=== PATIENT | female | born 1970 | race Caucasian/White ===

== ENCOUNTER 2022-04-10 14:06 | Outpatient (CLI) | payer OTHER, SELFPAY ==
--- OUTSIDE RECORDS SUMMARY | 2022-04-10 14:14 | XMS_ITS | Encounter Summary ---
:1970 Author Organization [facility] Address [address], [place] [address] Care Team Providers Name Role Phone Non Pn, Clinician MD Primary Care Provider Unavailable Reason for Referral Procedure/Equipment (Routine) - Incomplete Specialty Diagnoses / Procedures Referred By Contact Refer red To Contact Diagnoses Left foot pain Ney Hernandez DPM Procedures XR Foot Lt 3+ Views [id number] [place] [address] Referral ID Status Reason Start Date Expiration Date Visits V isits Requested Authorized [id number] Incomplete 01/24/2019 04/24/2020 1 1 Reason for Visit Reason Comments Toe Pain new problem, 2nd toe left fo ot pain at hammertoe site with intermittent edema and pain with nail steffanie ng thick Encounter Details Date Type Department Care Team Description 01/24/2019 Initial Consult [facility] Ney Hernandez Left foot pain (Primary Dx); MedSurg DPM Hammertoe of second toe of left foot; [address] [address] [facility] Onychomycosis; [place] [address] [place], [place] Bunion, left [phone] Social History Tobacco Use Types Packs/Day Years Used Date Smoking Tobacco: Never Smokeless Tobacco: Never Sex Assigned at Date Recorded Not on file documented as of this encounter Progress Notes Ney Hernandez, CHRISTINAM - 01/24/2019 10:45 AM CDT DATE OF VISIT: 01/24/2019 SUBJECTIVE: Polly Case is a pleasant 48 y.o. female who presents to clinic today for evaluation of a new problem. She is having some discomfort over the nail plate on the 2nd toe of her left foot. She also has some discomfort and pressure on the 2nd toe. This has been like this for approximately 1-2 months. She believes that the 2nd toe may have some swelling at times. Chart review indicates her last visit with me was in January 2015 this was for right heel pain. She was given a diagnosis of plantar fasciitis. This is no longer an issue.. Adverse Drug Reactions: Allergies Allergen Reactions ??? Iodides ??? Iodine PN: ANAPHYLAXIS ??? Other PN: - control pills-hives ??? Penicillins PN: HIVES Outpatient Medications Prior to Visit Medication Sig ??? ALBUTEROL IN Inhale 1-2 puffs every 4 hours as needed. LW Comment:WITH SPACER ??? LORazepam (ATIVAN) 0.5 MG tablet Take 0.5 mg by mouth every 6 hours as needed for Anxiety. ??? PAXIL 10MG ORAL TABS 1 po qd ??? Probiotic Product (PROBIOTIC OR) Take 1 capsule by mouth daily (every 24 hours). ??? ranitidine (ZANTAC) 150 MG tablet Take 150 mg by mouth nightly. No facility-administered medications prior to visit. Review of Systems: Negative for fever, rash or shortness of breath. Past Medical History: No past medical history on file. Patient Active Problem List Diagnosis Date Noted ??? Anxiety state (HRC) 07/26/2007 Overview Note: Anxiety NOS ??? Allergic rhinitis 07/26/2007 Overview Note: Rhinitis Allergic NOS ??? Anemia 07/26/2007 Overview Note: Anemia NOS ??? Amblyopia 08/05/2006 Overview Note: Amblyopia NOS No past surgical history on file. 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 year old female who appears their stated age. Alert and oriented and in no acute distress. Walks without a limp and appears to be in general good health. DP and PT pulses are palpable. Hair growth is present on the digits and capillary filling time is less than two seconds. Sensation is intact. There is no weakness with muscle testing of the foot, ankle or lower leg. No pain or restriction with subtalar joint or ankle joint range of motion. In stance loss of longitudinal arch is evident. There are no paresthesias over the tarsal tunnel or with compression of the dorsal nerves. She does have a lateral deviation of the left great toe with a firm subcutaneous mass adjacent the 1st MPJ consistent with the metatarsal head. She does not have any pain at the bunion deformity. When the patient stands, she does have a medial drift of the 2nd toe and it is slightly overlapping the great toe. There is no hyperkeratotic lesion dorsally at the PIPJ of the left 2nd toe. She does have slight pain at the 2nd MTP. The nail plate is thickened and dystrophic on the 2nd toe of her right foot. X-rays obtained today: 01/24/2019 12:08 PM - Leonard, Rad Results In Impression Performed by: [facility] COMPARISON: ??None. FINDINGS: ??There is a prominent bunion deformity with degenerative change of first MTP joint. Normal mineralization. Joint space is unremarkable. No acute ASSESSMENT: ICD-10-CM 1. Left foot pain M79.672 XR Foot Lt 3+ Views 2. Hammertoe of second toe of left foot M20.42 3. Onychomycosis B35.1 4. Bunion, left M21.612 PLAN: Treatment options were discussed with the patient. I discussed the condition in great detail. X-rays were obtained and reviewed with the patient. I discussed with the patient that she does have ahammertoe deformity and most likely this is causing pressure on the nail plate. I discussed the frustrating treatment options available and did discuss the use of Vicks Vaporub. She does understand that she will need to use this for at least 1 year. Regarding the 2nd toe, she may be getting some back pressure at the MPJ and I did recommend a temporary blue insert. I also gave her 2 options for the toe itself. She can use a hammertoe stabilizing pad or a silicone sleeve. The hammertoe stabilizing pad may hold the toe in position causing less back pressure on the MPJ. The silicone sleeve would be more for just pressure on the top of the toe. I discussed with the patient that if this is unsuccessful that the surgical option would be the next step. She does verbalize understanding. The patient was discharged ambulatory and in stable condition. Orders Placed This Encounter Procedures ??? XR Foot Lt 3+ Views No orders of the defined types were placed in this encounter. (This note was created using voice recognition software and may contain some relay operator errors) documented in this encounter Plan of Treatment Not on filedocumented as of this encounter Results XR Foot Lt 3+ Views (01/24/2019 11:16 AM CDT) Anatomical Region Laterality Modality Lower Extremity, Foot Digital Radiograph y Specimen (Source) Anatomical Collection Method Collection Time Re ceived Time Location / / Volume Laterality 01/24/2019 11:12 AM CDT Impressions 01/24/2019 12:06 PM CDT COMPARISON: ??None. FINDINGS: ??There is a prominent bunion deformity with degenerative change of first MTP joint. Normal mineralization. Joint space is unremarkable. No acute Procedure Note Serjio Aviles MD - 01/24/2019For matting of this note might be different from the original. IMPRESSION COMPARISON: None. FINDINGS: There is a prominent bunion de formity with degenerative change of first MTP joint. Normal mineralization. Joint space is unremarkable. No acute Ney Hernandez DPM RAD GD documented in this encounter Visit Diagnoses Diagnosis Left foot pain - Primary Pain in limb Hammertoe of second toe of left foot Onychomycosis Dermatophytosis of nail Bunion, left Left foot pain Pain in limb documented in this encounter Care Teams Lining Closer Relationship Specialty Start Date End Date Non Pn, Clinician, PCP - General 11/03/13 [place] [address] documented as of this encounter
--- OUTSIDE RECORDS SUMMARY | 2022-04-10 14:14 | XMS_ITS | Encounter Summary ---
:1970 Author Organization [employer] Address [address] [address] Care Team Providers Name Role Phone Non Pn, Clinician MD Primary Care Provider Unavailable Reason for Visit Reason Onset Date Comments BACK PAIN, LOW 10/13/2018 Encounter Details Date Type Department Care Team Description 10/13/2018 Office Visit [facility], Dami Agrawal MD [address] [place] [address] Mechanical low back pain; [facility] García Queen MD Muscular deconditioning [place] [address] [facility], [address] [place] [address] Social History Tobacco Use Types Packs/Day Years Used Date Smoking Tobacco: Never Sex Assigned at Date Recorded Not on file documented as of this encounter Progress Notes García Queen MD - 10/13/2018 1:30 PM CDT History 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 Her most recent episode of backpain began gradually in September 2017. She underwent physical therapy for about 2 months which was not much help. She does not have any radiation going down her legs. She states that she walks for exercise. Imaging She underwent an MRI of the lumbar spine on August 27, 2018.This showed L4-5 disc degeneration with type I endplate changes. There was no neural impingement. There was L5-S1 disc herniation with unilateral left chronic spondylosis and no neural compromise. There was mild to moderate disc degeneration at other levels without neural impingement. See the full report for additional details. Exam Blood pressure= 124/74. =Pulse 84 and regular. Respirations 12 and unlabored. Skin:Normal texture and turgor HEENT: Normocephalic and atraumatic.Pupils equal. round and reactive to light. Neck: No abnormal nodes. Abdomen soft, flat and nontender. Neurological: Cranial nerves II through XII intact. Deep tendon reflexes 2+ and symmetrical in the upper and lower extremities. Sensation normal in the upper and lower extremities. She is able walk on heels and toes. Straight leg raisin in the supine position. She can walk on heels and toes. Lumbar exam: Range of motion measured using a bubble inclinometer. No lumbar tenderness. True lumbar flexion equals 70. True lumbar extension 25. Right and left lateral lumbar flexion 25 each. Assessment Mechanical low back pain Muscular deconditioning Plan Stretch twice a day MedX twice a week Recheck in 6 weeks. García Queen MD 10/13/2018 2:03 PM Voice recognition software was used to create this note, please excuse any small errors that occur while using this. documented in this encounter Plan of Treatment Not on filedocumented as of this encounter Visit Diagnoses Diagnosis Mechanical low back pain Lumbago Muscular deconditioning Muscular wasting and disuse atrophy, not elsewhere classified documented in this encounter Care Teams Cyber Security Systems Engineer Relationship Specialty Start Date End Date Non Pn, Clinician, PCP - General 11/03/13 [place] [address] documented as of this encounter
--- OUTSIDE RECORDS SUMMARY | 2022-04-10 14:14 | XMS_ITS | Encounter Summary ---
:1970 Author Organization [facility] Address [address], [place] [address] Care Team Providers Name Role Phone Non Pn, Clinician MD Primary Care Provider Unavailable Reason for Visit Procedure/Equipment (Routine) - Incomplete Specialty Diagnoses / Procedures Referred By Contact Refer red To Contact Diagnoses Left foot pain Ney Hernandez, [facility] Procedures XR Foot Lt 3+ Views [address] [place] [address] Referral ID Status Reason Start Date Expiration Date Visits V isits Requested Authorized [id number] Incomplete 01/24/2019 04/24/2020 1 1 Encounter Details Date Type Department Care Team Description 01/24/2019 Ancillary Procedure [facility] Ney Hernandez, Left foot pain [address] [place] [address] [address] [phone] [place], [place] [id number] Social History Tobacco Use Types Packs/Day Years Used Date Smoking Tobacco: Never Smokeless Tobacco: Never Sex Assigned at Date Recorded Not on file documented as of this encounter Plan of Treatment Not on filedocumented as of this encounter Procedures Procedure Name Priority Date/Time Associated Diagnosis Comme nts XR FOOT LT 3+ VIEWS Routine 01/24/2019 11:16 AM Left foot pain Results for this CDT procedure are i n the results section. documented in this encounter Results XR Foot Lt 3+ [...] Joint space is unremarkable. No acute Ney VASQUEZM RAD GD documented in this encounter Visit Diagnoses Diagnosis Left foot pain Pain in limb documented in this encounter Care Teams Agent Spa Desk Relationship Specialty Start Date End Date Non Pn, Clinician, PCP - General 11/03/13 [place] [address] documented as of this encounter
--- OUTSIDE RECORDS SUMMARY | 2022-04-10 14:14 | XMS_ITS | Clinical Summary ---
:1970 Author Organization [facility] Address [address] [facility] [place] [address] Care Team Providers Name Role Phone Non Pn, Clinician MD Primary Care Provider Unavailable Source Comments You are receiving this document as you are listed as the primary care provider,follow-up provider, or the patient has been referred to you for consultation.This is in compliance with the Medicare and Medicaid EHR Incentive Program,which states Providers who transition their patient to another setting of careor provider of care or refers their patient to another provider of care shouldprovide summarycare record for each transition of care or referral. [employer] Allergies Active Allergy Reactions Severity Noted Date Comments Iodides 05/27/1999 Iodine 06/07/2003 PN: ANAPHYLAXIS Other 04/04/2005 PN: - cont rol pills-hives Penicillins 06/07/2003 PN: HIVES Medications Medication Sig Dispensed Refills Start Date End Date Status PAXIL 10MG ORAL TABS 1 po qd 30 1 12/23/2002 Active ALBUTEROL IN Inhale 1-2 puffs 3 08/24/2008 Active every 4 hours as needed. LW Comment:WITH SPACER LORazepam (ATIVAN) 0.5 Take 0.5 mg by 0 07/07/2013 Active MG tablet mouth every 6 hours as needed for Anxiety. Probiotic Product Take 1 capsule by 0 12/20/2015 Active (PROBIOTIC OR) mouth daily (every 24 hours). ranitidine (ZANTAC) Take 150 mg by 0 12/20/2015 Active 150 MG tablet mouth nightly. Active Problems Problem Noted Date Anxiety state 07/26/2007 Overview: Anxiety NOS Allergic rhinitis 07/26/2007 Overview: Rhinitis Allergic NOS Anemia 07/26/2007 Overview: Anemia NOS Amblyopia 08/05/2006 Overview: Amblyopia NOS Immunizations Name Administration Dates Next Due Flu Vac Preserv Free (3+yrs) 02/14/2008, 03/09/2007, 004, 05/09/2003 HepB Adult (Engerix-B, 20+ yrs, 3 08/24/2003, 03/24/2003, dose series) Rho(D) - IG, IM 03/01/2004, 08/07/1997, 05/08/1997 Td 05/10/2001, 10/31/1999 Varicella 12/25/1998 (Deferred: Immune by Disease) Social History Tobacco Use Types Packs/Day Years Used Date Smoking Tobacco: Never Smokeless Tobacco: Never Sex Assigned at Date Recorded Not on file Last Filed Vital Signs Vital Sign Reading Time Taken Comments Blood Pressure 141/71 07/07/2013 8:20 AM MODEL MAKER APPRENTICE Pulse 119 07/07/2013 8:20 AM MODEL MAKER APPRENTICE Temperature 37.4 ??C (99.3 ??F) 07/25/2008 8:04 AM C: 37.4 C CDT Respiratory Rate 14 07/07/2013 8:20 AM MODEL MAKER APPRENTICE Oxygen Saturation 100% 01/06/2008 6:26 PM CDT Inhaled Oxygen Concentration - - Weight 60.8 kg (133 lb 15.9 oz) 02/14/2008 4:09 PM C: 6 0.8kg CDT Height 170.2 cm (5' 7) 07/26/2007 3:40 PM C: 170.2cm CDT Body Mass Index 20.99 07/26/2007 3:40 PM CDT Plan of Treatment Health Maintenance Due Date Last Done Comments Colon Cancer Screening Plan 1970 Due Hep C Screening (Preventive 1970 Services) COVID-19 Vaccine (#1) 01[birth year]10/1971 HIV Screening (Preventive 1984 Services) Adult Preventive Visit 06/23/2002 06/23/2001 Cervical Cancer Screening 02/19/2011 02/18/2011, 09/06/2007 , Due 08/07/2006, Additional history exists Cholesterol 2013 07/26/2006, 08/30/2003, 11/17/2001 Mammogram 06/21/2014 06/21/2013, 02/11/2011, 06/28/2009, Additional history exists Influenza (#1) 2022 02/10/2020, 01/27/2019, 02/16/2018, Additional history exists DTaP/Tdap/Td (2 - Tdap) 02/08/2024 02/07/2014, 05/10/2001, 10/31/1999 HepB Completed 08/24/2003, 03/24/2003, 02/03/2003 Zoster/Shingles Completed 09/27/2019, 05/24/2019 HepA Aged Out No longer eligib le based on patient 's age to complete this topic Hib Aged Out No longer eligib le based on patient 's age to complete this topic IPV (Polio) Aged Out No longer eligib le based on patient 's age to complete this topic MCV4 Aged Out No longer eligib le based on patient 's age to complete this topic Pneumococcal Aged Out No longer eligib le based on patient 's age to complete this topic Insurance Payer Benefit Plan Subscriber ID Effective Phone Address Typ e / Group Dates [facility] SELF [id number] Effective for Commercial DENTAL PLAN INSURED all dates [employer] SELF [id number] 2012-Prese Commercial INSURED nt Polly Case Personal/Family Self 1970 [phone] [place] [place] (Work) [id number] Polly Case Personal/Family Self 1970 [id number]) [phone] [place] [place] (Work) [id number] Polly Case Personal/Family Self 1970 [id number] [address] Polly Case Personal/Family Self 1970 [id number] ([place] [address] Care Teams Production Sound Mixer Relationship Specialty Start Date End Date Non Pn, Clinician, PCP - General 11/03/13 [place] [address]
--- OUTSIDE RECORDS SUMMARY | 2022-04-10 14:14 | XMS_ITS | Encounter Summary ---
:1970 Author Organization [facility] Address [address] [place] [address] Care Team Providers Name Role Phone Non Pn, Clinician MD Primary Care Provider Unavailable Reason for Visit Reason Comments Dental Conversion [facility] to [place] convers ion Encounter Details Date Type Department Care Team Description 10/16/2016 Dental Conversion [facility] [address] [facility] [address] [place] [address] [address] [place], [place] [phone] [address] Social History Tobacco Use Types Packs/Day Years Used Date Smoking Tobacco: Never Sex Assigned at Date Recorded Not on file documented as of this encounter Discharge Summaries Interface, In Edr Dental Conversion - 01/31/2017 12:00 AM CDT EDR Pt Notes: 01/23/11 snc--pt is sick 04/23/2011 sn cx child is ill 02/12/2012 sn cx pt is ill Interface, In Edr Dental Conversion - 08/20/2009 12:00 AM CDT EDR dismissed Popup Note, entered 08/20/2009: consent form Interface, In Edr Dental Conversion - 06/18/2006 12:00 AM CST The following Past and Current Health Conditions, if any, were recorded in EDR as YES; notes included: Amount alcohol used per week2(Compare with Amount alcohol used per week1 amount, if presented; Use greater amount): 0. The following Dental Information, if any, was recorded in EDR: Previous dentist: Jeremy Wray. Last dental visit: 06-11-05. Brushes teeth daily. Uses Fluoridated toothpaste. Primary water source: [place], Fil[place]. The following Past Dental Treatment, if any, was recorded in EDR: Had >= 1 filling(s) in past three years. The following, if any, are the patient?s Allergy Information: Allergy Medication(s): Penicillin,Iodine. The patient current physician, medical clinic and medications, if any, are: The patient's physician: Any. The patient's medical clinic: [facility]. Current Medication 1: Nasocort. Current Medication 2: Chata. Health History Note EMS SUPPORT OFFICER documented in this encounter Miscellaneous Notes Miscellaneous - Interface, In Edr Dental Conversion - 01/23/2011 12:00 AM CDT 01/23/2011: SNC/NS Notification: pt has a cold --knows this is a short notice cancel Miscellaneous - Interface, In Edr Dental Conversion - 09/19/2008 12:00 AM CDT 09/19/2008: Incoming Phone Call: see emdv notes documented in this encounter Plan of Treatment Not on filedocumented as of this encounter Visit Diagnoses Not on filedocumented in this encounter Care Teams Boring Machine Operator Vertical Relationship Specialty Start Date End Date Non Pn, Clinician, PCP - General 11/03/13 [place] [address] documented as of this encounter
--- OUTSIDE RECORDS SUMMARY | 2022-04-10 14:15 | XMS_ITS | Encounter Summary ---
:1970 Author Organization [facility] Address [address] [place] [address] Care Team Providers Name Role Phone Non Pn, Clinician MD Primary Care Provider Unavailable Reason for Visit Reason Comments Other Encounter Details Date Type Department Care Team Description 04/10/2014 Telephone [facility] [address] Christiane Phelps MD Other [address] [place] [address] [place] [address] [phone] (Wo rk) Social History Tobacco Use Types Packs/Day Years Used Date Smoking Tobacco: Never Assessed Sex Assigned at Date Recorded Not on file documented as of this encounter Nursing Notes Gerber Cordova LPN - 04/11/2014 1:48 PM CST Pt informed. ROCK DRILL OPERATOR Nkikie Sawyer RN - 04/11/2014 9:02 AM CST Prescription sent to [facility] in [place]. Christiane Batres MD - 04/10/2014 8:17 PM CST See above. Cipro 500 mg BID for 7 days if she develops symptoms. Thanks Gerber Cordova LPN - 04/10/2014 3:09 PM CST Pt on low dose Nitrofurantoin 50 mg and has been doing well. Pt is leaving town for 2 weeks over theidays and asks to have something called in just in case she has an issue while away. Any rx canbe called to [facility] in [place]. Okay for cb @ [phone]. ROCK DRILL OPERATOR documented in this encounter Plan of Treatment Not on filedocumented as of this encounter Visit Diagnoses Not on filedocumented in this encounter Care Teams Director Targeted Marketing Relationship Specialty Start Date End Date Non Pn, Clinician, PCP - General 11/03/13 [place] [address] documented as of this encounter
--- OUTSIDE RECORDS SUMMARY | 2022-04-10 14:15 | XMS_ITS | Encounter Summary ---
:1970 Author [facility] Address [address] [place] [address] Care Team Providers Name Role Phone Carlos Lisa Andrade APRN, CNP Primary Care Provider [phone] Encounter Details Date Type Department Care Team Description 07/26/2008 [facility] Only CONVERSION CONVERSION Domenica Millan PA-C [address] [place], [place] [address] (Wo rk) Social History Tobacco Use Types Packs/Day Years Used Date Smoking Tobacco: Never Assessed Sex Assigned at Date Recorded Not on file documented as of this encounter Progress Notes Domenica Millan PA-C - 07/26/2008 12:01 AM CDT Progress Notes signed by Domenica Millan PA-C at 07/26/08 [id number] Author: Domenica Millan PA-C Service: (none) Author Type: Physician Payroll Clerk Filed: 08/31/10 [id number] Note Time: 07/26/08 0001 Status: Signed Farmworker Grain: Domenica Millan PA-C (Resource) Pt calling concerned about wheezing. Started Macrobid yesterday for UTI. No wheezing now. Wondering if related to macrobid vs asthma. Does not want to take albuterol due to how it makes her feel. See phone note from today. facial itchiness intermittently, no hives/ rash. given concern for possible reaction to med, would recommend evaluation tonight. Pt states she will take another dose and if she has further wheezing she will come in to be evaluated. All questions answered. documented in this encounter Plan of Treatment Not on filedocumented as of this encounter Visit Diagnoses Not on filedocumented in this encounter Care Teams Social Sciences Department Chair Relationship Specialty Start Date End Date Lisa Gonzalez APRN, FRONT OFFICE SECRETARY PCP - General 05/03/1998 11/02/13 [address] [place] [address] documented as of this encounter
--- OUTSIDE RECORDS SUMMARY | 2022-04-10 14:15 | XMS_ITS | Encounter Summary ---
:1970 Author Organization [facility] Address [address] [address] Care Team Providers Name Role Phone Lisa Gonzalez APRN, CNP Primary Care Provider [phone] Reason for Visit Reason Comments Other Encounter Details Date Type Department Care Team Description 07/26/2008 Telephone [facility], Message Other [address] [place] [address] Social History Tobacco Use Types Packs/Day Years Used Date Smoking Tobacco: Never Assessed Sex Assigned at Date Recorded Not on file documented as of this encounter Progress Notes Nicole Faith - 07/26/2008 1:52 PM CDT Phone Note filed by Nicole Faith RN at 08/29/102203 Author: Nicole Faith RN Service: (none) Author Type: (none) Filed: 08/29/102203 Note Time: 07/26/08 1352 Status: Signed Service Parts Driver: Nicole Faith RN (Registered Nurse) Pt calling because she was started on macrobid yesterday and today is having a slight bit of wheezing. She states that she has had issues with asthma and wheezing in the past but has not had any sx in a couple of months. She is wondering if this is a rxn to the med. I spoke with Mickie Millan and she suggested that she try her meds for asthma and that it is okay to stay on the macrobid for now as long as she has no further or worsening sx. It could be a coincidence which I told the pt and i also told her to watch for any rash, lip or throat swelling, sob or further wheezing and if any of these did occur, to call 911 and/or be reseen immediately. Pt agreed with the plan. Created on 26Jul2008 1:52pm by NICOLE FAITH On 26Jul2008 3:10pm SLIME ARAMBULA wrote: pt is calling to state she thinks she is having a reaction to meds started yesterday and would like to change meds, she states almost 4 yrs ago she had a bladder infection and took a med that worked for her. She is having slight wheezing and itchy around her face, she has more phlegm in her throat. [facility] pharm in [place] is her pharm, ph# [phone], ok a leave a mess., please call her today. On 26Jul2008 3:27pm KADI HOWARD wrote: Called pt. back. She is feeling the same, no better, slight wheeze still at times. No swelling. Face a little itchy. She had her 3rd dose of Macrobid this morning. She would prefer to change antibiotics. Has not tried the albuterol inhaler, she feels sick when she takes that. Has benadryl on hand, has not taken any. Advised to go to UC or ER if worsens. Pharmacy: [facility] in seq[phone]. PLATER documented in this encounter Plan of Treatment Not on filedocumented as of this encounter Visit Diagnoses Not on filedocumented in this encounter Care Teams Welder Boilermaker Relationship Specialty Start Date End Date Lisa Gonzalez, PHYSICAL CHEMISTRY PROFESSOR, FLIGHT CREW ORDNANCEMAN PCP - General 05/03/1998 11/02/13 [address] [place] [address] documented as of this encounter
--- OUTSIDE RECORDS SUMMARY | 2022-04-10 14:15 | XMS_ITS | Encounter Summary ---
:[address] [email or web address] Address [address] [place] [address] Care Team Providers Name Role Phone Gonzalez Lisa Raymond MARIN CNP Primary Care Provider [phone] Encounter Details Date Type Department Care Team Description 07/25/2008 Office Visit [facility] [place] [address] [place], [place] [address] [place] [phone] (Wo rk) Social History Tobacco Use Types Packs/Day Years Used Date Smoking Tobacco: Never Assessed Sex Assigned at Date Recorded Not on file documented as of this encounter Last Filed Vital Signs Vital Sign Reading Time Taken Comments Blood Pressure 103/65 07/25/2008 8:04 AM CDT Pulse 130 07/25/2008 8:04 AM CDT Temperature 37.4 ??C (99.3 ??F) 07/25/2008 8:04 AM CDT C: 37 .4 C Respiratory Rate 16 07/25/2008 8:04 AM CDT Oxygen Saturation - - Inhaled Oxygen Concentration - - Weight - - Height - - Body Mass Index - - documented in this encounter Progress Notes Emilia Fischer MD - 07/25/2008 12:01 AM CDT Progress Notes signed by Emilia Fischer MD at 07/26/08 1230 Author: Emilia Fischer MD Service: (none) Author Type: Physician Filed: 08/31/10 1331 Note Time: 07/25/08 0001 Status: Signed Health Promotion Coordinator: Emilia Fischer MD (Physician) NAME: POLLY CASE MR#: [id number] ACCT: [id number] VISIT: [id number] DICTATING CLINICIAN: Emilia Fischer MD CONFIRM #: [id number] LOC: 520 CLINIC PROGRESS NOTE DATE OF VISIT: 07/25/2008 SUBJECTIVE: DATE OF : 1970 A 38-year-old here with urinary frequency and urgency and very little dysuria that started last night. She has had maybe one or two infections in the past with . Symptoms came fairly quickly. No significant fever or chills. No back ache and no vaginal symptoms. OBJECTIVE: Temperature 99.4, pulse 130, respiratory rate 16, blood pressure 103/65. No CVA tenderness. Urinalysis was quite positive and we have a culture pending. ASSESSMENT: UTI. PLAN: MACROBID 100 mg twice a day for 7 days and PyRIDIUM 100 mg, fifteen for the discomfort. Push fluids. [id number] C: 07/26/08 10:27 CONFIRM #: [id number] documented in this encounter Plan of Treatment Not on filedocumented as of this encounter Visit Diagnoses Not on filedocumented in this encounter Care Teams Reducing Salon Attendant Relationship Specialty Start Date End Date Lisa Gonzalez APRN, AIR TRAFFIC SYSTEMS TECHNICIAN PCP - General 05/03/1998 11/02/13 [address] [place] [address] documented as of this encounter
--- OUTSIDE RECORDS SUMMARY | 2022-04-10 14:15 | XMS_ITS | Encounter Summary ---
:1970 [address] [facility] Address [address] [place] [address] Care Team Providers Name Role Phone Non Pn, Clinician Primary Care Provider Unavailable Encounter Details Date Type Department Care Team Description 02/18/2011 Orders Only HP Claims MD Doris Security Contact Bill [address] [place] [address] Mailstop [id number] [phone] (Wo rk) Social History Tobacco Use Types Packs/Day Years Used Date Smoking Tobacco: Never Assessed Sex Assigned at Date Recorded Not on file documented as of this encounter Plan of Treatment Not on filedocumented as of this encounter Visit Diagnoses Not on filedocumented in this encounter Care Teams Director Of Research And Development Relationship Specialty Start Date End Date Non Pn, ClinicianMD PCP - General 11/03/13 [place] [address] documented as of this encounter
--- OUTSIDE RECORDS SUMMARY | 2022-04-10 14:15 | XMS_ITS | Encounter Summary ---
:1970 Author Organization [facility] Address [address] [place] [address] Care Team Providers Name Role Phone Non Pn, Clinician Primary Care Provider Unavailable Encounter Details Date Type Department Care Team Description 06/21/2013 Orders Only HP Claims MD Doris Security Contact Bill [address] [place] [address] Mailstop [id number] [phone] (Wo rk) Social History Tobacco Use Types Packs/Day Years Used Date Smoking Tobacco: Never Assessed Sex Assigned at Date Recorded Not on file documented as of this encounter Plan of Treatment Not on filedocumented as of this encounter Visit Diagnoses Not on filedocumented in this encounter Care Teams Outside Operator Relationship Specialty Start Date End Date Non Pn, ClinicianMD PCP - General 11/03/13 [place] [address] documented as of this encounter
--- OUTSIDE RECORDS SUMMARY | 2022-04-10 14:15 | XMS_ITS | Encounter Summary ---
:1970 Author Organization [facility] Address [address], [place] [address] Care Team Providers Name Role Phone Non Pn, Clinician Primary Care Provider Unavailable Reason for Visit Reason Comments LAB RESULTS Encounter Details Date Type Department Care Team Description 12/11/2013 Telephone [facility] Non Pn, ClinicianMD LAB RESULTS [address] [place] [address] Social History Tobacco Use Types Packs/Day Years Used Date Smoking Tobacco: Never Assessed Sex Assigned at Date Recorded Not on file documented as of this encounter Nursing Notes Paula Delarosa - 12/11/2013 11:32 AM CDT Pt calling for results of urine tests done 12/08. Advised that the culture showed some growth of bacteria but the result has not yet been interpreted by her doctor. Since the lab was ordered byher urologist, the call is warm transferred to [facility] with patient permission. documented in this encounter Plan of Treatment Not on filedocumented as of this encounter Visit Diagnoses Not on filedocumented in this encounter Care Teams Remote Operations Producer Relationship Specialty Start Date End Date Non Pn, ClinicianMD PCP - General 11/03/13 [place] [address] documented as of this encounter
--- OUTSIDE RECORDS SUMMARY | 2022-04-10 14:15 | XMS_ITS | Encounter Summary ---
:1970 Author Organization [facility] Address [address], [place] [address] Care Team Providers Name Role Phone Non Pn, Clinician MD Primary Care Provider Unavailable Reason for Visit Reason Comments Questions Encounter Details Date Type Department Care Team Description 03/21/2015 Telephone [facility] [address] Christiane Phelps MD Questions [address] [place] [address] [place] [address] [phone] (Wo rk) Social History Tobacco Use Types Packs/Day Years Used Date Smoking Tobacco: Never Assessed Sex Assigned at Date Recorded Not on file documented as of this encounter Nursing Notes Ania Elaine LPN - 03/22/2015 10:05 AM CST I spoke with Polly and gave her Dr. Batres's suggestion. She is going to remain on the Cipro until she hears about her culture. Isa Ayala RN - 03/21/2015 10:02 AM CST Polly is calling, she thinks she might have a uti vs menstrual symptoms. She will go to the lab and give the cleanest sample possible. Then she will start cipro. please follow culture. I offered for her to come up to [place] for a cathed uc, she stated she was unable to do that and could not wait until tomorrow to do it in [place]. ER documented in this encounter Plan of Treatment Not on filedocumented as of this encounter Visit Diagnoses Diagnosis Recurrent UTI - Primary Urinary tract infection, site not specif ied documented in this encounter Care Teams Editor Publications Relationship Specialty Start Date End Date Non Pn, Clinician, PCP - General 11/03/13 [place] [address] documented as of this encounter
--- OUTSIDE RECORDS SUMMARY | 2022-04-10 14:15 | XMS_ITS | Encounter Summary ---
:1970 Author Organization [facility] Address [address] [place] [address] Care Team Providers Name Role Phone Lisa Gonzalez APRN, AMANDA Primary Care Provider [phone] Encounter Details Date Type Department Care Team Description 01/16/2011 Notes/Orders Jorge Schmitt Other scre ening Mammography MD [facility]ogram [address] [place] [address] [place], [place] [id number] Social History Tobacco Use Types Packs/Day Years Used Date Smoking Tobacco: Never Assessed Sex Assigned at Date Recorded Not on file documented as of this encounter Plan of Treatment Not on filedocumented as of this encounter Procedures Procedure Name Priority Date/Time Associated Diagnosis Comme nts MM MAMMOGRAM Routine 02/11/2011 10:22 AM Other screening Resul ts for this SCREENING BILAT W CDT mammogram procedure are in CAD the results section. documented in this encounter Results (ABNORMAL) MM Mammogram Screening Bilat W CAD (02/11/2011 10:22 AM CDT) Anatomical Region Laterality Modality Breast Bilateral Mammography Specimen (Source) Anatomical Location Collection Method / Collectio n Time Received Time / Laterality Volume Impressions 02/12/2011 1:41 PM CDT IMPRESSION: LEFT BREAST: Focal asymmetry at a middle depth. Spot compression and ultrasound are recommended at this time. RIGHT BREAST: Negative, no evidence of m alignancy. Normal interval follow-up is recommended in 12 months. SJW OVERALL ASSESSMENT - CATEGORY 0 - INCOMP LETE: NEED ADDITIONAL IMAGING EVALUATION END OF IMPRESSION Narrative 02/12/2011 1:41 PM CDT Comparison is made to films from 06/28/2009 (bilateral) and films from 12/01/2007 (bilateral). Left Breast Findings: The breast is heterogeneously dense (51% - 75% fibroglandular). This may lower the sensitivity of mammography . An area of focal asymmetry is present at a middle depth and is seen only in the Medial Lateral Oblique Left projection superiorly. Right Breast Findings: The breast is heterogeneously dense (51% - 75% fibroglandular). This may lower the sensitivity of mammography . No significant masses, calcifications or other abnormalities ar e seen. Procedure Note Jemal Chacon MD - 01/08/2016Formatti ng of this note might be different from the original. Comparison is made to films from 010 (bilateral) and films from 12/01/2007 (bilateral). Left Breast Findings: The breast is heterogeneously dense (51% - 75% fibroglandular). This may lower the sensitivity of mammography . An area of focal asymmetry is present at a middle depth and is seen only in the Medial Lateral Oblique Left projection superiorly. Right Breast Findings: The breast is heterogeneously dense (51% - 75% fibroglandular). This may lower the sensitivity of mammography . No significant masses, calcifications or other abnormalities ar e seen. IMPRESSION IMPRESSION: LEFT BREAST: Focal asymmetry at a middle depth. Spot compression and ultrasound are recommended at this time. RIGHT BREAST: Negative, no evidence of m alignancy. Normal interval follow-up is recommended in 12 months. SJW OVERALL ASSESSMENT - CATEGORY 0 - INCOMP LETE: NEED ADDITIONAL IMAGING EVALUATION END OF IMPRESSION Jorge Alvarado MD RAD MAY documented in this encounter Visit Diagnoses Diagnosis Other screening mammogram documented in this encounter Care Teams Home Stager Relationship Specialty Start Date End Date Lisa Gonzalez, ROOTER OPERATOR, VENEREAL DISEASE CONTROL HEAD PCP - General 05/03/1998 11/02/13 [address] [place] [address] documented as of this encounter
--- OUTSIDE RECORDS SUMMARY | 2022-04-10 14:15 | XMS_ITS | Encounter Summary ---
:1970 Author Organization [facility] Address [address] [place] [address] Care Team Providers Name Role Phone Lisa Gonzalez APRN, CNP Primary Care Provider [phone] Reason for Visit Reason Comments CONSULT Encounter Details Date Type Department Care Team Description 07/07/2013 Initial Consult [facility] Christiane [place]res, [place] [address] [facility] female (Primary Dx) [place] [address] [address] [facility] [phone] [place] [address] Social History Tobacco Use Types Packs/Day Years Used Date Smoking Tobacco: Never Assessed Sex Assigned at Date Recorded Not on file documented as of this encounter Last Filed Vital Signs Vital Sign Reading Time Taken Comments Blood Pressure 141/71 07/07/2013 8:20 AM PALEONTOLOGY TEACHER Pulse 119 07/07/2013 8:20 AM PALEONTOLOGY TEACHER Temperature - - Respiratory Rate 14 07/07/2013 8:20 AM PALEONTOLOGY TEACHER Oxygen Saturation - - Inhaled Oxygen Concentration - - Weight - - Height - - Body Mass Index - - documented in this encounter Progress Notes Christiane Batres MD - 07/07/2013 9:48 AM CST Urology Consult HPI: Polly Case is a 42 y.o. female with a history of pelvic pain, pressure. This is centeredin the vaginal and urethral area. This was moderate to severe. It started about one month ago and then for the last week it has dissipated. The patient feels normal now. The patient thinks that it may be related to her periods. She is starting has and for a number of months no period was coming thoroughly. Patient also is having some problems with the sensation of having to empty her bladder but not having anything there. She thought it was similar to a urinary tract infection. This was waking the patient up at night. The patient had some type of surgery when she was a child. From what the patient describes to me it sounds like her urethra was widen. However the patient's incision is in the suprapubic area. She had this performed when she was [age] years old. It was after she was getting a lot of febrile infections. She thinks that she wasn't emptying her bladder completely. Possible that she could have had a ureterocele as well. The patient does not get a lot of urinary tract infections. She does notice that ittakes her a little longer to empty her bladder then and takes other women. The patient had 4 vaginal births. The largest child was 10 lbs. 1 oz. She has minimal incontinence. Clinic UA: Completely negative Review of systems: No chest pain, no shortness of breath, the rest of the complete review of systemsis negative other than what is stated in the HPI. PMH: Patient Active Problem List Diagnosis ??? Amblyopia NOS ??? Anxiety NOS ??? Rhinitis Allergic NOS ??? Anemia NOS PSH: No past surgical history on file. 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 Current Outpatient Prescriptions Medication Sig Dispense Refill ??? albuterol (PROVENTIL, VENTOLIN) 90 mcg/Actuation inhaler Inhale 1-2 puffs every 4 hours as needed. LW Comment:WITH SPACER 3 ??? LORazepam (ATIVAN) 0.5 mg tablet Take 0.5 mg by mouth every 6 hours as needed for Anxiety. ??? multivitamin (THERAGRAN) tablet Take 1 tablet by mouth daily (every 24 hours). 100 13 ??? [DISCONTINUED] op medications reviewed No current facility-administered medications for this visit. Allergies Allergen Reactions ??? Iodine ANAPHYLAXIS ??? Other - control pills-hives ??? Penicillins HIVES VS: BP 141/71 Pulse 119 Resp 14 General: Comfortable, alert, awake, oriented Psych: Judgment and insight intact Oriented to time, place and person Resp: no wheezing, normal resp effort Abdomen: soft, nontender, nondistended, no masses No hepato/splenomegaly No obvious hernias Back: no CVA tenderness Skin: warm, dry and intact Gait: normal gait Extremities: no swelling External genitalia: Within normal limits Urethral meatus: normal Urethra: normal Vagina: no masses, non tender Assessment: Pelvic pressure and pain now subsided with a history of bladder surgery as a child Plan: I had a good discussion with Polly regarding her options. Given that she feels better for the last week and her urinalysis is completely negative, we decided to hold off on cystoscopy. I think if the symptoms come back or the urgency frequency becomes more pronounced, we should perform cystoscopy. Thepatient will call or e-mail me if her symptoms come back. Otherwise no treatment is necessary. Christiane Batres MD ONTOLOGY TEACHER documented in this encounter Plan of Treatment Not on filedocumented as of this encounter Procedures Procedure Name Priority Date/Time Associated Comments Diagnosis POCT URINALYSIS Routine 07/07/2013 8:26 AM Pelvic pressure in Results for this UROLOGY PALEONTOLOGY TEACHER female procedure are i n the results section. documented in this encounter Results POCT URINALYSIS UROLOGY (07/07/2013 8:26 AM PALEONTOLOGY TEACHER) P athologist Signature See SDOC scanned HP CONVERSION Specimen (Source) Anatomical Collection Method Collection Time Re ceived Time Location / / Volume Laterality 07/07/2013 8:26 AM PALEONTOLOGY TEACHER Christiane Batres MD PN POINT OF CARE TESTS Performing Organization Address City/State/ZIP Code Phon e Number HP CONVERSION documented in this encounter Visit Diagnoses Diagnosis Pelvic pressure in female - Primary Other specified symptom associated with female genital organs documented in this encounter Care Teams Network Programmer Relationship Specialty Start Date End Date Lisa Gonzalez, JOURNEYMAN ELECTRICIAN, ELECTRICAL SIGN SERVICER PCP - General 05/03/1998 11/02/13 [address] [place] [address] documented as of this encounter
--- OUTSIDE RECORDS SUMMARY | 2022-04-10 14:15 | XMS_ITS | Encounter Summary ---
:1970 [facility] Address [address] [place] [address] Care Team Providers Name Role Phone Lisa Gonzalez APRN, CNP Primary Care Provider [phone] Encounter Details Date Type Department Care Team Description 07/29/2010 Office Visit [facility] [place] [address] [place] [address] [facility] [phone] [place], [address] Social History Tobacco Use Types Packs/Day Years Used Date Smoking Tobacco: Never Assessed Sex Assigned at Date Recorded Not on file documented as of this encounter Plan of Treatment Not on filedocumented as of this encounter Visit Diagnoses Not on filedocumented in this encounter Care Teams Veterinary Anatomist Relationship Specialty Start Date End Date Lisa Gonzalez APRN, CNP PCP - General 05/03/1998 11/02/13 [address] [place] [address] documented as of this encounter
--- OUTSIDE RECORDS SUMMARY | 2022-04-10 14:15 | XMS_ITS | Encounter Summary ---
:1970 Author Organization [facility] Address [address] [place] [address] Care Team Providers Name Role Phone Carlos Lisa Andrade APRN, CNP Primary Care Provider [phone] Encounter Details Date Type Department Care Team Description 10/16/2009 PN Conversion Only [place] [address] [facility] [address] [place] [id number] [place] [address] (Wo rk) Social History Tobacco Use Types Packs/Day Years Used Date Smoking Tobacco: Never Assessed Sex Assigned at Date Recorded Not on file documented as of this encounter Plan of Treatment Not on filedocumented as of this encounter Procedures Procedure Name Priority Date/Time Associated Diagnosis Comme nts ECG 12 LEAD CL[facility] Routine 10/16/2009 7:51 PM Res ults for this CDT procedure are i n the results section. documented in this encounter Results ECG 12 lead clinic (10/16/2009 7:51 PM CDT) Specimen (Source) Anatomical Collection Method Collection Time Re ceived Time Location / / Volume Laterality 10/16/2009 7:51 PM CDT Narrative HP CONVERSION - 10/16/2009 7:51 PM CDT Normal sinus rhythm Normal ECG When compared with ECG of 06-JAN-2008 1 8:52, No significant change was found Imr Conversion PN ECG ORDERABLES Performing Organization Address City/State/ZIP Code Phon e Number HP CONVERSION documented in this encounter Visit Diagnoses Not on filedocumented in this encounter Care Teams Radio Repair Teacher Relationship Specialty Start Date End Date Lisa Gonzalez APRN, LABORER DRYING DEPARTMENT PCP - General 05/03/1998 11/02/13 [address] [place] [address] documented as of this encounter
--- OUTSIDE RECORDS SUMMARY | 2022-04-10 14:15 | XMS_ITS | Encounter Summary ---
:1970 Author Organization [facility] Address [address] [place] [address] Care Team Providers Name Role Phone Non Pn, Clinician MD Primary Care Provider Unavailable Encounter Details Date Type Department Care Team Description 03/21/2015 Lab Visit [facility] Recurrent UTI [address] [place] [address] Social History Tobacco Use Types Packs/Day Years Used Date Smoking Tobacco: Never Assessed Sex Assigned at Date Recorded Not on file documented as of this encounter Progress Notes Nikkie Sawyer RN - 03/23/2015 10:42 AM CERTIFIED CAREGIVER Quick Note: Pt aware. IFIED CAREGIVER Christiane Batres MD - 03/22/2015 4:02 PM CERTIFIED CAREGIVER Quick Note: Disregard last note. She should stop the cipro. No sign of true infection. Thanks Christiane Simons MD - 03/22/2015 4:01 PM CERTIFIED CAREGIVER Quick Note: Yes, cipro could effect the cathed specimen. If she had burning, should take the cipro for 3 days at least. Nikkie Ryder RN - 03/22/2015 10:08 AM CERTIFIED CAREGIVER Quick Note: Pt notified. Pt has taken 2 doses of the Cipro. She states that the burning is gone but still has some cramping but also has her menstrual cycle. She would like to hold off on her Cipro today to see how she is feeling and will continue Cipro if she feels she needs to. She will call us if she would like to have cath specimen. She is wondering if the Cipro that she took would effect the cath specimen if she decides to do that. IFIED CAREGIVER Christiane Batres MD - 03/21/2015 4:21 PM CERTIFIED CAREGIVER Quick Note: Should have cipro at home, but looks contaminated, if symptoms don't improve, needs cathed specimen. IFIED CAREGIVER documented in this encounter Miscellaneous Notes Miscellaneous - 08/28/2016 1:45 PM CDTNotes Recorded by Nikkie Sawyer RN on 03/23/2015 at 10:42 AMPt aware.------Notes Recorded by Christiane Batres MD on 03/22/2015 at 4:02 PMDisregard last note. She should stop the cipro. No sign of true infection. Thanks Miscellaneous - 06/19/2016 1:27 AM CSTNotes Recorded by Nikkie Sawyer RN on 03/23/2015 at 10:42 AMPt aware.------Notes Recorded by Christiane Batres MD on 03/22/2015 at 4:02 PMDisregard last note. She should stop the cipro. No sign of true infection. Thanks------Notes Recorded by Christiane Batres MD on 03/22/2015 at 4:01 PMYes, cipro could effect the cathed specimen. If she had burning, should take the cipro for 3 days atleast.------Notes Recorded by Nikkie Sawyer RN on 03/22/2015 at 10:08 AMPt notified. Pt has taken 2 doses of the Cipro. She states that the burning is gone but still has some cramping but also has her menstrual cycle. She would like to hold off on her Cipro today to see how she is feeling and will continue Cipro if she feels she needs to. She will call us if she would like to have cath specimen. She is wondering if the Cipro that she took would effect the cath specimen if she decides to do that. ------Notes Recorded by Christiane Batres MD on 03/21/2015 at 4:21 PMShould have cipro at home, but looks contaminated, if symptoms don't improve, needs cathed specimen. IFIED CAREGIVER Miscellaneous - 06/19/2016 1:27 AM CSTNotes Recorded by Nikkie Sawyer RN on 03/23/2015 at 10:42 AMPt aware.------Notes Recorded by Christiane Batres MD on 03/22/2015 at 4:02 PMDisregard last note. She should stop the cipro. No sign of true infection. Thanks------Notes Recorded by Christiane Batres MD on 03/22/2015 at 4:01 PMYes, cipro could effect the cathed specimen. If she had burning, should take the cipro for 3 days atleast.------Notes Recorded by Nikkie Sawyer RN on 03/22/2015 at 10:08 AMPt notified. Pt has taken 2 doses of the Cipro. She states that the burning is gone but still has some cramping but also has her menstrual cycle. She would like to hold off on her Cipro today to see how she is feeling and will continue Cipro if she feels she needs to. She will call us if she would like to have cath specimen. She is wondering if the Cipro that she took would effect the cath specimen if she decides to do that. ------Notes Recorded by Christiane Batres MD on 03/21/2015 at 4:21 PMShould have cipro at home, but looks contaminated, if symptoms don't improve, needs cathed specimen. IFIED CAREGIVER documented in this encounter Plan of Treatment Not on filedocumented as of this encounter Procedures Procedure Name Priority Date/Time Associated Comments Diagnosis URINE MICROSCOPIC Routine 03/21/2015 11:20 Result s for this AM CERTIFIED CAREGIVER procedure are i n the results section. URINALYSIS Routine 03/21/2015 11:20 Recurrent UTI Results fo r this ROUTINE(MICRO IF POS) AM CERTIFIED CAREGIVER proced ure are in the results section. URINE CULTURE Routine 03/21/2015 11:20 Recurrent UTI Results f or this AM CERTIFIED CAREGIVER procedure are i n the results section. documented in this encounter Results Urine Culture (03/21/2015 11:20 AM CERTIFIED CAREGIVER) Component Value Ref Test Analysis Performed At [facility] CAD Best Range Method Time Signature Source Urine HP CONVERSION Site clean catch HP CONVERSION Urine Culture Mixed gram HP CONVERSION positive organisms. 10-50,000 cfu/mL Urine Culture For symptomatic HP CONVERS ION patients, correlate culture results in Urine Culture context of HP CONVERSION clinical findings. Screening for and treatment Urine Culture of asymptomatic HP CONVERS ION bacteriuria in adults 18 years and older Urine Culture is not HP CONVERSION recommended for the following persons: premenopausal Urine Culture non HP CONVERSION women, diabetic women, elderly persons, persons Urine Culture with spinal cord HP CONVER DOT injury and catheterized patients. Urine Culture In general, HP CONVERSION asymptomatic bacteriuria does not need Urine Culture treatment, except HP CONVE RSION in or in patients anticipating Urine Culture urologic surgery. HP CONVE RSION Urine Culture (See Infectious HP CONVERS ION Disease Society of Nery Urine Culture guidelines for HP CONVERSI ON additional information) Urine Culture http://ike.oxford HP CONVE RSION journals.org/cont ent/40/5/643.full .pdf Specimen (Source) Anatomical Collection Method Collection Time Re ceived Time Location / / Volume Laterality Urine:clean catch 03/21/2015 11:20 AM CERTIFIED CAREGIVER Narrative HP CONVERSION - 03/22/2015 10:35 AM CERTIFIED CAREGIVER Performed at [address] [address], CLIA Number [id number] Transcriptions 08/28/2016 1:45 PM CDTNotes Recorded by Nikkie Sawyer RN on 03/23/2015 at 10:42 AMPt aware.------Notes Recorded by Christiane Batres MD on 03/22/2015 at 4:02 PMDisregard last note. She should stop the cipro. No sign of true infection. Thanks Christiane Batres MD LAB_1 Performing Organization Address City/State/ZIP Code Phon e Number HP CONVERSION (ABNORMAL) URINE MICROSCOPIC (03/21/2015 11:20 AM CERTIFIED CAREGIVER) [facility] Method Time Signature Urine WBC 25-49 (A) 0 - 4 HP CONVERSION /HPF Urine RBC 50-100 (A) 0 - 2 HP CONVERSION /HPF Bacteria Urine Moderate (A) /HPF HP CONVERSIO N Epithelial Moderate /HPF HP CONVERSION Cells Urine Mucus Moderate /LPF HP CONVERSION Specimen Anatomical Collection Method Collection Time Receive d Time (Source) Location / / Volume Laterality 03/21/2015 11:20 03/21/2015 AM CERTIFIED CAREGIVER 11:19 AM CERTIFIED CAREGIVER Narrative HP CONVERSION - 03/21/2015 11:28 AM CERTIFIED CAREGIVER Performed at [facility], [address] [place] [address] CLIA number [id number] Transcriptions 06/19/2016 1:27 AM CSTNotes Recorded by Nikkie Sawyer RN on 03/23/2015 at 10:42 AMPt aware.------Notes Recorded by Christiane Batres MD on 03/22/2015 at 4:02 PMDisregard last note. She should stop the cipro. No sign of true infection. Thanks ------Notes Recorded by Christiane smallwood MD on 03/22/2015 at 4:01 PMYes, cipro could effect the cathed specimen. If she had burning, should take the cipro for 3 days at least.------Notes Recorded by Nikkie Sawyer RN on 03/22/2015 at 10:08 AM Pt notified. Pt has taken 2 doses of the Cipro. She states that the burning is gone but still has some cramping but also has her menstrual cycle. She would like to hold off on her Cipro today to see how she is feeling and will continue Cipro if she feels she needs to. She will call us if she would like to have cath specimen. She is wondering if the Cipro that she took would effect the cath specimen if she decides to do that.------ Notes Recorded by Christiane Batres MD on 03/21/2015 at 4:21 PMShould have cipro at home, but looks contaminated, if symptoms don't improve, needs cathed specimen. Christiane Batres MD LAB_1 Performing Organization Address City/State/ZIP Code Phon e Number HP CONVERSION (ABNORMAL) URINALYSIS ROUTINE(MICRO IF POS) (03/21/2015 11:20 AM CERTIFIED CAREGIVER) [facility] Method Time Signature Urine Type Urine:clean HP CONVERSION cat Turbidity Hazy (A) Clear HP CONVERSION U BILI Negative Negative HP CONVERSION Blood Urine Moderate Negative HP CONVERSION (A) Glucose, Negative Neg-30 HP CONVERSION Qualitative U mg/dL Ketones Negative Negative HP CONVERSION Leukocyte Small (A) Negative HP CONVERSION Esterase Urine Nitrite Urine Negative Negative HP CONVERSION pH Urine 7.5 5.0 - 8.0 HP CONVERSION Protein Urine Trace Neg - Trace HP CONVERSION mg/dL U Specific 1.020 1.005 - HP CONVERSION [place] 1.030 Urobilinogen Negative Negative HP CONVERSION Urine Eu/dL Specimen Anatomical Collection Method Collection Time Receive d Time (Source) Location / / Volume Laterality Urine: 03/21/2015 11:20 03/21/2015 AM CERTIFIED CAREGIVER 11:19 AM CERTIFIED CAREGIVER Narrative HP CONVERSION - 03/21/2015 11:28 AM CERTIFIED CAREGIVER Performed at [facility], [address] [id number] Transcriptions 06/19/2016 1:27 AM CSTNotes Recorded by Nikkie Sawyer RN on 03/23/2015 at 10:42 AMPt aware.------Notes Recorded by Christiane Batres MD on 03/22/2015 at 4:02 PMDisregard last note. She should stop the cipro. No sign of true infection. Thanks ------Notes Recorded by Christiane smallwood MD on 03/22/2015 at 4:01 PMYes, cipro could effect the cathed specimen. If she had burning, should take the cipro for 3 days at least.------Notes Recorded by Nikkie Sawyer RN on 03/22/2015 at 10:08 AM Pt notified. Pt has taken 2 doses of the Cipro. She states that the burning is gone but still has some cramping but also has her menstrual cycle. She would like to hold off on her Cipro today to see how she is feeling and will continue Cipro if she feels she needs to. She will call us if she would like to have cath specimen. She is wondering if the Cipro that she took would effect the cath specimen if she decides to do that.------ Notes Recorded by Christiane Batres MD on 03/21/2015 at 4:21 PMShould have cipro at home, but looks contaminated, if symptoms don't improve, needs cathed specimen. Christiane Batres MD LAB_1 Performing Organization Address City/State/ZIP Code Phon e Number HP CONVERSION documented in this encounter Visit Diagnoses Diagnosis Recurrent UTI Urinary tract infection, site not specif ied documented in this encounter Care Teams Cement Railroad Car Loader Relationship Specialty Start Date End Date Non Pn, Clinician, PCP - General 11/03/13 [place] [address] documented as of this encounter
--- OUTSIDE RECORDS SUMMARY | 2022-04-10 14:15 | XMS_ITS | Encounter Summary ---
:1970 [address] [facility] Address [address] [place] [address] Care Team Providers Name Role Phone Non Pn, Clinician MD Primary Care Provider Unavailable Reason for Visit Reason Comments Follow-up Encounter Details Date Type Department Care Team Description 03/09/2014 Office Visit [facility] Christiane Batres, Urinary tract [address] [facility] infection, [place] [address] [address] [facility] specified (Primary [phone]x) [place] [address] (Wo rk) Social History Tobacco Use Types Packs/Day Years Used Date Smoking Tobacco: Never Assessed Sex Assigned at Date Recorded Not on file documented as of this encounter Patient Instructions Patient InstructionsChristiane Batres MD - 03/09/2014 10:43 AM CDT If you have symptoms when on the antibiotic, ask for a catheterized specimen. Follow up in 6 months. documented in this encounter Progress Notes Christiane Batres MD - 03/09/2014 10:13 PM CDT Progress Notes signed by Christiane Batres MD at 03/13/14 1220 Author: Christiane Batres MD Service: (none) Author Type: Physician Filed: 03/13/14 1220 Note Time: 03/10/14 1317 Status: Signed Wind Energy Project Manager: Christiane Batres MD (Physician) NAME: POLLY CASE MR#: [id number] CSN: [id number] AUTHENTICATING CLINICIAN: Christiane Batres MD CONFIRM #: [id number] LOC: 517 CLINIC PROGRESS NOTE DATE OF VISIT: 03/09/2014 : 1970 CLINICAL DATA: Polly is a very pleasant 43-year-old woman who initially presented with bladder and pelvic pressure,and in the end, most likely the patient is getting recurrent urinary tract infections, some of whichshe was able to clear by herself. Since seeing her in October, when the patient has had more episodes of pain and questionable infection she had one clearly positive enterococcus that was pansensitive andthen 2 cultures that were positive for group B strep. The patient had symptoms at those times. She was started on antibiotics, and her symptoms always improved on the antibiotics. I had a good discussion with the patient about the possibility that some of this might be contamination, but given the fact that she is symptomatic and improves after getting antibiotics, it does pointto the fact that this could very well likely be recurrent urinary tract infections. We discussed howto treat this and how to prevent these. In the end, we decided to go ahead with low-dose antibioticsfor 6 months and then after that most likely start D-mannose with cranberry tablets. ASSESSMENT: Recurrent urinary tract infections and bladder pain. PLAN: Low-dose antibiotics for 6 months. The patient will get cultures with her primary caregiver that is closer to her house. I did instruct the patient that if she does get these symptoms, that I would like her to try to get a catheterized specimen rather than a clean catch to ensure that the cultures are not being contaminated. Total visit time today was 15 minutes, 10 minutes counseling. JR:DOMI C: CONFIRM #: [id number] ESS PLANNER documented in this encounter Plan of Treatment Not on filedocumented as of this encounter Procedures Procedure Name Priority Date/Time Associated Comments Diagnosis AUTOMATED URINALYSIS Routine 03/09/2014 10:33 AM Results for this DIPSTICK POCT CDT procedure are in the results section. documented in this encounter Results POCT AUTOMATED URINALYSIS DIPSTICK (03/09/2014 10:33 AM CDT) [facility] Method Time Signature Urine Glucose Negative mg/dL HP CONVERSION (POC) Urine Bilirubin Negative HP CONVERSION (POC) Urine Ketone Negative mg/dL HP CONVERSION (POC) Urine Specific 1.020 HP CONVERSION [place] (POC) Urine Occult Negative HP CONVERSION Blood (POC) Urine PH (POC) 6.5 HP CONVERSION Urine Protein Negative HP CONVERSION (POC) Urine Negative mg/dL HP CONVERSION Urobilinogen (POC) Urine Nitrite Negative HP CONVERSION (POC) Urine Leukocytes Negative HP CONVERSION (POC) Urine Color Yellow HP CONVERSION (POC) Urine Appearance Clear HP CONVERSION (POC) Comment: Performed by: [place] [id number] Strip [address] Number (POC) [id number] mg/dL HP CONV ERSION Specimen Anatomical Collection Method Collection Time Receive d Time (Source) Location / / Volume Laterality 03/09/2014 10:33 03/09/2014 AM CDT 10:30 AM CDT Christiane Batres MD LAB_1 Performing Organization Address City/State/ZIP Code Phon e Number HP CONVERSION documented in this encounter Visit Diagnoses Diagnosis Urinary tract infection, site not specif ied - Primary documented in this encounter Care Teams Web Content & Social Media Manager Relationship Specialty Start Date End Date Non Pn, Clinician, PCP - General 11/03/13 [place] [address] documented as of this encounter
--- OUTSIDE RECORDS SUMMARY | 2022-04-10 14:15 | XMS_ITS | Encounter Summary ---
:1970 Author Organization [facility] Address [address], [place] [address] Care Team Providers Name Role Phone Non Pn, Clinician MD Primary Care Provider Unavailable Reason for Visit Reason Onset Date Comments LAB RESULTS 12/11/2013 Encounter Details Date Type Department Care Team Description 12/11/2013 Telephone Careline Unassigned, Provider LAB RESULTS [address] [place], [place] [address] [place] [address] Social History Tobacco Use Types Packs/Day Years Used Date Smoking Tobacco: Never Assessed Sex Assigned at Date Recorded Not on file documented as of this encounter Nursing Notes Domenica Madsen, RN - 12/11/2013 2:05 PM CDT Returned call to pt HX of UTIs and started with intermittent dysuria 12/07/13 Dropped off urine specimen 12/08/13 Wondering what results are showing Has RX for Cipro that she was given by Urology - wondering if she should take it States no worsening of dysuria since it started last week No hematuria, fever, n/v, back pain Has mild generalized lower abd cramping - but getting ready to start her period - and cramps feel like menstrual cramps - pain is not strong enough to take anything for the pain Sees Dr Batres in Urology Last visit was 11/03/13 - had normal cystoscopy (notes in CareEverywhere reviewed) TRIAGE 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 No Nausea and vomiting? No Fever greater than 101 degrees? No Rigors (shaking chills)? No PMH: Patient Active Problem List Diagnosis (none) - all problems resolved or deleted MEDS: Current Outpatient Prescriptions Medication Sig ??? PAXIL 10MG ORAL TABS 1 po qd ALLERGIES: Allergies Allergen Reactions ??? HOME TX: Push PO fluids w/out caffeine or alcohol Tylenol PRN for cramping PLAN: UC results in CareEverywhere show Group B strep in urine, 50-100K but no susceptibilities to abx listed. Consulted with [facility] and they state they don't do susceptibilities on Group B strep and they have no info re: abx. Consulted with on-call [facility]rologist (Abdullahi Benitez) who advised no abx tx is required for Group B strep and pt should just push PO fluids - and f/up with clinic tomorrow if no improvement. Pt advised of MD's recommendation. Reviewed home treatments described above as well as worsening/stat symptoms to watch for - and advised immediate eval if those symptoms occur. Encouraged to call back anytime with any questions, concerns, changes in symptoms. Pt verbalized understanding of recommendations, denies further questions and is agreeable to plan. Domenica Madsen, RN Erika Johnson - 12/11/2013 11:28 AM CDT Which care system or clinic is the patient normally seen at? [facility]INICS Do we have permission to access information needed from your [facility] medical records? Yes. [facility] would like me to ask all callers, If the CareLine was not available, what would you have done?Clinic Follow-Up (i.e. lab, medication question, med refill). Situation: had UA done last , requesting results and should she fill the rx Gave her? Plan:A nurse will return your call. If your symptoms change for the worse, please call us back [phone].. documented in this encounter Plan of Treatment Not on filedocumented as of this encounter Visit Diagnoses Not on filedocumented in this encounter Care Teams Radar Signal Processing Engineer Relationship Specialty Start Date End Date Non Pn, Clinician, PCP - General 11/03/13 [place] [address] documented as of this encounter
--- OUTSIDE RECORDS SUMMARY | 2022-04-10 14:15 | XMS_ITS | Encounter Summary ---
:1970 [facility] Address [address] [place] [address] Care Team Providers Name Role Phone Non Pn, Clinician MD Primary Care Provider Unavailable Reason for Visit Reason Comments Follow-up Encounter Details Date Type Department Care Team Description 09/14/2014 Office Visit [facility] Christiane Batres, Urinary tract [address] [facility] infection without [place], [place] [phone]603 [facility] hematuria, site [phone] unspecified [place], [place] [phone] (Wo rk) Social History Tobacco Use Types Packs/Day Years Used Date Smoking Tobacco: Never Assessed Sex Assigned at Date Recorded Not on file documented as of this encounter Patient Instructions Patient InstructionsChristiane Bartes MD - 09/14/2014 11:57 AM CDT Treat each infection as it comes. If you start having symptoms, collect a culture in the cups provided, and start antibiotics. Drop off culture at [facility] lab. We will call you back with the results. documented in this encounter Progress Notes Christiane Batres MD - 09/14/2014 12:12 PM CDT Progress Notes signed by Christiane Batres MD at 09/20/14 2319 Author: Christiane Batres MD Service: (none) Author Type: Physician Filed: 09/20/14 1009 Note Time: 09/14/14 1607 Status: Signed Research Associate Policy: Christiane Batres MD (Physician) NAME: POLLY CASE MR#: [id number] CSN: [id number] AUTHENTICATING CLINICIAN: Christiane Batres MD CONFIRM #: [id number] LOC: 517 CLINIC PROGRESS NOTE DATE OF VISIT: 09/14/2014 : 1970 CLINICAL DATA: Polly is a very pleasant 44-year-old woman who initially presented with bladder and pelvic pressure,and in the end was most likely getting recurrent urinary tract infections which some of the time sheis able to clear by herself. The patient has been on low-dose antibiotics with nitrofurantoin 50 mg daily for the last 6 months and her symptoms have almost completely gone away. A couple of times she had some inklings of symptoms, but they did not continue. ASSESSMENT: Recurrent urinary tract infections and bladder pain, improved after 6 months of low-dose nitrofurantoin. PLAN: At this point, I want to treat each infection as it comes. Previously, we had discussed having the patient get a catheterized specimen. Now, I think it would be easier to just get a clean catch so if she gets symptoms she will submit a clean-catch urine and start Cipro. If it looks like all of these are going to be contaminated then we will have to ask her to start getting the catheterized specimen so that we have a better chance of getting bacterial identification. If the patient continues to get recurrent infections after she is off the prophylactic antibiotics we may have to start these again. Will see the patient in 1 year. Total visit time today was 15 minutes, 10 minutes was counseling. JR:DOMI C: CONFIRM #: [id number] documented in this encounter Plan of Treatment Not on filedocumented as of this encounter Procedures Procedure Name Priority Date/Time Associated Comments Diagnosis AUTOMATED URINALYSIS Routine 09/14/2014 10:55 AM Results for this DIPSTICK POCT CDT procedure are in the results section. documented in this encounter Results POCT AUTOMATED URINALYSIS DIPSTICK (09/14/2014 10:55 AM CDT) [facility] gist Method Time Signature Urine Glucose Negative mg/dL HP CONVERSION (POC) Urine Bilirubin Negative HP CONVERSION (POC) Urine Ketone Negative mg/dL HP CONVERSION (POC) Urine Specific 1.010 HP CONVERSION Rupert (POC) Urine Occult Negative HP CONVERSION Blood (POC) Urine PH (POC) 6.5 HP CONVERSION Urine Protein Negative HP CONVERSION (POC) Urine Negative mg/dL HP CONVERSION Urobilinogen (POC) Urine Nitrite Negative HP CONVERSION (POC) Urine Leukocytes Negative HP CONVERSION (POC) Urine Color Light yellow HP CONVERSION (POC) Urine Appearance Clear HP CONVERSION (POC) Comment: Performed by: [id number] [place] [address] Strip Lot Number (POC) [id number] mg/dL HP CONV ERSION Specimen Anatomical Collection Method Collection Time Receive d Time (Source) Location / / Volume Laterality 09/14/2014 10:55 09/14/2014 AM CDT 11:45 AM CDT Christiane Batres MD LAB_1 Performing Organization Address City/State/ZIP Code Phon e Number HP CONVERSION documented in this encounter Visit Diagnoses Diagnosis Urinary tract infection without hematuri a, site unspecified documented in this encounter Care Teams Maid Cleaning Cooking Relationship Specialty Start Date End Date Non Pn, Clinician, PCP - General 11/03/13 [place] [address] documented as of this encounter
--- OUTSIDE RECORDS SUMMARY | 2022-04-10 14:15 | XMS_ITS | Encounter Summary ---
:1970 Author [facility] Address [address] [place] [address] Care Team Providers Name Role Phone Carlos Lisa Andrade APRN, CNP Primary Care Provider Encounter Details Date Type Department Care Team Description 07/25/2008 PN Conversion Only [place] [address] [address] [place] [address] (Wo rk) Social History Tobacco Use Types Packs/Day Years Used Date Smoking Tobacco: Never Assessed Sex Assigned at Date Recorded Not on file documented as of this encounter Plan of Treatment Not on filedocumented as of this encounter Procedures Procedure Name Priority Date/Time Associated Comments Diagnosis URINE CULTURE Routine 07/25/2008 10:06 Results fo r this AM CDT procedure are i n the results section. URINALYSIS Routine 07/25/2008 8:21 AM Results f or this ROUTINE(MICRO IF POS) CDT proced ure are in the results section. URINALYSIS Routine 07/25/2008 8:21 AM Results f or this MICROSCOPIC CDT procedure are i n the results section. documented in this encounter Results (ABNORMAL) Urine Culture (07/25/2008 10:06 AM CDT) [facility] Method Time Signature Urine Culture SEE TEXT HP CONVERSION (A) Comment: Patient: POLLY CASE Culture, Urine ?Collected: ??[id number] ??[id number] Source: Clean Ca ?Processed: ??[id number] ??[id number] ? SENS V Final Report ------ ?[id number] ??[id number] >100,000 CFU/mL Escherichia coli Susceptibility Testing E COL ??SRUTHI INTERP: ?S ??AMOX/CLAV ACID, CEFAZOLIN, LEVOFLOXACIN, CIPROFLOXACIN ?CEFT RIAXONE, CEFTAZIDIME, GENTAMICIN, CEFEPIME, ?NITR OFURANTOIN, TRIMETH-SULFA ? R ??ALFREDO DYER Specimen (Source) Anatomical Collection Method Collection Time Re ceived Time Location / / Volume Laterality 07/25/2008 10:06 AM CDT Emilia Fischer MD LAB_1 Performing Organization Address City/State/ZIP Code Phon e Number HP CONVERSION (ABNORMAL) Urinalysis Routine(Micro If Pos) (07/25/2008 8:21 AM CDT) [facility] Hydro-Run Method Time Signature Turbidity Cloudy (A) No normal HP CONVERSION range pH Urine 6.5 4.5 - 7.5 HP CONVERSION Protein Urine >300mg/d Neg-Trac HP CONVERSION (A) Glucose, Negative Neg-Trac HP CONVERSION Qualitative U Ketones Negative Negative HP CONVERSION U BILI Negative Negative HP CONVERSION Blood Urine Large (A) Negative HP CONVERSION Nitrite Urine Positive Negative HP CONVERSION (A) Leukocyte Moderate Negative HP CONVERSION Esterase Urine (A) Urobilinogen Negative 0.2 - 1.0 HP CONVERSION Urine U Specific 1.015 1.005 - 25 HP CONVERSION [place] Specimen (Source) Anatomical Collection Method Collection Time Re ceived Time Location / / Volume Laterality 07/25/2008 8:21 AM CDT Emilia Fischer MD LAB_1 Performing Organization Address City/[facility]/ZIP Code Phon e Number HP CONVERSION (ABNORMAL) Urinalysis Microscopic (07/25/2008 8:21 AM CDT) [facility] Hydro-Run Method Time Signature White Blood >100/HPF 0 - 3 HP CONVERSION Cells Urine (A) Red Blood Cells >100/HPF 0 - 2 HP CONVERSION Urine (A) Bacteria Urine Many (A) None HP CONVERSION Epithelial Few Few /HPF HP CONVERSION Cells Specimen (Source) Anatomical Collection Method Collection Time Re ceived Time Location / / Volume Laterality 07/25/2008 8:21 AM CDT Emilia Fischer MD LAB_1 Performing Organization Address City/State/ZIP Code Phon e Number HP CONVERSION documented in this encounter Visit Diagnoses Not on filedocumented in this encounter Care Teams Software Applications Architect Relationship Specialty Start Date End Date Lisa Gonzalez, LAP CHECKER, PARKING GARAGE MANAGER PCP - General 05/03/1998 11/02/13 [address] [place] [address] documented as of this encounter
--- OUTSIDE RECORDS SUMMARY | 2022-04-10 14:15 | XMS_ITS | Encounter Summary ---
:1970 Author Organization [facility] Address [address] [place] [address] Care Team Providers Name Role Phone Non Pn, Clinician MD Primary Care Provider Unavailable Reason for Visit Reason Comments Medication Questions Encounter Details Date Type Department Care Team Description 03/16/2014 Telephone [facility] [address] Christiane Batres, [facility] ication Questions Urology [address] [facility] [place] [address] [phone] (Wo rk) Social History Tobacco Use Types Packs/Day Years Used Date Smoking Tobacco: Never Assessed Sex Assigned at Date Recorded Not on file documented as of this encounter Nursing Notes Lisa Ball RN - 03/21/2014 9:05 AM CST I left a message on her phone and put her on the reminder llist PROPERTY APPRAISER Christiane Batres MD - 03/17/2014 3:26 PM CST I think that is fine. Sometimes 3 months is enough to break the cycle of infections. Lisa Ball RN - 03/16/2014 11:58 AM CST pt calling because Her copay for the current prescription of nitrofurantoin cost he about 20.00 but after the first of the year her deductible restarts and the next 3 month prescription would cost about 150.00. She wants to know if she can reevaluuate after this first prescriiption is done and maybe not have to refill it. Any thoughts? pt phone [phone] PROPERTY APPRAISER documented in this encounter Plan of Treatment Not on filedocumented as of this encounter Visit Diagnoses Not on filedocumented in this encounter Care Teams Supervisor Poultry Farm Relationship Specialty Start Date End Date Non Pn, Clinician, PCP - General 11/03/13 [place] [address] documented as of this encounter
--- OUTSIDE RECORDS SUMMARY | 2022-04-10 14:15 | XMS_ITS | Encounter Summary ---
:1970 Author Organization [facility] Address [address] [place] [address] Care Team Providers Name Role Phone Non Pn, Clinician Primary Care Provider Unavailable Encounter Details Date Type Department Care Team Description 04/11/2014 Notes/Orders [facility] [place] [address] [facility] [address] [place] [address] [place] [address] [phone] (Wo rk) Social History Tobacco Use Types Packs/Day Years Used Date Smoking Tobacco: Never Assessed Sex Assigned at Date Recorded Not on file documented as of this encounter Plan of Treatment Not on filedocumented as of this encounter Visit Diagnoses Not on filedocumented in this encounter Care Teams Housekeeping Attendant Relationship Specialty Start Date End Date Non Pn, Clinician, PCP - General 11/03/13 [place] [address] documented as of this encounter
--- OUTSIDE RECORDS SUMMARY | 2022-04-10 14:15 | XMS_ITS | Encounter Summary ---
:1970 Author Organization [facility] Address [address] [place] [address] Care Team Providers Name Role Phone Carlos Lisa Andrade APRN, AMANDA Primary Care Provider [phone] Encounter Details Date Type Department Care Team Description 08/24/2008 Office Visit [facility] Demarco Frazier PA-C [address] [place] [address] [place] [address] [phone] (Wo rk) Social History Tobacco Use Types Packs/Day Years Used Date Smoking Tobacco: Never Assessed Sex Assigned at Date Recorded Not on file documented as of this encounter Progress Notes Demarco Frazier PA-C - 08/24/2008 12:01 AM CDT Progress Notes signed by Demarco Narvaez PA-C at 09/29/08 0919 Author: Demarco Narvaez PA-C Service: (none) Author Type: Physician Electrical Power Engineer Filed: 08/31/10 1418 Note Time: 08/24/08 0001 Status: Signed Master Glazier: Demarco Narvaez PA-C (Resource) NAME: POLLY CASE MR#: [id number] ACCT: [id number] VISIT: [id number] DICTATING CLINICIAN: DEMARCO NARVAEZ PA-C CONFIRM #: [id number] LOC: 527 CLINIC PROGRESS NOTE DATE OF VISIT: 08/24/2008 SUBJECTIVE: CHIEF CONCERN: Itchy spot, right upper back. HPI: Has been there for several months. States she thought it was a mole that was itching at 1st, but now has localized it to an area just above. She denies any bleeding. There is some mild scaling and roughness to the area. She would like to have it checked, as she does have history of dysplastic nevi. CURRENT MEDICATIONS: Reviewed and updated in the patient health profile in LastWord today. ADR/ALLERGIES: REVIEWED AND UPDATED IN THE PATIENT HEALTH PROFILE IN LAST[employer] TODAY. FAMILY HISTORY: No first-degree relatives with skin cancer or melanoma. SOCIAL HISTORY: She has had extensive sun exposure in the past. OBJECTIVE: This is a 38-year-old female in [facility]. She is alert and oriented x3. SKIN: Warm and dry. On the posterior distal right shoulder, there is a patch of very mild erythema and fine scaling. Along the longest diameter, measures approximately 6 cm. No skin texture changes. ASSESSMENT: Dermatitis, possibly related to xerosis cutis. PLAN: Asked her to do cool soak to the area, followed by a thick emollient cream. She could use tofu-ava-[id number] hydrocortisone to the area as needed for itch. If area is persistent or continues to change, I would like her to return to clinic for reevaluation. She is agreeable with this plan. FINAL IMPRESSION: Dermatitis, possibly related to xerosis cutis. TLW:[id number] C: 08/25/08 08:56 CONFIRM #: [id number] documented in this encounter Plan of Treatment Not on filedocumented as of this encounter Visit Diagnoses Not on filedocumented in this encounter Care Teams Fish Tender Relationship Specialty Start Date End Date Lisa Gonzalez, DOOR TO DOOR SALES REPRESENTATIVE, END MATCHER PCP - General 05/03/1998 11/02/13 [address] [place] [address] documented as of this encounter
--- OUTSIDE RECORDS SUMMARY | 2022-04-10 14:15 | XMS_ITS | Encounter Summary ---
:1970 Author Organization [facility] Address [address] [place] [address] Care Team Providers Name Role Phone Non Pn, Clinician MD Primary Care Provider Unavailable Reason for Visit Reason Comments Questions Encounter Details Date Type Department Care Team Description 11/17/2013 Telephone [facility] [address] Christiane Phelps MD Questions [address] [place] [address] [place] [address] [phone] (Wo rk) Social History Tobacco Use Types Packs/Day Years Used Date Smoking Tobacco: Never Assessed Sex Assigned at Date Recorded Not on file documented as of this encounter Nursing Notes Christiane Batres MD - 11/28/2013 9:56 AM CDT See below Christiane Batres MD - 11/28/2013 9:56 AM CDT Spoke with pt. Recommend pt undergo 2nd opinion with Faiza Ding for a stable simple ovariancyst. Recommendation of physician given to the patient. Kianna Osman - 11/23/2013 9:43 AM CDT Pt notified. Christiane Batres MD - 11/22/2013 8:41 PM CDT I did review the records. I contacted on of the Ob/Gyns here at [facility] and I am waiting to hear back. Can you let the pt know this? I will get back to her as soon as I hear. Kianna Osman - 11/17/2013 3:55 PM CDT Polly is calling regarding her cyst on her ovary. When she came in to see you in October you stated that you would take a look and see what is going on with that before she has any surgery. She had sent over the records but has been waiting to hear back. Have you gotten them at all yet? documented in this encounter Plan of Treatment Not on filedocumented as of this encounter Visit Diagnoses Not on filedocumented in this encounter Care Teams Measurer Machine Relationship Specialty Start Date End Date Non Pn, Clinician, PCP - General 11/03/13 [place] [address] documented as of this encounter
--- OUTSIDE RECORDS SUMMARY | 2022-04-10 14:15 | XMS_ITS | Encounter Summary ---
:1970 Author Organization [facility] Address [address] [place] [address] Care Team Providers Name Role Phone Non Pn, Clinician MD Primary Care Provider Unavailable Reason for Visit Reason Comments ABDOMINAL CRAMPS URINATION, URINATE, BURNING Encounter Details Date Type Department Care Team Description 12/02/2015 Telephone [facility] Unknown, ABDOMINAL CRAMPS; [address] Physician URINATION, URINATE, [place], [place] [address] BURNING [phone] [place] [address] Social History Tobacco Use Types Packs/Day Years Used Date Smoking Tobacco: Never Assessed Sex Assigned at Date Recorded Not on file documented as of this encounter Nursing Notes Eva Prieto RN - 12/02/2015 11:42 AM CDT 11:43 AM Pt's son answered and states she is on her way to the Dr. Eva Prieto 12/02/2015, 11:43 AM Kinsey Angulo - 12/02/2015 10:22 AM CDT Which care system or clinic is the patient normally seen at? [facility] . Situation: Medical: PT believes she has UTI - has abdominal cramping and burning while urination. Plan:A nurse will return your call. If your symptoms change for the worse, please call us back [phone].. documented in this encounter Plan of Treatment Not on filedocumented as of this encounter Visit Diagnoses Not on filedocumented in this encounter Care Teams Material Yard Clerk Relationship Specialty Start Date End Date Non Pn, Clinician, PCP - General 11/03/13 [place] [address] documented as of this encounter
--- OUTSIDE RECORDS SUMMARY | 2022-04-10 14:15 | XMS_ITS | Encounter Summary ---
:1970 [facility] Address [address] [place] [address] Care Team Providers Name Role Phone Lisa Gonzalez APRN, CNP Primary Care Provider [phone] Encounter Details Date Type Department Care Team Description 12/20/2008 Office Visit [facility] [address] [place], [place] [phone] Social History Tobacco Use Types Packs/Day Years Used Date Smoking Tobacco: Never Assessed Sex Assigned at Date Recorded Not on file documented as of this encounter Plan of Treatment Not on filedocumented as of this encounter Visit Diagnoses Not on filedocumented in this encounter Care Teams Sanitarian Aide Relationship Specialty Start Date End Date Lisa Gonzalez APRN, CNP PCP - General 05/03/1998 11/02/13 [address] [place] [address] documented as of this encounter
--- OUTSIDE RECORDS SUMMARY | 2022-04-10 14:15 | XMS_ITS | Encounter Summary ---
:1970 Author Organization [employer] [facility] Address [address] [place] [address] Care Team Providers Name Role Phone Non Pn, Clinician MD Primary Care Provider Unavailable Reason for Visit Reason Comments Other Encounter Details Date Type Department Care Team Description 03/26/2015 Telephone [facility] [address] Christiane Phelps MD Other [address] [place] [address] [place] [address] [phone] (Wo rk) Social History Tobacco Use Types Packs/Day Years Used Date Smoking Tobacco: Never Assessed Sex Assigned at Date Recorded Not on file documented as of this encounter Nursing Notes Gerber Cordova LPN - 03/27/2015 11:51 AM CST Pt cancelled nurse visit apt. Pt okay today. Pt will call in future when issue arises. Christiane Simons MD - 03/27/2015 11:17 AM CST Agree. Gerber Manuel LPN - 03/26/2015 1:15 PM CST Pt has a very slight burning with urination and asks to have a straight cath specimen as recommendedby Dr. Batres. Nurse apt set for tomorrow. Pt prefers to wait until culture result comes back beforetx. N DISPATCHER documented in this encounter Plan of Treatment Not on filedocumented as of this encounter Visit Diagnoses Not on filedocumented in this encounter Care Teams Second Hand Paper Machine Relationship Specialty Start Date End Date Non Pn, Clinician, PCP - General 11/03/13 [place] [address] documented as of this encounter
--- OUTSIDE RECORDS SUMMARY | 2022-04-10 14:15 | XMS_ITS | Encounter Summary ---
:1970 Author Organization [facility] Address [address] [place] [address] Care Team Providers Name Role Phone Non Pn, Clinician MD Primary Care Provider Unavailable Reason for Visit Reason Comments Follow-up Encounter Details Date Type Department Care Team Description 11/03/2013 Procedure Visit [facility] Christiane Batres MD Follow-up [address] [facility] [address] [place] [address] [facility] [phone] [place] [address] (Wo rk) Social History Tobacco Use Types Packs/Day Years Used Date Smoking Tobacco: Never Assessed Sex Assigned at Date Recorded Not on file documented as of this encounter Patient Instructions Patient InstructionsChristiane Batres MD - 11/03/2013 11:53 AM CDT 1. Increase water intake 2. Lactobacillus acidophilus 1 tablet daily 3. Treat each infection as it comes. If you start having symptoms, collect a culture, and start antibiotics. Drop off culture at [facility] lab and call [phone] to let us know that you dropped it off. We will call you back with the results. 4. If you continue to get infections, call for a follow up appt documented in this encounter Progress Notes Christiane Batres MD - 11/03/2013 12:24 PM CDT Progress Notes signed by Christiane Batres MD at 11/10/132220 Author: Christiane Batres MD Service: (none) Author Type: Physician Filed: 11/10/132220 Note Time: 11/03/13 1442 Status: Signed Wad Impregnator: Christiane Batres MD (Physician) NAME: POLLY CASE MR#: [id number] CSN: [id number] AUTHENTICATING CLINICIAN: Christiane Batres MD CONFIRM #: [id number] LOC: 517 CLINIC PROGRESS NOTE DATE OF VISIT: 11/03/2013 : 1970 CLINICAL DATA: Polly is a very pleasant 43-year-old woman who I previously saw in the past for bladder and pelvic pressure. I saw her in June of this year. It had gone away by the time she saw me in clinic and her urine was normal therefore we did an exam, but no further investigations were performed. The patient comes back today because she developed burning, cramping, and thought she might have a urinary tract infection. She had to fly out to be with her brother who ended up having a perforated diverticulitis. The patient took some Cipro that she had on hand for 3 days and essentially felt better. The thing that bothers her the most right now is that she still has the sensation that she has to urinate a little more. It is not bothersome, but she does not feel like she is emptying her bladder completely and she is also worried that she had another urinary tract infection. The last thing the patient is worried about is the fact that she has a cyst on one of her ovaries and her [facility] is following it. Initially, she was told that it was benign, but that it has not gone away completely and they may want to have it removed, and the patient is concerned about this. UA todayis completely negative. PROCEDURE: We discussed cystoscopy at her last visit given the fact that she had some type of bladder surgery as a child and now she has had these 2 occurrences of this bladder pain and pressure, which possibly could be infection related, but we are not entirely sure. The patient was prepped in the standard fashion. The 18-Bolivian cystoscope was placed in the patient's urethra and then into the bladder. The entire bladder was surveyed. There was no evidence of any tumors, velvety areas. No diverticulum. Essentially, the bladder was normal. On turnback maneuver, the a nterior bladder was also normal. The cystoscope was pulled in the patient's urethra, and this was carefully examined. This was also normal. No diverticular or anything else abnormal. The cystoscope wasremoved. The patient tolerated the procedure well. ASSESSMENT and PLAN: 1. Most likely the patient is getting some recurrent urinary tract infections. I think some of the time she is able to clear them by herself. This last time she took antibiotics, which probably clearedit. My thought would be is I would like to document this and therefore the patient was given some culture cups and a standing order for urinalysis and culture if she develops symptoms. She will try to clear the infection herself by drinking water and taking probiotics if she does, and I did also give her a prescription that she could take after she collects a culture. 2. The patient will try to get me the records from her [facility] so I can have a better idea of what isgoing on with the cyst on her ovary. I discussed with her that this is not my area of expertise, butI would be happy to pass it by one of my colleagues to get their opinion regarding the cyst and whether or not she should have it removed or continue to watch it. 3. The patient will follow up with me if she continues to get recurrent infections. At that point, we may want to consider starting her on a low-dose antibiotic. Total visit time today was 25 minutes, 15 minutes was counseling. JR:DOMI C: CONFIRM #: [id number] documented in this encounter Plan of Treatment Not on filedocumented as of this encounter Procedures Procedure Name Priority Date/Time Associated Comments Diagnosis POCT URINALYSIS Routine 11/03/2013 11:19 AM History of UTI Res ults for this UROLOGY CDT procedure are i n the results section. documented in this encounter Results POCT URINALYSIS UROLOGY (11/03/2013 11:19 AM CDT) P athologist Signature See SDOC scanned HP CONVERSION Specimen (Source) Anatomical Collection Method Collection Time Re ceived Time Location / / Volume Laterality 11/03/2013 11:19 AM CDT Christiane Batres MD PN POINT OF CARE TESTS Performing Organization Address City/State/ZIP Code Phon e Number HP CONVERSION documented in this encounter Visit Diagnoses Diagnosis History of UTI - Primary Personal history of urinary (tract) infe ction Pelvic pressure in female Other specified symptom associated with female genital organs documented in this encounter Care Teams Associate Teacher Relationship Specialty Start Date End Date Non Pn, Clinician, PCP - General 11/03/13 [place] [address] documented as of this encounter
--- OUTSIDE RECORDS SUMMARY | 2022-04-10 14:15 | XMS_ITS | Encounter Summary ---
:1970 Author Organization Replaced by [facility] Address [address] [place] [address] Care Team Providers Name Role Phone Lisa Gonzalez Raymond MARIN CNP Primary Care Provider [phone] Encounter Details Date Type Department Care Team Description 10/16/2009 Office Visit [facility] [place] Crist[place] [id number] [place] [address] [phone] (Wo rk) Social History Tobacco Use Types Packs/Day Years Used Date Smoking Tobacco: Never Assessed Sex Assigned at Date Recorded Not on file documented as of this encounter Progress Notes Cristóbal Parsons MD - 10/16/2009 12:01 AM CDT Progress Notes signed by Cristóbal Parsons MD at 11/09/09 1014 Author: Cristóbal Parsons MD Service: (none) Author Type: Physician Filed: 09/01/10 0050 Note Time: 10/16/09 0001 Status: Signed Manager Social Services: Cristóbal Parsons MD (Physician) NAME: POLLY CASE MR#: [id number] ACCT: [id number] VISIT: [id number] DICTATING CLINICIAN: CRISTÓBAL PARSONS MD CONFIRM #: [id number] LOC: 520 CLINIC PROGRESS NOTE DATE OF VISIT: 10/16/2009 SUBJECTIVE: CHIEF COMPLAINT: Chest pain. HPI: This pleasant 39-year-old comes in today complaining of chest pain that is on the left side of her chest. It has been going on all day. She woke up, and she feels that there is this chest tightening. It will last for a couple seconds. Does not radiate. She does not have any shortness of breath, but she has some mild nauseousness. She does not have any sweating. She was hoping it would go away, but it has been going on all day, so she thought she should be evaluated. Denies any pleuritic-type chest pain. No recent cough or cold symptoms. Does not have a fever. Denies any calf tenderness. No long car rides or airplane rides. PAST MEDICAL HISTORY: Asthma and anxiety. PAST SURGICAL HISTORY: Reviewed in [employer]. MEDICATIONS: Reviewed in [employer]. ADR/ALLERGIES: IODINE, PENICILLIN, AND CONTROL PILLS. SOCIAL HISTORY: Nonsmoker. FAMILY HISTORY: Her father had an NH in his 70s, otherwise, negative for family history. OBJECTIVE: VS: BP: 145/95. T: 98.8. P: 109. R: 20. O2 sat: 99% on room air. GENERAL: Alert and oriented. No apparent distress. Tympanic membranes reveal no signs of infection. LUNGS: Clear. HEART: Regular. I cannot reciprocate the pain by palpitation. ABDOMEN: Soft, nontender. No hepatosplenomegaly. Positive bowel sounds. EXTREMITIES: No rash or cyanosis. EKG is within normal limits. ASSESSMENT: Chest pain. PLAN: Patient will be transferred over to [facility] for further evaluation and treatment. She denies ambulance transfer, but does agree with the treatment plan that she be further evaluated with a troponin level and have them reassess. She will head immediately over to [facility]. KMM:[id number] C: 10/17/09 08:51 CONFIRM #: [id number] documented in this encounter Plan of Treatment Not on filedocumented as of this encounter Visit Diagnoses Not on filedocumented in this encounter Care Teams Demand Equipment Repairer Relationship Specialty Start Date End Date Lisa Gonzalez APRN, EXERCISE PLANNER PCP - General 05/03/1998 11/02/13 [address] [facility] [place] [address] documented as of this encounter
--- OUTSIDE RECORDS SUMMARY | 2022-04-10 14:15 | XMS_ITS | Encounter Summary ---
:1970 Author Organization [facility] Address [address], [place] [address] Care Team Providers Name Role Phone Non Pn, Clinician MD Primary Care Provider Unavailable Reason for Visit Reason Comments Dysuria Encounter Details Date Type Department Care Team Description 02/26/2015 Telephone [facility] [address] Christiane Phelps MD Dysuria [address] [place] [address] [place] [address] [phone] (Wo rk) Social History Tobacco Use Types Packs/Day Years Used Date Smoking Tobacco: Never Assessed Sex Assigned at Date Recorded Not on file documented as of this encounter Nursing Notes Christiane Batres MD - 02/26/2015 11:18 AM CDT Noted. Thanks Khloe Carvlaho RN - 02/26/2015 9:19 AM CDT Pt called, and LM saying that she thinks she has a UTI. She started her self start Cipro Rx, has only had one dose of the abx. She is feeling significantly better after just one dose. She did not drop off a culture prior to starting the abx because it was Thursday evening and she was not sure there wereany labs open, and she was feeling so poorly that she felt she needed to get started on the abx. This morning she is wondering if she should still drop off a culture, we discussed that this cannot hurt. She will drop off a sample for culture prior to taking any more doses, and then will resume theCipro. She will wait to hear something about the culture results, but plans to keep taking the Ciprountil then since it seems to be helping with her UTI symptoms. documented in this encounter Plan of Treatment Not on filedocumented as of this encounter Visit Diagnoses Not on filedocumented in this encounter Care Teams Lay Midwife Relationship Specialty Start Date End Date Non Pn, Clinician, PCP - General 11/03/13 [place] [address] documented as of this encounter
--- OUTSIDE RECORDS SUMMARY | 2022-04-10 14:15 | XMS_ITS | Encounter Summary ---
:1970 Author Organization [email or web address] Address [address], [place] [address] Care Team Providers Name Role Phone Non Pn, Clinician MD Primary Care Provider Unavailable Encounter Details Date Type Department Care Team Description 12/08/2013 [facility] Visit [facility] History of UTI [address] [place] [address] Social History Tobacco Use Types Packs/Day Years Used Date Smoking Tobacco: Never Assessed Sex Assigned at Date Recorded Not on file documented as of this encounter Progress Notes Christiane Batres MD - 12/12/2013 8:57 PM CDT Quick Note: Noted. Thank you. Nikkie Sawyer RN - 12/12/2013 9:30 AM CDT Quick Note: Pt notified. She states she is still having some symptoms. She feels some burning in vaginal area, itching in and around the area and some vaginal pain. The burning does not happen necessarily with urination. I advised her to see a Family Medicine doctor, number provided to schedule this. She will collect another urine while at that appt. Christiane Batres MD - 12/11/2013 8:40 PM CDT Quick Note: Urine culture is contaminated. Most likely not a UTI. If she is still having symptoms, she can repeat the UA/UC. Can you call and let her know? Thanks documented in this encounter Miscellaneous Notes Miscellaneous - 08/28/2016 6:02 PM CDTNotes Recorded by Christiane Batres MD on 12/12/2013 at 8:57 PMNoted. Thank you.------Notes Recorded by Nikkie Sawyer RN on 12/12/2013 at 9:30 AMPt notified. She states she is still having some symptoms. She feels some burning in vaginal area, itching in and around the area and some vaginal pain. The burning does not happen necessarily with urin ation. I advised her to see a Family Medicine doctor, number provided to schedule this. She will collect another urine while at that appt.------Notes Recorded by Christiane Batres MD on 12/11/2013 at 8:40 PMUrine culture is contaminated. Most likely not a UTI. If she is still having symptoms, she can repeat the UA/UC. Can you call and let her know? Thanks Miscellaneous - 06/19/2016 5:21 PM CSTNotes Recorded by Christiane Batres MD on 12/12/2013 at 8:57 PMNoted. Thank you.------Notes Recorded by Nikkie Sawyer RN on 12/12/2013 at 9:30 AMPt notified. She states she is still having some symptoms. She feels some burning in vaginal area, itching in and around the area and some vaginal pain. The burning does not happen necessarily with urin ation. I advised her to see a Family Medicine doctor, number provided to schedule this. She will collect another urine while at that appt.------Notes Recorded by Christiane Batres MD on 12/11/2013 at 8:40 PMUrine culture is contaminated. Most likely not a UTI. If she is still having symptoms, she can repeat the UA/UC. Can you call and let her know? Thanks [facility] Miscellaneous - 06/19/2016 5:21 PM CSTNotes Recorded by Christiane Batres MD on 12/12/2013 at 8:57 PMNoted. Thank you.------Notes Recorded by Nikkie Sawyer RN on 12/12/2013 at 9:30 AMPt notified. She states she is still having some symptoms. She feels some burning in vaginal area, itching in and around the area and some vaginal pain. The burning does not happen necessarily with urin ation. I advised her to see a Family Medicine doctor, number provided to schedule this. She will collect another urine while at that appt.------Notes Recorded by Christiane Batres MD on 12/11/2013 at 8:40 PMUrine culture is contaminated. Most likely not a UTI. If she is still having symptoms, she can repeat the UA/UC. Can you call and let her know? Thanks [facility] documented in this encounter Plan of Treatment Not on filedocumented as of this encounter Procedures Procedure Name Priority Date/Time Associated Comments Diagnosis URINE MICROSCOPIC Routine 12/08/2013 12:24 Result s for this PM CDT procedure are i n the results section. URINALYSIS ROUTINE, Routine 12/08/2013 12:24 History of UTI Re sults for this MICRO/CULTURE IF POS PM CDT procedu re are in the results section. URINE CULTURE Routine 12/08/2013 12:24 Results fo r this PM CDT procedure are i n the results section. documented in this encounter Results (ABNORMAL) Urine Culture (12/08/2013 12:24 PM CDT) Component Value Ref Test Analysis Performed At [facility] Range Method Time Signature Source Urine HP CONVERSION Site HP CONVERSION Urine Culture (A) HP CONVERSION Urine Culture Streptococcus agalactiae (Group B) HP CONVERSION 50-100,000 cfu/ml (A) Specimen (Source) Anatomical Collection Method Collection Time Re ceived Time Location / / Volume Laterality Urine: 12/08/2013 12:24 PM CDT Transcriptions 08/28/2016 6:02 PM CDTNotes Recorded by Christiane Batres MD on 12/12/2013 at 8:57 PMNoted. Thank you.------Notes Recorded by Nikkie Sawyer RN on 12/12/2013 at 9:30 AM Pt notified. She states she is still hav ing some symptoms. She feels some burning in vaginal area, itching in and around the area and some vaginal pain. The burning does not happen necessarily with urin ation. I advised her to see a Family [facility] icine doctor, number provided to schedule this. She will collect another urine while at that appt.------Notes Recorded by Christiane Batres MD on 12/11/2013 at 8:40 PM Urine culture is contaminated. Most like ly not a UTI. If she is still having symptoms, she can repeat the UA/UC. Can you call and let her know? Thanks Christiane Batres MD LAB_1 Performing Organization Address City/State/ZIP Code Phon e Number HP CONVERSION (ABNORMAL) URINE MICROSCOPIC (12/08/2013 12:24 PM CDT) [facility] gist Method Time Signature Urine WBC 5-9 (A) 0 - 4 HP CONVERSION Urine RBC 0-2 0 - 2 HP CONVERSION Bacteria Urine Occasional (A) HP CONVERS ION Epithelial Few HP CONVERSION Cells Specimen (Source) Anatomical Collection Method Collection Time Re ceived Time Location / / Volume Laterality Urine: 12/08/2013 12:24 PM CDT Narrative HP CONVERSION - 12/08/2013 12:29 PM CDT Performed at [facility], [address] [place] [address] Transcriptions 06/19/2016 5:21 PM CSTNotes Recorded by Christiane Batres MD on 12/12/2013 at 8:57 PMNoted. Thank you.------Notes Recorded by Nikkie Sawyer RN on 12/12/2013 at 9:30 AM Pt notified. She states she is still hav ing some symptoms. She feels some burning in vaginal area, itching in and around the area and some vaginal pain. The burning does not happen necessarily with urin ation. [facility] provided to schedule this. She will collect another urine while at that appt.------Notes Recorded by Christiane Batres MD on 12/11/2013 at 8:40 PM Urine culture is contaminated. Most like ly not a UTI. If she is still having symptoms, she can repeat the UA/UC. Can you call and let her know? Thanks Christiane Batres MD LAB_1 Performing Organization Address City/State/ZIP Code Phon e Number HP CONVERSION (ABNORMAL) URINALYSIS ROUTINE, MICRO/CULTURE IF POS (12/08/2013 12:24 PM CDT) [facility] Method Time Signature Urine Type Urine:clean HP CONVERSION cat Turbidity Clear Clear HP CONVERSION U BILI Negative Negative HP CONVERSION Blood Urine Negative Negative HP CONVERSION Glucose, Negative Neg-30 HP CONVERSION Qualitative U mg/dL Ketones Negative Negative HP CONVERSION Leukocyte Small (A) Negative HP CONVERSION Esterase Urine Nitrite Urine Negative Negative HP CONVERSION pH Urine 6.5 5.0 - 8.0 HP CONVERSION Protein Urine Negative Neg - Trace HP CONVERSION mg/dL U Specific 1.010 1.005 - HP CONVERSION [place] 1.030 Urobilinogen Negative Negative HP CONVERSION Urine Specimen (Source) Anatomical Collection Method Collection Time Re ceived Time Location / / Volume Laterality Urine: 12/08/2013 12:24 PM CDT Narrative HP CONVERSION - 12/08/2013 12:22 PM CDT Performed at [facility], [address] [place] [address] Transcriptions 06/19/2016 5:21 PM CSTNotes Recorded by Christiane Batres MD on 12/12/2013 at 8:57 PMNoted. Thank you.------Notes Recorded by Nikkie Sawyer RN on 12/12/2013 at 9:30 AM Pt notified. She states she is still hav ing some symptoms. She feels some burning in vaginal area, itching in and around the area and some vaginal pain. The burning does not happen necessarily with urin ation. I advised her to see a Family Med icine doctor, number provided to schedule this. She will collect another urine while at that appt.------Notes Recorded by Christiane Batres MD on 12/11/2013 at 8:40 PM Urine culture is contaminated. Most like ly not a UTI. If she is still having symptoms, she can repeat the UA/UC. Can you call and let her know? Thanks Christiane Batres MD LAB_1 Performing Organization Address City/State/ZIP Code Phon e Number HP CONVERSION documented in this encounter Visit Diagnoses Diagnosis History of UTI Personal history of urinary (tract) infe ction documented in this encounter Care Teams Enterprise Architect Manager Relationship Specialty Start Date End Date Non Pn, Clinician, PCP - General 11/03/13 [place] [address] documented as of this encounter
--- OUTSIDE RECORDS SUMMARY | 2022-04-10 14:15 | XMS_ITS | Encounter Summary ---
:1970 Author Organization [facility] Address [address] [place] [address] Care Team Providers Name Role Phone Non Pn, Clinician MD Primary Care Provider Unavailable Reason for Visit Reason Comments Follow-up Encounter Details Date Type Department Care Team Description 12/20/2015 Office Visit [facility] Christiane Batres MD Recurrent UTI [address] [address] [facility] [phone] [place], [place] [address] (Wo rk) Social History Tobacco Use Types Packs/Day Years Used Date Smoking Tobacco: Never Assessed Sex Assigned at Date Recorded Not on file documented as of this encounter Patient Instructions Patient InstructionsChristiane Batres MD - 12/20/2015 2:58 PM CDT If you feel like you are starting to get an infection, collect a urine culture and drop it off a oneof the [facility], we will then call you if you need a prescription for antibiotics. While waiting for results of the urine culture, okay to take Azo over the counter and drink lots of fluids. documented in this encounter Progress Notes Christiane Batres MD - 12/20/2015 3:05 PM CDT Progress Notes signed by Christiane Batres MD at 12/25/152103 Author: Christiane Batres MD Service: (none) Author Type: Physician Filed: 12/25/152103 Note Time: 12/21/151123 Status: Signed Color Consultant: Christiane Batres MD (Physician) NAME: POLLY CASE MR#: [id number] CSN: [id number] AUTHENTICATING CLINICIAN: Christiane Batres MD CONFIRM #: [id number] LOC: 517 CLINIC PROGRESS NOTE DATE OF VISIT: 12/20/2015 : 1970 CLINICAL DATA: Patient is a very pleasant, 45-year-old woman with a history of recurrent urinary tract infections, so of which she is able to clear herself. She initially presented with bladder pain and pelvic pressure. The patient had been on low-dose antibiotics and her symptoms completely went away. When I saw her last year we decided to treat each infection as it comes. She submitted a urine in March, but just showed contamination, but she did have symptoms. She was treated with a short course of antibiotics and felt better. About 2 weeks ago the patient had a recurrence of her symptoms. She was seen in [place] and underwent a UA and was treated with Cipro. She took it for 3 days and felt better. She brought a lot of records with her, but no actual culture, so it is hard to know whether or not that was a culture that had actually shown a clear bacteria. Overall, the patient is happy with where she is. She has only had 2 infections in the last year, or 2 episodes of UTI symptoms in the last year. ASSESSMENT: Recurrent urinary tract infections causing bladder pain. Doing relatively well after a 6-month course of nitrofurantoin last year. PLAN: 1. Continue to treat each infection as it comes. The patient has a standing order for UA UC. 2. Continue to increase her water intake. 3. If the patient starts getting a lot of infections again and her urines are not convincing, will have to start doing catheterized specimens. It is difficult for her given where she lives and just thelogistics of it, therefore at this point if she gets symptoms will start with a clean-catch specimenand then we will call her if she needs antibiotics. 4. I will have the patient followup in 1 year with Aline Acharya PA-C. JR:MEDNam C: CONFIRM #: [id number] documented in this encounter Plan of Treatment Not on filedocumented as of this encounter Procedures Procedure Name Priority Date/Time Associated Comments Diagnosis AUTOMATED URINALYSIS Routine 12/20/2015 2:50 PM R esults for this DIPSTICK POCT CDT procedure are in the results section. documented in this encounter Results Urinalysis Dipstick (12/20/2015 2:50 PM CDT) [facility] Method Time Signature Urine Glucose Negative mg/dL HP CONVERSION (POC) Urine Bilirubin Negative HP CONVERSION (POC) Urine Ketone Negative mg/dL HP CONVERSION (POC) Urine Specific 1.010 HP CONVERSION Arrey (POC) Urine Occult Negative HP CONVERSION Blood (POC) Urine PH (POC) 7.0 HP CONVERSION Urine Protein Negative HP CONVERSION (POC) Urine Negative mg/dL HP CONVERSION Urobilinogen (POC) Urine Nitrite Negative HP CONVERSION (POC) Urine Leukocytes Negative HP CONVERSION (POC) Urine Color Yellow HP CONVERSION (POC) Urine Appearance Clear HP CONVERSION (POC) Comment: Performed by: [id number] [place] [address] Strip Lot Number (POC) [id number] mg/dL HP CONV ERSION Specimen Anatomical Collection Method Collection Time Receive d Time (Source) Location / / Volume Laterality 12/20/2015 2:50 PM 6 2:50 CDT PM CDT Christiane Batres MD LAB_1 Performing Organization Address City/State/ZIP Code Phon e Number HP CONVERSION documented in this encounter Visit Diagnoses Diagnosis Recurrent UTI Urinary tract infection, site not specif ied documented in this encounter Care Teams Toll Line Mechanic Relationship Specialty Start Date End Date Non Pn, Clinician, PCP - General 11/03/13 [place] [address] documented as of this encounter
--- OUTSIDE RECORDS SUMMARY | 2022-04-10 14:15 | XMS_ITS | Encounter Summary ---
:1970 Author Organization [employer] [employer] Address [address] [place] [address] Care Team Providers Name Role Phone Lisa Gonzalez APRN, CNP Primary Care Provider [phone] Encounter Details Date Type Department Care Team Description 06/28/2009 PN Conversion Only [facility] [address] [place] [address] Social History Tobacco Use Types Packs/Day Years Used Date Smoking Tobacco: Never Assessed Sex Assigned at Date Recorded Not on file documented as of this encounter Plan of Treatment Not on filedocumented as of this encounter Procedures Procedure Name Priority Date/Time Associated Diagnosis Comme nts MM MAMMOGRAM Routine 06/28/2009 5:03 PM Results f or this SCREENING BILAT W MRI TECHNICIAN procedure are in CAD the results section. documented in this encounter Results MM Mammogram Screening Bilat W CAD (06/28/2009 5:03 PM MRI TECHNICIAN) Anatomical Region Laterality Modality Breast Bilateral Mammography Specimen (Source) Anatomical Location Collection Method / Collectio n Time Received Time / Laterality Volume Narrative 07/02/2009 2:30 PM MRI TECHNICIAN Comparison is made to films from 12/01/2007 (bilateral) and films from 08/12/2006 (bilateral). Bilateral Breast Findings: The breasts are heterogeneously dense (5 1% - 75% fibroglandular). This may lower the sensitivity of mammog chance. No significant masses, calcifications or other abnormalities ar e seen. IMPRESSION: BILATERAL BREASTS Negative, no evidence of malignancy. Nor mal interval follow-up is recommended in 12 months. OVERALL ASSESSMENT - CATEGORY 1 - NEGATI VE END OF IMPRESSION BJ Dictating GABE VALDEZ MD Procedure Note Gabe Hernández MD - 01/01/2016Format ting of this note might be different from the original. Comparison is made to films from 008 (bilateral) and films from 08/12/2006 (bilateral). Bilateral Breast Findings: The breasts are heterogeneously dense (5 1% - 75% fibroglandular). This may lower the sensitivity of mammog chance. No significant masses, calcifications or other abnormalities ar e seen. IMPRESSION: BILATERAL BREASTS Negative, no evidence of malignancy. Nor mal interval follow-up is recommended in 12 months. OVERALL ASSESSMENT - CATEGORY 1 - NEGATI VE END OF IMPRESSION BJ Dictating GABE VALDEZ MD Jorge Alvarado MD RAD MAY documented in this encounter Visit Diagnoses Not on filedocumented in this encounter Care Teams Equal Opportunity Representative Relationship Specialty Start Date End Date Lisa Gonzalez APRN, BILLER PCP - General 05/03/1998 11/02/13 [address] [place] [address] documented as of this encounter
--- OUTSIDE RECORDS SUMMARY | 2022-04-10 14:15 | XMS_ITS | Encounter Summary ---
:1970 Author Organization [facility] Address [address] [place] [address] Care Team Providers Name Role Phone Lisa Gonzalez APRN, CNP Primary Care Provider Encounter Details Date Type Department Care Team Description 09/07/2010 PN Conversion Only CONVERSION CONVERSION Social History Tobacco Use Types Packs/Day Years Used Date Smoking Tobacco: Never Assessed Sex Assigned at Date Recorded Not on file documented as of this encounter Plan of Treatment Not on filedocumented as of this encounter Visit Diagnoses Not on filedocumented in this encounter Care Teams Auger Supervisor Relationship Specialty Start Date End Date Lisa Gonzalez APRN, CNP PCP - General 05/03/1998 11/02/13 [address] [place] [address] documented as of this encounter
--- OUTSIDE RECORDS SUMMARY | 2022-04-10 14:15 | XMS_ITS | Encounter Summary ---
:1970 Author Organization [employer] Address [address] [address] Care Team Providers Name Role Phone Non Pn, Clinician MD Primary Care Provider Unavailable Encounter Details Date Type Department Care Team Description 02/26/2015 Lab Visit [facility] Urinary tract infection [address] without hematuria, [place] [address] unspecified [phone] Social History Tobacco Use Types Packs/Day Years Used Date Smoking Tobacco: Never Assessed Sex Assigned at Date Recorded Not on file documented as of this encounter Progress Notes Olive Flores RN - 02/27/2015 9:13 AM CDT Quick Note: Pt was called. She will stop the antibiotics. She ate some strawberries over the weekend and thinksthis might of aggravated her bladder. Next time she gets symptoms, she will call and schedule an aptto get a cathed u/a u/c. Christiane Batres MD - 02/26/2015 8:07 PM CDT Quick Note: Urine looks contaminated. If still having symptoms should have a cathed specimen. Please see recentphone notes. documented in this encounter Miscellaneous Notes Miscellaneous - 06/19/2016 2:24 AM CSTNotes Recorded by Olive Flores RN on 02/27/2015 at 9:13 AMPt was called. She will stop the antibiotics. She ate some strawberries over the weekend and thinks this might of aggravated her bladder. Next time she gets symptoms, she will call and schedule an apt to get a cathed u/a u/c.------Notes Recorded by Christiane Batres MD on 02/26/2015 at 8:07 PM Urine looks contaminated. If still having symptoms should have a cathed specimen. Please see recent phone notes. STORAGE DRIER Miscellaneous - 06/19/2016 2:24 AM CSTNotes Recorded by Olive Flores RN on 02/27/2015 at 9:13 AMPt was called. She will stop the antibiotics. She ate some strawberries over the weekend and thinks this might of aggravated her bladder. Next time she gets symptoms, she will call and schedule an apt to get a cathed u/a u/c.------Notes Recorded by Christiane Batres MD on 02/26/2015 at 8:07 PM Urine looks contaminated. If still having symptoms should have a cathed specimen. Please see recent phone notes. STORAGE DRIER documented in this encounter Plan of Treatment Not on filedocumented as of this encounter Procedures Procedure Name Priority Date/Time Associated Diagnosis Comme nts URINE MICROSCOPIC Routine 02/26/2015 10:05 Result s for this AM CDT procedure are i n the results section. URINALYSIS Routine 02/26/2015 10:05 Urinary tract Results fo r this ROUTINE(MICRO IF AM CDT infection without proced ure are in POS) hematuria, site the results unspecified section. documented in this encounter Results (ABNORMAL) URINE MICROSCOPIC (02/26/2015 10:05 AM CDT) Patholo gist Method Time Signature Urine WBC 5-9 (A) 0 - 4 /HPF HP CONVERSION Urine RBC 0-2 0 - 2 /HPF HP CONVERSION Bacteria Urine Few (A) /HPF HP CONVERSION Epithelial Moderate /HPF HP CONVERSION Cells Specimen Anatomical Collection Method Collection Time Receive d Time (Source) Location / / Volume Laterality 02/26/2015 10:05 02/26/2015 AM CDT 10:05 AM CDT Narrative HP CONVERSION - 02/26/2015 10:16 AM CDT Performed at [facility], [address] [place] [address] CLIA number [id number] Transcriptions 06/19/2016 2:24 AM CSTNotes Recorded by Olive Flores RN on 02/27/2015 at 9:13 AMPt was called. She will stop the antibiotics. She ate some strawberries over the weekend and thinks t his might of aggravated her bladder. Nex t time she gets symptoms, she will call and schedule an apt to get a cathed u/a u/c.------Notes Recorded by Christiane Batres MD on 02/26/2015 at 8:07 PM Urine looks contaminated. If still havin g symptoms should have a cathed specimen. Please see recent phone notes. Christiane Batres MD LAB_1 Performing Organization Address City/State/ZIP Code Phon e Number HP CONVERSION (ABNORMAL) URINALYSIS ROUTINE(MICRO IF POS) (02/26/2015 10:05 AM CDT) [facility] Method Time Signature Urine Type Urine:clean HP CONVERSION cat Turbidity Clear Clear HP CONVERSION U BILI Negative Negative HP CONVERSION Blood Urine Negative Negative HP CONVERSION Glucose, Negative Neg-30 HP CONVERSION Qualitative U mg/dL Ketones Negative Negative HP CONVERSION Leukocyte Small (A) Negative HP CONVERSION Esterase Urine Nitrite Urine Negative Negative HP CONVERSION pH Urine 6.0 5.0 - 8.0 HP CONVERSION Protein Urine Negative Neg - Trace HP CONVERSION mg/dL U Specific <=1.005 1.005 - HP CONVERSION [place] 1.030 Urobilinogen Negative Negative HP CONVERSION Urine Eu/dL Specimen Anatomical Collection Method Collection Time Receive d Time (Source) Location / / Volume Laterality Urine: 02/26/2015 10:05 02/26/2015 AM CDT 10:05 AM CDT Narrative HP CONVERSION - 02/26/2015 10:16 AM CDT Performed at [facility], [address] [place] [address] CLIA number [id number] Transcriptions 06/19/2016 2:24 AM CSTNotes Recorded by Olive Flores RN on 02/27/2015 at 9:13 AMPt was called. She will stop the antibiotics. She ate some strawberries over the weekend and thinks t his might of aggravated her bladder. Nex t time she gets symptoms, she will call and schedule an apt to get a cathed u/a u/c.------Notes Recorded by Christiane Batres MD on 02/26/2015 at 8:07 PM Urine looks contaminated. If still havin g symptoms should have a cathed specimen. Please see recent phone notes. Christiane Batres MD LAB_1 Performing Organization Address City/State/ZIP Code Phon e Number HP CONVERSION documented in this encounter Visit Diagnoses Diagnosis Urinary tract infection without hematuri a, site unspecified documented in this encounter Care Teams Business Office Director Relationship Specialty Start Date End Date Non Pn, Clinician, PCP - General 11/03/13 [place] [address] documented as of this encounter
--- OUTSIDE RECORDS SUMMARY | 2022-04-10 14:15 | XMS_ITS | Encounter Summary ---
:1970 Author Organization [facility] Address [address] [place] [address] Care Team Providers Name Role Phone Lisa Gonzalez Raymond MARIN CNP Primary Care Provider [phone] Encounter Details Date Type Department Care Team Description 11/29/2008 Office Visit [facility] Lux Hernandez DPM [facility] [address] [facility] [address] [place], [place] [address] [place] [address] [phone] Social History Tobacco Use Types Packs/Day Years Used Date Smoking Tobacco: Never Assessed Sex Assigned at Date Recorded Not on file documented as of this encounter Progress Notes Ney Hernandez DPM - 11/29/2008 12:01 AM CDT Progress Notes signed by Ney Hernandez DPM at 11/30/08 1112 Author: Ney Hernandez DPM Service: (none) Author Type: Physician Filed: 08/31/10 1649 Note Time: 11/29/08 0001 Status: Signed Antichecking Iron Worker: Ney Hernandez DPM (Resource) NAME: POLLY CASE MR#: [id number] ACCT: [id number] VISIT: [id number] DICTATING CLINICIAN: Ney Hernandez DPM CONFIRM #: [id number] LOC: 539 CLINIC PROGRESS NOTE DATE OF VISIT: 11/29/2008 SUBJECTIVE: Patient presents for followup. She is no longer having any problems with her right heel. I saw her last time and I discovered an old fracture at the fifth metatarsal base. She has been comfortable just padding this. Her main complaint today is her left heel. This is painful after she jogs on a treadmill. She does not have any pain in the morning. It has been going on for about two months. She has been using a heel cushion but just in her workout shoes. ADR/ALLERGIES: REVIEWED AND UPDATED IN LASTWORD. MEDICATIONS: Reviewed and updated in LastWord. PAST MEDICAL HISTORY: Reviewed in LastWord. REVIEW OF SYSTEMS: Negative for fever, rash, burning or tingling in the lower extremities. OBJECTIVE: Patient is neurovascularly intact. DP and PT pulses are palpable. Hair growth is present on the digits. Capillary filling time is less than two seconds. Sensation is intact. There is no weakness with muscle testing of the foot, ankle or lower leg. No pain with subtalar joint or ankle joint range of motion. There is no pain at the medial process. Her pain is with direct plantar compression. I am able to palpate an enlarged bursa. There is no pain with [id number] compression of the heel. No other abnormalities noted. ASSESSMENT: Plantar bursitis, left heel. PLAN: Treatment options were discussed with the patient. I discussed the condition in great detail. I did recommend either a soft heel cushion or a rigid heel cup. I also discussed an injection. She would like to wait with this and if there is no improvement at one month she will return here for an injection. All questions were answered. ALP:[id number] C: 11/29/08 16:56 CONFIRM #: [id number] documented in this encounter Plan of Treatment Not on filedocumented as of this encounter Visit Diagnoses Not on filedocumented in this encounter Care Teams Factory Hand Relationship Specialty Start Date End Date Lisa Gonzalez, TANIA, SUPERVISOR BEATER ROOM PCP - General 05/03/1998 11/02/13 [address] [place] [address] documented as of this encounter
--- OUTSIDE RECORDS SUMMARY | 2022-04-10 14:15 | XMS_ITS | Encounter Summary ---
:1970 Author Organization [facility] Address [address], [place] [address] Care Team Providers Name Role Phone Lisa Gonzalez APRN, CNP Primary Care Provider [phone] Encounter Details Date Type Department Care Team Description 02/11/2011 Imaging [facility] [address] [place] [address] Social History Tobacco Use Types Packs/Day Years Used Date Smoking Tobacco: Never Assessed Sex Assigned at Date Recorded Not on file documented as of this encounter Plan of Treatment Not on filedocumented as of this encounter Visit Diagnoses Not on filedocumented in this encounter Care Teams Ladle Mechanic Relationship Specialty Start Date End Date Lisa Gonzalez APRN, CNP PCP - General 05/03/1998 11/02/13 [address] [place] [address] documented as of this encounter
--- OUTSIDE RECORDS SUMMARY | 2022-04-10 14:16 | XMS_ITS | Encounter Summary ---
:1970 Author Organization [facility] Address [address] [place] [address] Care Team Providers Name Role Phone Lisa Gonzalez APRN, CNP Primary Care Provider Encounter Details Date Type Department Care Team Description 12/01/2007 PN Conversion Only [facility] [address] [place] [address] Social History Tobacco Use Types Packs/Day Years Used Date Smoking Tobacco: Never Assessed Sex Assigned at Date Recorded Not on file documented as of this encounter Plan of Treatment Not on filedocumented as of this encounter Procedures Procedure Name Priority Date/Time Associated Diagnosis Comme nts MM MAMMOGRAM Routine 12/01/2007 5:48 PM Results f or this SCREENING BILAT W CDT procedure are in CAD the results section. documented in this encounter Results MM Mammogram Screening Bilat W CAD (12/01/2007 5:48 PM CDT) Anatomical Region Laterality Modality Breast Bilateral Mammography Specimen (Source) Anatomical Location Collection Method / Collectio n Time Received Time / Laterality Volume Impressions 12/09/2007 9:00 AM CDT : LEFT BREAST - CATEGORY 0 Focal asymmetric density posteriorly. Sp ot compression is recommended at this time. Focal asymmetric density posteriorly. Sp ot compression is recommended at this time. BILATERAL BREASTS - CATEGORY 2 Benign, no evidence of malignancy. Sfoia l interval follow-up is recommended in 12 months. OVERALL ASSESSMENT - INCOMPLETE: ??NEED ADDITIONAL IMAGING EVALUATION END OF IMPRESSION Dictating CHERY DOUGLAS RADIOLOGIST Narrative 12/09/2007 9:00 AM CDT Comparison is made to films from 08/12/2006 (bilateral). Left Breast Findings: A focal asymmetric density is present po steriorly and is seen only in the Medial Lateral Oblique Left projecti on superiorly. A focal asymmetric density is present po steriorly and is seen only in the Left craniocaudal projection, retroa reolar plane. Bilateral Breast Findings: The breasts are heterogeneously dense. T his may lower the sensitivity of mammography. Right breast, is again noted, that it is smaller then the left. Procedure Note Chery Espinosa - 07/11/2016 Comparison is made to films from 007 (bilateral). Left Breast Findings: A focal asymmetric density is present po steriorly and is seen only in the Medial Lateral Oblique Left projecti on superiorly. A focal asymmetric density is present po steriorly and is seen only in the Left craniocaudal projection, retroa reolar plane. Bilateral Breast Findings: The breasts are heterogeneously dense. T his may lower the sensitivity of mammography. Right breast, is again noted, that it is smaller then the left. IMPRESSION : LEFT BREAST - CATEGORY 0 Focal asymmetric density posteriorly. Sp ot compression is recommended at this time. Focal asymmetric density posteriorly. Sp ot compression is recommended at this time. BILATERAL BREASTS - CATEGORY 2 Benign, no evidence of malignancy. Sofia l interval follow-up is recommended in 12 months. OVERALL ASSESSMENT - INCOMPLETE: NEED AD DITIONAL IMAGING EVALUATION END OF IMPRESSION Dictating CHERY DOUGLAS A RADIOLOGIST Alida Hare MD RAD MAY documented in this encounter Visit Diagnoses Not on filedocumented in this encounter Care Teams Verification Engineer Relationship Specialty Start Date End Date Lisa Gonzalez, COURT RECORDER, CLINIC MD ASSOCIATE PCP - General 05/03/1998 11/02/13 [address] [place] [address] documented as of this encounter
--- OUTSIDE RECORDS SUMMARY | 2022-04-10 14:16 | XMS_ITS | Encounter Summary ---
:1970 Author Organization [facility] Address [address] [place] [address] Care Team Providers Name Role Phone Lisa Gonzalez APRN, CNP Primary Care Provider [phone] Encounter Details Date Type Department Care Team Description 12/13/2007 PN Conversion Only [facility] [address] [place] [address] Social History Tobacco Use Types Packs/Day Years Used Date Smoking Tobacco: Never Assessed Sex Assigned at Date Recorded Not on file documented as of this encounter Plan of Treatment Not on filedocumented as of this encounter Procedures Procedure Name Priority Date/Time Associated Diagnosis Comme nts MM US BREAST UNILAT Routine 12/13/2007 2:09 PM Re sults for this ([facility]BC) CDT procedure are i n the results section. MM MAMMOGRAM DIAG Routine 12/13/2007 1:51 PM Resu lts for this DIGITAL UNILAT W CDT procedure a re in CAD the results section. documented in this encounter Results MM US Breast Unilat (JBBC) (12/13/2007 2:09 PM CDT) Anatomical Region Laterality Modality Breast Ultrasound Specimen (Source) Anatomical Location Collection Method / Collectio n Time Received Time / Laterality Volume Narrative 12/14/2007 10:24 AM CDT Patient returns because of possible developing density in the 2-3 o'clock region of the left breast screen printing supervisor iorly. ??On today's spot views there is noted asymmetric tissue with no central mass effect. ??This may be slightly more radiopaque compared to 08/12/2006. Scanning is done in the left breast with concentration on the area of the upper outer quadrant. ??There is con siderable very hyperechoic heterogeneous tissue posteriorly in the left breast at 1-3 o'clock position; this appears to correspond to the asymmetric tissue on the mammogram. ??No hypoechoic or anechoic m asses seen. Brief scanning through the rest of the b reast and left axilla is unremarkable. INTERPRETATION: ??Asymmetric tissue late ral posterior aspect of the left breast, ACR-BIRADS CATEGORY 3: Prob ably benign finding - short-interval followup. ??(Six-month le ft MLO and XCCL views.) [id number]/rr Dictating MARCELINO JACOME RADIOLOGIST Procedure Note Marcelino Call - 07/11/2016Formattin g of this note might be different from the original. 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 On today's spot views there is noted asymmetric tissue with no central mass effect. This may be slightly more radiopaque compared to 08/12/2006. Scanning is done in the left breast with concentration on the area of the upper outer quadrant. There is consi derable very hyperechoic heterogeneous tissue posteriorly in the left breast at 1-3 o'clock position; this appears to correspond to the asymmetric tissue on the mammogram. No hypoechoic or anechoic mas ses seen. Brief scanning through the rest of the b reast and left axilla is unremarkable. INTERPRETATION: Asymmetric tissue latera l posterior aspect of the left breast, ACR-BIRADS CATEGORY 3: Prob ably benign finding - short-interval followup. 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 ??On today's spot views there is noted asymmetric tissue with no central mass effect. ??This may be slightly more radiopaque compared to 08/12/2006. Scanning is done in the left breast with concentration on the area of the upper outer quadrant. ??There is con siderable very hyperechoic heterogeneous tissue posteriorly in the left breast at 1-3 o'clock position; this appears to correspond to the asymmetric tissue on the mammogram. ??No hypoechoic or anechoic m asses seen. Brief scanning through the rest of the b reast and left axilla is unremarkable. INTERPRETATION: ??Asymmetric tissue late ral posterior aspect of the left breast, ACR-BIRADS CATEGORY 3: Prob ably benign finding - short-interval followup. ??(Six-month le ft MLO and XCCL views.) [id number]/rr Dictating MARCELINO JACOME RADIOLOGIST Procedure Note Marcelino Call - 07/11/2016Formattin g of this note might be different from the original. 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 On today's spot views there is noted asymmetric tissue with no central mass effect. This may be slightly more radiopaque compared to 08/12/2006. Scanning is done in the left breast with concentration on the area of the upper outer quadrant. There is consi derable very hyperechoic heterogeneous tissue posteriorly in the left breast at 1-3 o'clock position; this appears to correspond to the asymmetric tissue on the mammogram. No hypoechoic or anechoic mas ses seen. Brief scanning through the rest of the b reast and left axilla is unremarkable. INTERPRETATION: Asymmetric tissue latera l posterior aspect of the left breast, ACR-BIRADS CATEGORY 3: Prob ably benign finding - short-interval followup. (Six-month left MLO and XCCL views.) [id number]/rr Dictating MARCELINO JACOME RADIOLOGIST Alida Hare MD RAD MAY documented in this encounter Visit Diagnoses Not on filedocumented in this encounter Care Teams Meat Team Lead Relationship Specialty Start Date End Date Lisa Gonzalez, DRUG ABUSE RESISTANCE EDUCATION OFFICER, SENIOR CLINICAL STUDY MANAGER PCP - General 05/03/1998 11/02/13 [address] [place] [address] documented as of this encounter
--- OUTSIDE RECORDS SUMMARY | 2022-04-10 14:16 | XMS_ITS | Encounter Summary ---
:1970 [facility] Address [address], [place] [address] Care Team Providers Name Role Phone Lisa Gonzalez APRN, CNP Primary Care Provider [phone] Encounter Details Date Type Department Care Team Description 05/18/2008 Nursing Visit [facility] Sanjuana Finnegan PA-C [address] [place] [address] [place] [address] [phone] (Wo rk) Social History Tobacco Use Types Packs/Day Years Used Date Smoking Tobacco: Never Assessed Sex Assigned at Date Recorded Not on file documented as of this encounter Plan of Treatment Not on filedocumented as of this encounter Visit Diagnoses Not on filedocumented in this encounter Care Teams Train Engineer Relationship Specialty Start Date End Date Lisa Gonzalez APRN, CNP PCP - General 05/03/1998 11/02/13 [address] [place] [address] documented as of this encounter
--- OUTSIDE RECORDS SUMMARY | 2022-04-10 14:16 | XMS_ITS | Encounter Summary ---
:1970 Author Organization [facility] Address [address] [place] [address] Care Team Providers Name Role Phone Carlos Lisa Raymond MARIN, AMANDA Primary Care Provider [phone] Encounter Details Date Type Department Care Team Description 01/06/2008 PN Conversion Only [facility] [id number] [place] [address] (Wo rk) Social History Tobacco Use Types Packs/Day Years Used Date Smoking Tobacco: Never Assessed Sex Assigned at Date Recorded Not on file documented as of this encounter Plan of Treatment Not on filedocumented as of this encounter Procedures Procedure Name Priority Date/Time Associated Comments Diagnosis COMPLETE BLOOD Routine 01/06/2008 6:47 PM Results for this COUNT-W/DIFF CDT procedure are i n the results section. D DIMER, QUANTITATIVE Routine 01/06/2008 6:47 PM Results for this CDT procedure are i n the results section. documented in this encounter Results Complete Blood Count-W/Diff (01/06/2008 6:47 PM CDT) [facility] Method Time Signature White Blood Cell 8.6 3.8 - 11.0 HP CONVERSIO N Count K/cmm Red Blood Cell 4.10 3.70 - HP CONVERSION Count 5.20 m/cmm Hemoglobin 12.6 11.8 - HP CONVERSION 15.5 gm/dL Hematocrit 36.8 35.0 - HP CONVERSION 46.0 % Mean Corpuscular 89.7 80.0 - HP CONVERSION Volume 100.0 fl Mean Corpuscular 30.6 27.0 - HP CONVERSION Hemoglobin 34.0 pg Mean Corpuscular 34.1 32.0 - HP CONVERSION Hemoglobin Conc 36.5 gm/dL [place] RDW 12.1 11.0 - HP CONVERSION 15.0 % Platelet Count 251 140 - 450 HP CONVERSION k/cmm Differential Auto-Dif No normal HP CONVERSION Verify range Neutrophils 6.0 2.0 - 7.5 HP CONVERSION Absolute Count K/cmm Neutrophil 69.0 50.0 - HP CONVERSION 75.0 % Lymphocyte % 24.5 20.0 - HP CONVERSION 40.0 % Monocyte 6.1 5.0 - 14.0 HP CONVERSION % Eosinophil 0.1 0.0 - 6.0 HP CONVERSION % Basophil % 0.3 0.0 - 2.0 HP CONVERSION % Specimen (Source) Anatomical Collection Method Collection Time Re ceived Time Location / / Volume Laterality 01/06/2008 6:47 PM CDT Carmelita Fine MD LAB_1 Performing Organization Address City/[facility] Phon e Number HP CONVERSION (ABNORMAL) D Dimer, Quantitative (01/06/2008 6:47 PM CDT) P athologist Signature D Dimer 0.78 (H) 0.00 - 0.49 HP CONVERSION ug/mL Comment: A D-dimer level < 0.50 ug/ml in a patien t with a low clinical pretest probability for a 1st episode of DVT (se e venous duplex ultrasound order sheet) can rule out lower extremity DVT (rate of DVT in next 3 months < 2%). Increased D-dimer is seen in thromboembo lism, DIC, liver disease, renal disease, cardiac infarct and failure, ca ncer, , stroke, infection, recent surgery, hemorrhage and age > 70 years. D-dimer levels decrease with anticoagula tion therapy and increasing clot age. Specimen (Source) Anatomical Collection Method Collection Time Re ceived Time Location / / Volume Laterality 01/06/2008 6:47 PM CDT Carmelita Fine MD LAB_1 Performing Organization Address City/[facility]/ZIP Code Phon e Number HP CONVERSION documented in this encounter Visit Diagnoses Not on filedocumented in this encounter Care Teams Video Journalist Relationship Specialty Start Date End Date Lisa Gonzalez, TANIA, PRINTER'S DEVIL PCP - General 05/03/1998 11/02/13 [address] [place] [address] documented as of this encounter
--- OUTSIDE RECORDS SUMMARY | 2022-04-10 14:16 | XMS_ITS | Encounter Summary ---
:1970 [facility] Address [address], [place] [address] Care Team Providers Name Role Phone Lisa Gonzalez APRN, CNP Primary Care Provider [phone] Encounter Details Date Type Department Care Team Description 11/17/2007 PN Conversion Only [facility] [address] [place] [address] Social History Tobacco Use Types Packs/Day Years Used Date Smoking Tobacco: Never Assessed Sex Assigned at Date Recorded Not on file documented as of this encounter Plan of Treatment Not on filedocumented as of this encounter Visit Diagnoses Not on filedocumented in this encounter Care Teams Land Classifier Relationship Specialty Start Date End Date Lisa Gonzalez APRN, CNP PCP - General 05/03/1998 11/02/13 [address] [place] [address] documented as of this encounter
--- OUTSIDE RECORDS SUMMARY | 2022-04-10 14:16 | XMS_ITS | Encounter Summary ---
:1970 Author Organization [facility] Address [address] [place] [address] Care Team Providers Name Role Phone Lisa Gonzalez Raymond MARIN, AMANDA Primary Care Provider [phone] Encounter Details Date Type Department Care Team Description 05/02/2008 PN Conversion Only [facility] CON[facility] Christine Nguyen MD, PhD [address] [place] [address] (Wo rk) Social History Tobacco Use Types Packs/Day Years Used Date Smoking Tobacco: Never Assessed Sex Assigned at Date Recorded Not on file documented as of this encounter Plan of Treatment Not on filedocumented as of this encounter Procedures Procedure Name Priority Date/Time Associated Diagnosis Comme nts DERM PATH-DPF Routine 05/02/2008 2:14 PM Results for this FOOD ORDER EXPEDITER procedure are i n the results section. DERM PATH CONSULT 1 Routine 05/02/2008 2:14 PM Re sults for this FOOD ORDER EXPEDITER procedure are i n the results section. documented in this encounter Results Derm Path-Dpf (05/02/2008 2:14 PM FOOD ORDER EXPEDITER) [facility] Method Time Signature Dermatopathology SEE TEXT No normal HP CONVERSION Final Report range Comment: Patient: POLLY CASE ?D ERMATOPATHOLOGY Pathology # [id number] ?Date Obtained: [id number] ? Date Received: [id number] DIAGNOSIS: ?Left posterior ankle: Specimen for warded to [facility] ?for microscopic examination and di agnosis. ??See senior science consultant's report. ?Amalia Stafford MD ?(electronic signature) RWW/DSE/national recruiter Date of Report: 05/16/08 CLINICAL DIAGNOSIS: ?Dysplastic vs irritated CN ORGAN/TISSUE SITE: ?Left posterior ankle GROSS DESCRIPTION: ?Received is a 0.3 x 0.3 x 0.2 cm s kin specimen. Bisected and submitted. ?[facility] [place], [place] RWW/national recruiter MICROSCOPIC DESCRIPTION: ?Specimen forwarded to [facility] for microscopic ?examination and diagnosis. ??See c renata's report. Specimen (Source) Anatomical Collection Method Collection Time Re ceived Time Location / / Volume Laterality 05/02/2008 2:14 PM FOOD ORDER EXPEDITER Fiona Nguyen MD, PhD LAB_1 Performing Organization Address City/State/ZIP Code Phon e Number HP CONVERSION Derm Path Consult 1 (05/02/2008 2:14 PM FOOD ORDER EXPEDITER) [facility] Method Time Signature Derm Path SEE TEXT No normal HP CONVERSION Consult 1 range Comment: Patient: POLLY CASE ? SURGICAL PATHOLOGY SUPPLEMENTAL REPORT Pathology # [id number] ?Date Obtained: ? Date Received: CONSULTATION: DOCTOR: ?Doris Gandhi MD INSTITUTION: [facility] ; ??[facility] THEIR #: ? [id number] DIAGNOSIS: ?Skin, left posterior ankle: Dyspla stic junctional nevus, mild dysplasia; ?see comment. COMMENT: ?The margins are free of melanocyti c proliferation in the sections ?examined. cs ?This report is not the original or complete report and it has not been ?reviewed by [facility]. Specimen (Source) Anatomical Collection Method Collection Time Re ceived Time Location / / Volume Laterality 05/02/2008 2:14 PM FOOD ORDER EXPEDITER Fiona Nguyen MD, PhD LAB_1 Performing Organization Address City/State/ZIP Code Phon e Number HP CONVERSION documented in this encounter Visit Diagnoses Not on filedocumented in this encounter Care Teams Top Inventory Control Executive Relationship Specialty Start Date End Date Lisa oGnzalez, BISQUE FINISHER, MANUFACTURING SYSTEMS ENGINEER PCP - General 05/03/1998 11/02/13 [address] [place] [address] documented as of this encounter
--- OUTSIDE RECORDS SUMMARY | 2022-04-10 14:16 | XMS_ITS | Encounter Summary ---
:1970 Author Organization [facility] Address [address] [place] [address] Care Team Providers Name Role Phone Lisa Gonzalez APRN, CNP Primary Care Provider [phone] Reason for Visit Reason Comments Other Encounter Details Date Type Department Care Team Description 11/25/2007 Telephone [facility] Bárbara Hanks [place] Other [address] [id number] Social History Tobacco Use Types Packs/Day Years Used Date Smoking Tobacco: Never Assessed Sex Assigned at Date Recorded Not on file documented as of this encounter [facility], Message - 11/25/2007 11:45 AM CDT Phone Note filed by [employer] at 08/29/103 Author: [employer] Service: (none) Author Type: (none) Filed: 08/29/10122 Note Time: 11/25/07 1145 Status: Signed Automation And Controls Instructor: [employer] Medication Issue/Refill Caller Name/Relationship:Polly Primary Tumbler Plater:Ananya Comment/Symptom:Patient wants a 3 month supply of singular. Pharmacy Name & Phone #:[email or web address] or City:[place] Drug Name:Singular Strength:10mg Dose/Route/Freq:once a night Venetian Blind Cleaner:Polly Best call back number:[phone] Is it OK to leave a confidential message on this voicemail? yes Created on 25Nov2007 11:45am by MAHAD CASILLAS On 25Nov2007 12:19pm DEDE WADE wrote: sent in refill as requested. please let her know. Acknowledged by DEDE WADE on 12:19pm On 25Nov2007 1:17pm BÁRBARA DEAL wrote: Pt. contacted and given above message. Acknowledged by BÁRBARA DEAL on 1:17pm RENTAL CLERK documented in this encounter Plan of Treatment Not on filedocumented as of this encounter Visit Diagnoses Not on filedocumented in this encounter Care Teams Purchaser Relationship Specialty Start Date End Date Lisa Gonzalez APRN, SHANKER OUT PCP - General 05/03/1998 11/02/13 [address] [place] [address] documented as of this encounter
--- OUTSIDE RECORDS SUMMARY | 2022-04-10 14:16 | XMS_ITS | Encounter Summary ---
:1970 Author Organization [facility] Address [address] [place] [address] Care Team Providers Name Role Phone Lisa Gonzalez Raymond MARIN CNP Primary Care Provider [phone] Encounter Details Date Type Department Care Team Description 05/02/2008 Office Visit [facility] 38[address] Fiona Nguyen MD, PhD Dermatology [address] [facility] [address] [place] [address] [place], [place] [id number] [phone] Social History Tobacco Use Types Packs/Day Years Used Date Smoking Tobacco: Never Assessed Sex Assigned at Date Recorded Not on file documented as of this encounter Progress Notes Fiona Nguyen MD, PhD - 05/02/2008 12:01 AM CST Progress Notes signed by Fiona Nguyen MD at 05/23/08 8698 Author: Fiona Nguyen MD Service: (none) Author Type: Physician Filed: 08/31/10 1125 Note Time: 05/02/08 0001 Status: Signed [facility] Director: Fiona Nguyen MD (Physician) NAME: POLLY CASE MR#: [id number] ACCT: [id number] VISIT: [id number] DICTATING CLINICIAN: Fiona Nguyen MD CONFIRM #: [id number] LOC: 427 CLINIC PROGRESS NOTE DATE OF VISIT: 05/02/2008 SUBJECTIVE: Very pleasant, 37-year-old female with a history of a severely dysplastic nevus excised in the posterior aspect of the right buttock, presents to clinic today for followup skin exam. Patient is not aware of any moles that are specifically changing in size, shape or color. She has noticed a linear area over a mole on her right buttock. She is wondering if perhaps it is an old bruise. It does not hurt, itch or bleed. She has also noticed that she has some itching kind of around a mole on her right scapula. It is very hard for her to localize it, notes that she does itch on her back a great deal during the winter anyway, but would just like us to make sure that we evaluate that area closely. She has been following a dark nevus on her left thigh and is not aware of that changing in size, shape or color. PAST MEDICAL HISTORY: Dysplastic nevus. FAMILY HISTORY: Her great aunt has had skin cancer but not sure of what type. MEDICATIONS: Reviewed in LastWord and up to date. ADR/ALLERGIES: REVIEWED IN LAST[employer] AND UP TO DATE. OBJECTIVE: On exam, well-appearing female, no acute distress. Alert and oriented. Mood and affect appropriate. Full body skin check was performed today including inspection and palpation of the scalp, inspection of the face, neck, chest, abdomen, back, buttocks, bilateral upper and lower extremities including palms, soles, and nail beds. No lesions concerning for melanoma or nonmelanoma skin cancer observed. Patient has a well-healed scar on the posterior aspect of her left buttock without evidence of pigment recurrence at that site. Patient has a few scattered darker nevi, but all have a benign appearance on dermoscopy with a regular cobblestone pattern, and the pattern is discernible. These include a 2 mm well-demarcated area on the superior aspect of her left thigh as well as a 1 mm area on the superior aspect of her right thigh. Patient has a benign-appearing compound slightly ward, well-demarcated 4 mm nevus on her right scapula without surrounding atypia. She also has a benign-appearing nevus on her right buttock. There is some postinflammatory hyperpigmentation adjacent to it as if it had been scratched recently in the past, but no evidence of an underlying hematoma noted. Patient has a wide variety of small junctional and compound nevi. The only one that looks atypical today is actually a 1 mm black macule that on dermoscopy has irregular borders and is more globular than reticular in its pattern. It is atypical and certainly different than any of her other nevi. With her history of a dysplastic nevus, I did recommend that we biopsy this area today. ASSESSMENT: 1. A 37-year-old female; history of dysplastic nevus. No evidence of recurrence on the posterior aspect of the buttock, doing well. 2. Atypical nevus, left posterior ankle, recommended full excision today. After discussion of risks and benefits, patient consented. The area was sterilely prepped, anesthetized with 1% lidocaine with epinephrine, 4 mm punch biopsy was used to completely excise the nevus with wide clinical margins to the level of the subcutis. Hemostasis with 2 interrupted 4-0 Prolene sutures. She will return to clinic in 2 weeks for suture removal. 3. Multiple benign-appearing junctional and compound nevi. She will continue to keep an eye on these to be sure that they are not changing. PLAN: See Assessment. If her biopsy is within normal limits, we will see her back in 6 months to a year, certainly sooner at any time with new concerns. Results: Skin, left posterior ankle: Dysplastic junctional nevus, mild dysplasia; The margins are free of melanocytic proliferation in the sections examined. CGD:[id number] C: 05/03/08 12:57 CONFIRM #: [id number] CONDITIONER documented in this encounter Plan of Treatment Not on filedocumented as of this encounter Visit Diagnoses Not on filedocumented in this encounter Care Teams Fairing Worker Relationship Specialty Start Date End Date Lisa Gonzalez, TANIA, ACID TENDER PCP - General 05/03/1998 11/02/13 [address] [place] [address] documented as of this encounter
--- OUTSIDE RECORDS SUMMARY | 2022-04-10 14:16 | XMS_ITS | Encounter Summary ---
:1970 Author Organization [facility] Address [address] [place] [address] Care Team Providers Name Role Phone Carlos Lisa Andrade APRN, CNP Primary Care Provider [phone] Encounter Details Date Type Department Care Team Description 06/27/2008 PN Conversion Only [facility] [address] [place] [address] Social History Tobacco Use Types Packs/Day Years Used Date Smoking Tobacco: Never Assessed Sex Assigned at Date Recorded Not on file documented as of this encounter Plan of Treatment Not on filedocumented as of this encounter Procedures Procedure Name Priority Date/Time Associated Diagnosis Comme nts MM MAMMOGRAM DIAG Routine 06/27/2008 10:15 AM Res ults for this DIGITAL UNILAT W HOGSHEAD FILLER procedure a re in CAD the results section. documented in this encounter Results MM Mammogram Diag Digital Unilat W CAD (06/27/2008 10:15 AM HOGSHEAD FILLER) Anatomical Region Laterality Modality Breast Mammography Specimen (Source) Anatomical Location Collection Method / Collectio n Time Received Time / Laterality Volume Impressions 06/27/2008 4:32 PM HOGSHEAD FILLER : ??ACR-BIRADS CATEGORY 2: Benign finding. When compared to 12/01/2007, there has b een no significant change in asymmetric breast tissue in the upper ou ter quadrant of the left breast. ??Routine followup is recommende d with the patient's annual mammogram due in six months. 985/ss Dictating JEMAL HARTMANN MD Narrative 06/27/2008 4:32 PM HOGSHEAD FILLER COMPARISON: ??12/01/2007. HISTORY: ??The patient returns for 6-mon th followup of asymmetric breast tissue in the lateral posterior l eft breast on prior mammogram. FINDINGS: ??MLO and exaggerated cranioca udal views of the left breast were obtained. Again demonstrated is a r egion of asymmetric breast tissue in the upper outer left breast wi th stable appearance since 12/01/2007. ??There has been no signific ant change in density. ??There are no suspicious calcifications or othe r significant abnormality. Procedure Note Jemal Chacon - 07/11/2016Formatting o f this note might be different from the original. COMPARISON: 12/01/2007. HISTORY: The patient returns for 6-month followup of asymmetric breast tissue in the lateral posterior l eft breast on prior mammogram. FINDINGS: MLO and exaggerated craniocaud al views of the left breast were obtained. Again demonstrated is a r egion of asymmetric breast tissue in the upper outer left breast wi th stable appearance since 12/01/2007. There has been no significan t change in density. There are no suspicious calcifications or othe r significant abnormality. IMPRESSION : ACR-BIRADS CATEGORY 2: Benign finding. When compared to 12/01/2007, there has b een no significant change in asymmetric breast tissue in the upper ou ter quadrant of the left breast. Routine followup is recommended with the patient's annual mammogram due in six months. 985/ss Dictating JEMAL HARTMANN MD Alida Hare MD RAD MAY documented in this encounter Visit Diagnoses Not on filedocumented in this encounter Care Teams Human Resources Professional Relationship Specialty Start Date End Date Lisa Gonzaelz, FRANCHISE DEVELOPMENT MANAGER, WHEEL ALIGNMENT MECHANIC PCP - General 05/03/1998 11/02/13 [address] [place] [address] documented as of this encounter
--- OUTSIDE RECORDS SUMMARY | 2022-04-10 14:16 | XMS_ITS | Encounter Summary ---
:1970 [facility] Address [address] [place] [address] Care Team Providers Name Role Phone Carlos Lisa Raymond MARIN CNP Primary Care Provider [phone] Encounter Details Date Type Department Care Team Description 02/14/2008 Office Visit [facility] Alida Crawley, [address] [place] [address] [place] [phone] [place], [place] [address] (Wo rk) Social History Tobacco Use Types Packs/Day Years Used Date Smoking Tobacco: Never Assessed Sex Assigned at Date Recorded Not on file documented as of this encounter Last Filed Vital Signs Vital Sign Reading Time Taken Comments Blood Pressure 122/74 02/14/2008 4:09 PM CDT Pulse 84 02/14/2008 4:09 PM CDT Temperature - - Respiratory Rate - - Oxygen Saturation - - Inhaled Oxygen Concentration - - Weight 60.8 kg (133 lb 15.9 oz) 02/14/2008 4:09 PM CDT C: 60.8kg Height - - Body Mass Index 20.99 07/26/2007 3:40 PM CDT documented in this encounter Progress Notes Alida Hare MD - 02/14/2008 12:01 AM CDT Progress Notes signed by Alida Hare MD at 02/15/08 0366 Author: Alida Hare MD Service: (none) Author Type: Physician Filed: 08/31/10 0921 Note Time: 02/14/08 0001 Status: Signed Special Population Paraprofessional: Alida Hare MD (Physician) NAME: POLLY CASE MR#: [id number] ACCT: [id number] VISIT: [id number] DICTATING CLINICIAN: Alida Hare MD CONFIRM #: [id number] LOC: 502 CLINIC PROGRESS NOTE DATE OF VISIT: 02/14/2008 SUBJECTIVE: Patient is a 37-year-old female who presents with several issues. First, she has always had asymmetrical breasts, left being greater than the right. Her mammogram on 12/13/07 showed asymmetric tissue in the lateral posterior aspect of the left breast. Ultrasound was performed and a 6-month followup was recommended, although appeared benign, no skin change, nipple discharge, etc. Patient has asthma and would like a refill on Singulair. However, I did send in a year's refill in November. She would like a flu shot. Finally, she and her are trying to sell their house and buy a new house. She is wondering if she could have a prescription for lorazepam to be used on a very as needed basis in case she gets very stressed. Had been on Lexapro in the past and did not like the way it made her felt. She doubt she will use the lorazepam, but feels better if she would have it available. PAST MEDICAL HISTORY: Reviewed and updated in LastWord. MEDICATIONS: Reviewed and updated in LastWord. ADR/ALLERGIES: REVIEWED AND UPDATED IN LASTWORD. OBJECTIVE: VS: BP: 122/74. P: 84. Wt: 134 lb. GENERAL: Well-nourished, well-developed female in no acute distress. BREASTS: Left breast is larger than the right in size. Areola is also larger. No masses, skin change, or nipple discharge noted. No axillary lymphadenopathy. ASSESSMENT: 1. Ibgmyw-cucd-rret-old female with baseline asymmetrical breast. Recommend followup as scheduled. No abnormalities found on exam today. Reassurance given. 2. Adjustment disorder. Did give a prescription for lorazepam 0.5 mg #20 to be used on an as needed basis. Discussed habit-forming potential and that this should not be a long-term solution. Patient is very understanding and has good insight into this. 3. Flu shot given. PLAN: See assessment. [id number] C: 02/15/08 10:17 CONFIRM #: [id number] documented in this encounter Plan of Treatment Not on filedocumented as of this encounter Visit Diagnoses Not on filedocumented in this encounter Care Teams Purchasing Coordinator Relationship Specialty Start Date End Date Lisa Gonzalez, PLASTIC MIXER, DERMATOLOGY PHYSICIAN ASSISTANT PCP - General 05/03/1998 11/02/13 [address] [place] [address] documented as of this encounter
--- OUTSIDE RECORDS SUMMARY | 2022-04-10 14:16 | XMS_ITS | Encounter Summary ---
:1970 [facility] Address [address], [place] [address] Care Team Providers Name Role Phone Lisa Gonzalez APRN, CNP Primary Care Provider [phone] Encounter Details Date Type Department Care Team Description 09/22/2007 PN Conversion Only [facility] [address] [place] [address] Social History Tobacco Use Types Packs/Day Years Used Date Smoking Tobacco: Never Assessed Sex Assigned at Date Recorded Not on file documented as of this encounter Plan of Treatment Not on filedocumented as of this encounter Visit Diagnoses Not on filedocumented in this encounter Care Teams Merchandise Director Relationship Specialty Start Date End Date Lisa Gonzalez APRN, CNP PCP - General 05/03/1998 11/02/13 [address] [place] [address] documented as of this encounter
--- OUTSIDE RECORDS SUMMARY | 2022-04-10 14:16 | XMS_ITS | Encounter Summary ---
:1970 Author Organization [facility] Address [address] [place] [address] Care Team Providers Name Role Phone Lisa Gonzalez Raymond MARIN CNP Primary Care Provider [phone] Encounter Details Date Type Department Care Team Description 01/06/2008 Office Visit [facility] [place] Crist[place] [address] [address] [id number] [place] [address] [phone] (Wo rk) Social History Tobacco Use Types Packs/Day Years Used Date Smoking Tobacco: Never Assessed Sex Assigned at Date Recorded Not on file documented as of this encounter Progress Notes Cristóbal Parsons MD - 01/06/2008 12:01 AM CDT Progress Notes signed by Cristóbal Parsons MD at 02/07/08 1713 Author: Cristóbal Parsons MD Service: (none) Author Type: Physician Filed: 08/31/10 0823 Note Time: 01/06/08 0001 Status: Signed Spreader Operator: Cristóbal Parsons MD (Physician) NAME: POLLY CASE MR#: [id number] ACCT: [id number] VISIT: [id number] DICTATING CLINICIAN: CRISTÓBAL PARSONS MD CONFIRM #: [id number] LOC: 520 CLINIC PROGRESS NOTE DATE OF VISIT: 01/06/2008 SUBJECTIVE: CHIEF COMPLAINT: Breast pain. HISTORY OF PRESENT ILLNESS: This pleasant 37-year-old comes in today complaining of left sided breast pain. The patient says that since about 10 o'clock morning, it has hurt around the lateral and inferior portion of her breast. She has sharp pain and then sometimes a dull pain. If she takes a deep breath, then she can feel it much more. If she bends over, she also is going to feel it more. No nausea. She is not short of breath. No diaphoresis. She had a history of palpitations in the past, approximately a year ago and she was worked up through the emergency room with a stress test and everything was within normal limits. She says that she does, certainly, get anxious about things and she has worked herself up quite a bit regarding this and is very concerned. No fever or chills nor recent cough that she has experienced. She does not have any calf tenderness. The patient says she has had this chest pain before, but it only lasted for about 1/2 hour and then gone away and this time it seems to be there much more prevalent and longer. [place] and they will do that without any difficulty. PAST MEDICAL HISTORY: Chest pain, palpitations, anxiety, asthma, anemia. PAST SURGICAL HISTORY: Reviewed in LastWord. MEDICATIONS: Reviewed in LastWord, includes Zyrtec and Singulair. ADR/ALLERGIES: IODINE, PENICILLIN, CONTROL PILLS. FAMILY HISTORY: Negative for PEs or DVTs. SOCIAL HISTORY: She is a nonsmoker. OBJECTIVE: VS: BP: 115/72. T: 98.4. P: 89. R: 16. O2 Sats: 100% on room air. GENERAL: Alert and oriented, no apparent distress. Tympanic membranes, no signs of infection. Sinuses are nontender. Oropharynx is pink and moist. No pharyngitis. LUNGS: Clear to auscultation bilaterally. HEART: Regular without murmurs, rubs or gallops. I cannot reciprocate the pain that the patient is feeling. BREASTS: Negative for any masses or tenderness. ABDOMEN: Soft and nontender. SKIN: No rashes, cyanosis. No calf tenderness. An outside EKG is within normal limits. Chest x-ray is negative. White blood cell count: 8.6. Hemoglobin 12.6, hematocrit 38.6, platelets 251, d. dimer is currently pending. ASSESSMENT: Left sided chest pain, suspect musculoskeletal versus hormonal. She thinks that this has always come right before she gets her menstrual cycle. PLAN: Ibuprofen, alternating ice and heat. If the d. dimer comes back positive tonight, then she will be sent immediately to the emergency room for further evaluation. Otherwise, she needs to follow up with her doctor for detention care. KMM:[id number] C: 01/07/08 10:28 CONFIRM #: [id number] documented in this encounter Plan of Treatment Not on filedocumented as of this encounter Procedures Procedure Name Priority Date/Time Associated Diagnosis Comme nts XR CHEST 2 VIEWS Routine 01/06/2008 7:09 PM Resul ts for this CDT procedure are i n the results section. documented in this encounter Results XR Chest 2 Views (01/06/2008 7:09 PM CDT) Anatomical Region Laterality Modality Chest, Lung Other Specimen (Source) Anatomical Location Collection Method / Collectio n Time Received Time / Laterality Volume Narrative 01/06/2008 7:09 PM CDT Findings: CH2 Cardiovascular structures appear normal for age. ??No evidence of active pulmonary disease. Dictating INO PARKER RADIOLOGIST Procedure Note Ino Cardenas MD - 07/11/2016 Findings: CH2 Cardiovascular structures appear normal for age. No evidence of active pulmonary disease. Dictating INO PARKER RADIOLOGIST Cristóbal Parsons MD RAD GD documented in this encounter Visit Diagnoses Not on filedocumented in this encounter Care Teams Marketing Program Coordinator Relationship Specialty Start Date End Date Lisa Gonzalez, FOUNDATION COORDINATOR, MATHEMATICS PROFESSOR PCP - General 05/03/1998 11/02/13 [address] [place] [address] documented as of this encounter
--- OUTSIDE RECORDS SUMMARY | 2022-04-10 14:16 | XMS_ITS | Encounter Summary ---
:1970 [facility] Address [address] [place] [address] Care Team Providers Name Role Phone Lisa Gonzalez APRN, CNP Primary Care Provider Reason for Visit Reason Comments Other Encounter Details Date Type Department Care Team Description 12/13/2007 Telephone [facility] Bárbara Hanks MA Other [address] [phone] Social History Tobacco Use Types Packs/Day Years Used Date Smoking Tobacco: Never Assessed Sex Assigned at Date Recorded Not on file documented as of this encounter Progress Notes Center, Message - 12/13/2007 8:24 AM CDT Phone Note filed by [facility] at 08/29/10238 Author: [facility] Service: (none) Author Type: (none) Filed: 08/29/10238 Note Time: 12/13/07823 Status: Signed Crozer Operator: [facility] Lab/Radiology Results Caller Name/Relationship:Polly Primary Dough Cutter:Ananya What test result is needed?Mammogram Results and patient wants to know why she is going in for reevaluation. When and where was test done?12/01/2007 [place] [address] Who ordered the test?Ananya Meter Changes Records Clerk:Polly Best call back number:[phone] C Is it OK to leave a confidential message on this voicemail? No *[id number] Created on 13Dec2007 8:24am by MAHAD CASILLAS On 13Dec2007 8:29am CRISTY MCKAY wrote: Report states focal assymmetry; spot compression recommended. What to tell pt.? On 13Dec2007 8:38am DDEE WADE wrote: Based on the mammogram report, they see a focal density on the left breast. They recommend doing additional imaging to better identify what they are seeing on the mammogram. They will tell patient what imaging modalities are needed, if biopsy is needed, etc. Please let her know. Acknowledged by DEDE WADE on 8:38am On 13Dec2007 9:19am BÁRBARA DEAL wrote: Pt. given above message. Acknowledged by BÁRBARA DEAL on 9:19am MAN documented in this encounter Plan of Treatment Not on filedocumented as of this encounter Visit Diagnoses Not on filedocumented in this encounter Care Teams Eligibility Consultant Relationship Specialty Start Date End Date Lisa Gonzalez APRN, MEDICAL FILE CLERK PCP - General 05/03/1998 11/02/13 [address] [place] [address] documented as of this encounter
--- OUTSIDE RECORDS SUMMARY | 2022-04-10 14:16 | XMS_ITS | Encounter Summary ---
:1970 Author Organization [facility] Address [address] [place] [address] Care Team Providers Name Role Phone Lisa Gonzalez APRN, CNP Primary Care Provider [phone] Reason for Visit Reason Comments Other Encounter Details Date Type Department Care Team Description 11/24/2007 Telephone [place] [address] [facility], Message Other [address] [place], [place] [address] Social History Tobacco Use Types Packs/Day Years Used Date Smoking Tobacco: Never Assessed Sex Assigned at Date Recorded Not on file documented as of this encounter Progress Notes Center, Message - 11/24/2007 4:14 PM CDT Phone Note filed by [facility] at 08/29/10119 Author: [facility] Service: (none) Author Type: (none) Filed: 08/29/100 Note Time: 11/24/07 1614 Status: Signed Medical Claims Specialist: [facility] Prescription Refill Please provide enough refills to last until patient's next visit. Comment:- Pharmacy Seq #:- [phone] Pharmacy Name:- [facility] Pharmacy Street or City: [address] [facility] Clinician Name:- Leigh Ann Hartmann Drug Name/Strength:- Singulair 10 mg tablets Sig: Dose/Route/Freq:- Take 1 tablet PO daily at 2000 for asthma Quantity & Last Fill:- 30, 10/24/07 Created on 24Nov2007 4:14pm by BERRY RAINEY On 24Nov2007 4:17pm CHRISTINE SHORT wrote: faxed. please call pt to sched f/u. On 25Nov2007 9:20am KALA RAMSEY wrote: Pt may decide to get future refills from primary care provider. Acknowledged by KALA RAMSEY on 9:20am L KICK PRESS OPERATOR documented in this encounter Plan of Treatment Not on filedocumented as of this encounter Visit Diagnoses Not on filedocumented in this encounter Care Teams Corporate Representative Relationship Specialty Start Date End Date Lisa Gonzalez, TANIA, METHODS EXAMINER PCP - General 05/03/1998 11/02/13 [address] [place] [address] documented as of this encounter
--- OUTSIDE RECORDS SUMMARY | 2022-04-10 14:16 | XMS_ITS | Encounter Summary ---
:1970 Author Organization [facility] Address [address] [place] [address] Care Team Providers Name Role Phone Carlos Lisa Andrade APRN, CNP Primary Care Provider [phone] Encounter Details Date Type Department Care Team Description 01/06/2008 PN Conversion Only [facility] [place] [address] [place] [address] Social History Tobacco Use Types Packs/Day Years Used Date Smoking Tobacco: Never Assessed Sex Assigned at Date Recorded Not on file documented as of this encounter Last Filed Vital Signs Vital Sign Reading Time Taken Comments Blood Pressure 115/72 01/06/2008 6:26 PM CDT Pulse 89 01/06/2008 6:26 PM CDT Temperature 36.9 ??C (98.4 ??F) 01/06/2008 6:26 PM CDT C: 36 .9 C Respiratory Rate 16 01/06/2008 6:26 PM CDT Oxygen Saturation 100% 01/06/2008 6:26 PM CDT Inhaled Oxygen Concentration - - Weight - - Height - - Body Mass Index - - documented in this encounter Plan of Treatment Not on filedocumented as of this encounter Procedures Procedure Name Priority Date/Time Associated Diagnosis Comme nts ECG 12 LEAD CLINIC Routine 01/06/2008 6:52 PM Res ults for this CDT procedure are i n the results section. documented in this encounter Results ECG 12 lead clinic (01/06/2008 6:52 PM CDT) Specimen (Source) Anatomical Collection Method Collection Time Re ceived Time Location / / Volume Laterality 01/06/2008 6:52 PM CDT Narrative HP CONVERSION - 01/06/2008 6:52 PM CDT Normal sinus rhythm with sinus arrhythmia Normal ECG When compared with ECG of 04-APR-2005 1 4:04, No significant change was found Imr Conversion PN ECG ORDERABLES Performing Organization Address City/State/ZIP Code Phon e Number HP CONVERSION documented in this encounter Visit Diagnoses Not on filedocumented in this encounter Care Teams Engine Inspector Relationship Specialty Start Date End Date Lisa Gonzalez APRN, ROLL BUCKER PCP - General 05/03/1998 11/02/13 [address] [place] [address] documented as of this encounter
--- OUTSIDE RECORDS SUMMARY | 2022-04-10 14:16 | XMS_ITS | Encounter Summary ---
:1970 [facility] Address [address] [place] [address] Care Team Providers Name Role Phone Lisa Gonzalez APRN, CNP Primary Care Provider [phone] Reason for Visit Reason Comments Other Encounter Details Date Type Department Care Team Description 09/15/2007 Telephone [place] [id number] A Lorin Bowman Other [address] [place] [address] Social History Tobacco Use Types Packs/Day Years Used Date Smoking Tobacco: Never Assessed Sex Assigned at Date Recorded Not on file documented as of this encounter Progress Notes Mayte Freedman MA - 09/15/2007 2:20 PM CDT Phone Note filed by Mayte Freedman MA at 08/28/102024 Author: Mayte Freedman MA Service: (none) Author Type: Block Placer Filed: 08/28/102024 Note Time: 09/15/070 Status: Signed Diagnostic Tech: Mayte Freedman MA (Block Placer) Prior Authorization or Change Medications? Pharmacy Seq #: [phone] Pharmacy Name & Phone #: [phone]/City: [place] Comment: [facility] Clinician Name: Shahbaz Drug Name/Strength: Singulair 10mg Sig: Take 1 PO daily Formulary Alternative Meds from Pharmacy: Insurance Carrier: Call Back Phone or Cell Is it OK to Leave a Confidential Message on this Voicemail? Created on 15Sep2007 2:20pm by MAYTE FREEDMAN On 15Sep2007 4:17pm LORIN SHORT wrote: pa [facility] to [facility] waiting for response On 17Sep2007 10:06am LORIN SHORT wrote: pa approved and pharmacy notified. they will call pt. Acknowledged by LORIN SHORT on 10:06am [employer] EQUIPMENT SALES documented in this encounter Plan of Treatment Not on filedocumented as of this encounter Visit Diagnoses Not on filedocumented in this encounter Care Teams Music Typographer Relationship Specialty Start Date End Date Lisa Gonzalez APRN, CYBER DEFENSE FORENSICS ANALYST PCP - General 05/03/1998 11/02/13 [address] [place] [address] documented as of this encounter
--- OUTSIDE RECORDS SUMMARY | 2022-04-10 14:16 | XMS_ITS | Encounter Summary ---
:1970 [facility] Address [address], [place] [address] Care Team Providers Name Role Phone Lisa Gonzalez APRN, CNP Primary Care Provider [phone] Encounter Details Date Type Department Care Team Description 05/02/2008 PN Conversion Only [facility] [address] M D, Dermatology PhD [address] [facility] [address] [place], [place] [address] [address] [place], [place] [phone] (Wo rk) Social History Tobacco Use Types Packs/Day Years Used Date Smoking Tobacco: Never Assessed Sex Assigned at Date Recorded Not on file documented as of this encounter Plan of Treatment Not on filedocumented as of this encounter Visit Diagnoses Not on filedocumented in this encounter Care Teams Allied Health Teacher Relationship Specialty Start Date End Date Lisa Gonzalez APRN, CNP PCP - General 05/03/1998 11/02/13 [address] [place] [address] documented as of this encounter
--- OUTSIDE RECORDS SUMMARY | 2022-04-10 14:16 | XMS_ITS | Encounter Summary ---
:1970 Author Organization [facility] Address [address], [place] [address] Care Team Providers Name Role Phone Lisa Gonzalez APRN, CNP Primary Care Provider [phone] Encounter Details Date Type Department Care Team Description 09/09/2007 Nursing Visit [facility] Marisa Chaves APRN, [address] [place] [address] [facility] [phone] [place] [address] (Wo rk) Social History Tobacco Use Types Packs/Day Years Used Date Smoking Tobacco: Never Assessed Sex Assigned at Date Recorded Not on file documented as of this encounter Plan of Treatment Not on filedocumented as of this encounter Visit Diagnoses Not on filedocumented in this encounter Care Teams Rotary Drum Dyer Relationship Specialty Start Date End Date Lisa Gonzalez APRN, CNP PCP - General 05/03/1998 11/02/13 [address] [place] [address] documented as of this encounter
--- OUTSIDE RECORDS SUMMARY | 2022-04-10 14:17 | XMS_ITS | Encounter Summary ---
:1970 Author Organization [facility] Address [address] [place] [address] Care Team Providers Name Role Phone GonzalezLisa AMANDA MARIN Primary Care Provider [phone] Encounter Details Date Type Department Care Team Description 08/13/2007 Neonatal Surgeon Only [facility] [address] Marisa Chaves, Dermatology AMANDA MARIN [address] [place] [facility] [address] [place] [phone] (Wo rk) Social History Tobacco Use Types Packs/Day Years Used Date Smoking Tobacco: Never Assessed Sex Assigned at Date Recorded Not on file documented as of this encounter Progress Notes Marisa Chaves APRN, CNP - 08/13/2007 12:01 AM CDT Progress Notes signed by Marisa Chaves APRN, CNP at 08/13/07 1256 Author: NARESH Mccullough Service: (none) Author Type: Nurse Practitioner Filed: 08/31/10 6809 Note Time: 08/13/07 0001 Status: Signed Director Of Medical Staff Services: NARESH Mccullough (Nurse Practitioner) 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 documented in this encounter Plan of Treatment Not on filedocumented as of this encounter Visit Diagnoses Not on filedocumented in this encounter Care Teams Sliver Cutter Relationship Specialty Start Date End Date Lisa Gonzalez APRN, MARKETING ANALYTICS MANAGER PCP - General 05/03/1998 11/02/13 [address] [place] [address] documented as of this encounter
--- OUTSIDE RECORDS SUMMARY | 2022-04-10 14:17 | XMS_ITS | Encounter Summary ---
:1970 Author Organization [facility] Address [address], [place] [address] Care Team Providers Name Role Phone Lisa Gonzalez APRN, CNP Primary Care Provider [phone] Encounter Details Date Type Department Care Team Description 08/17/2007 Nursing Visit [facility] Marisa Chaves APRN, [address] [place] [address] [facility] [phone] [place] [address] (Wo rk) Social History Tobacco Use Types Packs/Day Years Used Date Smoking Tobacco: Never Assessed Sex Assigned at Date Recorded Not on file documented as of this encounter Plan of Treatment Not on filedocumented as of this encounter Visit Diagnoses Not on filedocumented in this encounter Care Teams Electric Power Line Repairer Relationship Specialty Start Date End Date Lisa Gonzalez APRN, CNP PCP - General 05/03/1998 11/02/13 [address] [place] [address] documented as of this encounter
--- OUTSIDE RECORDS SUMMARY | 2022-04-10 14:17 | XMS_ITS | Encounter Summary ---
:1970 [facility] Address [address] [place] [address] Care Team Providers Name Role Phone Lisa Gonzalez Raymond MARIN CNP Primary Care Provider [phone] Encounter Details Date Type Department Care Team Description 11/10/2006 Office Visit [facility] Lou Jacobo MD [place] [id number] [place] [address] [phone] Social History Tobacco Use Types Packs/Day Years Used Date Smoking Tobacco: Never Assessed Sex Assigned at Date Recorded Not on file documented as of this encounter Last Filed Vital Signs Vital Sign Reading Time Taken Comments Blood Pressure 112/74 11/10/2006 3:44 PM CDT Pulse 100 11/10/2006 3:44 PM CDT Temperature - - Respiratory Rate - - Oxygen Saturation - - Inhaled Oxygen Concentration - - Weight 59.9 kg (131 lb 15.8 oz) 11/10/2006 3:44 PM CDT C: 59.9kg Height - - Body Mass Index 20.67 11/05/2006 10:03 AM CDT documented in this encounter Progress Notes Janelle Jacobo - 11/10/2006 12:01 AM CDT Progress Notes signed by at 11/13/06 1019 Author: Janelle Lorenzo MD Service: (none) Author Type: (none) Filed: [id number] Note Time: 11/10/06 0001 Status: Signed Bending Press Operator: Fide Conversion NAME: POLLY CASE MR#: [id number] ACCT: [id number] VISIT: [id number] DICTATING CLINICIAN: Janelle Lorenzo MD JOB: [id number] LOC: 502 CLINIC PROGRESS NOTE DATE OF VISIT: 11/10/2006 SUBJECTIVE: : 1970. Polly presents to clinic today per my request to discuss test results. She has had mild normocytic, normochromic anemia dating back to at least 2003, per our chart records. She did have some iron deficiency and has been taking a multi-vitamin with extra iron for the past several months and follow up iron and ferritin studies were normal. However, her MCV is normal, at around 90. She is of Urdu and Orthodoxy heritage. Other family members with anemia include a maternal great aunt, otherwise no family history. Polly has been healthy. No evidence for chronic disease. She is on no new medications. Does not have any autoimmune diseases. She has some mild shortness of breath with exertion, but otherwise is completely asymptomatic and review of systems is negative. She denies bloody or black, tarry stools. Menstrual periods are heavy the 1st day or two, but then normal. No other concerns today. MEDICATIONS: Reviewed and updated in the patient's health profile today. ADR/ALLERGIES: REVIEWED AND UPDATED IN THE PATIENT'S HEALTH PROFILE TODAY. OBJECTIVE: VS: Wt: 132 lb. BP: 112/74. P: 100. GENERAL: She is pleasant, slightly anxious, but in no acute distress. HEENT: Sclerae clear, conjunctivae non-injected. Mucus membranes are moist. No further exam today. LOWER EXTREMITIES: Without edema. ASSESSMENT: 1. Reviewed test results. 2. Normocytic, Normochromic anemia, etiology a bit unclear. PLAN: Upon review of the laboratory studies, anemia of chronic disease seems unlikely. Her reticulocyte count seems reasonable for the degree of anemia, and therefore, I feel that bone marrow problems are unlikely, especially because her other cell lines are fine, including white cell and platelet counts. Her creatinine was normal. Sed rate was normal. LVH mildly elevated, however, the peripheral blood smear did not show any red cell fragments, spherocytes, etc. In fact, the peripheral smear was unable to identify a specific cause for the anemia. Most things listed in the differential diagnosis have been ruled out. I am a bit suspicious for thalassemia, given her heritage. Will go ahead and order a hemoglobin electrophoresis. If that is normal, then I suspect that she has had chronic iron deficiency anemia, that is responding to iron supplementation, which she has only been taking for the last few months. Ferritin and iron levels have just recently normalized. In any case, this level of anemia is not a dangerous thing, and this was explained to the patient in detail. There is no evidence for any blood loss. Hemoglobin is exactly the same as it was in 2004. All the patient's questions were answered. Will get back to her on the test results when available. Length of visit, 25 minutes, with 15 minutes spent in counseling time discussing the differential diagnosis for anemia in detail, reviewing her test results, discussing treatment plan and follow up recommendations. LCM:[id number] C: 11/12/06 00:24 DOCUMENT: [id number] DRY WORKER GENERAL documented in this encounter Plan of Treatment Not on filedocumented as of this encounter Visit Diagnoses Not on filedocumented in this encounter Care Teams Collection Systems Worker Relationship Specialty Start Date End Date Lisa Gonzalez APRN, UNDERGROUND ELECTRICIAN PCP - General 05/03/1998 11/02/13 [address] [place] [address] documented as of this encounter
--- OUTSIDE RECORDS SUMMARY | 2022-04-10 14:17 | XMS_ITS | Encounter Summary ---
:1970 Author Organization [facility] Address [address] [place] [address] Care Team Providers Name Role Phone Lisa Gonzalez APRN, AMANDA Primary Care Provider [phone] Encounter Details Date Type Department Care Team Description 08/03/2007 PN Conversion Only GAS TRANSFER OPERATOR [address] Marisa Covarrubias, [address] MACHINE UMBRELLA TIPPER, [place] [address] [facility] [place] [address] (Wo rk) Social History Tobacco Use Types Packs/Day Years Used Date Smoking Tobacco: Never Assessed Sex Assigned at Date Recorded Not on file documented as of this encounter Plan of Treatment Not on filedocumented as of this encounter Procedures Procedure Name Priority Date/Time Associated Diagnosis Comme nts DERM PATH-DPF Routine 08/03/2007 11:17 AM Results for this CDT procedure are i n the results section. DERM PATH CONSULT 1 Routine 08/03/2007 11:17 AM R esults for this CDT procedure are i n the results section. documented in this encounter Results Derm Path-Dpf (08/03/2007 11:17 AM CDT) [facility] Method Time Signature Dermatopathology SEE TEXT No normal HP CONVERSION Final Report range Comment: Patient: POLLY CASE ?D ERMATOPATHOLOGY Pathology # [id number] ?Date Obtained: ? Date Received: DIAGNOSIS: ?Left buttocks: Specimen forwarded to [facility] for ?microscopic examination and diagno sis. ??See it infrastructure consultant's report. ?Amalia Stafford MD ?(electronic signature) DSE/DSE/build engineer Date of Report: 08/11/07 CLINICAL DIAGNOSIS: ?DN ORGAN/TISSUE SITE: ?Left buttocks GROSS DESCRIPTION: ?Received is a 0.6 x 0.6 x 0.2 cm s kin specimen. Trisected and submitted. ?([facility] [place], [place] DSE/build engineer MICROSCOPIC DESCRIPTION: ?Specimen [facility] to [facility] for microscopic ?examination and diagnosis. ??See chi yanez's report. Specimen (Source) Anatomical Collection Method Collection Time Re ceived Time Location / / Volume Laterality 08/03/2007 11:17 AM CDT Marisa Chaves MACHINE UMBRELLA TIPPER, MILITARY LAWYER LAB_1 Performing Organization Address City/State/ZIP Code Phon e Number HP CONVERSION Derm Path Consult 1 (08/03/2007 11:17 AM CDT) [facility] gist Method Time Signature Derm Path SEE TEXT No normal HP CONVERSION Consult 1 range Comment: Patient: POLLY CASE ? SURGICAL PATHOLOGY SUPPLEMENTAL REPORT Pathology # [id number] ?Date Obtained: ? Date Received: CONSULTATION: DOCTOR: ?Rae Mehta M.D. INSTITUTION: [facility] ; ??TOMAS Smith THEIR #: ? [id number] DIAGNOSIS: ?SKin, left buttock: Junctional cherie anocytic lesion with atypical features, ?re-excision advised; see comment. COMMENT: ?Multiple serial sections are exami stephen. 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 However, the degree of ?single cell proliferation and epit helioid cytology are concerning in a ?patient of this age. Although the lesion does not involve the margins in ?the plane of the sections, not all margins are visualized. Re-excision is ?advised to assure complete excisio n. cs ?This report is not the original or complete report and it has not been ?reviewed by [facility]. Specimen (Source) Anatomical Collection Method Collection Time Re ceived Time Location / / Volume Laterality 08/03/2007 11:17 AM CDT Marisa Chaves APRN, CNP LAB_1 Performing Organization Address City/State/ZIP Code Phon e Number HP CONVERSION documented in this encounter Visit Diagnoses Not on filedocumented in this encounter Care Teams Director Product Development Relationship Specialty Start Date End Date Lisa Gonzalez APRN, CNP PCP - General 05/03/1998 11/02/13 [address] [place] [address] documented as of this encounter
--- OUTSIDE RECORDS SUMMARY | 2022-04-10 14:17 | XMS_ITS | Encounter Summary ---
:1970 Author Organization [facility] Address [address] [address] Care Team Providers Name Role Phone Lisa Gonzalez APRN, CNP Primary Care Provider [phone] Encounter Details Date Type Department Care Team Description 08/27/2007 PN Conversion Only [facility] [address] Fiona Nguyen M D, Dermatology PhD [address] [facility] [address] [place], [place] [address] [address] [place], [place] [phone] (Wo rk) Social History Tobacco Use Types Packs/Day Years Used Date Smoking Tobacco: Never Assessed Sex Assigned at Date Recorded Not on file documented as of this encounter Plan of Treatment Not on filedocumented as of this encounter Visit Diagnoses Not on filedocumented in this encounter Care Teams Wood Bucker Relationship Specialty Start Date End Date Lisa Gonzalez APRN, CNP PCP - General 05/03/1998 11/02/13 [address] [place] [address] documented as of this encounter
--- OUTSIDE RECORDS SUMMARY | 2022-04-10 14:17 | XMS_ITS | Encounter Summary ---
:1970 Author Organization [facility] Address [address] [place] [address] Care Team Providers Name Role Phone Carlos Lisa Andrade APRN, AMANDA Primary Care Provider [phone] Encounter Details Date Type Department Care Team Description 09/06/2007 PN Conversion Only [facility] CONVER[facility] N Alida Hare [address] [facility] [place] [address] [facility] [address] [place] [address] (Wo rk) Social History Tobacco Use Types Packs/Day Years Used Date Smoking Tobacco: Never Assessed Sex Assigned at Date Recorded Not on file documented as of this encounter Plan of Treatment Not on filedocumented as of this encounter Procedures Procedure Name Priority Date/Time Associated Comments Diagnosis ANATOMICAL PATH Routine 09/06/2007 8:52 AM Result s for this LIQUID BASED CDT procedure are i n the results section. documented in this encounter Results Pap Smear (09/06/2007 8:52 AM CDT) [employer] gist Method Time Signature PAP Smear SEE TEXT No normal HP CONVERSION Liquid Based range Comment: Patient: POLLY CASE ? CERVICAL CYTOLOGY REPORT Pathology # ??[id number] ?Date Obtained: [id number] ? Date Received: [id number] CYTOLOGIC IMPRESSION: Negative for intraepithelial lesion or m alignancy. Verified 09/09/07 by: ? (electronic signature) ? KEARA TIONAL DATA LMP: CLINICAL HIST LIQUID BASED PAP CERVICAL SPECIMEN ADEQUACY: ?? Satisfactory. ENDOCERVICAL CELLS: ??Present. Specimen (Source) Anatomical Collection Method Collection Time Re ceived Time Location / / Volume Laterality 09/06/2007 8:52 AM CDT Alida Hare MD LAB_1 Performing Organization Address City/State/ZIP Code Phon e Number HP CONVERSION documented in this encounter Visit Diagnoses Not on filedocumented in this encounter Care Teams Formation Fracturing Operator Relationship Specialty Start Date End Date Lisa Gonzalez, CARPENTER SUPERVISOR WOODEN SHIP, RETURNED GOODS RECEIVING CLERK PCP - General 05/03/1998 11/02/13 [address] [place] [address] documented as of this encounter
--- OUTSIDE RECORDS SUMMARY | 2022-04-10 14:17 | XMS_ITS | Encounter Summary ---
:1970 Author Organization [facility] Address [address] [place] [address] Care Team Providers Name Role Phone Lisa Gonzalez APRN, CLINIC MD ASSOCIATE Primary Care Provider [phone] Reason for Visit Reason Comments Other Encounter Details Date Type Department Care Team Description 08/23/2007 Telephone [place] [facility] Marisa Art APRN, Other [address] [place] [address] [facility] [phone] [place], [place] [address] (Wo rk) Social History Tobacco Use Types Packs/Day Years Used Date Smoking Tobacco: Never Assessed Sex Assigned at Date Recorded Not on file documented as of this encounter Progress Notes Kaley Cavazos RN - 08/23/2007 5:07 PM CDT Phone Note filed by Kaley Killian RN at 08/28/101847 Author: Kaley Killian RN Service: (none) Author Type: Registered Nurse Filed: 08/28/101847 Note Time: 08/23/071706 Status: Signed Icer Machine: Kaley Killian RN (Registered Nurse) MESSAGE TO CARE TEAM NAME OF CALLER: Polly NAME OF CLINICIAN: Teresa Chaves MESSAGE: Patient is concerned about her biopsy results and wondering why it is taking so long. Please call to advise. Thank you. CALL BACK PHONE OR CELL PHONE: [phone] or cell [phone] IS IT OK TO LEAVE A MESSAGE ON THIS VOICEMAIL? no details please. Created on 23Aug2007 5:07pm by KALEY KILLIAN On 24Aug2007 10:21am MARISA CHAVES wrote: Please continue to be patient. I am not sure where this is, but I will check with dermpath. On 24Aug2007 10:57am MARISA CHAVES wrote: Bx results given. Acknowledged by MARISA CHAVES on 10:57am OTECHNICAL SPECIALIST documented in this encounter Plan of Treatment Not on filedocumented as of this encounter Visit Diagnoses Not on filedocumented in this encounter Care Teams Construction Electrician Relationship Specialty Start Date End Date Lisa Gonzalez APRN, CLINIC MD ASSOCIATE PCP - General 05/03/1998 11/02/13 [address] [place] [address] documented as of this encounter
--- OUTSIDE RECORDS SUMMARY | 2022-04-10 14:17 | XMS_ITS | Encounter Summary ---
:1970 [facility] Address [address] [place] [address] Care Team Providers Name Role Phone Gonzalez Lisa Raymond MARIN CNP Primary Care Provider [phone] Encounter Details Date Type Department Care Team Description 07/26/2007 Office Visit [facility] Alida Crawley, [address] [facility] [place] [address] [place] [phone] [place], [place] [address] (Wo rk) Social History Tobacco Use Types Packs/Day Years Used Date Smoking Tobacco: Never Assessed Sex Assigned at Date Recorded Not on file documented as of this encounter Last Filed Vital Signs Vital Sign Reading Time Taken Comments Blood Pressure 110/80 07/26/2007 3:40 PM CDT Pulse 72 07/26/2007 3:40 PM CDT Temperature - - Respiratory Rate - - Oxygen Saturation - - Inhaled Oxygen Concentration - - Weight 61.7 kg (135 lb 15.7 oz) 07/26/2007 3:40 PM C: 6 1.7kg CDT Height 170.2 cm (5' 7) 07/26/2007 3:40 PM C: 170.2cm CDT Body Mass Index 21.3 07/26/2007 3:40 PM CDT documented in this encounter Progress Notes Alida Hare MD - 07/26/2007 12:01 AM CDT H&P signed by Alida Hare MD at 07/26/07 3961 Author: Alida Hare MD Service: (none) Author Type: Physician Filed: 08/31/10 0321 Note Time: 07/26/072013 Status: Signed Gristmiller: Alida Hare MD (Physician) Preventive Exam & Pelvic IMPRESSION: Routine preventive exam. Anemia. Anxiety. SUBJECTIVE: 37 y/o patient presents for a routine preventive physical and pelvic exam. Patient voices concerns about: Patient with anxiety. Does not want to be on meds. Has not done therapy. Interested in behavioral exercises. Has period today. Current contraception: Condoms. Patient desires contraceptive advice. Partner desires vasectomy. Past Medical History: Battery Charger History: : 4 Para: 4 - 0 - 0 - 4 Pap History: Last Pap smear: 07/2006 No history of abnormal Pap smears. Menstrual History: Date of LMP: 07/26/2007 STD History: No history of STD's. Other Medical/Surgical History: Allergic Rhinitis. Anemia. Anxiety. Amblyopia. s/p bladder surgery as a child. Adverse Drug Reactions: Patient's Adverse Drug Reactions were reviewed today, and updated on the Health Profile of the Electronic Medical Record. Current Medications: Reviewed today and updated on Health Profile in the Electronic Medical Record. Family History: (First degree family members) No premature ASCVD. No breast CA. No colon CA. Lung CA in mother. No diabetes Mellitus. Hypertension in father. CVA or CAD in father. Social History: Employment status: Not working. Marital Status: . Sexual History: Monogamous relationship. Habits Tobacco: None. Alcohol: Less than once weekly. Preventive Health Assessment: Performs monthly breast self-exams. Calcium intake adequate. Exercise adequate. Recent lipid screen has been performed. Safe in relationship. Uses seatbelts. Tetanus immunization is up-to-date. Sun protection used. Sees dentist and eye doctor. Review of Systems: With the exception of any items noted above, the remainder of complete ROS is negative. OBJECTIVE: Vital Signs: Vital Signs taken today were reviewed on the flowsheet in the Electronic Medical Record. General: Patient alert, in NAD. HEENT: PERRLA. Bilateral TM's, external Lcanals, oropharynx normal. Neck: Supple, without thyromegaly or mass. Upper Extremities: FROM with good strength, no lesions or deformities. CV: N RRR without murmurs, rubs or gallops. Resp: Clear to auscultation without Ocrackles, wheezes or distress. Abdomen: Soft, non-tender, without Phepatosplenomegaly, masses, or hernias. Breasts: Nontender, without Qmasses, nipple discharge, erythema, or axillary adenopathy. Lymphatic: No Rneck, supraclavicular, axillary or groin lymphadenopathy. Lower Extremities: FROM, normal gait without edema, lesions, or deformity. Skin: T No lesions. Neuro: CN II-XII, motor & sensory function all intact. Psychiatric: Alert & oriented with normal affect and insight, does not appear depressed or anxious. ASSESSMENT: Routine preventive exam. Anemia, iron deficiency. Anxiety. PLAN: Pap smear per patient when menstruation done. Complete blood count. We will mail lab results to patient. Immunizations reviewed and updated in Health Profile of the Electronic Medical Record. Patient is up to date. Discussed with patient: Breast self-exam recommended. Instructed on breast self-exam. Recommended adequate calcium intake/osteoporosis prevention. Recommended a balanced nutritious diet. Benefits of regular exercise. Mammogram screening. Refer to mental health for anxiety. Prevention or Hormone Therapy: Partner to pursue vasectomy. *SH~PC~PEF ~[place] Note completed on: 07/26/2007 5:58 PM documented in this encounter Plan of Treatment Not on filedocumented as of this encounter Visit Diagnoses Not on filedocumented in this encounter Care Teams Master Automotive Technician Relationship Specialty Start Date End Date Lsia Gonzalez APRN, ACCOUNT SERVICE REPRESENTATIVE PCP - General 05/03/1998 11/02/13 [address] [place] [address] documented as of this encounter
--- OUTSIDE RECORDS SUMMARY | 2022-04-10 14:17 | XMS_ITS | Encounter Summary ---
:1970 Author Organization [facility] Address [address] [place] [address] Care Team Providers Name Role Phone Carlos Lisa Andrade APRN, CNP Primary Care Provider [phone] Encounter Details Date Type Department Care Team Description 02/02/2007 PN Conversion Only [place] [address] [address] [place] [address] (Wo rk) Social History Tobacco Use Types Packs/Day Years Used Date Smoking Tobacco: Never Assessed Sex Assigned at Date Recorded Not on file documented as of this encounter Plan of Treatment Not on filedocumented as of this encounter Procedures Procedure Name Priority Date/Time Associated Comments Diagnosis IRON BINDING CAPACITY Routine 02/02/2007 3:41 PM Results for this (INCL IRON) CDT procedure are i n the results section. ERYTHROPOIETIN Routine 02/02/2007 3:41 PM Results for this CDT procedure are i n the results section. PERIPHERAL BLOOD SMEAR Routine 02/02/2007 3:41 PM Results for this CDT procedure are i n the results section. LDL CHOLESTEROL, DIRECT Routine 02/02/2007 3:41 PM Results for this MEASURED CDT procedure are i n the results section. COMPLETE BLOOD Routine 02/02/2007 3:41 PM Results for this COUNT-W/DIFF CDT procedure are i n the results section. FERRITIN Routine 02/02/2007 3:41 PM Results f or this CDT procedure are i n the results section. MORPH FINAL REPORT Routine 02/02/2007 6:53 AM Res ults for this CDT procedure are i n the results section. documented in this encounter Results Complete Blood Count-W/Diff (02/02/2007 3:41 PM CDT) Patholo gist Method Time Signature White Blood Cell 7.7 3.8 - 11.0 HP CONVERSIO N Count K/cmm Red Blood Cell 3.95 3.70 - HP CONVERSION Count 5.20 m/cmm Hemoglobin 12.4 11.8 - HP CONVERSION 15.5 gm/dL Hematocrit 36.8 35.0 - HP CONVERSION 46.0 % Mean Corpuscular 93.2 80.0 - HP CONVERSION Volume 100.0 fl Mean Corpuscular 31.4 27.0 - HP CONVERSION Hemoglobin 34.0 pg Mean Corpuscular 33.7 32.0 - HP CONVERSION Hemoglobin Conc 36.5 gm/dL [place] RDW 12.4 11.0 - HP CONVERSION 15.0 % Platelet Count 258 140 - 450 HP CONVERSION k/cmm Differential Auto-Dif No normal HP CONVERSION Verify range Neutrophils 4.3 2.0 - 7.5 HP CONVERSION Absolute Count K/cmm Neutrophil 57.8 50.0 - HP CONVERSION 75.0 % Lymphocyte % 30.6 20.0 - HP CONVERSION 40.0 % Monocyte 10.1 5.0 - 14.0 HP CONVERSION % Eosinophil 0.8 0.0 - 6.0 HP CONVERSION % Basophil % 0.7 0.0 - 2.0 HP CONVERSION % Specimen (Source) Anatomical Collection Method Collection Time Re ceived Time Location / / Volume Laterality 02/02/2007 3:41 PM CDT Janelle Jacobo MD LAB_1 Performing Organization Address City/State/ZIP Code Phon e Number HP CONVERSION Ferritin (02/02/2007 3:41 PM CDT) P athologist Signature Ferritin Serum 16 10 - 291 HP CONVERSION ng/mL Specimen (Source) Anatomical Collection Method Collection Time Re ceived Time Location / / Volume Laterality 02/02/2007 3:41 PM CDT Janelle Jacobo MD LAB_1 Performing Organization Address City/State/ZIP Code Phon e Number HP CONVERSION Erythropoeitin (02/02/2007 3:41 PM CDT) P athologist Signature Erythropoietin 11 mU/mL HP CONVERSION Comment: Interpretive data: INTERPRETATION: Erythropoietin Normal serum concentrations of erythropo ietin for 95% of individuals with normal hematocrits rang e from 4-27 mU/mL. As the hematocrit is lowered by iron def iciency, aplastic, or hemolytic anemia, the concentration o f erythropoietin increases as shown in the graph below. I n the absence of anemia, elevated concentrations are seen in renal tumors, as a manifestation of renal transplant r ejection, and in secondary polycythemia. Low values may b e observed in hemochromatosis. ?Expected Erythropoietin Concent rations in Patients ? with Uncompl icated Anemia ?? Erythropoietin (mU/mL) ?100,000 - + ?+ ? 10,000 - +....... ?+ .. ..... ?1,000 - + ?. ...... ?+ ? ........ ?100 - + ? ........ ?+ ?........ ? 10 - + ?........ ?+--- +---+---+---+---+---+ ? 10 ?? 20 ??30 ??40 ??50 ??60 ??70 ?(Hematocrit %) ?(Contributions To Nephrol ogy 1988:66:54-62) Decreased erythropoietin concentrations with an elevated hematocrit are observed in patients with polycythemia rubra vera, and with a decreased hematocrit in patients with HIV infection who are receiving AZT. ??Patie nts on AZT who have anemia and erythropoietin concentrations of less than or equal to 500 mU/mL may benefit from ther apy with recombinant EPO ([facility] [id number],1989 ). Performed at [facility] [address] [place] [address] 8 Specimen (Source) Anatomical Collection Method Collection Time Re ceived Time Location / / Volume Laterality 02/02/2007 3:41 PM CDT Janelle Jacobo MD LAB_1 Performing Organization Address City/[facility]/ZIP Code Phon e Number HP CONVERSION LDL Cholesterol, Direct Measured (02/02/2007 3:41 PM CDT) athologist Signature LDL Direct 101 0 - 130 HP CONVERSION mg/dL Comment: LDL Optimal: <100 mg/dL (target <100 if diabetes or coronary he art disease) Near/Above Optimal: 100-130 mg/dL Borderline High: 130-160 mg/dL Specimen (Source) Anatomical Collection Method Collection Time Re ceived Time Location / / Volume Laterality 02/02/2007 3:41 PM CDT Janelle Jacobo MD LAB_1 Performing Organization Address City/State/ZIP Code Phon e Number HP CONVERSION (ABNORMAL) Iron Binding Capacity (Incl Iron) (02/02/2007 3:41 PM CDT) athologist Signature Iron, Serum 54 50 - 165 HP CONVERSION ug/dL Iron Binding 315 250 - 450 HP CONVERSION Capacity ug/dL Iron Saturation 17 (L) 20 - 55 % HP CONVERSION Specimen (Source) Anatomical Collection Method Collection Time Re ceived Time Location / / Volume Laterality 02/02/2007 3:41 PM CDT Janelle Jacobo MD LAB_1 Performing Organization Address City/State/ZIP Code Phon e Number HP CONVERSION Peripheral Blood Smear (02/02/2007 3:41 PM CDT) P athologist Signature Peripheral Yes No normal HP CONVERSION Blood Smear range Specimen (Source) Anatomical Collection Method Collection Time Re ceived Time Location / / Volume Laterality 02/02/2007 3:41 PM CDT Janelle Jacobo MD LAB_1 Performing Organization Address City/State/ZIP Code Phon e Number HP CONVERSION Morph Final Report (02/02/2007 6:53 AM CDT) Patholo gist Method Time Signature Morphology SEE TEXT No normal HP CONVERSION Final Report range Comment: Patient: POLLY CASE ?Morphology Pathology # ??[id number] ?Date Obtained: [id number] ? Date Received: [id number] DIAGNOSIS: ?Normal peripheral blood indices. ?Nestor Cuevas MD ?(electronic signature) JOE/JOE/kmr Date of Report: 02/03/07 REPORT TEXT: INDICES: ?WBC ? 8.0 ??k/cmm ?RBC ? 3.95 m/cmm ?HGB ?12.4 ??gm/dl ?MCV ?92.6 ??fl ?RDW ?12.1 ??% ?PLT ? 254.0 ??k/cmm RED CELLS: ?The red cells are normal in number and normochromic, normocytic. ??There is ?no marked anisopoikilocytosis. ??I see no evidence of ongoing hemolysis, ?rouleaux formation, or polychromas ia. PLATELETS: ?The platelets are normal in number and morphology. WHITE CELLS: ?The white cells are normal in numb er. DIFFERENTIAL: ?Neutrophils ?56.2 ??% ?Lymphocytes ?32.3 ??% ?Monocytes ?10.7 ??% ?Eosinophils ? 0.6 ??% ?Basophils ? 0.2 ??% ?The neutrophils show normal segmen tation and granulation. ??No circulating ?blasts or atypical lymphoid popula tion identified. Specimen (Source) Anatomical Collection Method Collection Time Re ceived Time Location / / Volume Laterality 02/02/2007 6:53 AM CDT Janelle Jacobo MD LAB_1 Performing Organization Address City/State/ZIP Code Phon e Number HP CONVERSION documented in this encounter Visit Diagnoses Not on filedocumented in this encounter Care Teams Budget Manager Relationship Specialty Start Date End Date Lisa Gonzalez, INSURANCE EXAMINING CLERK, SEED SORTER PCP - General 05/03/1998 11/02/13 [address] [place] [address] documented as of this encounter
--- OUTSIDE RECORDS SUMMARY | 2022-04-10 14:17 | XMS_ITS | Encounter Summary ---
:[address] [facility] Address [address] [place] [address] Care Team Providers Name Role Phone Lisa Gonzalez AMANDA MARIN Primary Care Provider Encounter Details Date Type Department Care Team Description 08/24/2007 Supervisor Only [facility] [address] Marisa Chaves, Dermatology AMANDA MARIN [address] [facility] [address] [place] [phone] (Wo rk) Social History Tobacco Use Types Packs/Day Years Used Date Smoking Tobacco: Never Assessed Sex Assigned at Date Recorded Not on file documented as of this encounter Progress Notes Marisa Chaves APRN, CNP - 08/24/2007 12:01 AM CDT Progress Notes signed by Marisa Chaves APRN, CNP at 08/24/07 1059 Author: NARESH Mccullough Service: (none) Author Type: Nurse Practitioner Filed: 08/31/10 050 Note Time: 08/24/07 0001 Status: Signed Welding Equipment Repairer: NARESH Mccullough (Nurse Practitioner) Patient notified that biopsy from L buttocks shows junctional melanocytic lesio with atypical features, 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 Further excision is recommended although the lesion does not involve the margins visualized. Patient is very nervous about this. I have set her up with consultation with Dr. Nguyen on 08/26 (in a surgery time) for reexcision and evaluation of other dark nevus noted on L upper thigh. documented in this encounter Plan of Treatment Not on filedocumented as of this encounter Visit Diagnoses Not on filedocumented in this encounter Care Teams Glass Crusher Relationship Specialty Start Date End Date Lisa Gonzalez APRN, CNP PCP - General 05/03/1998 11/02/13 [address] [place] [address] documented as of this encounter
--- OUTSIDE RECORDS SUMMARY | 2022-04-10 14:17 | XMS_ITS | Encounter Summary ---
:1970 [facility] Address [address], [place] [address] Care Team Providers Name Role Phone Lisa Gonzalez APRN, CNP Primary Care Provider [phone] Encounter Details Date Type Department Care Team Description 08/03/2007 PN Conversion Only [place] [facility] Marisa Chaves, [address] [facility] [place] [address] [facility] [phone] [place] [address] (Wo rk) Social History Tobacco Use Types Packs/Day Years Used Date Smoking Tobacco: Never Assessed Sex Assigned at Date Recorded Not on file documented as of this encounter Plan of Treatment Not on filedocumented as of this encounter Visit Diagnoses Not on filedocumented in this encounter Care Teams Obstetrics Nurse Practitioner Relationship Specialty Start Date End Date Lisa Gonzalez APRN, CNP PCP - General 05/03/1998 11/02/13 [address] [place] [address] documented as of this encounter
--- OUTSIDE RECORDS SUMMARY | 2022-04-10 14:17 | XMS_ITS | Encounter Summary ---
:1970 [facility] Address [address] [place] [address] Care Team Providers Name Role Phone Lisa Gonzalez APRN, CNP Primary Care Provider [phone] Reason for Visit Reason Comments Other Encounter Details Date Type Department Care Team Description 11/03/2006 Telephone [facility] [place] [address] [place] [address] Social History Tobacco Use Types Packs/Day Years Used Date Smoking Tobacco: Never Assessed Sex Assigned at Date Recorded Not on file documented as of this encounter Progress Notes Maria T King - 11/03/2006 9:26 AM CDT Phone Note filed by Maria T King at 08/27/10 5990 Author: Maria T King Service: (none) Author Type: (none) Filed: 08/27/10 2460 Note Time: 11/03/06925 Status: Signed Spiral Winding Machine Helper: Fide Conversion Lab/Radiology Results Caller Name/Relationship:Polly Primary Culture Media Laboratory Assistant:Bj What test result is needed?Blood smear test result When and where was test done? a few days ago Who ordered the test?Bj Best call back number:[phone] or cell [phone] Best time to call back: anytime Is it OK to leave a confidential message on this voicemail? Yes *[email or web address] Created on 03Nov2006 9:26am by MAURO, MARIA T A On 03Nov2006 1:03pm SHU OLMEDO wrote: I called the pt and discuss her recent results,I cannot find the peripheral smears results and it is also not pending .Pt wants to know if thats needs to be done before her appt Pt is Ok to wait till tomorrow.Thanks Acknowledged by SHU OLMEDO on 1:03pm On 04Nov2006 8:47am CRISTY COTA wrote: I don't know why but it looks like the peripheral smear was not done. We need this result before I can discuss things with her at an appt. Diagnosis is anemia. Reschedule her appt. The smear takes longer to result, FYI. Acknowledged by CRISTY COTA on 8:47am On 04Nov2006 9:20am DOMENICA PUENTES wrote: Periph smear not done per lab. Acknowledged by DOMENICA PUENTES on 9:20am On 04Nov2006 11:13am CRISTY COTA wrote: again, I need that done and she shouldn't schedule visit until I have the results back on that. Acknowledged by CRISTY COTA on 11:13am On 04Nov2006 11:34am DOMENICA PUENTES wrote: I called pt and left a message that blood smear test was not done. I sent slip to lab and asked her to return at her convenience for blood draw and to make an appt with Dr Cota about a week after to go over test results. Acknowledged by DOMNEICA PUENTES on 11:34am ET CRUSHER documented in this encounter Plan of Treatment Not on filedocumented as of this encounter Visit Diagnoses Not on filedocumented in this encounter Care Teams Drum Handler Relationship Specialty Start Date End Date Lisa Gonzalez APRN, BROOM STITCHER PCP - General 05/03/1998 11/02/13 [address] [place] [address] documented as of this encounter
--- OUTSIDE RECORDS SUMMARY | 2022-04-10 14:17 | XMS_ITS | Encounter Summary ---
:1970 Author Organization [facility] Address [address] [place] [address] Care Team Providers Name Role Phone Lisa Gonzalez Raymond MARIN CNP Primary Care Provider [phone] Encounter Details Date Type Department Care Team Description 11/10/2006 PN Conversion Only [place] [address] [place] [address] (Wo rk) Social History Tobacco Use Types Packs/Day Years Used Date Smoking Tobacco: Never Assessed Sex Assigned at Date Recorded Not on file documented as of this encounter Plan of Treatment Not on filedocumented as of this encounter Procedures Procedure Name Priority Date/Time Associated Comments Diagnosis HEMOGLOBIN Routine 11/10/2006 4:31 Results for this ELECTROPHORESIS PM CDT procedure ar e in the results section. documented in this encounter Results Hemoglobin Electrophoresis (11/10/2006 4:31 PM CDT) P athologist Signature Hemoglobin A 96.8 95.0 - HP CONVERSION 98.0 % Hemoglobin 0.0 see fn % HP CONVERSION Variant Comment: Ref Range: No abnormal variant s Hgb ELP Interpretation see fn No normal range H P CONVERSION Comment: Result: Normal Results Hemoglobin A2 2.9 2.0 - 3.3 % HP CONVERSION Hemoglobin F 0.3 0.0 - 2.0 % HP CONVERSION [place] ELP Confirmation * No normal range HP CONVERSION Comment: Reflexed test not required HGB S Screen * Negative HP CONVERSION Comment: Reflexed test not required Reflex Level 2 * No normal range HP CONVER DOT Comment: Reflexed test not required Performed at [facility] [address] [place] [address] Specimen (Source) Anatomical Collection Method Collection Time Re ceived Time Location / / Volume Laterality 11/10/2006 4:31 PM CDT Janelle Jacobo MD LAB_1 Performing Organization Address City/State/ZIP Code Phon e Number HP CONVERSION documented in this encounter Visit Diagnoses Not on filedocumented in this encounter Care Teams Door Closer Mechanic Relationship Specialty Start Date End Date Lisa Gonzalez, COREMAKER BENCH, SEAMLESS HOSIERY KNITTER PCP - General 05/03/1998 11/02/13 [address] [place] [address] documented as of this encounter
--- OUTSIDE RECORDS SUMMARY | 2022-04-10 14:17 | XMS_ITS | Encounter Summary ---
:1970 Author Organization [facility] Address [address] [place] [address] Care Team Providers Name Role Phone Lisa Gonzalez APRN, CNP Primary Care Provider [phone] Reason for Visit Reason Comments Other Encounter Details Date Type Department Care Team Description 02/05/2007 Telephone [facility], Message Other [address] [place], [place] [address] Social History Tobacco Use Types Packs/Day Years Used Date Smoking Tobacco: Never Assessed Sex Assigned at Date Recorded Not on file documented as of this encounter Progress Notes Center, Message - 02/05/2007 1:33 PM CDT Phone Note filed by [employer] at 08/28/10 0596 Author: [employer] Service: (none) Author Type: (none) Filed: 08/28/10 05 Note Time: 02/05/07 1333 Status: Signed Faculty Research Physician: [employer] Non -Symptom Message from Front Line Caller Name/Relationship: Pt Primary Register Of Wills: Bj Message: Wants callback from Dr Cota re: lab results Human Services Instructor: Best call back number: [phone] or cell [phone] Is it OK to leave a confidential message on this voicemail? no *ECODE~[id number] Created on 05Feb2007 1:33pm by CAROLYN JEAN BAPTISTE R On 05Feb2007 1:55pm CRISTY COTA wrote: ok to give her results - everything normal, hgb improved. she will get a lab letter. DIANNE GRANGER: several of these labs were ordered in error (duplicate labs from a few months ago) I am not sure if the charge can be reversed? Acknowledged by CRISTY COTA on 1:55pm On 05Feb2007 2:43pm BÁRBARA NICOLE wrote: message relayed to patient/ Acknowledged by BÁRBARA NICOLE on 2:43pm ICIST documented in this encounter Plan of Treatment Not on filedocumented as of this encounter Visit Diagnoses Not on filedocumented in this encounter Care Teams Silver Miner Blasting Relationship Specialty Start Date End Date Lisa Gonzalez APRN, ACCESS SERVICES ASSISTANT PCP - General 05/03/1998 11/02/13 [address] [place] [address] documented as of this encounter
--- OUTSIDE RECORDS SUMMARY | 2022-04-10 14:17 | XMS_ITS | Encounter Summary ---
:1970 Author Organization [facility] Address [address] [place] [address] Care Team Providers Name Role Phone Lisa Gonzalez Raymond MARIN, AMANDA Primary Care Provider [phone] Encounter Details Date Type Department Care Team Description 11/04/2006 PN Conversion Only [place] [address] [place] [address] (Wo rk) Social History Tobacco Use Types Packs/Day Years Used Date Smoking Tobacco: Never Assessed Sex Assigned at Date Recorded Not on file documented as of this encounter Plan of Treatment Not on filedocumented as of this encounter Procedures Procedure Name Priority Date/Time Associated Comments Diagnosis PERIPHERAL BLOOD Routine 11/04/2006 5:44 PM Resul ts for this SMEAR CDT procedure are i n the results section. COMPLETE BLOOD Routine 11/04/2006 5:44 PM Results for this COUNT-W/DIFF CDT procedure are i n the results section. MORPH FINAL REPORT Routine 11/04/2006 6:42 AM Res ults for this CDT procedure are i n the results section. documented in this encounter Results (ABNORMAL) Complete Blood Count-W/Diff (11/04/2006 5:44 PM CDT) [facility] Method Time Signature White Blood Cell 7.0 3.8 - 11.0 HP CONVERSIO N Count K/cmm Red Blood Cell 3.67 (L) 3.70 - HP CONVERSION Count 5.20 m/cmm Hemoglobin 11.4 (L) 11.8 - HP CONVERSION 15.5 gm/dL Hematocrit 33.4 (L) 35.0 - HP CONVERSION 46.0 % Mean Corpuscular 91.0 80.0 - HP CONVERSION Volume 100.0 fl Mean Corpuscular 30.9 27.0 - HP CONVERSION Hemoglobin 34.0 pg Mean Corpuscular 34.0 32.0 - HP CONVERSION Hemoglobin Conc 36.5 gm/dL [place] RDW 14.1 11.0 - HP CONVERSION 15.0 % Platelet Count 213 140 - 450 HP CONVERSION k/cmm Differential Auto-Dif No normal HP CONVERSION Verify range Neutrophils 3.4 2.0 - 7.5 HP CONVERSION Absolute Count K/cmm Neutrophil 49.8 (L) 50.0 - HP CONVERSION 75.0 % Lymphocyte % 36.6 20.0 - HP CONVERSION 40.0 % Monocyte 10.4 5.0 - 14.0 HP CONVERSION % Eosinophil 2.4 0.0 - 6.0 HP CONVERSION % Basophil % 0.8 0.0 - 2.0 HP CONVERSION % Specimen (Source) Anatomical Collection Method Collection Time Re ceived Time Location / / Volume Laterality 11/04/2006 5:44 PM CDT Janelle Jacobo MD LAB_1 Performing Organization Address City/[facility]/ZIP Code Phon e Number HP CONVERSION Peripheral Blood Smear (11/04/2006 5:44 PM CDT) P athologist Signature Peripheral Yes No normal HP CONVERSION Blood Smear range Specimen (Source) Anatomical Collection Method Collection Time Re ceived Time Location / / Volume Laterality 11/04/2006 5:44 PM CDT Janelle Jacobo MD LAB_1 Performing Organization Address City/[facility] Code Phon e Number HP CONVERSION Morph Final Report (11/04/2006 6:42 AM CDT) Patholo gist Method Time Signature Morphology SEE TEXT No normal HP CONVERSION Final Report range Comment: Patient: POLLY CASE ?Morphology Pathology # ??[id number] ?Date Obtained: ? Date Received: DIAGNOSIS: ?1. Mild normochromic, normocytic a nemia. COMMENT: ?No specific features in the patien t's peripheral blood smear to explain ?the patient's mild anemia. ??Diffe rential diagnosis could include blood ?loss, drug effect, anemia of chron ic disease, early vitamin deficiency ?among others. ??Clinical correlati on is recommended. ?Nestor Cuevas MD ?(electronic signature) JOE/JOE/beh Date of Report: 11/05/06 REPORT TEXT: INDICES: ?WBC ? 7.1 ??k/cmm ?RBC ? 3.62 ??m/cmm ?HGB ?11.3 ??gm/dl ?MCV ?91.1 ??fl ?RDW ?14.4 ??% ?PLT ? 217.0 ??k/cmm RED CELLS: ?The red cells are slightly decreas ed in number and normochromic, ?normocytic. ??There is no marked a nisopoikilocytosis. ??I see no evidence of ?ongoing hemolysis, rouleaux format ion, or polychromasia. PLATELETS: ?The platelets are normal in number and morphology. WHITE CELLS: ?The white cells are normal in numb er. DIFFERENTIAL: ?Neutrophils ?51.9 ??% ?Lymphocytes ?36.9 ??% ?Monocytes ? 8.2 ??% ?Eosinophils ? 2.4 ??% ?Basophils ? 0.6 ??% ?The neutrophils show normal segmen tation and granulation. ??No circulating ?blasts or atypical lymphoid popula tion is identified. Specimen (Source) Anatomical Collection Method Collection Time Re ceived Time Location / / Volume Laterality 11/04/2006 6:42 AM CDT Janelle Jacobo MD LAB_1 Performing Organization Address City/State/ZIP Code Phon e Number HP CONVERSION documented in this encounter Visit Diagnoses Not on filedocumented in this encounter Care Teams Roll Cutter Relationship Specialty Start Date End Date Lisa Gonzalez, GOAT HERDER, PAPER GUILLOTINE OPERATOR PCP - General 05/03/1998 11/02/13 [address] [place] [address] documented as of this encounter
--- OUTSIDE RECORDS SUMMARY | 2022-04-10 14:17 | XMS_ITS | Encounter Summary ---
:1970 [facility] Address [address] [place] [address] Care Team Providers Name Role Phone GonzalezLisa Raymond MARIN CNP Primary Care Provider [phone] Reason for Visit Reason Comments Other Encounter Details Date Type Department Care Team Description 03/19/2007 Telephone [facility] [address] Filiberto Cronin RN Other Ophthalmology [facility] [address] [place] [address] [address] [place] [address] [place], [place] [id number] Social History Tobacco Use Types Packs/Day Years Used Date Smoking Tobacco: Never Assessed Sex Assigned at Date Recorded Not on file documented as of this encounter Progress Notes Bárbara Cronin RN - 03/19/2007 11:34 AM CST Phone Note filed by Bárbara Cronin RN at 08/28/10823 Author: Bárbara Cronin RN Service: (none) Author Type: Registered Nurse Filed: 08/28/10823 Note Time: 03/19/071133 Status: Signed Mission Systems Engineer: Bárbara Cronin RN (Registered Nurse) Eye Department Triage Reason for call:thinking about having a cosmetic procedure on a vein underneath her one good eye. Wondering whether there is any risk to the eye. Told patient that if a localized procedure is done, there should not be a risk. Recommended get several opinions before proceeding. If wants to see Eye gave her Dr. Butt' name. Told her he does not do this procedure, but has the most expertise in the structures around the eye. Transferred to derm dept to speak with nurse there. Created on 19Mar2007 11:34am by BÁRBARA CRONIN OR NET SOFTWARE DEVELOPER documented in this encounter Plan of Treatment Not on filedocumented as of this encounter Visit Diagnoses Not on filedocumented in this encounter Care Teams Balcony Worker Relationship Specialty Start Date End Date Lisa Gonzalez APRN, PROGRAM DIRECTOR/MUSIC DIRECTOR PCP - General 05/03/1998 11/02/13 [address] [place] [address] documented as of this encounter
--- OUTSIDE RECORDS SUMMARY | 2022-04-10 14:17 | XMS_ITS | Encounter Summary ---
:1970 [facility] Address [address] [place] [address] Care Team Providers Name Role Phone Carlos Lisa Raymond MARIN CNP Primary Care Provider [phone] Encounter Details Date Type Department Care Team Description 09/06/2007 Office Visit [facility] Alida Crawley, [address] [facility] [place] [address] [place] [phone] [place], [place] [address] (Wo rk) Social History Tobacco Use Types Packs/Day Years Used Date Smoking Tobacco: Never Assessed Sex Assigned at Date Recorded Not on file documented as of this encounter Last Filed Vital Signs Vital Sign Reading Time Taken Comments Blood Pressure 110/74 09/06/2007 4:01 PM CDT Pulse 80 09/06/2007 4:01 PM CDT Temperature - - Respiratory Rate - - Oxygen Saturation - - Inhaled Oxygen Concentration - - Weight 60.3 kg (132 lb 15.7 oz) 09/06/2007 4:01 PM CDT C: 60.3kg Height - - Body Mass Index 20.83 07/26/2007 3:40 PM CDT documented in this encounter Progress Notes Alida Hare MD - 09/06/2007 12:01 AM CDT Progress Notes signed by Alida Hare MD at 09/07/07 1216 Author: Alida Hare MD Service: (none) Author Type: Physician Filed: 08/31/10 0524 Note Time: 09/06/07 0001 Status: Signed Envelope Maker: Alida Hare MD (Physician) NAME: POLLY CASE MR#: [id number] ACCT: [id number] VISIT: [id number] DICTATING CLINICIAN: Alida Hare MD JOB: [id number] LOC: 502 CLINIC PROGRESS NOTE DATE OF VISIT: 09/06/2007 SUBJECTIVE: Patient is a 37-year-old female who presents for a Pap and pelvic. She had her physical on 07/26/07, but was menstruating at the time and preferred to come back for these services. Patient is a G 4, P 4-0-0-4. Last Pap smear in 07/2006. No history of abnormal Pap smears. No history of sexually transmitted infections. She is monogamous with her . Date of last menstrual period: 08/23/07. Currently using condoms for contraception. In the meantime, patient has had excision for dysplastic nevus on the left posterior buttock. She has questions about that which I defer back to Dermatology as they are beyond my expertise level. Patient is a nonsmoker. PAST MEDICAL HISTORY: Reviewed and updated in LastWord. MEDICATIONS: Reviewed and updated in LastWord. ADR/ALLERGIES: IODINE, PENICILLIN, AND ORAL CONTRACEPTIVES. OBJECTIVE: VS: BP: 110/74. P: 80. Wt: 133 lb. GENERAL: Well-nourished, well-developed female, no acute distress. PELVIC: No inguinal lymphadenopathy. Normal external genitalia without lesions. Vaginal mucosa is pink and moist. Cervix is nonfriable. Bimanual: No cervical motion tenderness. No adnexal, uterine tenderness or masses. ASSESSMENT: A 37-year-old female here for Pap and pelvic. PLAN: Screening Pap smear obtained. If normal, will go to Pap smears every 2 years if okay with patient. Also discussed HPV testing as she saw this on TV. Deferred questions about her dysplastic nevus back to Dermatology. [facility]:[id number] C: 09/07/07 11:48 DOCUMENT: [id number] documented in this encounter Plan of Treatment Not on filedocumented as of this encounter Visit Diagnoses Not on filedocumented in this encounter Care Teams Spaghetti Press Helper Relationship Specialty Start Date End Date Lisa Gonzalez, PIE CHEF, ENVIRONMENTAL STUDIES FACULTY MEMBER PCP - General 05/03/1998 11/02/13 [address] [place] [address] documented as of this encounter
--- OUTSIDE RECORDS SUMMARY | 2022-04-10 14:17 | XMS_ITS | Encounter Summary ---
:1970 Author Organization [facility] Address [address] [place] [address] Care Team Providers Name Role Phone Carlos Lisa Andrade APRN, CNP Primary Care Provider [phone] Encounter Details Date Type Department Care Team Description 08/03/2007 Office Visit [facility] Marisa Chaves APRN, [address] [place], [place] [phone] [facility] [phone] [place] [address] (Wo rk) Social History Tobacco Use Types Packs/Day Years Used Date Smoking Tobacco: Never Assessed Sex Assigned at Date Recorded Not on file documented as of this encounter Progress Notes Marisa Chaves APRN, CNP - 08/03/2007 12:01 AM CDT Progress Notes signed by Marisa Chaves APRN, CNP at 08/04/07 1125 Author: NARESH Mccullough Service: (none) Author Type: Nurse Practitioner Filed: 08/31/10 0434 Note Time: 08/03/07 0001 Status: Signed Comber Operator: NARESH Mccullough (Nurse Practitioner) NAME: POLLY CASE MR#: [id number] ACCT: [id number] VISIT: [id number] DICTATING CLINICIAN: MARISA CHAVES CNP JOB: [id number] LOC: 427 CLINIC PROGRESS NOTE DATE OF VISIT: 08/03/2007 SUBJECTIVE: Polly is a 37-year-old woman, known to me and last seen approximately 1 week ago for a dry, scaly lesion on her nose that was felt to be an actinic keratosis that she did not want treated by the other food truck caterer that she saw. She brought it to my attention and I had suggested freezing while she was here. I noted a dark, 2 mm sized mole on her left upper thigh. She did not want to have that removed on the day that I saw her. She states that she went home and she kind of thought about it and she stood in front of the mirror and was kind of looking at things, and she found this very dark mole on her left bottom buttock area, and she states it has probably been there for years. She does suntan and she does state that this area has seen the light of day. She is very worried, because when we were talking previously last week about atypical melanocytic lesions and atypical cells, I did tell her that the more severely dysplastic they were, the more that we get a little concerned about melanoma. She is in her stating that she has 4 children and she needs to be there for them. CURRENT MEDICATIONS: Reviewed and updated. ADR/ALLERGIES: IODINE AND PENICILLIN. OBJECTIVE: This is a well-developed, well-nourished, Kolb type 2-3 young woman, who is alert and oriented. She gets somewhat teary-eyed, and she is very, very jumpy every time I touch her. On the lower portion of the left buttock, she has a 4 mm, dark, flat macule with a fuzzy border. ASSESSMENT: Dark nevus of the left buttock. PLAN: We did talk about dysplasia again. I did tell her that visually and microscopically, things could look extremely different. We talked about the grading of atypia from mild, moderate, to severe. We also did talk about the fact that she may just grow darker moles, but until we actually took it off and microscopically looked at it, I could not say for sure if this was benign. Patient does finally relent to having this removed. The area was infiltrated with 1% Xylocaine with epinephrine. A 6 mm punch was done. Three [id number] sutures were placed. She was instructed in aftercare. She will return here in 14 days for suture removal. I did talk about the fact that if this comes back completely normal, then we may be able just to watch the lesion on her left upper thigh, and then she has one on the right posterior thigh, that I just noted today on exam. IMPRESSION: Dark mole of the left buttock. ECF:[id number] C: 08/03/07 18:39 DOCUMENT: [id number] documented in this encounter Plan of Treatment Not on filedocumented as of this encounter Visit Diagnoses Not on filedocumented in this encounter Care Teams Motorcycle Sales Associate Relationship Specialty Start Date End Date Lisa Gonzalez APRN, EPIC DIRECTOR PCP - General 05/03/1998 11/02/13 [address] [place] [address] documented as of this encounter
--- OUTSIDE RECORDS SUMMARY | 2022-04-10 14:17 | XMS_ITS | Encounter Summary ---
:1970 Author [facility] Address [address] [place] [address] Care Team Providers Name Role Phone Lisa Gonzalez APRN, CNP Primary Care Provider [phone] Encounter Details Date Type Department Care Team Description 11/05/2006 Office Visit [facility] [place] [id number] [place] [phone] (Wo rk) Social History Tobacco Use Types Packs/Day Years Used Date Smoking Tobacco: Never Assessed Sex Assigned at Date Recorded Not on file documented as of this encounter Last Filed Vital Signs Vital Sign Reading Time Taken Comments Blood Pressure 120/81 11/05/2006 10:03 AM CDT Pulse - - Temperature - - Respiratory Rate - - Oxygen Saturation - - Inhaled Oxygen Concentration - - Weight 59.9 kg (131 lb 15.8 oz) 11/05/2006 10:03 AM C: 59.9kg CDT Height 170.2 cm (5' 7) 11/05/2006 10:03 AM C: 170.2cm CDT Body Mass Index 20.67 11/05/2006 10:03 AM CDT documented in this encounter Progress Notes Jim Hartmann MD - 11/05/2006 12:01 AM CDT Progress Notes signed by Jim Hartmann MD at 11/09/06 0906 Author: Jim Hartmann MD Service: (none) Author Type: Physician Filed: 08/30/10 2131 Note Time: 11/05/062013 Status: Signed Sales Support Advisor: Jim Hartmann MD (Physician) NAME: POLLY CASE MR#: [id number] ACCT: [id number] VISIT: [id number] DICTATING CLINICIAN: JIM HARTMANN MD JOB: [id number] LOC: 514 CLINIC PROGRESS NOTE DATE OF VISIT: 11/05/2006 SUBJECTIVE: Polly is a 36-year-old female who we are seeing today at the request of Dr. Janelle Lorenzo. Polly has had some problems this spring with being short of breath and tight in the chest. She has had some complaints of just not being able to get a deep breath and did have a methacholine inhalation challenge which was mildly positive. She has had some fatigue as well and was recently noted to be slightly anemic. She is undergoing a workup at this time. She has also had a lot of anxiety issues this last year as well and has a 1-1/2-year old at home as well as their older children who we typically have seen here in allergy for several years. She has been prescribed albuterol which makes her shaky but does seem to provide some relief. Her symptoms do seem to be somewhat worse particularly when she is outside in the high heat. She is somewhat unnerved by these symptoms and is interested in getting some allergy evaluations done in order to see if there is something that is stirring this up. FAMILY HISTORY: Except for her children is negative. ENVIRONMENTAL HISTORY: She lives in a 15-year-old house where there is forced air heating. Bedroom is carpeted, sleeps on a ydlp-vwey-vxo mattress. The basement is finished and generally dry. They have no pets in the home. 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 OBJECTIVE: VS: BP: 120/81. Ht: 67 in. Wt: 132 lb. Evaluation exam reveals a 36-year-old female. HEENT: Exam reveals normal TMs. Her eyes were clear. Nasal airway reveals minimal turbinate swelling. No septal deviations or polyps. Pharynx was clear. NECK: Supple. CHEST: Today was clear to auscultation and percussion. HEART: Sounds were normal. SKIN: Clear. Spirometry today was normal with a vital capacity of 4.94 liters at 125%; FEV1 is 4.26 liters at 130%; FEF 25-75% is 4.57 liters, 129%. Skin testing revealed giant size reactions to dust mite. All the rest of the tests were negative. ASSESSMENT: 1. Allergic rhinitis. 2. Intermittent asthma. PLAN: Polly has very strong reactions to dust mites which certainly could be contributing to some of these symptoms. We spent a long time going over some of the environmental avoidance measures that need to be implemented including encasements for the mattress, box spring, pillow, etc. She is not interested in going on antihistamines since she is not having a lot of upper respiratory symptoms. We did suggest, however, a trial on Singulair 10 mg once a day. Samples to last for four weeks were provided with a prescription that if it is beneficial she could continue. This may be beneficial for not only chest but allergy symptoms as well. There is a strong possibility that some of her symptoms could be due to anxiety and stress since the symptoms of being dyspneic and short of breath where they cannot breathe deep is often an anxiety, and we talked about that in detail today as well. Will schedule her back in six months for followup. CC: Janelle Lorenzo MD RAW:[id number] C: 11/06/06 11:01 DOCUMENT: [id number] documented in this encounter Plan of Treatment Not on filedocumented as of this encounter Visit Diagnoses Not on filedocumented in this encounter Care Teams Restaurant Front Manager Relationship Specialty Start Date End Date Lisa Gonzalez APRN, DEVELOPMENT SCIENTIST PCP - General 05/03/1998 11/02/13 [address] [place] [address] documented as of this encounter
--- OUTSIDE RECORDS SUMMARY | 2022-04-10 14:17 | XMS_ITS | Encounter Summary ---
:1970 Author Organization [facility] Address [address] [place] [address] Care Team Providers Name Role Phone Lisa Gonzalez TANIA, AMANDA Primary Care Provider Encounter Details Date Type Department Care Team Description 08/27/2007 PN Conversion Only [facility] 38[address] Fiona Nguyen M D, Dermatology PhD [address] [facility] [address] [place], [place] [address] [address] [place], [place] [phone] (Wo rk) Social History Tobacco Use Types Packs/Day Years Used Date Smoking Tobacco: Never Assessed Sex Assigned at Date Recorded Not on file documented as of this encounter Progress Notes Fiona Nguyen MD, PhD - 08/27/2007 12:01 AM CDT Progress Notes signed by Fiona Nguyen MD at 08/27/07 2328 Author: Fiona Nguyen MD Service: (none) Author Type: Physician Filed: 08/31/10 0510 Note Time: 08/27/07 0001 Status: Signed Material Handling Supervisor: Fiona Nguyen MD (Physician) Dermatology Clinic Visit SUBJECTIVE: History of Present Illness: Patient returns to clinic for excision of a histologically proven dysplastic nevus on the left posterior buttock. Margins appeared clear clinically, however could not be confirmed histologically and rexcisions of margins was recommended to insure complete clearance. Patient notes she has a quite a few moles. Patient does not have a pacemaker or defibrillator. Adverse Drug Reactions: Reviewed. See PHP in LastWord. Medications: Reviewed. See Medication List in LastWord. OBJECTIVE: General: No acute distress. Neuro/Pysch: Alert and oriented. Mood and affect appropriate. Skin: 7mm area of erythema on left posterior buttock. Central crusting at site of previous biopsy. No residual pigmentation at lateral margins is evident. Exam of face, neck, chest, back, buttocks, upper and lower bilateral extremties was performed. Patient has multiple pigmented macules medium to dark brown in color, regular margins, less than 4mm in diameter. Of note, on the right lateral thigh is a dark brown 3mm nevus with irregular foci of globular pigment on dermoscopy. ASSESSMENT: 1. Postenially residual dysplastic nevus with scar. PLAN: Excision with margins for complete removal. OPERATION: Excision with 3 mm margins and intermediate layered closure. PREOPERATIVE LESION SIZE: 7mm SURGICAL DEFECT SIZE: 1.3mm FINAL CLOSURE LENGTH: 2.3cmm SUTURE REMOVAL APPOINTMENT: 2 weeks Procedure: The nature and purpose of the procedure, associated risks, possible consequences and complications were discussed with the patient before an informed verbal operative consent was obtained. These include but are not limited to risks of discomfort, infection, bleeding, scar, and recurrence. The clinical margins of the lesions were delineated and marked with a pen. Buffered 1% lidocaine with epinephrine was infiltrated locally for anesthesia. The surgical site was then sterilely prepped with Hibiclens and draped. The lesion was then excised in an ellipse with margins. The excision was carried to the subcutis. Wound edges were undermined, approximately 0.5 cm in all directions. Hemostasis achieved with focal electrocoagulation. Subcutaneous tissues were brought together with a 4-0 Vicryl suture. Epidermal edges were reapproximated with 4-0 running Prolene sutures. Vaseline ointment and a pressure gauze dressing were applied to the closed wound. Patient tolerated procedure well without complications . Patient was given verbal and written explicit instructions on postoperative wound care, pain management, and interval for suture removal. Patient was recommended Extra Strength Tylenol per package directions as needed for mild pain control. Patient was discharged from the dermatology clinic ambulatory and in good condition. 2. Probable dysplastic nevus, right lateral thigh Procedure: Punch excision Risks and benefits of biopsy were discussed including, but not limited to, bruising, bleeding, scar, discomfort, infection, incomplete removal , or requirement for further therapeutic intervention. The patient verbally consented to proceeding. The area was sterilely prepped, and anesthetized with 1% lidocaine with epinephrine. A 5mm punch tool was used to excise the entire 3mm lesion to the level of the subcutaneous fat. No evidence of the lesion or pigmentation remained at the lateral or deep margins. Hemostasis was easily achieved with simple linear closure with non-disposable suture. The excision site was covered with Vaseline a local dressing. Patient was given oral and written wound care instructions. We will call the patient when the results are available and discuss further treatment if required. Patient tolerated the procedure well without complications. Suture removal in 2 weeks. *SH~DNS~EXC documented in this encounter Plan of Treatment Not on filedocumented as of this encounter Visit Diagnoses Not on filedocumented in this encounter Care Teams Linoleum Installer Relationship Specialty Start Date End Date Lisa Gonzalez APRN, JUNIOR HIGH SCHOOL TEACHER PCP - General 05/03/1998 11/02/13 [address] [place] [address] documented as of this encounter
--- OUTSIDE RECORDS SUMMARY | 2022-04-10 14:17 | XMS_ITS | Encounter Summary ---
:1970 Author [facility] Address [address] [place] [address] Care Team Providers Name Role Phone Lisa Gonzalez APRN, CNP Primary Care Provider [phone] Reason for Visit Reason Comments Other Encounter Details Date Type Department Care Team Description 02/01/2007 Telephone [facility], Message Other [address] [place], [place] 240387 Social History Tobacco Use Types Packs/Day Years Used Date Smoking Tobacco: Never Assessed Sex Assigned at Date Recorded Not on file documented as of this encounter Progress Notes Center, Message - 02/01/2007 9:56 AM CDT Phone Note filed by [email or web address] at 08/28/10509 Author: [email or web address] Service: (none) Author Type: (none) Filed: 08/28/10509 Note Time: 02/01/07955 Status: Signed 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 She wanted to know about this before leaves. SHe can be reached at the above number. On 01Feb2007 1:20pm CRISTY COTA wrote: First sentence says that she is wondering about her thyroid - We have never checked a thyroid test that I was able to find in her lab section.? Ok for the CBC, fe and ferritin for anemia. Acknowledged by CRISTY COTA on 1:20pm Acknowledged by JARRET AGUILERA on 8:40am On 02Feb2007 9:01am ALEXUS FUENTES wrote: Pt states to disregard the thyroid question. Paperwork sent to the lab, Pt will schedule appt. Acknowledged by ALEXUS FUENTES on 9:01am ICAL NURSE SPECIALIST documented in this encounter Plan of Treatment Not on filedocumented as of this encounter Visit Diagnoses Not on filedocumented in this encounter Care Teams Traffic Safety Administrator Relationship Specialty Start Date End Date Lisa Gonzalez, PRODUCTION BOW MAKER, EMPLOYMENT DIRECTOR PCP - General 05/03/1998 11/02/13 [address] [place] [address] documented as of this encounter
--- OUTSIDE RECORDS SUMMARY | 2022-04-10 14:17 | XMS_ITS | Encounter Summary ---
:1970 Author [facility] Address [address] [place] [address] Care Team Providers Name Role Phone Lisa Gonzalez APRN, CNP Primary Care Provider [phone] Encounter Details Date Type Department Care Team Description 03/09/2007 Nursing Visit [facility] [place] [address] [phone] Social History Tobacco Use Types Packs/Day Years Used Date Smoking Tobacco: Never Assessed Sex Assigned at Date Recorded Not on file documented as of this encounter Plan of Treatment Not on filedocumented as of this encounter Visit Diagnoses Not on filedocumented in this encounter Care Teams Manager Underwriting Relationship Specialty Start Date End Date Lisa Gonzalez APRN, CNP PCP - General 05/03/1998 11/02/13 [address] [place] [address] documented as of this encounter
--- OUTSIDE RECORDS SUMMARY | 2022-04-10 14:17 | XMS_ITS | Encounter Summary ---
:1970 [facility] Address [address] [place] [address] Care Team Providers Name Role Phone Carlos Lisa Andrade APRN, CNP Primary Care Provider [phone] Reason for Visit Reason Comments Other Encounter Details Date Type Department Care Team Description 06/08/2007 Telephone [facility] 3900 Jese Hernandez, DPM Other Podiatric MedSurg [address] [place] [address] [place] [address] [place] [address] [phone] Social History Tobacco Use Types Packs/Day Years Used Date Smoking Tobacco: Never Assessed Sex Assigned at Date Recorded Not on file documented as of this encounter Progress Notes Angella Pierre - 06/08/2007 12:04 PM CST Phone Note filed by Angella Pierre RN at 08/28/10 6581 Author: Angella Pierre RN Service: (none) Author Type: Registered Nurse Filed: 08/28/10 7476 Note Time: 06/08/07 1204 Status: Signed Etiology Teacher: Angella Pierre RN (Registered Nurse) Patient calling had some questions about her 06/07 visit. How long will she have to wear the air cast. I told her 6 wks. Can she take it off to drive and will that impede healing. If she does nothing will the fx get worse. Please call her at [phone]. Thanks Created on 08Jun2007 12:04pm by ANGELLA PIERRE On 09Jun2007 1:35pm HUNG HERNANDEZ wrote: Pt will consider orthotic or cam walker. I did not do low dye Acknowledged by HUNG HERNANDEZ on 1:35pm ENGER TIRE INSPECTOR documented in this encounter Plan of Treatment Not on filedocumented as of this encounter Visit Diagnoses Not on filedocumented in this encounter Care Teams Data Warehouse Administrator Relationship Specialty Start Date End Date Lisa Gonzalez, HAND BOOKBINDER, STUNT WOMAN PCP - General 05/03/1998 11/02/13 [address] [place] [address] documented as of this encounter
--- OUTSIDE RECORDS SUMMARY | 2022-04-10 14:17 | XMS_ITS | Encounter Summary ---
:1970 Author Organization [facility] Address [address] [place] [address] Care Team Providers Name Role Phone Lisa Gonzalez APRN, CNP Primary Care Provider [phone] Encounter Details Date Type Department Care Team Description 07/27/2007 PN Conversion Only [facility] Marisa Chaves, [address] [facility] [place] [address] [facility] [phone] [place] [address] (Wo rk) Social History Tobacco Use Types Packs/Day Years Used Date Smoking Tobacco: Never Assessed Sex Assigned at Date Recorded Not on file documented as of this encounter Plan of Treatment Not on filedocumented as of this encounter Visit Diagnoses Not on filedocumented in this encounter Care Teams Wash Worker Relationship Specialty Start Date End Date Lisa Gonzalez APRN, CNP PCP - General 05/03/1998 11/02/13 [address] [place] [address] documented as of this encounter
--- OUTSIDE RECORDS SUMMARY | 2022-04-10 14:17 | XMS_ITS | Encounter Summary ---
:1970 Author Organization [facility] Address [address] [place] [address] Care Team Providers Name Role Phone Lisa Gonzalez APRN, AMANDA Primary Care Provider [phone] Encounter Details Date Type Department Care Team Description 07/27/2007 PN Conversion Only INDEX CLERK [address] Marisa Covarrubias, [address] FULLING MILL OPERATOR, [place] [address] [facility] [address] (Wo rk) Social History Tobacco Use Types Packs/Day Years Used Date Smoking Tobacco: Never Assessed Sex Assigned at Date Recorded Not on file documented as of this encounter Plan of Treatment Not on filedocumented as of this encounter Procedures Procedure Name Priority Date/Time Associated Diagnosis Comme nts DERM PATH-DPF Routine 07/27/2007 11:11 AM Results for this CDT procedure are i n the results section. DERM PATH CONSULT 1 Routine 07/27/2007 11:11 AM R esults for this CDT procedure are i n the results section. documented in this encounter Results Derm Path-Dpf (07/27/2007 11:11 AM CDT) [facility] Method Time Signature Dermatopathology SEE TEXT No normal HP CONVERSION Final Report range Comment: Patient: POLLY CASE ?D ERMATOPATHOLOGY Pathology # [id number] ?Date Obtained: ? Date Received: DIAGNOSIS: ?Middle upper chest: Specimen forwa rded to [facility] for ?microscopic examination and diagno sis. ??See senior safety management consultant's report. ?Amalia Stafford MD ?(electronic signature) DSE/DSE/boiler engineer Date of Report: 08/03/07 CLINICAL DIAGNOSIS: ?R/O AK vs BCC ORGAN/TISSUE SITE: ?Middle upper chest GROSS DESCRIPTION: ?Received is a 0.5 x 0.3 x 0.1 cm s kin specimen. Submitted entirely. ?(Gross examination performed by [facility], [place], [place].) DSE/boiler engineer MICROSCOPIC DESCRIPTION: ?Specimen forwarded to [facility] for microscopic ?examination and diagnosis. ??See c renata's report. Specimen (Source) Anatomical Collection Method Collection Time Re ceived Time Location / / Volume Laterality 07/27/2007 11:11 AM CDT Marisa Chaves APRN, TRANSFORMATION SPECIALIST LAB_1 Performing Organization Address City/State/ZIP Code Phon e Number HP CONVERSION Derm Path Consult 1 (07/27/2007 11:11 AM CDT) Patholo gist Method Time Signature Derm Path SEE TEXT No normal HP CONVERSION Consult 1 range Comment: Patient: POLLY CASE ? SURGICAL PATHOLOGY SUPPLEMENTAL REPORT Pathology # [id number] ?Date Obtained: ? Date Received: CONSULTATION: DOCTOR: ?Rae Mehta M.D. INSTITUTION: [facility] ; ??TOMAS Smith THEIR #: ? [id number] DIAGNOSIS: ?SKin, middle upper chest: Mild epi dermal pigmentation and superficial ?dermis with mild fibrosis; see com ment. COMMENT: ?The histologic findings are subtle and not specifically diagnostic. Only ?the superficial dermis is visualiz ed. A deeper dermal lesion, either ?benign or atypical, cannot be conf irmed or excluded. Clinical correlation ?is advised with repeat biopsy if t he etiology of the clinical lesion ?remains uncertain or if malignancy remains a clinical concern. cs ?This report is not the original or complete report and it has not been ?reviewed by [facility]. Specimen (Source) Anatomical Collection Method Collection Time Re ceived Time Location / / Volume Laterality 07/27/2007 11:11 AM CDT Marisa Chaves APRN, CNP LAB_1 Performing Organization Address City/State/ZIP Code Phon e Number HP CONVERSION documented in this encounter Visit Diagnoses Not on filedocumented in this encounter Care Teams Electronics Computer Mechanic Relationship Specialty Start Date End Date Lisa Gonzalez APRN, CNP PCP - General 05/03/1998 11/02/13 [address] [place] [address] documented as of this encounter
--- OUTSIDE RECORDS SUMMARY | 2022-04-10 14:17 | XMS_ITS | Encounter Summary ---
:1970 [facility] Address [address] [place] [address] Care Team Providers Name Role Phone Carlos Lisa Raymond MARIN CNP Primary Care Provider [phone] Encounter Details Date Type Department Care Team Description 07/12/2007 Office Visit [facility] Alida Crawley, [address] [place] [address] [place] [phone] [place], [place] [address] (Wo rk) Social History Tobacco Use Types Packs/Day Years Used Date Smoking Tobacco: Never Assessed Sex Assigned at Date Recorded Not on file documented as of this encounter Last Filed Vital Signs Vital Sign Reading Time Taken Comments Blood Pressure 140/72 07/12/2007 3:10 PM INDUSTRIAL ANALYST Pulse 96 07/12/2007 3:10 PM INDUSTRIAL ANALYST Temperature - - Respiratory Rate - - Oxygen Saturation - - Inhaled Oxygen Concentration - - Weight 61.2 kg (134 lb 15.8 oz) 07/12/2007 3:10 PM INDUSTRIAL ANALYST C: 61.2kg Height - - Body Mass Index 21.14 11/05/2006 10:03 AM CDT documented in this encounter Progress Notes Alida Hare MD - 07/12/2007 12:01 AM CST Progress Notes signed by Alida Hare MD at 07/13/07 1201 Author: Alida Hare MD Service: (none) Author Type: Physician Filed: 08/31/10 0259 Note Time: 07/12/07 0001 Status: Signed Asphalt Plant Laborer: Alida Hare MD (Physician) NAME: POLLY CASE MR#: [id number] ACCT: [id number] VISIT: [id number] DICTATING CLINICIAN: Alida Hare MD JOB: [id number] LOC: 502 CLINIC PROGRESS NOTE DATE OF VISIT: 07/12/2007 SUBJECTIVE: Patient is a 37-year-old female who presents for a second opinion on possible precancerous spot on her nose. She was seen at the [facility] recently and was told that she has a precancerous lesion that needs to be frozen. Patient does not feel particularly comfortable with that physician and so she wanted another look. No personal or family history of skin cancer. She has had sun exposure throughout the years as she lived on the [facility]. In addition, patient has a history of anemia that was worked up thoroughly by Dr. Lorenzo, most recently her anemia had resolved and she had a normal peripheral smear. Patient also reports she is very anxious and can get short of breath. Pulmonary function testings were fairly normal. PAST MEDICAL HISTORY: Reviewed and updated in LastWord. MEDICATIONS: Reviewed and updated in LastWord. ADR/ALLERGIES: REVIEWED AND UPDATED IN LASTWORD. OBJECTIVE: VS: BP: 140/72. P: 96. Wt: 135 lb. GENERAL: Well-nourished, well-developed female, no acute distress. SKIN: Patient has a 3-mm, erythematous lesion on her nose with a small amount of scale suggestive of an actinic keratosis. On her chest she has an indented, mildly erythematous area that would appear to be an area where she had a lesion removed, but she denies this. ASSESSMENT: Rzualk-twhc-dyvl-old female with: 1. Actinic keratosis on nose. We will consult our dermatology department for evaluation and treatment as she would feel more comfortable with that. Discussed sunscreen use and staying out of the sun to avoid skin cancer. 2. History of anemia. We will recheck CBC at physical in 2 weeks. 3. Anxiety. Recommend patient see a therapist to learn behavioral ways to control her anxiety. PLAN: See assessment. [facility]:[id number] C: 07/13/07 11:57 DOCUMENT: [id number] STRIAL ANALYST documented in this encounter Plan of Treatment Not on filedocumented as of this encounter Visit Diagnoses Not on filedocumented in this encounter Care Teams Assembly Machine Set Up Mechanic Relationship Specialty Start Date End Date Lisa Gonzalez, TANIA, INDUSTRIAL SEAMSTRESS PCP - General 05/03/1998 11/02/13 [address] [place] [address] documented as of this encounter
--- OUTSIDE RECORDS SUMMARY | 2022-04-10 14:17 | XMS_ITS | Encounter Summary ---
:1970 Author Organization [facility] Address [address] [place] [address] Care Team Providers Name Role Phone Carlos Lisa Andrade APRN, CNP Primary Care Provider [phone] Encounter Details Date Type Department Care Team Description 07/27/2007 Office Visit [facility] Marisa Chaves APRN, [address] [place] [address] [facility] [phone] [place] [address] (Wo rk) Social History Tobacco Use Types Packs/Day Years Used Date Smoking Tobacco: Never Assessed Sex Assigned at Date Recorded Not on file documented as of this encounter Progress Notes Marisa Chaves APRN, CNP - 07/27/2007 12:01 AM CDT Progress Notes signed by Marisa Chaves APRN, CNP at 07/28/07 0906 Author: NARESH Mccullough Service: (none) Author Type: Nurse Practitioner Filed: 08/31/10 0323 Note Time: 07/27/07 0001 Status: Signed Video Network Engineer: NARESH Mccullough (Nurse Practitioner) NAME: POLLY CASE MR#: [id number] ACCT: [id number] VISIT: [id number] DICTATING CLINICIAN: MARISA CHAVES CNP JOB: [id number] LOC: 427 CLINIC PROGRESS NOTE DATE OF VISIT: 07/27/2007 SUBJECTIVE: Polly is a 37-year-old woman who comes in with dry scaly lesion on her nose. She actually saw a heat seal operator outside of the [place] [facility] system, and was told that this needed to be frozen. She would like a second opinion. No history of skin cancer in her family. She grew up with dark hair, mayra eyes. Grew up in [place]. Tanned very well. Does remember 1 to 2 mast, but she does not think they were blisterings. The heat seal operator also noted a depressed area on the center of her chest that she would like me to take a look at, and she has an area noted on her right lower leg that she has been told is just a piece of scar tissue from her shaving, and she states that sometimes stings and mast. She is also concerned about the dark circles underneath her eyes. Is wondering who I know that could maybe do a filler for her. CURRENT MEDICATIONS: Reviewed and updated. ADR/ALLERGIES: IODINE AND PENICILLIN. OBJECTIVE: This is a well-developed, well-nourished, Kolb type 2 to 3 young woman, who is alert and oriented. Skin exam shows on the nasal bridge a dry, scaly, pigmented area that represents a pigmented actinic keratosis. On the middle of the upper chest, she has a slightly depressed area. Under dermatoscopy, shows some significant telangiectatic areas, and she does have a very small dermatofibroma noted on the right lower posterior ankle. On the upper inner left thigh, she has a dark, 2 mm sized, flat macule that is much darker in color than any of the other lesions noted. The remainder of the examination of the back, chest, arms, abdomen, upper and lower legs, and upper and lower arms is benign. ASSESSMENT: 1. Actinic keratoses of the nasal bridge. 2. Lesion of the chest. PLAN: 1. We did discuss the implications and the premalignant nature of the actinic keratoses. She did allow me to go ahead and freeze this, but she was very anxious. Did start crying during the procedure. Wanted to be told every step of the way. I did let her look in the mirror so she could ascertain exactly where I was freezing. I did freeze with a Q-tip as she seems to be overly concerned about cosmetic appearance. I did tell her I wanted to see her back in 8 weeks because I was not real aggressive in freezing because the other heat seal operator had told her about hypopigmentation, and I did reiterate that is sometimes an effect of the coldness of the liquid nitrogen. 2. I did suggest biopsy of the depressed skin lesion. She is very very nervous about this. Has questions about skin cancer, scarring, etc. After I was leaving the room, she did consent for biopsy, and we did reset up. Area was infiltrated with 1% Xylocaine with epinephrine. A shave biopsy was accomplished. Bleeding was controlled with aluminum chloride, and she was instructed in aftercare. She will be called at her home number when these results do become available. 3. For the dark lesion on the left upper inner thigh, I did suggest removing this today. We did talk about dysplasia. Patient found this to be too overwhelming, and did not think that she could do 3 things in 1 day. I have asked that she reconsider this, and have this removed when she returns in approximately 6 weeks for followup of the actinic keratoses. For the darkened circles underneath her eyes, we did talk about fillers, their expense. I did give her names of several plastic surgeons in the area including ours here at [facility]. We also did talk about Teamine. IMPRESSION: 1. Actinic keratoses of the nasal bridge. 2. Lesion of the upper chest. ECF:[id number] C: 07/28/07 04:45 DOCUMENT: [id number] documented in this encounter Plan of Treatment Not on filedocumented as of this encounter Visit Diagnoses Not on filedocumented in this encounter Care Teams Integrated Logistics Support Manager Relationship Specialty Start Date End Date Lisa Gonzalez APRN, CNP PCP - General 05/03/1998 11/02/13 [address] [place] [address] documented as of this encounter
--- OUTSIDE RECORDS SUMMARY | 2022-04-10 14:17 | XMS_ITS | Encounter Summary ---
:1970 Author Organization [facility] Address [address] [place] [address] Care Team Providers Name Role Phone Gonzalez Lisa Raymond MARIN CNP Primary Care Provider [phone] Encounter Details Date Type Department Care Team Description 06/02/2007 Office Visit [facility] Lux Hernandez DPM [facility] [address] [facility] [address] [place], [place] [address] [place], [place] [id number] [phone] Social History Tobacco Use Types Packs/Day Years Used Date Smoking Tobacco: Never Assessed Sex Assigned at Date Recorded Not on file documented as of this encounter Progress Notes Ney Hernandez DPM - 06/02/2007 12:01 AM CST Progress Notes signed by Ney Hernandez DPM at 06/07/07 1531 Author: Ney Hernandez DPM Service: (none) Author Type: Physician Filed: 08/31/10 0158 Note Time: 06/02/07 0001 Status: Signed Assembly Line Robot Operator: Ney Hernandez DPM (Physician) NAME: POLLY CASE MR#: [id number] ACCT: [id number] VISIT: [id number] DICTATING CLINICIAN: Ney Hernandez DPM JOB: [id number] LOC: 539 CLINIC PROGRESS NOTE DATE OF VISIT: 06/02/2007 SUBJECTIVE: The patient presents for initial clinic visit. She has concerns with the outside of her right foot. She states that she has had some tenderness there for at least the last 6 months. She does have some discomfort daily, but it is mainly when there is pressure placed against the area. She denies any injury, but does recall 15 years ago where she did twist her foot going down stairs. She did have discomfort at that time and may have heard a crack. She never did seek attention. She denies any previous treatment. She also has a history of a right foot injury 20 years ago when she stepped on a glass. They did attempt to relocate a tendon. ADR/ALLERGIES: SHE HAS AN ALLERGY TO IODINE AND PENICILLIN. MEDICATIONS: Reviewed and updated in LastWord. PAST MEDICAL HISTORY: Reviewed in LastWord. REVIEW OF SYSTEMS: Negative for fever, rash, burning or tingling in the lower extremities. SOCIAL HISTORY: Patient is a jifa-rh-ukdv mom and has 4 children. OBJECTIVE: A 36-year-old female who appears her stated age. She is alert and oriented and in no acute distress. She does walk without a limp and appears to be in general good health. Skin color, texture and turgor do not show any abnormalities. DP and PT pulses are palpable. Hair growth is present on the digits. Capillary filling time is less than 2 seconds. Sensation is intact. There is no weakness with muscle testing of the foot, ankle or lower leg. No pain with subtalar joint or ankle joint range of motion. In stance, loss of longitudinal arch is evident. There is no pain with isolation of the peroneal brevis tendon. There is no pain with isolation of the peroneus longus tendon. She does have an enlargement visible at the base of the fifth metatarsal. There is discomfort with direct compression. X-rays obtained today reveals what appears to be an old fracture with separation noted. There is lucency between the fracture fragment on the oblique view, as well as on the lateral view. ASSESSMENT: Right foot pain with fracture tuberosity fifth metatarsal. PLAN: Treatment options were discussed with the patient. X-rays were obtained and reviewed with the patient. I discussed with her that if she has noticed this for at least 6 months and with the appearance of it, that this appears to be an older fracture. She is only symptomatic with pressure and amazingly not with activities. I discussed with her that it would be doubtful that this could have been due to the injury 15 years ago. I discussed with her that if this is an old fracture, that we could try very conservative treatment. There may be some irritation to the area from the peroneal tendon, and I would like to try just a basic insert. If this does not help, then I would do a short-term trial of splinting and if this is of no benefit then the fracture fragment may have to be excised. It would be doubtful that this could be reattached as this would most likely require bone grafting. The patient will monitor her response. If there is a favorable response to the insert, then I would like to consider an orthotic; if not, then I will consider splinting. ALP:[id number] C: 06/03/07 16:43 DOCUMENT: [id number] FIRST documented in this encounter Plan of Treatment Not on filedocumented as of this encounter Procedures Procedure Name Priority Date/Time Associated Diagnosis Comme nts XR FOOT RT 3+ VIEWS Routine 06/02/2007 4:01 PM Re sults for this MATE FIRST procedure are i n the results section. documented in this encounter Results XR Foot Rt 3+ Views (06/02/2007 4:01 PM MATE FIRST) Anatomical Region Laterality Modality Lower Extremity, Foot Other Specimen (Source) Anatomical Location Collection Method / Collectio n Time Received Time / Laterality Volume Impressions 06/02/2007 4:01 PM MATE FIRST : ??There is a well corticated ossific body just proximal to the lateral base of the 5th metatarsal, which either represents a chronic nonunited fracture versus an unf used ossification center. This is clearly chronic. ??No other sign ificant findings. Bc- [id number] Dictating OMI GALLEGOS Radiologist Narrative 06/02/2007 4:01 PM MATE FIRST COMPARISON STUDY: ??None. CLINICAL HISTORY: ??36-year-old female w ith painful 5th metatarsal. Procedure Note Omi Smith MD - 07/11/2016Formattin g of this note might be different from the original. COMPARISON STUDY: None. CLINICAL HISTORY: 36-year-old female wit h painful 5th metatarsal. IMPRESSION : There is a well corticated ossific bod y just proximal to the lateral base of the 5th metatarsal, which either represents a chronic nonunited fracture versus an unf used ossification center. This is clearly chronic. No other signif icant findings. - [id number] Dictating OMI GALLEGOS Radiologist Ney VASQUEZM RAD GD documented in this encounter Visit Diagnoses Not on filedocumented in this encounter Care Teams Sole Trimmer Relationship Specialty Start Date End Date Lisa Gonzalez, LAUNDRY LABORER, DIRECTOR OF SALES AND MARKETING PCP - General 05/03/1998 11/02/13 [address] [place] [address] documented as of this encounter
--- OUTSIDE RECORDS SUMMARY | 2022-04-10 14:17 | XMS_ITS | Encounter Summary ---
:1970 Author Organization [facility] Address [address] [place] [address] Care Team Providers Name Role Phone Carlos Lisa Andrade APRN, CNP Primary Care Provider [phone] Encounter Details Date Type Department Care Team Description 07/26/2007 PN Conversion Only [place] [facility] N Alida Hare [address] [facility] [place] [address] [address] [facility] [address] [place] [address] (Wo rk) Social History Tobacco Use Types Packs/Day Years Used Date Smoking Tobacco: Never Assessed Sex Assigned at Date Recorded Not on file documented as of this encounter Plan of Treatment Not on filedocumented as of this encounter Procedures Procedure Name Priority Date/Time Associated Diagnosis Comme nts COMPLETE BLOOD Routine 07/26/2007 4:18 PM Results for this COUNT-W/DIFF CDT procedure are i n the results section. documented in this encounter Results Complete Blood Count-W/Diff (07/26/2007 4:18 PM CDT) [facility] Method Time Signature White Blood Cell 6.6 3.8 - 11.0 [facility] CONVERSIO N Count K/cmm Red Blood Cell 3.96 3.70 - HP CONVERSION Count 5.20 m/cmm Hemoglobin 12.3 11.8 - HP CONVERSION 15.5 gm/dL Hematocrit 35.9 35.0 - HP CONVERSION 46.0 % Mean Corpuscular 90.8 80.0 - HP CONVERSION Volume 100.0 fl Mean Corpuscular 31.1 27.0 - HP CONVERSION Hemoglobin 34.0 pg Mean Corpuscular 34.3 32.0 - HP CONVERSION Hemoglobin Conc 36.5 gm/dL Gaines RDW 12.1 11.0 - HP CONVERSION 15.0 % Platelet Count 257 140 - 450 HP CONVERSION k/cmm Differential Auto-Dif No normal HP CONVERSION Verify range Neutrophils 3.8 2.0 - 7.5 HP CONVERSION Absolute Count K/cmm Neutrophil 55.9 50.0 - HP CONVERSION 75.0 % Lymphocyte % 35.6 20.0 - HP CONVERSION 40.0 % Monocyte 7.4 5.0 - 14.0 HP CONVERSION % Eosinophil 0.7 0.0 - 6.0 HP CONVERSION % Basophil % 0.4 0.0 - 2.0 HP CONVERSION % Specimen (Source) Anatomical Collection Method Collection Time Re ceived Time Location / / Volume Laterality 07/26/2007 4:18 PM CDT Alida Hare MD LAB_1 Performing Organization Address City/State/ZIP Code Phon e Number HP CONVERSION documented in this encounter Visit Diagnoses Not on filedocumented in this encounter Care Teams Pin Maker Relationship Specialty Start Date End Date Lisa Gonzalez, CIVIL PREPAREDNESS OFFICER, WINDOWS CONSULTANT PCP - General 05/03/1998 11/02/13 [address] [place] [address] documented as of this encounter
--- OUTSIDE RECORDS SUMMARY | 2022-04-10 14:18 | XMS_ITS | Encounter Summary ---
:1970 Author [facility] Address [address] [place] [address] Care Team Providers Name Role Phone Carlos Lisa Andrade APRN, CNP Primary Care Provider [phone] Reason for Visit Reason Comments Other Encounter Details Date Type Department Care Team Description 10/30/2006 Telephone [facility] Domen[place] [address] [address] [place] [phone] Social History Tobacco Use Types Packs/Day Years Used Date Smoking Tobacco: Never Assessed Sex Assigned at Date Recorded Not on file documented as of this encounter [facility] [place] 10/30/2006 2:29 PM CDT Phone Note filed by [employer] at 08/27/10 7311 Author: [employer] Service: (none) Author Type: (none) Filed: 08/27/10 0935 Note Time: 10/30/06 1429 Status: Signed Sales Service Rep: [employer] [facility] Lab/Radiology Results Caller Name/Relationship:Lambert Primary Fire Extinguisher Mechanic: What test result is needed?lab results When and where was test done?10/29/06 Who ordered the test? Licensed Mortgage Loan Officer:lambert Best call back number:#[phone] [facility]# [phone] Best time to call back:anytime Is it OK to leave a confidential message on this voicemail?yes *[id number] Created on 30Oct2006 2:29pm by JAVIER BIRMINGHAM On 30Oct2006 2:48pm KADI HOWARD wrote: MESSAGE TO CARE TEAM NAME OF CALLER:Lambert (pt) NAME OF CLINICIAN:Bj MESSAGE:Called pt. back. Reviewed labs, Hgb, RBC, Hct continue low, iron up.Pt. states she is a vegetarian, has been taking the iron-fortified multivitamins for 3 months. Pt. wondering about followup labs. Does have an appt. with an rn ostomy, wondering if she should keep this. Call back. PHARMACY NAME: PHARMACY PHONE #:na CITY: CALL BACK PHONE OR CELL PHONE:[phone] home BEST TIME TO CALL BACK:any IS IT OK TO LEAVE A CONFIDENTIAL MESSAGE ON THIS VOICEMAIL? yes On 30Oct2006 4:22pm CRISTY COTA wrote: keep allergy appt. I sent a lab letter with further instructions on it. FU to discuss after she gets letter. Acknowledged by CRISTY COTA on 4:22pm On 30Oct2006 4:37pm DOMENICA PUENTES wrote: I called pt and notified her of above. Acknowledged by DOMENICA PUENTES on 4:37pm ERCIAL FISHING VESSEL OPERATOR documented in this encounter Plan of Treatment Not on filedocumented as of this encounter Visit Diagnoses Not on filedocumented in this encounter Care Teams Construction Consultant Relationship Specialty Start Date End Date Lisa Gonzalez APRN, SUPERVISOR TOWER PCP - General 05/03/1998 11/02/13 [address] [place] [address] documented as of this encounter
--- OUTSIDE RECORDS SUMMARY | 2022-04-10 14:18 | XMS_ITS | Encounter Summary ---
:1970 Author Organization [facility] Address [address] [place] [address] Care Team Providers Name Role Phone Lisa Gonzalez Raymond MARIN CNP Primary Care Provider [phone] Encounter Details Date Type Department Care Team Description 09/29/2006 Office Visit [facility] Lou Jacobo MD [address] [id number] [place] [address] [phone] Social History Tobacco Use Types Packs/Day Years Used Date Smoking Tobacco: Never Assessed Sex Assigned at Date Recorded Not on file documented as of this encounter Last Filed Vital Signs Vital Sign Reading Time Taken Comments Blood Pressure 111/71 09/29/2006 4:27 PM CDT Pulse 76 09/29/2006 4:27 PM CDT Temperature - - Respiratory Rate - - Oxygen Saturation - - Inhaled Oxygen Concentration - - Weight 60.3 kg (132 lb 15.7 oz) 09/29/2006 4:27 PM CDT C: 60.3kg Height - - Body Mass Index 20.52 07/24/2006 4:17 PM CDT documented in this encounter Progress Notes Janelle Jacobo - 09/29/2006 12:01 AM CDT Progress Notes signed by at 10/01/06 3872 Author: Janelle Lorenzo MD Service: (none) Author Type: (none) Filed: 08/30/103 Note Time: 09/29/06 0001 Status: Signed Greeting Card Writer: Fide Conversion NAME: POLLY CASE MR#: [id number] ACCT: [id number] VISIT: [id number] DICTATING CLINICIAN: Janelle Lorenzo MD JOB: [id number] LOC: 502 CLINIC PROGRESS NOTE DATE OF VISIT: 09/29/2006 SUBJECTIVE: : 1970. Polly presents to clinic today to discuss PFT test results and also to discuss medications and possible allergy symptoms. Please review my most recent notes for more details. Briefly, she does experience some episodes of chest tightness and difficulty getting a deep breath. She occasionally notices some wheezing. Triggers include exercise, especially when she exercises outdoors and also viral upper respiratory infections. She is not sure whether she has allergies. She does occasionally notice symptoms such as nasal congestion, facial pressure, sneezing and rhinorrhea. She has never been allergy tested. She notes the albuterol makes her feel somewhat jittery if she takes 2 puffs so she usually only uses 1 puff. Occasionally, it seems to make her symptoms worse and at other times she finds it helpful. She is wondering whether she should have inhaled steroid. MEDICATIONS: Reviewed and updated in the patient's health profile today. ADR/ALLERGIES: REVIEWED AND UPDATED IN THE PATIENT'S HEALTH PROFILE TODAY. OBJECTIVE: VS: BP: 111/71. P: 76. Wt: 133. GENERAL: She is pleasant, healthy appearing, in no acute distress. She is somewhat anxious. HEENT: Sclerae are clear. Conjunctivae not injected. Mucous membranes are moist. Nose is remarkable for some turbinate swelling, some minimal erythema and clear nasal drainage. Noted findings more on the right than the left. Throat is nonerythematous, no exudates. Dentition is in good condition. LUNGS: Clear to auscultation even with forced expiration. No wheezes are appreciated. ASSESSMENT: Discussion of test results. PFT results were discussed in detail. Specifically, she had normal pulmonary function, but did have a positive methylcholine challenge. I suspect she has some very, very mild asthma/reactive airways with the appropriate triggers such as exercise and possible some seasonal allergies. I recommend she continue with the albuterol, she tolerates 1 puff better than 2. I advised against anything more such as Advair or inhaled steroid on it's own. She seems agreeable. It is also recommended that she consider allergy testing as this may help to identify other triggers and she may be able to modify her environment. She has tried Chata in the past and was not sure it was much help to her. She did have some turbinate swelling on exam which is not necessarily specific for allergies, but we could try a nasal steroid spray if she is interested in the future. Follow up p.r.n. Would not be opposed to a trial of an inhaled steroid if she wishes to proceed in the future, especially if her symptoms become more frequent or severe. PLAN: See assessment. Length of visit at least 30 minutes with 25 minutes spent in counseling time reviewing differential diagnoses for her symptoms, reviewing test results in detail, answering all of her questions, discussing benefits, risks, side-effects of medication, treatment recommendations and followup instructions. LCM:[id number] C: 09/30/06 19:45 DOCUMENT: [id number] OSITION ROLL MAKER AND CUTTER documented in this encounter Plan of Treatment Not on filedocumented as of this encounter Visit Diagnoses Not on filedocumented in this encounter Care Teams Accounts Receivable Specialist Relationship Specialty Start Date End Date Lisa Gonzalez APRN, FELT TIPPING MACHINE TENDER PCP - General 05/03/1998 11/02/13 [address] [place] [address] documented as of this encounter
--- OUTSIDE RECORDS SUMMARY | 2022-04-10 14:18 | XMS_ITS | Encounter Summary ---
:1970 Author Organization [facility] Address [address] [place] [address] Care Team Providers Name Role Phone Lisa Gonzalez APRN, CNP Primary Care Provider [phone] Encounter Details Date Type Department Care Team Description 06/05/2006 PN Conversion Only [facility] CONVERSION Social History Tobacco Use Types Packs/Day Years Used Date Smoking Tobacco: Never Assessed Sex Assigned at Date Recorded Not on file documented as of this encounter Plan of Treatment Not on filedocumented as of this encounter Visit Diagnoses Not on filedocumented in this encounter Care Teams Rubber Chemist Relationship Specialty Start Date End Date Lisa Gonzalez APRN, CNP PCP - General 05/03/1998 11/02/13 [address] [place] [address] documented as of this encounter
--- OUTSIDE RECORDS SUMMARY | 2022-04-10 14:18 | XMS_ITS | Encounter Summary ---
:1970 Author Organization [facility] Address [address] [place] [address] Care Team Providers Name Role Phone Lisa Gonzalez Raymond MARIN CNP Primary Care Provider [phone] Encounter Details Date Type Department Care Team Description 08/06/2006 Office Visit [facility] Lou Jacobo MD [id number] [place] [address] [phone] Social History Tobacco Use Types Packs/Day Years Used Date Smoking Tobacco: Never Assessed Sex Assigned at Date Recorded Not on file documented as of this encounter Last Filed Vital Signs Vital Sign Reading Time Taken Comments Blood Pressure 102/64 08/06/2006 4:13 PM CDT Pulse 76 08/06/2006 4:13 PM CDT Temperature - - Respiratory Rate - - Oxygen Saturation - - Inhaled Oxygen Concentration - - Weight 59.4 kg (131 lb) 08/06/2006 4:13 PM CDT C: 59.4k g Height - - Body Mass Index 20.21 07/24/2006 4:17 PM CDT documented in this encounter Progress Notes Janelle Jacobo - 08/06/2006 12:01 AM CDT Progress Notes signed by at 08/07/06 7041 Author: Janelle Lorenzo MD Service: (none) Author Type: (none) Filed: 08/30/10 194 Note Time: 08/06/06 0001 Status: Signed Rope Tier: Fide Conversion NAME: POLLY CASE MR#: [id number] ACCT: [id number] VISIT: [id number] DICTATING CLINICIAN: Janelle Lorenzo MD JOB: [id number] LOC: 502 CLINIC PROGRESS NOTE DATE OF VISIT: 08/06/2006 SUBJECTIVE: : 1970. Polly returns to clinic today for Pap and pelvic exam only. She recently had a full physical, but was menstruating at that time and preferred to come back for her Pap. She has never had an abnormal Pap smear. Last menstrual period 07/24. She has 2 other concerns. One is with the PFTs that she is going to be having done with methacholine challenge. She is a little bit nervous about having the methacholine and would like to discuss that with me. She would also like to review her recent test results. She has a mild anemia and is iron deficient. She would like to know more about the connection between this and shortness of breath which she has been experiencing for quite some time now. MEDICATIONS: Reviewed and updated on patient's health profile today. ADR/ALLERGIES: REVIEWED AND UPDATED ON PATIENT'S HEALTH PROFILE TODAY. OBJECTIVE: VS: BP: 102/64. P: 76. Wt: 131. GENERAL: She is pleasant and healthy appearing in no acute distress. She is breathing comfortably. HEENT: Sclerae clear. Conjunctivae not injected. Moist mucous membranes. PELVIC: Reveals normal external genitalia. Vagina is pink and rugated. Cervix is multiparous, but otherwise unremarkable. Bimanual exam negative for cervical motion tenderness. Negative for adnexal masses or tenderness. LOWER EXTREMITIES: Without edema. ASSESSMENT: 1. Pap and pelvic exam. Exam is normal today. Will inform her of Pap results when available. She has never had an abnormal Pap. Recommend Pap and pelvic exams yearly. 2. Shortness of breath with occasional wheeze. We discussed pulmonary function testing in detail. We discussed the methacholine challenge part of the test. I reassured her that she will be in a safe environment in case she would have a concerning adverse reaction, but also discussed the necessity of this if we are going to establish a diagnosis of asthma which is in question right now. Her shortness of breath could also be explained by her anemia, but that would not explain the wheezing. We will inform her of test results when available. 3. Iron-deficiency anemia. Recommend multivitamin daily which she has not been doing. Recommend recheck CBC, iron, and ferritin in 3 months. At that time, will certainly add prescription iron supplement if indicated. PLAN: See assessment. Length of visit 25 minutes with 15 minutes spent in counseling time reviewing the pulmonary function tests with methacholine challenge, discussing differential diagnosis for shortness of breath, and also treatment for anemia, follow up recommendations. LCM:[id number] C: 08/07/06 13:55 DOCUMENT: [id number] ECTOR AND TESTER documented in this encounter Plan of Treatment Not on filedocumented as of this encounter Visit Diagnoses Not on filedocumented in this encounter Care Teams Clinical Auditor Relationship Specialty Start Date End Date Lisa Gonzalez, TANIA, SECURITY SPECIALIST PCP - General 05/03/1998 11/02/13 [address] [place] [address] documented as of this encounter
--- OUTSIDE RECORDS SUMMARY | 2022-04-10 14:18 | XMS_ITS | Encounter Summary ---
:1970 Author Organization [facility] Address [address] [place] [address] Care Team Providers Name Role Phone Carlos Lisa Andrade APRN, AMANDA Primary Care Provider [phone] Reason for Visit Reason Comments Other Encounter Details Date Type Department Care Team Description 08/18/2006 Telephone [facility] ankit [place], Leelee Dunn, Other [address] [address] [place] [phone] Social History Tobacco Use Types Packs/Day Years Used Date Smoking Tobacco: Never Assessed Sex Assigned at Date Recorded Not on file documented as of this encounter Progress Notes Bisi Cortes - 08/18/2006 4:15 PM CDT Phone Note filed by RT John at 08/27/101906 Author: RT John Service: (none) Author Type: (none) Filed: 08/27/101906 Note Time: 08/18/06 1615 Status: Signed Automobile Damage Appraiser: Fide Quintero Final Pulmonary Function test results are available on this patient in LastWord. Created on 18Aug2006 4:15pm by BISI CORTES On 18Aug2006 4:34pm CRISTY COTA wrote: Please let Polly know her PFT's were normal, however, the methylcholine challenge test was positive suggesting mild asthma. Albuterol inhaler should be sufficient to treat her symptoms but if she notices that she needs to use the inhaler more frequently or develops increased wheezing, SOB, etc. then she should make appt. Acknowledged by CRISTY COTA on 4:34pm On 18Aug2006 4:45pm LEELEE VILLA wrote: Pt notified. Acknowledged by LEELEE VILLA on 4:45pm DELIVERY DRIVER documented in this encounter Plan of Treatment Not on filedocumented as of this encounter Visit Diagnoses Not on filedocumented in this encounter Care Teams Programming Intern Relationship Specialty Start Date End Date Lisa Gonzalez APRN, HIDE EXAMINER PCP - General 05/03/1998 11/02/13 [address] [place] [address] documented as of this encounter
--- OUTSIDE RECORDS SUMMARY | 2022-04-10 14:18 | XMS_ITS | Encounter Summary ---
:1970 Author [facility] Address [address] [place] [address] Care Team Providers Name Role Phone Lisa Gonzalez APRN, AMANDA Primary Care Provider Reason for Visit Reason Comments Other Encounter Details Date Type Department Care Team Description 10/23/[address] [facility], Message Other [address] [place] [address] Social History Tobacco Use Types Packs/Day Years Used Date Smoking Tobacco: Never Assessed Sex Assigned at Date Recorded Not on file documented as of this encounter Progress Notes Domenica Puentes - 10/23/2006 11:22 AM CDT Phone Note filed by Domenica Puentes RN at 08/27/102248 Author: Domenica Puentes RN Service: (none) Author Type: (none) Filed: 08/27/102248 Note Time: 10/23/061121 Status: Signed Finger Buff Sewer: Fide Quintero Pt coming in for labs today? Do you know what she needs? No fuschia in drawer or in scan doc. Created on 23Oct2006 11:22am by DOMENICA PUENTES On 23Oct2006 12:29pm CRISTY COTA wrote: see last phone note Acknowledged by CRISTY COTA on 12:29pm On 23Oct2006 1:23pm DARCI JAUREGUI wrote: Lab order done and sent to lab. Acknowledged by DARCI JAUREGUI on 1:23pm AL IMPLEMENTATION MANAGER documented in this encounter Plan of Treatment Not on filedocumented as of this encounter Visit Diagnoses Not on filedocumented in this encounter Care Teams Oracle Database Administrator Relationship Specialty Start Date End Date Lisa Gonzalez APRN, VENTURE CAPITAL ANALYST PCP - General 05/03/1998 11/02/13 [address] [place] [address] documented as of this encounter
--- OUTSIDE RECORDS SUMMARY | 2022-04-10 14:18 | XMS_ITS | Encounter Summary ---
:1970 [facility] Organization [facility] Address [address] [place] [address] Care Team Providers Name Role Phone Carlos Lisa Andrade APRN, CNP Primary Care Provider [phone] Encounter Details Date Type Department Care Team Description 05/19/[address] [facility] Arlin De Leon PA-C [address] [email or web address] [id number] [place] [address] [phone] (Wo rk) Social History Tobacco Use Types Packs/Day Years Used Date Smoking Tobacco: Never Assessed Sex Assigned at Date Recorded Not on file documented as of this encounter Last Filed Vital Signs Vital Sign Reading Time Taken Comments Blood Pressure 122/80 05/19/2006 3:18 PM EDITING COMPUTER PUBLISHER Pulse 76 05/19/2006 3:18 PM EDITING COMPUTER PUBLISHER Temperature - - Respiratory Rate - - Oxygen Saturation - - Inhaled Oxygen Concentration - - Weight 58.5 kg (128 lb 15.9 oz) 05/19/2006 3:18 PM EDITING COMPUTER PUBLISHER C: 58.5kg Height - - Body Mass Index - - documented in this encounter Progress Notes Arlin Martinez PA-C - 05/19/2006 12:01 AM CST Progress Notes signed by Arlin Martinez PA-C at 05/22/06 1526 Author: Arlin Martinez PA-C Service: (none) Author Type: Physician Environmental Conservation Officer Filed: 08/30/10 0377 Note Time: 05/19/06 0001 Status: Signed Air Crew Supervisor: Arlin Martinez PA-C (Physician Environmental Conservation Officer) NAME: POLLY CASE MR#: [id number] ACCT: VISIT: [id number] DICTATING CLINICIAN: FRANCISCA MICHAEL JOB: [id number] LOC: 502 CLINIC PROGRESS NOTE DATE OF VISIT: 05/19/2006 SUBJECTIVE: Polly is a 35-year-old female who comes to the clinic today concerned about allergies. She has been using Nasacort which she thinks helps but also still continues to have some rhinorrhea and nasal congestion. This has been bothering her for several years. She typically has year around symptoms. Her children have allergies and asthma so she keeps her home in such a way to decrease allergens. She also has some wheezing and shortness of breath intermittently. She admits to me that she has a lot of problems with anxiety. She has used albuterol in the past, which she thinks helps, but a side effect of having an increased heart rate has caused her a lot of anxiety. She denies any cough. Sometimes, though, does notice some slight inspiratory type wheeze in certain situations, including with exercise, and she is doing okay today, though, and does not have any problems. Her mom had lung cancer at a young age, and Polly has a lot of second hand smoke experience and she is quite concerned about that. PAST MEDICAL HISTORY: Reviewed and updated in the health profile in [facility] today. MEDICATIONS: Reviewed and updated in the health profile in [employer] today. ADR/ALLERGIES: REVIEWED AND UPDATED IN THE HEALTH PROFILE IN [facility] TODAY. OBJECTIVE: VS: BP: 122/80. P: 76. Ht: 5 ft 7 in. Wt: 129. CONSTITUTIONAL: Sitting comfortably. Appears well. Eyes: Sclerae and conjunctivae clear. ENT: TMs nonerythematous. Nasal mucosa somewhat pale. No sinus tenderness. Oropharynx clear. NECK: No cervical lymphadenopathy. LUNGS: Clear to auscultation. Respiratory effort was normal. No wheezes, rhonchi, or rales. Peak flow testing best of 3 was 425. Expected for her age was 474. ASSESSMENT: 1. Allergies. 2. History of shortness of breath and wheezing. PLAN: Will obtain a chest x-ray today. Polly is quite anxious as well as with her family history of lung cancer I think that is reasonable, although I think most likely it will be negative. Recommend that she continue Nasacort. Will add Chata 1 tablet daily. She also inquired about a Xopenex inhaler and asked for a prescription for that in order to possibly have less side effects than with the albuterol inhaler. Prescription for that was given. Follow up in a couple of months, sooner as needed, for further evaluation. AMS:[id number] C: 05/20/06 13:27 DOCUMENT: [id number] ING COMPUTER PUBLISHER documented in this encounter Plan of Treatment Not on filedocumented as of this encounter Procedures Procedure Name Priority Date/Time Associated Diagnosis Comme nts XR CHEST 2 VIEWS Routine 05/19/2006 3:54 PM Resul ts for this EDITING COMPUTER PUBLISHER procedure are i n the results section. documented in this encounter Results XR Chest 2 Views (05/19/2006 3:54 PM EDITING COMPUTER PUBLISHER) Anatomical Region Laterality Modality Chest, Lung Other Specimen (Source) Anatomical Location Collection Method / Collectio n Time Received Time / Laterality Volume Narrative 05/19/2006 3:54 PM EDITING COMPUTER PUBLISHER Findings: CH2 Cardiovascular structures appear normal for age. ??No evidence of active pulmonary disease. Dictating NIC TREVINO Radiologist Procedure Note Nic Hernandez MD - 07/11/2016Format ting of this note might be different from the original. Findings: CH2 Cardiovascular structures appear normal for age. No evidence of active pulmonary disease. Dictating NIC TREVINO Radiologist Arlin Martinez PA-C RAD GD documented in this encounter Visit Diagnoses Not on filedocumented in this encounter Care Teams Motor Rebuilder Relationship Specialty Start Date End Date Lisa Gonzalez, INDUSTRIAL MACHINE SYSTEM TECHNICIAN, E MAIL SYSTEM ADMINISTRATOR PCP - General 05/03/1998 11/02/13 [address] [place] [address] documented as of this encounter
--- OUTSIDE RECORDS SUMMARY | 2022-04-10 14:18 | XMS_ITS | Encounter Summary ---
:1970 Author Organization [facility] Address [address] [place] [address] Care Team Providers Name Role Phone Lisa Gonzalez APRN, CNP Primary Care Provider [phone] Encounter Details Date Type Department Care Team Description 08/14/2006 Procedure Visit [facility] Julianna Polk MD Pulmonary Lab [address] [address] [phone] Social History Tobacco Use Types Packs/Day Years Used Date Smoking Tobacco: Never Assessed Sex Assigned at Date Recorded Not on file documented as of this encounter Plan of Treatment Not on filedocumented as of this encounter Procedures Procedure Name Priority Date/Time Associated Diagnosis Comme nts COMPLETE PULMONARY Routine 08/14/2006 8:49 AM Res ults for this FUNCTION TEST CDT procedure are in the results section. documented in this encounter Results Pulmonary Function Test - Complete (08/14/2006 8:49 AM CDT) Specimen (Source) Anatomical Collection Method Collection Time Re ceived Time Location / / Volume Laterality 08/14/2006 8:49 AM CDT Narrative HP CONVERSION - 08/14/2006 8:49 AM CDT Name: ?? Polly CASE ?ID: ?? [id number] Doctor: ?BEATA, CRISTY ?Height: ?67.00 in ? Age: ??36 Tech: ??GABE, ? Weight: ?135.00 lbs ?? Sex: ?? Female Date: ?? 08/14/2006 ?Time: 08:49:02 AM ? Race: ?? Secondary ID: ? [id number] Post-Test Comments: ?? RESTING RBU2=098% HR=91. ? PRE-BRONCH ? POST-BRONCH ?PRE-BRONCH ?POST-BRONCH ? Actual ?? Pred ??%Pre ?? Actual ??%Pre ??%Chng SPIROMETRY FVC (L) ?4.98 ?3. 72 ??134 ?4.75 ?128 ?? -5 FEV1 (L) ? 4.27 ?3.1 1 ??137 ?3.60 ?116 ?? -16 FEV1/FVC (%) ? 86 ?84 ?102 ?76 ?90 ?-12 FEF 25% (L/sec) ?6.91 ?5.82 ? ?119 ?5.40 ?93 ?-22 FEF 50% (L/sec) ?4.79 ?4.27 ? ?112 ?3.40 ?80 ?-29 FEF 75% (L/sec) ?2.59 ?1.72 ? ?150 ?0.96 ?56 ?-63 FEF 25-75% ? 4.40 ?3.53 ??125 ?2.69 ?76 ?-39 FEF Max (L/sec) ?7.80 ?6.08 ? ?128 ?6.19 ?102 ?? -21 FIVC (L) ? 3.31 ? 4.08 ?23 FIF 50% (L/sec) ?4.90 ?3.85 ? ?127 ?4.60 ?119 ?? -6 FIF Max (L/sec) ?4.99 ? 4.60 ?-8 LUNG VOLUMES SVC (L) ?4.58 ?3. 80 ??121 IC (L) ? 2.62 ?2. 44 ??107 ERV (L) ?1.96 ?1. 36 ??144 TGV (L) ?3.94 ?3. 06 ??129 RV (Pleth) (L) ? 1.98 ?1.70 ? ?116 TLC (Pleth) (L) ?6.56 ?5.50 ? ?119 RV/TLC (Pleth) (%) ?? 30 ?30 ?101 DIFFUSION DLCOunc ?33.05 ?? 25. 29 131 DL/VA ?4.83 ?4 .60 ??105 VA (L) ? 6.84 ?5. 50 ??124 Interpretation: The FVC, FEV1, FEV1/FVC ratio and FEF25- 75% are within normal limits. ??While the SVC and TLC are with in normal limits, the FRC is increased. ??Following administration of bronchodilators, there is no significant response. ??The diffusing ca pacity is normal. ??However, the diffusing capacity was not corrected for the patient's hemoglobin. Conclusions: The results are within norm al limits. Pulmonary Function Diagnosis: Normal Pulmonary Function Positive Methacholine Challenge test, caceres ggestive of asthma. Recommend clinical correlation. ____TRINH MONTALVO Imr Conversion PN PFT ORDERABLES Performing Organization Address City/State/ZIP Code Phon e Number HP CONVERSION documented in this encounter Visit Diagnoses Not on filedocumented in this encounter Care Teams Managing Principal Relationship Specialty Start Date End Date Lisa Gonzalez, HOT IRON WORKER, MILITARY SCIENCE TEACHER PCP - General 05/03/1998 11/02/13 [address] [place] [address] documented as of this encounter
--- OUTSIDE RECORDS SUMMARY | 2022-04-10 14:18 | XMS_ITS | Encounter Summary ---
:1970 Author Organization [facility] Address [address] [place] [address] Care Team Providers Name Role Phone Lisa Gonzalez Raymond MARIN, AMANDA Primary Care Provider [phone] Encounter Details Date Type Department Care Team Description 10/25/2006 PN Conversion Only [place] [address] [place] [address] (Wo rk) Social History Tobacco Use Types Packs/Day Years Used Date Smoking Tobacco: Never Assessed Sex Assigned at Date Recorded Not on file documented as of this encounter Plan of Treatment Not on filedocumented as of this encounter Procedures Procedure Name Priority Date/Time Associated Diagnosis Comme nts IRON (NO IBC OR Routine 10/25/2006 9:49 AM Result s for this SAT) CDT procedure are i n the results section. COMPLETE BLOOD Routine 10/25/2006 9:49 AM Results for this COUNT-W/DIFF CDT procedure are i n the results section. FERRITIN Routine 10/25/2006 9:49 AM Results f or this CDT procedure are i n the results section. documented in this encounter Results (ABNORMAL) Complete Blood Count-W/Diff (10/25/2006 9:49 AM CDT) [facility] Method Time Signature White Blood Cell 4.5 3.8 - 11.0 HP CONVERSIO N Count K/cmm Red Blood Cell 3.61 (L) 3.70 - HP CONVERSION Count 5.20 m/cmm Hemoglobin 11.4 (L) 11.8 - HP CONVERSION 15.5 gm/dL Hematocrit 32.7 (L) 35.0 - HP CONVERSION 46.0 % Mean Corpuscular 90.5 80.0 - HP CONVERSION Volume 100.0 fl Mean Corpuscular 31.5 27.0 - HP CONVERSION Hemoglobin 34.0 pg Mean Corpuscular 34.8 32.0 - HP CONVERSION Hemoglobin Conc 36.5 gm/dL [place] RDW 13.5 11.0 - HP CONVERSION 15.0 % Platelet Count 306 140 - 450 HP CONVERSION k/cmm Differential Auto-Dif No normal HP CONVERSION Verify range Neutrophils 2.4 2.0 - 7.5 HP CONVERSION Absolute Count K/cmm Neutrophil 51.6 50.0 - HP CONVERSION 75.0 % Lymphocyte % 34.3 20.0 - HP CONVERSION 40.0 % Monocyte 11.7 5.0 - 14.0 HP CONVERSION % Eosinophil 1.6 0.0 - 6.0 HP CONVERSION % Basophil % 0.8 0.0 - 2.0 HP CONVERSION % Specimen (Source) Anatomical Collection Method Collection Time Re ceived Time Location / / Volume Laterality 10/25/2006 9:49 AM CDT Janelle Jacobo MD LAB_1 Performing Organization Address City/State/ZIP Code Phon e Number HP CONVERSION Ferritin (10/25/2006 9:49 AM CDT) athologist Signature Ferritin Serum 26 10 - 291 HP CONVERSION ng/mL Specimen (Source) Anatomical Collection Method Collection Time Re ceived Time Location / / Volume Laterality 10/25/2006 9:49 AM CDT Janelle Jacobo MD LAB_1 Performing Organization Address City/State/ZIP Code Phon e Number HP CONVERSION Iron (no IBC or Sat) (10/25/2006 9:49 AM CDT) athologist Signature Iron, Serum 84 50 - 165 HP CONVERSION ug/dL Specimen (Source) Anatomical Collection Method Collection Time Re ceived Time Location / / Volume Laterality 10/25/2006 9:49 AM CDT Janelle Jacobo MD LAB_1 Performing Organization Address City/State/ZIP Code Phon e Number HP CONVERSION documented in this encounter Visit Diagnoses Not on filedocumented in this encounter Care Teams Irrigator Sprinkling System Relationship Specialty Start Date End Date Lisa Gonzalez APRN, GASOLINE TRACTOR OPERATOR PCP - General 05/03/1998 11/02/13 [address] [place] [address] documented as of this encounter
--- OUTSIDE RECORDS SUMMARY | 2022-04-10 14:18 | XMS_ITS | Encounter Summary ---
:1970 [facility] Address [address] [place] [address] Care Team Providers Name Role Phone Lisa Gonzalez APRN, CNP Primary Care Provider [phone] Encounter Details Date Type Department Care Team Description 08/05/2006 Office Visit [facility] [address] [place] [address] Social History Tobacco Use Types Packs/Day Years Used Date Smoking Tobacco: Never Assessed Sex Assigned at Date Recorded Not on file documented as of this encounter Plan of Treatment Not on filedocumented as of this encounter Visit Diagnoses Not on filedocumented in this encounter Care Teams Scaffolder Relationship Specialty Start Date End Date Lisa Gonzalez APRN, CNP PCP - General 05/03/1998 11/02/13 [address] [place] [address] documented as of this encounter
--- OUTSIDE RECORDS SUMMARY | 2022-04-10 14:18 | XMS_ITS | Encounter Summary ---
:1970 [facility] Organization [facility] Address [address] [place], [place] [address] [place] [address] Care Team Providers Name Role Phone Lisa Gonzalez APRN, [facility] Primary Care Provider [phone] Reason for Visit Reason Comments Other Encounter Details Date Type Department Care Team Description 10/28/2006 Telephone [facility] Mayte Ayers, TANIA, Other [address] [place] [address] [employer] [facility] [place] [phone] [place] [address] Social History Tobacco Use Types Packs/Day Years Used Date Smoking Tobacco: Never Assessed Sex Assigned at Date Recorded Not on file documented as of this encounter Progress Notes Center, Message - 10/28/2006 4:07 PM CDT Phone Note filed by Buzzero at 08/27/102306 Author: Buzzero Service: (none) Author Type: (none) Filed: 08/27/100 Note Time: 10/28/06 1607 Status: Signed Cd Storage And Materials Make Up Helper: Buzzero Lab/Radiology Results Caller:Polly What test result is needed? lab test/pt has questions regarding results received in the mail When and where was test done? 10-[facility] Who ordered the test? Dr Cota Crm Solution Architect: Polly Best call back number:[phone] or [phone] Best time to call back: anytime Is it OK to leave a confidential message on this voicemail? yes Created on 28Oct2006 4:07pm by TOM GARCIA On 28Oct2006 4:25pm CESAR PICKERING wrote: MESSAGE TO CARE TEAM NAME OF CALLER: Polly NAME OF CLINICIAN: Bj MESSAGE: Pt received results in the mail w/a note stating that we will want to do add'l lab tests based on recent low hgb, hct and rbc's. What tests need to be done and when? CALL BACK PHONE OR CELL PHONE: [phone] or [phone] BEST TIME TO CALL BACK: Any IS IT OK TO LEAVE A CONFIDENTIAL MESSAGE ON THIS VOICEMAIL? Yes On 28Oct2006 5:34pm CRISTY COTA wrote: we need: reticulocyte count, peripheral blood smear, sed rate, creatinine, erythropoeitin level, LDH. Diagnosis is anemia. Acknowledged by CRISTY COTA on 5:34pm Acknowledged by LAURIE PUENTES on 8:07am On 29Oct2006 8:59am MAYTE DORSEY wrote: Pt notified. Pt will return to clinic today for labs. 10-29-06 TJ Acknowledged by MAYTE DORSEY on 8:59am RER SHAFT SINKING documented in this encounter Plan of Treatment Not on filedocumented as of this encounter Visit Diagnoses Not on filedocumented in this encounter Care Teams Licensed Mental Health Counselor Relationship Specialty Start Date End Date Lisa Gonzalez APRN, ELECTROLYSIS NEEDLE OPERATOR PCP - General 05/03/1998 11/02/13 [address] [place] [address] documented as of this encounter
--- OUTSIDE RECORDS SUMMARY | 2022-04-10 14:18 | XMS_ITS | Encounter Summary ---
:1970 [facility] Address [address] [place] [address] Care Team Providers Name Role Phone Lisa Gonzalez Raymond MARIN, AMANDA Primary Care Provider [phone] Encounter Details Date Type Department Care Team Description 07/24/2006 Office Visit [facility] Lou Jacobo MD [address] [id number] [place] [address] [phone] Social History Tobacco Use Types Packs/Day Years Used Date Smoking Tobacco: Never Assessed Sex Assigned at Date Recorded Not on file documented as of this encounter Last Filed Vital Signs Vital Sign Reading Time Taken Comments Blood Pressure 104/72 07/24/2006 4:18 PM CDT Pulse 96 07/24/2006 4:18 PM CDT Temperature - - Respiratory Rate - - Oxygen Saturation - - Inhaled Oxygen Concentration - - Weight 59.4 kg (131 lb) 07/24/2006 4:17 PM CDT C: 59.4k g Height 171.5 cm (5' 7.5) 07/24/2006 4:17 PM CDT C: 171 .5cm Body Mass Index 20.21 07/24/2006 4:17 PM CDT documented in this encounter Progress Notes Janelle Jacobo - 07/24/2006 12:01 AM CDT H&P signed by at 07/27/06 3003 Author: Janelle Lorenzo MD Service: (none) Author Type: (none) Filed: 08/30/10 192 Note Time: 07/24/06 0001 Status: Signed Senior Php Software Developer: Fide Conversion NAME: POLLY CASE MR#: [id number] ACCT: [id number] VISIT: [id number] DICTATING CLINICIAN: Janelle Lorenzo MD JOB: [id number] LOC: 502 CLINIC PHYSICAL DATE OF VISIT: 07/24/2006 SUBJECTIVE: : 1970. Polly presents to clinic today for her yearly health maintenance exam. She has been doing quite well. Does still occasionally have some wheezing and trouble catching her breath. Wheezes seem to be mostly end inspiratory. She denies cough. She has not noticed a pattern or any triggers for the wheezing. She does have more shortness of breath with exertion. She does not exercise regularly. She was started on Chata, and that does seem to help her symptoms. The Nasonex she did not find beneficial, and so she discontinued this. She has seen allergy in the past. No other concerns today. MEDICATIONS: Reviewed and updated in the patient's health profile today. ADR/ALLERGIES: REVIEWED AND UPDATED IN THE PATIENT'S HEALTH PROFILE TODAY. Immunizations are up to date. Last menstrual period: 07/24/06. Past medical, gynecologic, OB, family, and social history are otherwise unchanged from 08/24/03. Please see my note from that date for more details. REVIEW OF SYSTEMS: As above. Otherwise, complete review of systems is negative. OBJECTIVE: VS: BP: 104/72. P: 96. Ht: 67-1/2 in. Wt: 131. GENERAL: She is pleasant, appears in no acute distress. She is slightly anxious. HEENT: Sclerae are clear. Conjunctivae not injected. Mucous membranes are moist. Pupils equally round and reactive to light. TMs are clear. Throat is nonerythematous. There are no exudates. Dentition is in good condition. NECK: Supple. There is no lymphadenopathy or thyromegaly. There are no carotid bruits. LUNGS: Clear to auscultation. Even with forced expiration, there are no wheezes. HEART: Regular rate and rhythm. ABDOMEN: Soft, nontender, nondistended. There is no organomegaly. BACK: Negative for CVA or spinal tenderness. BREASTS: Normal to inspection and palpation. There is no axillary lymphadenopathy. No nipple discharge. PELVIC: Exam is deferred today, per patient request. She is menstruating. LOWER EXTREMITIES: Without edema. Distal pulses full and symmetric. SKIN: Intact, without rash or worrisome lesions. ASSESSMENT: 1. Health care maintenance. Recommend monthly self breast exams, a baseline mammogram now, yearly mammograms at age 40 onward. Discussed getting plenty of calcium in her diet, regular weightbearing exercise. Will check a fasting cholesterol and glucose for screening. Recommend yearly physical exams. Recommend she follow up for her Pap and pelvic as she was menstruating today. 2. Wheezing, etiology unclear. Does not appear to be any pattern or triggers for this. Albuterol inhaler does help but makes her feel jittery. Recommend proceeding with pulmonary function tests with a methacholine challenge and bronchodilator. Also consider allergy testing. Continue with the Chata. Also would consider Advair if there is some evidence for mild asthma. 3. History of anemia mostly during . Will check a CBC, iron, and ferritin. PLAN: See assessment. LCM:[id number] C: 07/27/06 09:15 DOCUMENT: [id number] SHOP CLERK documented in this encounter Plan of Treatment Not on filedocumented as of this encounter Visit Diagnoses Not on filedocumented in this encounter Care Teams Airplane Dispatch Clerk Relationship Specialty Start Date End Date Lisa Gonzalez, BAG TURNER, CARDIOTHORACIC ANESTHESIA TECHNICIAN PCP - General 05/03/1998 11/02/13 [address] [place] [address] documented as of this encounter
--- OUTSIDE RECORDS SUMMARY | 2022-04-10 14:18 | XMS_ITS | Encounter Summary ---
:1970 Author Organization [facility] Address [address] [place] [address] Care Team Providers Name Role Phone Gonzalez Lisa Raymond MARIN CNP Primary Care Provider [phone] Encounter Details Date Type Department Care Team Description 10/29/2006 PN Conversion Only [place] [address] [place] [address] (Wo rk) Social History Tobacco Use Types Packs/Day Years Used Date Smoking Tobacco: Never Assessed Sex Assigned at Date Recorded Not on file documented as of this encounter Plan of Treatment Not on filedocumented as of this encounter Procedures Procedure Name Priority Date/Time Associated Diagnosis Comme nts CREATININE / GFR Routine 10/29/2006 11:00 AM Resu lts for this CDT procedure are i n the results section. RETIC, AUTOMATED Routine 10/29/2006 11:00 AM Resu lts for this CDT procedure are i n the results section. LD TOTAL (LDH) Routine 10/29/2006 11:00 AM Result s for this CDT procedure are i n the results section. ESR Routine 10/29/2006 11:00 AM Results for this CDT procedure are i n the results section. documented in this encounter Results Creatinine / GFR (10/29/2006 11:00 AM CDT) P athologist Signature Creatinine 0.5 0.4 - 1.3 HP CONVERSION Serum mg/dL Specimen (Source) Anatomical Collection Method Collection Time Re ceived Time Location / / Volume Laterality 10/29/2006 11:00 AM CDT Janelle Jacobo MD LAB_1 Performing Organization Address City/State/ZIP Code Phon e Number HP CONVERSION (ABNORMAL) LD Total (LDH) (10/29/2006 11:00 AM CDT) Patholo gist Method Time Signature Lactic Acid 196 (H) 90 - 180 HP CONVERSION Dehydrogenase U/L Specimen (Source) Anatomical Collection Method Collection Time Re ceived Time Location / / Volume Laterality 10/29/2006 11:00 AM CDT Janelle Jacobo MD LAB_1 Performing Organization Address City/[facility]/ZIP Code Phon e Number HP CONVERSION ESR (10/29/2006 11:00 AM CDT) Patholo gist Method Time Signature Sedimentation Rate 6 0 - 20 HP CONVERSI ON mm/Hr Specimen (Source) Anatomical Collection Method Collection Time Re ceived Time Location / / Volume Laterality 10/29/2006 11:00 AM CDT Janelle Jacobo MD LAB_1 Performing Organization Address City/[facility]/ZIP Code Phon e Number HP CONVERSION Retic, Automated (10/29/2006 11:00 AM CDT) Analysis Performed At Patho logist Time Signature Reticulocyte 0.042 0.005 - HP CONVERSION Absolute Count 0.099 m/cmm Specimen (Source) Anatomical Collection Method Collection Time Re ceived Time Location / / Volume Laterality 10/29/2006 11:00 AM CDT Janelle Jacobo MD LAB_1 Performing Organization Address City/[facility] Code Phon e Number HP CONVERSION documented in this encounter Visit Diagnoses Not on filedocumented in this encounter Care Teams Automobile Technician Relationship Specialty Start Date End Date Lisa Gonzalez, LOAN DOCUMENTATION SPECIALIST, NEWS INTERNSHIP PCP - General 05/03/1998 11/02/13 [address] [place] [address] documented as of this encounter
--- OUTSIDE RECORDS SUMMARY | 2022-04-10 14:18 | XMS_ITS | Encounter Summary ---
:1970 Author Organization [facility] Address [address] [place] [address] Care Team Providers Name Role Phone Gonzalez Lisa Andrade APRN, CNP Primary Care Provider [phone] Reason for Visit Reason Comments Other Encounter Details Date Type Department Care Team Description 09/04/2005 Telephone [facility] Janelle Barajas [place] Other [address] [address] [place] [address] [place] [address] [phone] (Wo rk) Social History Tobacco Use Types Packs/Day Years Used Date Smoking Tobacco: Never Assessed Sex Assigned at Date Recorded Not on file documented as of this encounter [facility], Message - 09/04/2005 2:57 PM CDT Phone Note filed by [employer] at 08/27/10332 Author: [employer] Service: (none) Author Type: (none) Filed: 08/27/10332 Note Time: 09/04/05 1452 Status: Signed Endless Track Vehicle 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 Comment:- [id number] Clinician Name:Juan Cota Drug Name/Strength:-Lexapro 20GM tab Sig:-take 1/2 tab daily Quantity:-15 Last Refill:-08/25/05 Created on 04Sep2005 2:57pm by AIDA JIMENEZ On 04Sep2005 4:57pm TERA THAPA Zarina wrote: Unable to refill med per protocol as she has been on it <12months. Please address. On 04Sep2005 5:17pm JANELLE COTA wrote: done. Acknowledged by JANELLE COTA on 5:17pm LEIZER documented in this encounter Plan of Treatment Not on filedocumented as of this encounter Visit Diagnoses Not on filedocumented in this encounter Care Teams Compressor Mechanic Bus Relationship Specialty Start Date End Date Lisa Gonzalez, TANIA, TORPEDO MAN PCP - General 05/03/1998 11/02/13 [address] [place] [address] documented as of this encounter
--- OUTSIDE RECORDS SUMMARY | 2022-04-10 14:18 | XMS_ITS | Encounter Summary ---
:1970 [facility] Address [address] [place] [address] Care Team Providers Name Role Phone Lisa Gonzalez Raymond MARIN, AMANDA Primary Care Provider [phone] Encounter Details Date Type Department Care Team Description 12/04/2005 Office Visit [facility] Lou Jacobo MD [place] [id number] [place] [id number] [phone] Social History Tobacco Use Types Packs/Day Years Used Date Smoking Tobacco: Never Assessed Sex Assigned at Date Recorded Not on file documented as of this encounter Last Filed Vital Signs Vital Sign Reading Time Taken Comments Blood Pressure 114/70 12/04/2005 10:17 AM CDT Pulse 92 12/04/2005 10:17 AM CDT Temperature - - Respiratory Rate - - Oxygen Saturation - - Inhaled Oxygen Concentration - - Weight 58 kg (127 lb 15.6 oz) 12/04/2005 10:17 AM CDT C : 58.1kg Height - - Body Mass Index - - documented in this encounter Progress Notes Janelle Jacobo - 12/04/2005 12:01 AM CDT Progress Notes signed by at 12/09/05 1304 Author: Janelle Lorenzo MD Service: (none) Author Type: (none) Filed: 08/30/10 7138 Note Time: 12/04/05 0001 Status: Signed Auto Body Repair Technician: Fide Conversion NAME: POLLY CASE MR: [id number] ACCT: [id number] VISIT: [id number] DICTATING CLINICIAN: Janelle Lorenzo MD JOB: [id number] LOC: 502 CLINIC PROGRESS NOTE DATE OF VISIT: 12/04/2005 SUBJECTIVE: : 1970. Polly presents to the clinic today with a couple of concerns. She has noticed a lesion near the umbilicus. She was able to express some bloody fluid. Since that time she has used Bactroban and things seem to be improving, but it has not completely healed. She would like this evaluated today. It is slightly pruritic. Her other concern is with occasional wheezing. She has used albuterol in the past, but it did cause fast heart rate. She would; however, like to give this another try. She has discontinued her nasal steroid spray and does have some problems with allergies. Has been a bit congested and is wondering if she should restart that. No other concerns today. She has otherwise been doing well. She and her family are considering a move back to the [facility] where she is originally from. MEDICATIONS: Reviewed and updated in LastWord today. ADR/ALLERGIES: REVIEWED AND UPDATED IN LAST[employer] TODAY. OBJECTIVE: VS: BP: 114/70. P: 92. Wt: 128. GENERAL: She is pleasant, healthy appearing, in no acute distress. SKIN: Quite tanned. HEENT: Sclerae are clear. Conjunctivae noninjected. Mucous membranes are moist. Examination of the umbilicus is notable for a very small, perhaps 6-mm, round, raised, slightly erythematous lesion. There is no associated erythema. No drainage. It is nontender. It is firm. Incidentally noted is a very small umbilical hernia perhaps the defect is only a few millimeters. She draws my attention to several moles. These were examined and are not worrisome. Nose is remarkable for some turbinate swelling and erythema bilaterally. HEART: Regular rate and rhythm without ectopy. LUNGS: Clear to auscultation without wheeze even with forced expiration. ASSESSMENT: 1. Minimal infection near the umbilicus, which is already healing well. There maybe some scar tissue present. I have advised she keep the area clean and dry, continue with the antibacterial ointment. Certainly contact the clinic if she notices erythema, warmth, purulent drainage, etc. 2. Incidental very small umbilical hernia noted. This requires no further followup unless she notices increase in size, pain, etc. 3. Mole check: There were no worrisome nevi present. Her skin is quite tanned. Reviewed [facility] of melanoma screening as well as signs and symptoms of basal cell and squamous cell carcinoma. Advised liberal use of sunscreen. 4. Patient has also described pruritic rash that is not present on today's exam. Most consistent with some sort of contact or allergic dermatitis. Followup p.r.n. 5. Allergic rhinitis: Will begin Nasacort two sprays each side daily. Also for episodic wheezing albuterol inhaler one puff every four hours as needed. Followup p.r.n. PLAN: See assessment. LCM:[id number] C: 12/06/05 19:54 DOCUMENT: [id number] S ETCHER HELPER documented in this encounter Plan of Treatment Not on filedocumented as of this encounter Visit Diagnoses Not on filedocumented in this encounter Care Teams Floor Cleaner Relationship Specialty Start Date End Date Lisa Gonzalez APRN, TWENTY ONE DEALER PCP - General 05/03/1998 11/02/13 [address] [place] [address] documented as of this encounter
--- OUTSIDE RECORDS SUMMARY | 2022-04-10 14:18 | XMS_ITS | Encounter Summary ---
:1970 Author [facility] Address [address] [place] [address] Care Team Providers Name Role Phone Lisa Gonzalez APRN, CNP Primary Care Provider [phone] Reason for Visit Reason Comments Other Encounter Details Date Type Department Care Team Description 10/20/2006 Telephone [facility] [place] [address] [place] [phone] Social History Tobacco Use Types Packs/Day Years Used Date Smoking Tobacco: Never Assessed Sex Assigned at Date Recorded Not on file documented as of this encounter [facility], [facility] - 10/20/2006 11:08 AM CDT Phone Note filed by [employer] at 08/27/10 Author: [employer] Service: (none) Author Type: (none) Filed: 08/27/102234 Note Time: 10/20/06 1108 Status: Signed City Alderman: [employer] Lab/Radiology Results/Requests Name of Caller:lambert Name of Clinician: Results: What test result is needed? When and Where was test done? Who ordered test? OR Request for Test/Order: What test is needed and when?3mo recheck on hemo and not sure what else wants to recheck 10/23/06 Why is test needed/requested?3mo recheck Call Back Phone or Cell Best time to call back:anytime Is it OK to leave a confidential message on this voicemail?yes Created on 20Oct2006 11:08am by JAVIER BIRMINGHAM On 20Oct2006 12:33pm CRISTY COTA wrote: she needs cbc, iron and ferritin for Fe deficient anemia. Acknowledged by CRISTY COTA on 12:33pm On 20Oct2006 1:25pm DOMENICA PUENTES wrote: Slip sent to lab. Pt notified of above. Acknowledged by DOMENICA PUENTES on 1:25pm RRAGE AGENT documented in this encounter Plan of Treatment Not on filedocumented as of this encounter Visit Diagnoses Not on filedocumented in this encounter Care Teams Cage Maker Relationship Specialty Start Date End Date Lisa Gonzalez APRN, PREMIUM AUDITOR PCP - General 05/03/1998 11/02/13 [address] [place] [address] documented as of this encounter
--- OUTSIDE RECORDS SUMMARY | 2022-04-10 14:18 | XMS_ITS | Encounter Summary ---
:1970 Author Organization [facility] Address [address] [place] [address] Care Team Providers Name Role Phone Lisa Gonzalez Raymond MARIN, AMANDA Primary Care Provider [phone] Encounter Details Date Type Department Care Team Description 08/07/2006 PN Conversion Only [place] [address] [place] [id number] [place] [address] (Wo rk) Social History Tobacco Use Types Packs/Day Years Used Date Smoking Tobacco: Never Assessed Sex Assigned at Date Recorded Not on file documented as of this encounter Plan of Treatment Not on filedocumented as of this encounter Procedures Procedure Name Priority Date/Time Associated Comments Diagnosis ANATOMICAL PATH Routine 08/07/2006 10:03 AM Resul ts for this LIQUID BASED CDT procedure are i n the results section. documented in this encounter Results Pap Smear (08/07/2006 10:03 AM CDT) [facility] Method Time Signature PAP Smear SEE TEXT No normal HP CONVERSION Liquid Based range Comment: Patient: POLLY CASE ? CERVICAL CYTOLOGY REPORT Pathology # ??[id number] ?Date Obtained: ? Date Received: CYTOLOGIC IMPRESSION: Negative for intraepithelial lesion or m alignancy. Verified 08/12/06 by: ? (electronic signature) ? KEARA TIONAL DATA LMP: ? CLINICAL HIST LIQUID BASED PAP CERVICAL SPECIMEN ADEQUACY: ?? Satisfactory. ENDOCERVICAL CELLS: ??Present. Specimen (Source) Anatomical Collection Method Collection Time Re ceived Time Location / / Volume Laterality 08/07/2006 10:03 AM CDT Janelle Jacobo MD LAB_1 Performing Organization Address City/State/ZIP Code Phon e Number HP CONVERSION documented in this encounter Visit Diagnoses Not on filedocumented in this encounter Care Teams Research And Evaluation Analyst Relationship Specialty Start Date End Date Lisa Gonzalez, INSTRUCTIONAL SUPPORT SPECIALIST, MACHINE SETTER PCP - General 05/03/1998 11/02/13 [address] [place] [address] documented as of this encounter
--- OUTSIDE RECORDS SUMMARY | 2022-04-10 14:18 | XMS_ITS | Encounter Summary ---
:1970 Author Organization [facility] Address [address] [place] [address] Care Team Providers Name Role Phone Lisa Gonzalez APRN, CNP Primary Care Provider [phone] Encounter Details Date Type Department Care Team Description 08/12/2006 PN Conversion Only [facility] [address] [place] [address] Social History Tobacco Use Types Packs/Day Years Used Date Smoking Tobacco: Never Assessed Sex Assigned at Date Recorded Not on file documented as of this encounter Plan of Treatment Not on filedocumented as of this encounter Procedures Procedure Name Priority Date/Time Associated Diagnosis Comme nts MM MAMMOGRAM Routine 08/12/2006 6:52 PM Results f or this SCREENING BILAT W CDT procedure are in CAD the results section. documented in this encounter Results MM Mammogram Screening Bilat W CAD (08/12/2006 6:52 PM CDT) Anatomical Region Laterality Modality Breast Bilateral Mammography Specimen (Source) Anatomical Location Collection Method / Collectio n Time Received Time / Laterality Volume Impressions 08/17/2006 1:54 PM CDT : BILATERAL BREAST - CATEGORY 2 Benign, no evidence of malignancy. Sofia l interval follow-up is recommended in 12 months. OVERALL ASSESSMENT - BENIGN END OF IMPRESSION Dictating CHERY DOUGLAS RADIOLOGIST Narrative 08/17/2006 1:54 PM CDT This is the patient's baseline exam. Bilateral Breast Findings: The breasts are heterogeneously dense. T his may lower the sensitivity of mammography. The right breast is smaller then the lef t. Procedure Note Chery Espinosa - 07/11/2016 This is the patient's baseline exam. Bilateral Breast Findings: The breasts are heterogeneously dense. T his may lower the sensitivity of mammography. The right breast is smaller then the lef t. IMPRESSION : BILATERAL BREAST - CATEGORY 2 Benign, no evidence of malignancy. Sofia l interval follow-up is recommended in 12 months. OVERALL ASSESSMENT - BENIGN END OF IMPRESSION Dictating CHERY DOUGLAS RADIOLOGIST Janelle Jacobo MD RAD MAY documented in this encounter Visit Diagnoses Not on filedocumented in this encounter Care Teams Fast Brim Pouncer Relationship Specialty Start Date End Date Lisa Gonzalez, KENNEL HAND, THIRD GRADE TEACHER PCP - General 05/03/1998 11/02/13 [address] [place] [address] documented as of this encounter
--- OUTSIDE RECORDS SUMMARY | 2022-04-10 14:18 | XMS_ITS | Encounter Summary ---
:1970 Author Organization [facility] Address [address] [place] [address] Care Team Providers Name Role Phone Carlos Lisa Andrade APRN, CNP Primary Care Provider [phone] Encounter Details Date Type Department Care Team Description 07/26/2006 PN Conversion Only [place] [address] [place] [id number] [place], [place] [id number] [place] [address] (Wo rk) Social History Tobacco Use Types Packs/Day Years Used Date Smoking Tobacco: Never Assessed Sex Assigned at Date Recorded Not on file documented as of this encounter Plan of Treatment Not on filedocumented as of this encounter Procedures Procedure Name Priority Date/Time Associated Diagnosis Comme nts GLUCOSE Routine 07/26/2006 11:07 AM Results for this CDT procedure are i n the results section. LIPID PANEL AND Routine 07/26/2006 11:07 AM Resul ts for this DIRECT LDL(IF CDT procedure are in NEEDED) the results section. IRON (NO IBC OR Routine 07/26/2006 11:07 AM Resul ts for this SAT) CDT procedure are i n the results section. COMPLETE BLOOD Routine 07/26/2006 11:07 AM Result s for this COUNT-W/DIFF CDT procedure are i n the results section. FERRITIN Routine 07/26/2006 11:07 AM Results for this CDT procedure are i n the results section. documented in this encounter Results (ABNORMAL) Complete Blood Count-W/Diff (07/26/2006 11:07 AM CDT) [facility] Method Time Signature White Blood Cell 5.7 3.8 - 11.0 HP CONVERSIO N Count K/cmm Red Blood Cell 3.82 3.70 - HP CONVERSION Count 5.20 m/cmm Hemoglobin 11.9 11.8 - HP CONVERSION 15.5 gm/dL Hematocrit 34.3 (L) 35.0 - HP CONVERSION 46.0 % Mean Corpuscular 89.8 80.0 - HP CONVERSION Volume 100.0 fl Mean Corpuscular 31.2 27.0 - HP CONVERSION Hemoglobin 34.0 pg Mean Corpuscular 34.7 32.0 - HP CONVERSION Hemoglobin Conc 36.5 gm/dL Haakon RDW 12.0 11.0 - HP CONVERSION 15.0 % Platelet Count 353 140 - 450 HP CONVERSION k/cmm Differential Auto-Dif No normal HP CONVERSION Verify range Neutrophils 3.0 2.0 - 7.5 HP CONVERSION Absolute Count K/cmm Neutrophil 52.9 50.0 - HP CONVERSION 75.0 % Lymphocyte % 38.3 20.0 - HP CONVERSION 40.0 % Monocyte 7.1 5.0 - 14.0 HP CONVERSION % Eosinophil 1.0 0.0 - 6.0 HP CONVERSION % Basophil % 0.7 0.0 - 2.0 HP CONVERSION % Specimen (Source) Anatomical Collection Method Collection Time Re ceived Time Location / / Volume Laterality 07/26/2006 11:07 AM CDT Janelle Jacobo MD LAB_1 Performing Organization Address City/State/ZIP Code Phon e Number HP CONVERSION Glucose (07/26/2006 11:07 AM CDT) athologist Signature Length Of Fast 12.0 Hours HP CONVERSION Lab Glucose 83 60 - 100 HP CONVERSION mg/dL Specimen (Source) Anatomical Collection Method Collection Time Re ceived Time Location / / Volume Laterality 07/26/2006 11:07 AM CDT Janelle Jacobo MD LAB_1 Performing Organization Address City/State/ZIP Code Phon e Number HP CONVERSION Lipid Panel and Direct LDL(If Needed) (07/26/2006 11:07 AM CDT) [facility] Method Time Signature Length Of Fast 12.0 Hours HP CONVERSION Cholesterol/HDL 2.7 No normal HP CONVERSION Ratio Screen range Cholesterol 157 <200 mg/dL HP CONVERSION HDL Cholesterol 59 40 - 60 HP CONVERSION mg/dL Triglycerides 56 0 - 149 HP CONVERSION mg/dL LDL Calculated 87 0 - 130 HP CONVERSION mg/dL Comment: Specimen (Source) Anatomical Collection Method Collection Time Re ceived Time Location / / Volume Laterality 07/26/2006 11:07 AM CDT Janelle Jacobo MD LAB_1 Performing Organization Address City/State/ZIP Code Phon e Number HP CONVERSION Ferritin (07/26/2006 11:07 AM CDT) athologist Signature Ferritin Serum 15 10 - 291 HP CONVERSION ng/mL Specimen (Source) Anatomical Collection Method Collection Time Re ceived Time Location / / Volume Laterality 07/26/2006 11:07 AM CDT Janelle Jacobo MD LAB_1 Performing Organization Address City/[facility] Code Phon e Number HP CONVERSION (ABNORMAL) Iron (no IBC or Sat) (07/26/2006 11:07 AM CDT) athologist Signature Iron, Serum 48 (L) 50 - 165 HP CONVERSION ug/dL Specimen (Source) Anatomical Collection Method Collection Time Re ceived Time Location / / Volume Laterality 07/26/2006 11:07 AM CDT Janelle Jacobo MD LAB_1 Performing Organization Address City/[facility] Phon e Number HP CONVERSION documented in this encounter Visit Diagnoses Not on filedocumented in this encounter Care Teams Supercharge Repair Supervisor Relationship Specialty Start Date End Date Lisa Gonzalez APRN, SCOURING MACHINE TENDER PCP - General 05/03/1998 11/02/13 [address] [place] [address] documented as of this encounter
--- OUTSIDE RECORDS SUMMARY | 2022-04-10 14:18 | XMS_ITS | Encounter Summary ---
:1970 Author Organization [facility] Address [address] [place] [address] Care Team Providers Name Role Phone Carlos Lisa Andrade APRN, CNP Primary Care Provider [phone] Reason for Visit Reason Comments Other Encounter Details Date Type Department Care Team Description 05/15/2005 Telephone [facility] [place] [address] [place] [phone] Social History Tobacco Use Types Packs/Day Years Used Date Smoking Tobacco: Never Assessed Sex Assigned at Date Recorded Not on file documented as of this encounter Progress Notes Lakeshia Wolfe - 05/15/2005 8:17 AM CST Phone Note filed by Lakeshia Wolfe MA at 08/26/10 8712 Author: Lakeshia Wolfe MA Service: (none) Author Type: (none) Filed: 08/26/10 2341 Note Time: 05/15/05 0817 Status: Signed Spindle Repairer: Lakeshia Wolfe MA (Assessor) Pt calling was seen about 2 weeks ago, was put on Lexapro, you put her on a 30 day/10 mg it would be cheaper for her to get 15 day/20mg and split them. She is paying out of pocket right now and this would help her out. Could you call in a rx to [facility] in [place] [phone].. Please call her to let her know if this is ok, and if you called in.. [phone] thank you Created on 15May2005 8:17am by LAKESHIA WOLFE On 15May2005 9:54am CRISTY COTA wrote: ok for lexapro 20 mg tabs, 1/2 tab po qd. #15 with 3 refills. Acknowledged by CRISTY COTA on 9:54am On 15May2005 10:13am DOMENICA PUENTES wrote: Rx called into pharm. Pt notified. Acknowledged by DOMENICA PUENTES on 10:13am L ENGINEERING DRAFTER documented in this encounter Plan of Treatment Not on filedocumented as of this encounter Visit Diagnoses Not on filedocumented in this encounter Care Teams Automation Consultant Relationship Specialty Start Date End Date Lisa Gonzalez, TANIA, REGIONAL BUSINESS MANAGER PCP - General 05/03/1998 11/02/13 [address] [place] [address] documented as of this encounter
--- OUTSIDE RECORDS SUMMARY | 2022-04-10 14:18 | XMS_ITS | Encounter Summary ---
:1970 Author Organization [facility] Address [address] [place] [address] Care Team Providers Name Role Phone Lisa Gonzalez APRN, AMANDA Primary Care Provider [phone] Reason for Visit Reason Comments Other Encounter Details Date Type Department Care Team Description 05/20/2006 Telephone [facility], Message Other [address] [place], [place] [id number] Social History Tobacco Use Types Packs/Day Years Used Date Smoking Tobacco: Never Assessed Sex Assigned at Date Recorded Not on file documented as of this encounter [facility], Message - 05/20/2006 1:43 PM CST Phone Note filed by [employer] at 08/27/10 1410 Author: [employer] Service: (none) Author Type: (none) Filed: 08/27/10 1410 Note Time: 05/20/06 1343 Status: Signed Sort Operations Supervisor: [employer] MESSAGE TO CARE TEAM NAME OF CALLER:Polly NAME OF CLINICIAN:Raymond Josue MESSAGE:Calling for chest x-ray results. PHARMACY NAME: PHARMACY PHONE #: CALL BACK PHONE #:[phone] home [phone] cell BEST TIME TO CALL BACK:any Is it OK to leave detailed message on voicemail?yes Created on 20May2006 1:43pm by LAZARO ARELLANO On 20May2006 2:11pm RAYMOND JOSUE wrote: Chest x ray was completely normal. please inform. Acknowledged by RAYMOND JOSUE on 2:11pm On 20May2006 2:47pm WINIFRED MOLINA wrote: patient notified Acknowledged by WINIFRED MOLINA on 2:47pm MOBILE DRIVERS documented in this encounter Plan of Treatment Not on filedocumented as of this encounter Visit Diagnoses Not on filedocumented in this encounter Care Teams Rat Culturist Relationship Specialty Start Date End Date Lisa Gonzalez, TANIA, BEEF SELECTOR PCP - General 05/03/1998 11/02/13 [address] [place] [address] documented as of this encounter
--- OUTSIDE RECORDS SUMMARY | 2022-04-10 14:19 | XMS_ITS | Encounter Summary ---
:1970 Author Organization [facility] Address [address] [place] [address] Care Team Providers Name Role Phone Lisa Gonzalez APRN, CNP Primary Care Provider [phone] Encounter Details Date Type Department Care Team Description 06/06/2004 Routine [facility] Henrique Xie Obstetrics/[place] [address] [facility] [address] [place] [address] [place] [address] (Wo rk) Social History Tobacco Use Types Packs/Day Years Used Date Smoking Tobacco: Never Assessed Sex Assigned at Date Recorded Not on file documented as of this encounter Plan of Treatment Not on filedocumented as of this encounter Visit Diagnoses Not on filedocumented in this encounter Care Teams Cafeteria Clerk Relationship Specialty Start Date End Date Lisa Gonzalez APRN, CNP PCP - General 05/03/1998 11/02/13 [address] [place] [address] documented as of this encounter
--- OUTSIDE RECORDS SUMMARY | 2022-04-10 14:19 | XMS_ITS | Encounter Summary ---
:1970 Author Organization [facility] Address [address] [place] [address] Care Team Providers Name Role Phone Lisa Gonzalez Raymond MARIN CNP Primary Care Provider [phone] Encounter Details Date Type Department Care Team Description 08/15/2004 Office Visit Specialty [facility] 3931 Thelma Day MD Cardiology 3931 [place] [address] Social History Tobacco Use Types Packs/Day Years Used Date Smoking Tobacco: Never Assessed Sex Assigned at Date Recorded Not on file documented as of this encounter Progress Notes Thelma Day MD - 08/15/2004 12:01 AM CDT Progress Notes signed by Thelma Day MD at 08/21/04 2117 Author: Thelma Day MD Service: (none) Author Type: Physician Filed: 08/30/10 0519 Note Time: 08/15/04 0001 Status: Signed Lighting Technician: Thelma Day MD (Physician) NAME: POLLY CASE MR: [id number] ACCT: [id number] VISIT: [id number] DICTATING CLINICIAN: THELMA DAY MD JOB: [id number] CLINIC PROGRESS NOTE DATE OF VISIT: 08/15/2004 SUBJECTIVE: : 1970. I am asked to see this 34-year-old mother of [address] in consultation [address] Janelle Cota because of questionably abnormal stress tests. HISTORY OF PRESENT ILLNESS: For the last two months, the patient has noted intermittent racing and skipping and hard beating of her heart which might last ten minutes. Sometimes it goes fast. She was seen at the emergency room of [facility] five days before I saw her and was kept in the hospital overnight. Because of her palpitations, a stress echocardiogram was ordered and it gave a questionable result so a stress nuclear test was performed and that gave a questionable result so she was sent for cardiology consultation. It should be noted that toward the end of her most recent she also had slipping and racing of the heart and on one occasion the ambulance was called. The patient states she is under a lot of stress and that she is a nervous person and she has had a fair amount of skipping and racing during the last two months. Regarding risks factors for heart disease she does not smoke. She drinks alcohol rarely. She denies diabetes. She has not really had hypertension though certain labile episodes may have occurred. Her cholesterol has been satisfactory she says. FAMILY HISTORY: Reveals that her father has hypertension. Her paternal uncle sustained myocardial infarction at age 50. PAST HISTORY: Surgery: Foot surgery and urethral dilatation. REVIEW OF SYSTEMS: She has lost about 5 pounds. The complete review of systems is negative except for what has already been mentioned. MEDICATIONS: I guess she has not been on any specific medication. OBJECTIVE: Studies: She had an echo stress test which was read as suspicious for an area of hypokinesis in the mid anteroseptal and mid anterior portion. Then she underwent a nuclear study which was read as adequate to slightly decreased contractility with no regional wall motion abnormality. I carefully reviewed the reports of both of these stress tests. Suffice is to say that this patient has benign palpitations and no indication of coronary heart disease. The borderline areas on both stress tests are false positives. The patient was reassured about this. ASSESSMENT: 1. Palpitations, premature ectopic beats, benign. 2. No signs or symptoms of coronary heart disease. PLAN: CC: JANELLE COTA MD GSS:[id number] C: 08/21/04 16:17 DOCUMENT: [id number] documented in this encounter Plan of Treatment Not on filedocumented as of this encounter Visit Diagnoses Not on filedocumented in this encounter Care Teams Tripe Scraper Relationship Specialty Start Date End Date Lisa Gonzalez APRN, TOOL PROCUREMENT COORDINATOR PCP - General 05/03/1998 11/02/13 [address] [place] [address] documented as of this encounter
--- OUTSIDE RECORDS SUMMARY | 2022-04-10 14:19 | XMS_ITS | Encounter Summary ---
:1970 Author Organization [facility] Address [address] [place] [address] Care Team Providers Name Role Phone Gonzalez Lisa Andrade APRN, AMANDA Primary Care Provider [phone] Reason for Visit Reason Comments Other Encounter Details Date Type Department Care Team Description 04/04/2005 Telephone [facility], Message Other [address] [place] [address] Social History Tobacco Use Types Packs/Day Years Used Date Smoking Tobacco: Never Assessed Sex Assigned at Date Recorded Not on file documented as of this encounter Progress Notes Margaret Leger - 04/04/2005 10:48 AM CST Phone Note filed by Margaret Leger LPN at 08/26/102237 Author: Margaret Leger LPN Service: (none) Author Type: (none) Filed: 08/26/102237 Note Time: 04/04/051047 Status: Signed Data Analytics Developer: Fide Conversion Message Complete, FYI only. Pt calling because she has a h/o palpitations and is now having trouble once again. Pt has been to a yacht builder be fore and nothing was found to be the cause. Pt has no chest pain with the palpitations. Pt is wanting to get in with today regarding this. Nurse has sent up an overbook sheet. Pt has scheduled an appt with for today at 1:45pm in case she cannot get in with . Pt highly wishes to be seen by . Please call [phone]. Created on 04Apr2005 10:48am by MARGARET LEGER On 04Apr2005 12:20pm CRISTY COTA wrote: This has been a recurrent problem for Polly. She has had a stress echo and holter monitoring and has seen cardiology. No worrisome cause can be found. I am happy to offer her very low dose B-christina therapy to help with the symptoms otherwise perhaps a second visit with cardiology. I do not think there is anything we can offer her here in . Acknowledged by CRISTY COTA on 12:20pm On 04Apr2005 1:24pm PIERO ALLEN wrote: SPOKE TO PT AND STATED THAT SHE SHOULD FOLLOW UP WITH CARDS. SHE EXPRESSED THAT SHE DID NOT REALLY WANT TO TAKE BETA CHRISTINA AND THAT SHE PREFERRED TO COME IN RATHER THAN STARTING SOMETHING WITHOUT BEING SEEN. PT WISHED TO KEEP APPT TODAY WITH DR ROSE Acknowledged by PIERO ALLEN on 1:24pm DIAN AD LITEM documented in this encounter Plan of Treatment Not on filedocumented as of this encounter Visit Diagnoses Not on filedocumented in this encounter Care Teams Lime Filter Operator Relationship Specialty Start Date End Date Lisa Gonzalez, TANIA, CITY COUNCIL MEMBER PCP - General 05/03/1998 11/02/13 [address] [place] [address] documented as of this encounter
--- OUTSIDE RECORDS SUMMARY | 2022-04-10 14:19 | XMS_ITS | Encounter Summary ---
:1970 Author Organization [facility] Address [address] [place] [address] Care Team Providers Name Role Phone Lisa Gonzalez APRN, CNP Primary Care Provider [phone] Encounter Details Date Type Department Care Team Description 06/11/2004 PN Conversion Only Rice Henrique Xie Obstetrics/[place] [address] [facility] [address] [place] [address] [place] [address] [phone] (Wo rk) Social History Tobacco Use Types Packs/Day Years Used Date Smoking Tobacco: Never Assessed Sex Assigned at Date Recorded Not on file documented as of this encounter Plan of Treatment Not on filedocumented as of this encounter Visit Diagnoses Not on filedocumented in this encounter Care Teams Automatic Vulcanizing Operator Relationship Specialty Start Date End Date Lisa Gonzalez APRN, CNP PCP - General 05/03/1998 11/02/13 [address] [place] [address] documented as of this encounter
--- OUTSIDE RECORDS SUMMARY | 2022-04-10 14:19 | XMS_ITS | Encounter Summary ---
:1970 Author [facility] Address [address], [place] [address] Care Team Providers Name Role Phone Lisa Gonzalez APRN, CNP Primary Care Provider [phone] Encounter Details Date Type Department Care Team Description 04/04/2005 PN Conversion Only [place] [address] [address] [place] [address] Social History Tobacco Use Types Packs/Day Years Used Date Smoking Tobacco: Never Assessed Sex Assigned at Date Recorded Not on file documented as of this encounter Plan of Treatment Not on filedocumented as of this encounter Visit Diagnoses Not on filedocumented in this encounter Care Teams Health Information Management Director Relationship Specialty Start Date End Date Lisa Gonzalez APRN, OUTSOLE CASER PCP - General 05/03/1998 11/02/13 [address] [place] [address] documented as of this encounter
--- OUTSIDE RECORDS SUMMARY | 2022-04-10 14:19 | XMS_ITS | Encounter Summary ---
:1970 Author Organization [facility] Address [address] [place] [address] Care Team Providers Name Role Phone Lisa Gonzalez APRN, CNP Primary Care Provider [phone] Encounter Details Date Type Department Care Team Description 04/04/2005 PN Conversion Only [place] [address] [address] [place] [address] [place] [address] (Wo rk) Social History Tobacco Use Types Packs/Day Years Used Date Smoking Tobacco: Never Assessed Sex Assigned at Date Recorded Not on file documented as of this encounter Plan of Treatment Not on filedocumented as of this encounter Visit Diagnoses Not on filedocumented in this encounter Care Teams Fibrous Plasterer Relationship Specialty Start Date End Date Lisa Gonzalez APRN, CNP PCP - General 05/03/1998 11/02/13 [address] [place] [address] documented as of this encounter
--- OUTSIDE RECORDS SUMMARY | 2022-04-10 14:19 | XMS_ITS | Encounter Summary ---
:1970 [facility] Address [address] [place] [address] Care Team Providers Name Role Phone Lisa Gonzalez APRN, CNP Primary Care Provider [phone] Encounter Details Date Type Department Care Team Description 04/26/2004 Procedure Visit Specialty Center [facility] Paloma Forrester, Maternal Medic ine 39[address] [facility] 3931 [place] [address] [phone] (Wo rk) Social History Tobacco Use Types Packs/Day Years Used Date Smoking Tobacco: Never Assessed Sex Assigned at Date Recorded Not on file documented as of this encounter Plan of Treatment Not on filedocumented as of this encounter Visit Diagnoses Not on filedocumented in this encounter Care Teams Supervisor Hot Dip Plating Relationship Specialty Start Date End Date Lisa Gonzalez APRN, CNP PCP - General 05/03/1998 11/02/13 [address] [place] [address] documented as of this encounter
--- OUTSIDE RECORDS SUMMARY | 2022-04-10 14:19 | XMS_ITS | Encounter Summary ---
:1970 Author Organization [facility] Address [address] [address] Care Team Providers Name Role Phone Lisa Gonzalez APRN, CNP Primary Care Provider [phone] Encounter Details Date Type Department Care Team Description 06/14/2004 PN Conversion Only OTHER CONVERSION [address] [place] [address] Social History Tobacco Use Types Packs/Day Years Used Date Smoking Tobacco: Never Assessed Sex Assigned at Date Recorded Not on file documented as of this encounter Plan of Treatment Not on filedocumented as of this encounter Visit Diagnoses Not on filedocumented in this encounter Care Teams Armature Winder Repair Helper Relationship Specialty Start Date End Date Lisa Gonzalez APRN, CNP PCP - General 05/03/1998 11/02/13 [address] [place] [address] documented as of this encounter
--- OUTSIDE RECORDS SUMMARY | 2022-04-10 14:19 | XMS_ITS | Encounter Summary ---
:1970 Author Organization [facility] Address [address] [place] [address] Care Team Providers Name Role Phone Lisa Gonzalez Raymond MARIN, AMANDA Primary Care Provider [phone] Reason for Visit Reason Comments Other Encounter Details Date Type Department Care Team Description 05/02/2005 Telephone [facility] Janelle Barajas MD Other [address] [address] [place] [address] [place] [address] [phone] (Wo rk) Social History Tobacco Use Types Packs/Day Years Used Date Smoking Tobacco: Never Assessed Sex Assigned at Date Recorded Not on file documented as of this encounter Progress Notes Margaret Leger - 05/02/2005 3:43 PM CST Phone Note filed by Margaret Leger LPN at 08/26/107 Author: Margaret Leger LPN Service: (none) Author Type: (none) Filed: 08/26/106 Note Time: 05/02/057 Status: Signed Offensive Coordinator: Fide Conversion Message Complete, FYI only. Pt calling because she was wanting to know the blood test results for the H Pylori test. Result is negative and was reviewed with pt. Pt verbalies understanding. Created on 02May2005 3:43pm by MARGARET LEGER Acknowledged by JANELLE COTA on 4:52pm E SAWYER documented in this encounter Plan of Treatment Not on filedocumented as of this encounter Visit Diagnoses Not on filedocumented in this encounter Care Teams Muck Miner Relationship Specialty Start Date End Date Lisa Gonzalez APRN, PETROLEUM PRODUCTION ENGINEER PCP - General 05/03/1998 11/02/13 [address] [place] [address] documented as of this encounter
--- OUTSIDE RECORDS SUMMARY | 2022-04-10 14:19 | XMS_ITS | Encounter Summary ---
:1970 Author Organization [facility] Address [address] [place] [address] Care Team Providers Name Role Phone Gonzalez Lisa Andrade APRN, AMANDA Primary Care Provider Reason for Visit Reason Comments Other Encounter Details Date Type Department Care Team Description 04/04/2005 Telephone [facility], Message Other [address] [place] [address] Social History Tobacco Use Types Packs/Day Years Used Date Smoking Tobacco: Never Assessed Sex Assigned at Date Recorded Not on file documented as of this encounter Progress Notes Jemal Rose MD - 04/04/2005 4:00 PM CST Phone Note filed by Jemal Rose MD at 08/26/102237 Author: Jemal Rose MD Service: (none) Author Type: Physician Filed: 08/26/102237 Note Time: 04/04/05 1600 Status: Signed Tourist Home Keeper: Jemal Rose MD (Physician) Please call pt. and tell her I received lab results from R from 08/13. They did check a thyroid level (TSH) and it was normal. OK to leave a message. Created on 04Apr2005 4:00pm by JEMAL ROSE On 07Apr2005 8:54am SARAH CARDOZA wrote: pt informed Acknowledged by SARAH CARDOZA on 8:54am STERED DENTAL ASSISTANT RDA documented in this encounter Plan of Treatment Not on filedocumented as of this encounter Visit Diagnoses Not on filedocumented in this encounter Care Teams Bobbin Cleaner Relationship Specialty Start Date End Date Lisa Gonzalez APRN, SANITARY CHEMIST PCP - General 05/03/1998 11/02/13 [address] [place] [address] documented as of this encounter
--- OUTSIDE RECORDS SUMMARY | 2022-04-10 14:19 | XMS_ITS | Encounter Summary ---
:1970 Author Organization [facility] Address [address] [place] [address] Care Team Providers Name Role Phone Carlos Lisa Andrade APRN, CNP Primary Care Provider [phone] Reason for Visit Reason Comments Other Encounter Details Date Type Department Care Team Description 04/12/2004 Telephone [facility] Janelle Barajas MD Other [address] [address] [place] [address] [place] [address] [phone] (Wo rk) Social History Tobacco Use Types Packs/Day Years Used Date Smoking Tobacco: Never Assessed Sex Assigned at Date Recorded Not on file documented as of this encounter Progress Bárbara Dawson - 04/12/2004 10:05 AM CST Phone Note filed by Bárbara Perea at 08/26/10 7009 Author: Bárbara Perea Service: (none) Author Type: (none) Filed: 08/26/10 1528 Note Time: 04/12/04 1005 Status: Signed Pumper Gauger: Fide Quintero Pt. calling with c/o vaginal itching and ? vaginal discharge. Denies any color or odor to discharge. Pt. is with [facility] 06/24/04. States she has had cramps on and off throughout . States last 2 nights, cramps have awakened her at night. States this is baby # 4 and she does not feel the cramps to be contractions. States abd. is soft. Positive movement. States she has appt. today for evaluation in FP. Advised to keep appt. Advised to call back if sx. worsen, or has any other questions or concerns. Created on [id number] 10:05am by BÁRBARA PEREA Acknowledged by JANELLE COTA on 3Dec 10:06am documented in this encounter Plan of Treatment Not on filedocumented as of this encounter Visit Diagnoses Not on filedocumented in this encounter Care Teams Line Manager Relationship Specialty Start Date End Date Lisa Gonzalez APRN, HOME CARE PROVIDER PCP - General 05/03/1998 11/02/13 [address] [place] [address] documented as of this encounter
--- OUTSIDE RECORDS SUMMARY | 2022-04-10 14:19 | XMS_ITS | Encounter Summary ---
:1970 Author Organization [facility] Address [address], [place] [address] Care Team Providers Name Role Phone Carlos Lisa Andrade APRN, AMANDA Primary Care Provider [phone] Encounter Details Date Type Department Care Team Description 05/29/2004 PN Conversion Only [place] [facility] Henrique Coleman [address] [facility] [place] [address] [address] [place] [address] (Wo rk) Social History Tobacco Use Types Packs/Day Years Used Date Smoking Tobacco: Never Assessed Sex Assigned at Date Recorded Not on file documented as of this encounter Plan of Treatment Not on filedocumented as of this encounter Procedures Procedure Name Priority Date/Time Associated Diagnosis Comme nts GROUP B STREP Routine 05/29/2004 5:14 PM Results for this SCREEN (OB PTS) MOVIE SHOT CAMERAMAN procedure ar e in the results section. documented in this encounter Results Group B Strep Screen (OB Pts) (05/29/2004 5:14 PM MOVIE SHOT CAMERAMAN) Analysis Performed At Patho logist Time Signature Culture Strep SEE TEXT HP CONVERSION Screen Other Source Comment: Patient: POLLY CASE Culture Strep Scr Other Source @ ?Collected: ?171 Source: Vaginal ? Processed: ?171 ? V Final Report ------ ?1103 No group A or B Streptococcus isolated @ = Strep Screen Performed at ??[address] [place], [place] ?[address] Specimen (Source) Anatomical Collection Method Collection Time Re ceived Time Location / / Volume Laterality 05/29/2004 5:14 PM MOVIE SHOT CAMERAMAN Henrique Xie MD LAB_1 Performing Organization Address City/State/ZIP Code Phon e Number HP CONVERSION documented in this encounter Visit Diagnoses Not on filedocumented in this encounter Care Teams Cigarette Lighter Repairer Relationship Specialty Start Date End Date Lisa Gonzalez, MECHANICAL TECHNICIAN, JET MAN PCP - General 05/03/1998 11/02/13 [address] [place] [address] documented as of this encounter
--- OUTSIDE RECORDS SUMMARY | 2022-04-10 14:19 | XMS_ITS | Encounter Summary ---
:1970 Author Organization [facility] Address [address], [place] [address] Care Team Providers Name Role Phone Lisa Gonzalez Raymond MARIN CNP Primary Care Provider [phone] Encounter Details Date Type Department Care Team Description 05/01/2005 PN Conversion Only [place] [address] [address] [id number] [place] [address] (Wo rk) Social History Tobacco Use Types Packs/Day Years Used Date Smoking Tobacco: Never Assessed Sex Assigned at Date Recorded Not on file documented as of this encounter Plan of Treatment Not on filedocumented as of this encounter Procedures Procedure Name Priority Date/Time Associated Comments Diagnosis HELICOBACTER PYLORI Routine 05/01/2005 12:18 Resu lts for this IGG PM FPGA ENGINEER procedure are i n the results section. documented in this encounter Results Helicobacter Pylori IGG (05/01/2005 12:18 PM FPGA ENGINEER) [facility] Method Time Signature Helicobacter Negative Negative HP CONVERSION pylori IgG Comment: No Helicobacter IgG antibody detected. This assay should be used only for patie nts with symptoms suggestive of gastrointest inal disease. Specimen (Source) Anatomical Collection Method Collection Time Re ceived Time Location / / Volume Laterality 05/01/2005 12:18 PM FPGA ENGINEER Janelle Jacobo MD LAB_1 Performing Organization Address City/State/ZIP Code Phon e Number HP CONVERSION documented in this encounter Visit Diagnoses Not on filedocumented in this encounter Care Teams Housekeeping Aid Relationship Specialty Start Date End Date Lisa Gonzalez, TANIA, WINDOWS SERVER ENGINEER PCP - General 05/03/1998 11/02/13 [address] [place] [address] documented as of this encounter
--- OUTSIDE RECORDS SUMMARY | 2022-04-10 14:19 | XMS_ITS | Encounter Summary ---
:1970 Author Organization [facility] Address [address] [address] Care Team Providers Name Role Phone Lisa Gonzalez APRN, CNP Primary Care Provider [phone] Encounter Details Date Type Department Care Team Description 04/05/2004 PN Conversion Only [place] [address] [address] [place] [address] Social History Tobacco Use Types Packs/Day Years Used Date Smoking Tobacco: Never Assessed Sex Assigned at Date Recorded Not on file documented as of this encounter Plan of Treatment Not on filedocumented as of this encounter Visit Diagnoses Not on filedocumented in this encounter Care Teams Cigarette Paper Tester Relationship Specialty Start Date End Date Lisa Gonzalez APRN, DOOR MANAGER PCP - General 05/03/1998 11/02/13 [address] [place] [address] documented as of this encounter
--- OUTSIDE RECORDS SUMMARY | 2022-04-10 14:19 | XMS_ITS | Encounter Summary ---
:1970 Author [facility] Address [address] [place] [address] Care Team Providers Name Role Phone Lisa Gonzalez APRN, AMANDA Primary Care Provider [phone] Reason for Visit Reason Comments Other Encounter Details Date Type Department Care Team Description 06/17/2004 Telephone Henrique Partida Oth er Obstetrics/Gynecolog y [address] [facility] [address] [place] [address] [place] [address] [phone] (Wo rk) Social History Tobacco Use Types Packs/Day Years Used Date Smoking Tobacco: Never Assessed Sex Assigned at Date Recorded Not on file documented as of this encounter Progress Notes Angelica Vasquez - 06/17/2004 3:41 PM CST Phone Note filed by Angelica Vasquez MA at 08/26/10 3897 Author: Angelica Vasquez MA Service: (none) Author Type: Glass Or Mirror Inspector Filed: 08/26/10 6106 Note Time: 06/17/04 1541 Status: Signed Solar Sales Representative And Assessor: Angelica Vasquez MA (Glass Or Mirror Inspector) MESSAGE TO CARE TEAM NAME OF CALLER: Polly Case NAME OF CLINICIAN: Dr. Riley MESSAGE: Polly is calling for a rx for a pump in style by [employer] breast pump. She is having low output and the nurse advised her to get rx for that particular breast pump. Please fax rx. to home store. Fax #[phone]. Please call patient when rx called in. PHARMACY NAME: [facility] PHONE # CALL BACK PHONE #: [phone] BEST TIME TO CALL BACK: anytime Is it OK to leave detailed message on voicemail? yes Created on 17Jun2004 3:41pm by ANGELICA VASQUEZ On 17Jun2004 3:51pm HENRIQUE RILEY wrote: Script faxed and pt notified. Acknowledged by HENRIQUE IRLEY on 3:51pm documented in this encounter Plan of Treatment Not on filedocumented as of this encounter Visit Diagnoses Not on filedocumented in this encounter Care Teams Rod Puller And Coiler Relationship Specialty Start Date End Date Lisa Gonzalez APRN, DISTILLERY WORKER PCP - General 05/03/1998 11/02/13 [address] [place] [address] documented as of this encounter
--- OUTSIDE RECORDS SUMMARY | 2022-04-10 14:19 | XMS_ITS | Encounter Summary ---
:1970 Author Organization [facility] Address [address] [place] [address] Care Team Providers Name Role Phone Carlos Lisa Andrade APRN, CNP Primary Care Provider [phone] Reason for Visit Reason Comments Other Encounter Details Date Type Department Care Team Description 02/17/2005 Telephone [facility] Tutu Day MD Other Cardiology [address] [facility] [place] [address] Social History Tobacco Use Types Packs/Day Years Used Date Smoking Tobacco: Never Assessed Sex Assigned at Date Recorded Not on file documented as of this encounter Progress Notes Lorraine Mendieta RN - 02/17/2005 1:55 PM CDT Phone Note filed by Lorraine Mendieta RN at 08/26/102122 Author: Lorraine Mendieta RN Service: (none) Author Type: Registered Nurse Filed: 08/26/102122 Note Time: 02/17/05 5088 Status: Signed Grounds Crew Supervisor: Lorraine Mendieta RN (Registered Nurse) Pt. called today--wanted you to be updated that a couple of weeks ago, she had palpitations that lasted for a couple of hours. She also had the same type of palpitations over this past weekend. During these times--she feels her pulse and it is fast. She stated she knows she's a nervous person--and when she gets these feelings--she worries and makes it worse. She's wondering if her feeling these palpitations now are normal--and if she still shouldn't worry. She has not had any of these feelings of palpitations since she last saw you in August. Created on 17Feb2005 1:55pm by LORRAINE MENDIETA On 17Feb2005 3:14pm TUTU DAY wrote: I think the palpitations are premature ectopic beats. Please reassure her that they are benign and not of serious concern. If reassurrance doesn't help, apply an event monitor. Thanks, Tutu Acknowledged by TUTU DAY on 3:14pm On 17Feb2005 3:25pm LORRAINE MENDIETA wrote: Called pt. and reassured that Dr. Day felt palpitations were benign and not of serious concern. Pt. stated very thankful for Dr. Day' input and of prompt return phone call. Acknowledged by LORRAINE MENDIETA on 3:25pm Acknowledged by TUTU DAY on 3:28pm NCIAL DEVELOPER documented in this encounter Plan of Treatment Not on filedocumented as of this encounter Visit Diagnoses Not on filedocumented in this encounter Care Teams Stock Mover Relationship Specialty Start Date End Date Lisa Gonzalez APRN, BREAKFAST HOST PCP - General 05/03/1998 11/02/13 [address] [place] [address] documented as of this encounter
--- OUTSIDE RECORDS SUMMARY | 2022-04-10 14:19 | XMS_ITS | Encounter Summary ---
:1970 Author Organization [facility] Address [address] [place] [address] Care Team Providers Name Role Phone Lisa Gonzalez APRN, CNP Primary Care Provider [phone] Encounter Details Date Type Department Care Team Description 04/02/2004 Routine [facility] Xie Obstetrics/[place] [address] [facility] [address] [place] [address] [place] [address] (Wo rk) Social History Tobacco Use Types Packs/Day Years Used Date Smoking Tobacco: Never Assessed Sex Assigned at Date Recorded Not on file documented as of this encounter Plan of Treatment Not on filedocumented as of this encounter Visit Diagnoses Not on filedocumented in this encounter Care Teams Care Tech Relationship Specialty Start Date End Date Lisa Gonzalez APRN, CNP PCP - General 05/03/1998 11/02/13 [address] [place] [address] documented as of this encounter
--- OUTSIDE RECORDS SUMMARY | 2022-04-10 14:19 | XMS_ITS | Encounter Summary ---
:1970 Author [facility] Address [address] [place] [address] Care Team Providers Name Role Phone Lisa Gonzalez APRN, CNP Primary Care Provider [phone] Reason for Visit Reason Comments Other Encounter Details Date Type Department Care Team Description 03/29/2004 Telephone [facility] Janelle Barajas MD Other [address] [address] [place] [address] [place] [address] [phone] (Wo rk) Social History Tobacco Use Types Packs/Day Years Used Date Smoking Tobacco: Never Assessed Sex Assigned at Date Recorded Not on file documented as of this encounter Progress Slime Mckeon - 03/29/2004 10:04 AM CST Phone Note filed by Slime Matthews RN at 08/26/10 4380 Author: Slime Matthews RN Service: (none) Author Type: (none) Filed: 08/26/10 8422 Note Time: 03/29/04 1004 Status: Signed Pole Framer: Fide Conversion MESSAGE TO CARE TEAM NAME OF CALLER:Polly Case NAME OF CLINICIAN:Dr. Cota MESSAGE:She is calling and wanting you to write an note to her husbands catering and events manager because he was put on the 3rd shift at [employer] and she needs him home at night to help with the two children who have asthma, and also for her health issues. She says that you are aware of her situation. She is hoping that a note from you to his catering and events manager Bob Zepeda asking if her could be put on day shift just for a couple months to help her and the children. One night she had to bring on of the children with asthma to hospital ER. She will chicken picker the note at [facility] desk, and would like it if possible to be done today. PHARMACY NAME: PHARMACY PHONE #: CALL BACK PHONE #:[phone], oologah BEST TIME TO CALL BACK: Is it OK to leave detailed message on voicemail?yes Created on 29Mar2004 10:04am by SLIME MATTHEWS On 29Mar2004 3:47pm LAURIE PUENTES wrote: per Dr Cota: Told pt that Dr Cota could only write that pt is (having normal )and that she should get her childrens doctors to write note. She was ok with this. On 29Mar2004 3:56pm JANELLE COTA wrote: I offered to write a note but doubtful it would be of any benefit as Polly's is normal (did have abn U/S but amnio was ok.) She agrees that letter likely would not make much of a difference, will check with her childrens physician. Acknowledged by JANELLE COTA on 3:56pm documented in this encounter Plan of Treatment Not on filedocumented as of this encounter Visit Diagnoses Not on filedocumented in this encounter Care Teams Terrapin Fisher Relationship Specialty Start Date End Date Lisa Gonzalez, TANIA, IPHONE DEVELOPER PCP - General 05/03/1998 11/02/13 [address] [place] [address] documented as of this encounter
--- OUTSIDE RECORDS SUMMARY | 2022-04-10 14:19 | XMS_ITS | Encounter Summary ---
:1970 Author Organization [facility] Address [address] [place] [address] Care Team Providers Name Role Phone Lisa Gonzalez Raymond MARIN CNP Primary Care Provider [phone] Encounter Details Date Type Department Care Team Description 05/01/2005 Office Visit [facility] Lou Jacobo MD [place] [id number] [place] [id number] [phone] Social History Tobacco Use Types Packs/Day Years Used Date Smoking Tobacco: Never Assessed Sex Assigned at Date Recorded Not on file documented as of this encounter Last Filed Vital Signs Vital Sign Reading Time Taken Comments Blood Pressure 124/80 05/01/2005 11:41 AM CRUISE STAFF MEMBER Pulse - - Temperature 36.3 ??C (97.3 ??F) 05/01/2005 11:41 AM C: 36.3 C CRUISE STAFF MEMBER Respiratory Rate - - Oxygen Saturation - - Inhaled Oxygen Concentration - - Weight 51.7 kg (113 lb 15.7 oz) 05/01/2005 11:41 AM C: 51.7kg CRUISE STAFF MEMBER Height - - Body Mass Index - - documented in this encounter Progress Notes Janelle Jacobo - 05/01/2005 12:01 AM CST Progress Notes signed by at 05/02/05 0200 Author: Janelle Cota MD Service: (none) Author Type: (none) Filed: 08/30/10 1023 Note Time: 05/01/05 0001 Status: Signed Fuels Sales Representative: Fide Conversion NAME: POLLY CASE MR: [id number] ACCT: [id number] VISIT: [id number] DICTATING CLINICIAN: JANELLE COTA MD JOB: [id number] CLINIC PROGRESS NOTE DATE OF VISIT: 05/01/2005 SUBJECTIVE: : 1970. Polly presents to clinic today with concerns about weight loss, excessive burping, and epigastric discomfort. Symptoms have been going on for the past several weeks. She has lost about 14 or 15 pounds since last time I saw her. She has been under a lot of stress. She has four children at home, one of whom has a severe allergy to peanuts and this requires constant monitoring at the school, and when she is with her friends, etc. Her is employed by [employer] and there has been some trouble lately with job uncertainty. They are questioning whether they might move back to the [facility]. Symptoms also include some morning nausea, sour taste in the mouth at times, and some tingling of her fingertips. She has had persistent problems with palpitations, racing heart, etc. Of note, she has been worked up for this in the past and all of her tests have been normal. She tried some Zantac [id number] which was quite helpful. MEDICATIONS: Reviewed and updated in LastWord today. ADR/ALLERGIES: REVIEWED AND UPDATED IN LASTWORD TODAY. OBJECTIVE: VS: BP: 124/80. T: 97.3. P: 122, it did come down to 100 during the exam. Wt: 114, which is down approximately 11 pounds since her last visit. Oxygen saturation: 99% on room air. GENERAL: She is pleasant, quite anxious, thin woman in no acute distress. HEENT: Sclerae are clear. Conjunctivae not injected. Mucous membranes are moist. Pupils equal, round, reactive to light. TMs are clear. Throat is nonerythematous. There are no exudates. NECK: Supple. There is no lymphadenopathy. LUNGS: Clear to auscultation. ABDOMEN: Soft. Nontender, nondistended. There is no organomegaly. She has minimal tenderness to deep palpation in the epigastric region. Lower extremities without edema. ASSESSMENT: 1. Epigastric discomfort, suggestive of dyspepsia and mild GERD. Recommend Zantac or Pepcid [id number]-[id number] or she can try Prilosec OTC. She can use this up to a month. If symptoms are still persistent after that when she discontinues the medication she should return to clinic. Will also check an H. pylori. 2. Anxiety disorder. Patient would like to be treated with medications. She was given a small supply of Ativan from another provider. She would like something that could be used more halfway that is not addictive. I recommended Lexapro 5 mg p.o. q.d. for the first week then increase to 10 mg p.o. q.d. thereafter. Okay to substitute with Celexa if needed. Follow up with me in four to six weeks. Benefits, risks, side effects were discussed at length. She can continue with the Ativan in the next couple of weeks until the Lexapro takes effect. Also recommended some counseling but unfortunately she does not have insurance at this time that will cover that. She was given lots of support. Most of her physical symptoms can certainly be explained by stress. PLAN: See assessment. Length of visit: 30-35 minutes, with 20-25 minutes spent in counseling time. LCM:[id number] C: 05/02/05 14:14 DOCUMENT: [id number] SE STAFF MEMBER documented in this encounter Plan of Treatment Not on filedocumented as of this encounter Visit Diagnoses Not on filedocumented in this encounter Care Teams Fixing Machine Operator Relationship Specialty Start Date End Date Lisa Gonzalez, AUTOMATIC BUFFING WHEEL FORMER, READING INTERVENTIONIST PCP - General 05/03/1998 11/02/13 [address] [place] [address] documented as of this encounter
--- OUTSIDE RECORDS SUMMARY | 2022-04-10 14:19 | XMS_ITS | Encounter Summary ---
:1970 Author Organization [facility] Address [address] [place] [address] Care Team Providers Name Role Phone Lisa Gonzalez APRN, CNP Primary Care Provider [phone] Encounter Details Date Type Department Care Team Description 05/29/2004 Routine [facility] Henrique Xie Obstetrics/[place] [address] [facility] [address] [place] [address] [place] [address] (Wo rk) Social History Tobacco Use Types Packs/Day Years Used Date Smoking Tobacco: Never Assessed Sex Assigned at Date Recorded Not on file documented as of this encounter Plan of Treatment Not on filedocumented as of this encounter Visit Diagnoses Not on filedocumented in this encounter Care Teams Pattern Keeper Relationship Specialty Start Date End Date Lisa Gonzalez APRN, CNP PCP - General 05/03/1998 11/02/13 [address] [place] [address] documented as of this encounter
--- OUTSIDE RECORDS SUMMARY | 2022-04-10 14:19 | XMS_ITS | Encounter Summary ---
:1970 [facility] Address [address] [place] [address] Care Team Providers Name Role Phone Lisa Gonzalez Raymond MARIN CNP Primary Care Provider [phone] Encounter Details Date Type Department Care Team Description 08/20/2004 Office Visit [facility] Lou Jacobo MD [place] [id number] [place] [address] [phone] Social History Tobacco Use Types Packs/Day Years Used Date Smoking Tobacco: Never Assessed Sex Assigned at Date Recorded Not on file documented as of this encounter Last Filed Vital Signs Vital Sign Reading Time Taken Comments Blood Pressure 122/82 08/20/2004 10:06 AM CDT Pulse 80 08/20/2004 10:06 AM CDT Temperature - - Respiratory Rate - - Oxygen Saturation - - Inhaled Oxygen Concentration - - Weight 56.7 kg (124 lb 15.7 oz) 08/20/2004 10:06 AM C: 56.7kg CDT Height - - Body Mass Index - - documented in this encounter Progress Notes Janelle Jacobo - 08/20/2004 12:01 AM CDT Progress Notes signed by at 08/22/04 1308 Author: Janelle Cota MD Service: (none) Author Type: (none) Filed: 08/30/10 0524 Note Time: 08/20/04 0001 Status: Signed Cmv Driver: Imr Conversion NAME: POLLY CASE MR: [id number] ACCT: [id number] VISIT: [id number] DICTATING CLINICIAN: JANELLE COTA MD JOB: [id number] CLINIC PROGRESS NOTE DATE OF VISIT: 08/20/2004 SUBJECTIVE: : 1970. Polly presents to clinic today after a recent visit to the emergency room. She delivered a healthy on 06/14. During her last week of she had an episode of a racing heart, which was a longer episode than usual for her. She has had periodic intermittent palpitations in the past, which have been worked up with Holter monitoring, which has been normal. This event, however, was more long lasting. She called 911 and EMT arrived, and apparently her heart rate was in the 100s but not above 110. She was then comfortable with that and called her OB physician. This was felt to be not concerning. She then delivered a healthy and was fine until one to two weeks ago. She has another episode of heart racing. She was not particularly stressed at the time. She is only having a cup a day of coffee and is going to completely eliminate that as well. This particular episode was concerning to her, especially because she was not under any kind of stress at the time, and she did go to the emergency room. She had a stress echocardiogram as well as a nuclear medicine stress test because of a mild abnormality seen on the stress echo. The nuclear stress test did see possible sluggishness of the anterior wall and her ejection fraction actually decreased with exercise rather than increasing. Because of these results we did refer her to cardiology and she was seen by Dr. Anderson, who evaluated her and reassured her that everything was fine and her heart is normal. Since that time Polly has had no further episodes. She had lab work done during the ER visit which was all normal. She is not anemic. She is trying to reinstate her exercise program. Because of a low-lying placenta she was not able to exercise as she is used to doing during . She may be a bit deconditioned. No other concerns. MEDICATIONS: Reviewed, please see LastWord. ADR/ALLERGIES: REVIEWED, PLEASE SEE LASTWORD. OBJECTIVE: VS: BP: 122/82. P: 80. Wt: 125 lb. GENERAL: She is a very pleasant, healthy-appearing woman in no acute distress. HEENT: Sclerae clear. Conjunctivae not injected. Mucous membranes are moist. LOWER EXTREMITIES: Without edema. ASSESSMENT: Palpitations, episodes of racing heart. She has had a thorough workup and everything appears to be normal. She has been seen by cardiology and they have reassured her that her tests are fine and her heart is normal. I suspect some of this is stress related. PLAN: I recommended Polly sign up for yoga classes and consider some meditation techniques as well for relaxation purposes. I recommend she completely eliminate caffeine from her diet. Continue with regular exercise. She was reassured today. Certainly if she continues to have episodes we can certainly request another Holter monitoring if she so desires and she should let me know, but I overall do not think that is going to be necessary. All of the patient's questions were answered. We discussed test results in detail. Length of appointment 30 minutes, with 25 minutes spent in counseling time. LCM:[id number] C: 08/22/04 09:32 DOCUMENT: [id number] DER SETUP OPERATOR documented in this encounter Plan of Treatment Not on filedocumented as of this encounter Visit Diagnoses Not on filedocumented in this encounter Care Teams Executive Wellness Programs Director Relationship Specialty Start Date End Date Lisa Gonzalez APRN, DERRICK BOAT LEVER OPERATOR PCP - General 05/03/1998 11/02/13 [address] [place] [address] documented as of this encounter
--- OUTSIDE RECORDS SUMMARY | 2022-04-10 14:19 | XMS_ITS | Encounter Summary ---
:1970 [facility] Address [address] [place] [address] Care Team Providers Name Role Phone Lisa Gonzalez APRN, CNP Primary Care Provider [phone] Reason for Visit Reason Comments Other Encounter Details Date Type Department Care Team Description 03/19/2004 Telephone [facility] [address] Pedro Mcallister CGC Other [facility] [address] [facility] [address] [place] [address] [place], [place] [address] [phone] Social History Tobacco Use Types Packs/Day Years Used Date Smoking Tobacco: Never Assessed Sex Assigned at Date Recorded Not on file documented as of this encounter Progress Notes Reina Watts CGC - 03/19/2004 11:17 AM CST Phone Note filed by Reina Watts CGC at 08/26/10 8136 Author: Reina Watts CGC Service: (none) Author Type: Counselor Filed: 08/26/10 1141 Note Time: 03/19/04 1117 Status: Signed Osteopathy Doctor: Reina Watts CGC (Counselor) Informed Polly of her 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 The risk to have a child with DF has significantly been reduced.- Reina Watts MS, Genetic Counselor. Created on 19Mar2004 11:17am by REINA WATTS documented in this encounter Plan of Treatment Not on filedocumented as of this encounter Visit Diagnoses Not on filedocumented in this encounter Care Teams Spooler Rubber Strand Relationship Specialty Start Date End Date Lisa Gonzalez APRN, MEDICAL DIR PCP - General 05/03/1998 11/02/13 [address] [place] [address] documented as of this encounter
--- OUTSIDE RECORDS SUMMARY | 2022-04-10 14:19 | XMS_ITS | Encounter Summary ---
:1970 Author [facility] Address [address] [place] [address] Care Team Providers Name Role Phone Gonzalez Lisa Raymond MARIN, AMANDA Primary Care Provider Encounter Details Date Type Department Care Team Description 04/12/2004 PN Conversion Only [place] [address] [place] [address] (Wo rk) Social History Tobacco Use Types Packs/Day Years Used Date Smoking Tobacco: Never Assessed Sex Assigned at Date Recorded Not on file documented as of this encounter Plan of Treatment Not on filedocumented as of this encounter Procedures Procedure Name Priority Date/Time Associated Diagnosis Comme nts WET PREP Routine 04/12/2004 2:20 PM Results f or this DIRECTOR OF REGULATORY AFFAIRS procedure are i n the results section . documented in this encounter Results Wet Prep (04/12/2004 2:20 PM DIRECTOR OF REGULATORY AFFAIRS) P athologist Signature Wet Prep SEE TEXT HP CONVERSION Comment: Patient: POLLY CASE Wet Prep @ ?Collected: ??[id number] ??[id number] Source: Vaginal ? Processed: ??[id number] ??1420 ? 1V Final Report ------ Many WBCs seen Moderate epithelial cells seen No Trichomonas seen No yeast seen No clue cells seen @ = WET PREP Performed at ??[address] [place], [place] ??[address] Specimen (Source) Anatomical Collection Method Collection Time Re ceived Time Location / / Volume Laterality 04/12/2004 2:20 PM DIRECTOR OF REGULATORY AFFAIRS Janelle Jacobo MD LAB_1 Performing Organization Address City/State/ZIP Code Phon e Number HP CONVERSION documented in this encounter Visit Diagnoses Not on filedocumented in this encounter Care Teams Slitter Service And Setter Relationship Specialty Start Date End Date Lisa Gonzalez, PATTERN DEVELOPER, FIELD HOCKEY COACH PCP - General 05/03/1998 11/02/13 [address] [place] [address] documented as of this encounter
--- OUTSIDE RECORDS SUMMARY | 2022-04-10 14:19 | XMS_ITS | Encounter Summary ---
:1970 Author Organization [facility] Address [address] [place] [address] Care Team Providers Name Role Phone Lisa Gonzalez TANIA, AMANDA Primary Care Provider [phone] Encounter Details Date Type Department Care Team Description 04/04/2005 Office Visit [facility] [place] [address] [facility] [address] [place] [address] [place] [address] [phone] (Wo rk) Social History Tobacco Use Types Packs/Day Years Used Date Smoking Tobacco: Never Assessed Sex Assigned at Date Recorded Not on file documented as of this encounter Progress Notes Jemal Rose MD - 04/04/2005 12:01 AM CST Progress Notes signed by Jemal Rose MD at 04/07/05 0828 Author: Jemal Rose MD Service: (none) Author Type: Physician Filed: 08/30/10 0948 Note Time: 04/04/052013 Status: Signed Communications Lead: Jemal Rose MD (Physician) NAME: POLLY CASE MR: [id number] ACCT: [id number] VISIT: [id number] DICTATING CLINICIAN: JEMAL ROSE MD JOB: [id number] CLINIC PROGRESS NOTE DATE OF VISIT: 04/04/2005 SUBJECTIVE: : 1970. Chief Complaint: Recurrent palpitations. HPI: This 34-year-old female who sees Dr. Lorenzo routinely comes in to see me for the first time today with a complaint of recurrent palpitations that she has had intermittently for the past year or so, roughly. In approximately 08/2004, she was admitted to [facility] overnight for evaluation of these palpitations. She had stress echo which suggested a possible area of hypokinesis and then was followed up with a nuclear stress test. She was then seen by Dr. Anderson in cardiology in followup in 08/2004, and he reviewed these tests, and it was felt that these were just false-positive areas and that overall the stress tests were normal. She was reassured at that time that there was no cardiac abnormality present. She returns today for reassurance as she has had more of these episodes. Feels like her heart is racing and has the sensation right at this time. Occasional irregular beat noted as well as noted previously. She does not drink any alcohol. She is a nonsmoker. She exercises daily. She does have 4 children at home and so does have a lot of stress. She also notes that she is generally a pretty anxious person. MEDICATIONS: She is on no regular medications currently. OBJECTIVE: VS: BP: 140/62. P: 100. Wt: 122 lb. GENERAL: This 34-year-old female appears well. Additionally, it should be noted that she does not have a history of hypertension. Today's systolic blood pressure is higher than what she typically runs. I reviewed records over the past year on several occasions when she has been seen in clinic, and blood pressures have always been well within normal. LUNGS: Clear with no rales, rhonchi, or wheeze. CARDIOVASCULAR: Regular rhythm. Normal heart sounds. No murmur, gallop, or rub. EXTREMITIES: Warm and pink with no cyanosis or pedal edema. EKG interpreted by me as showing sinus tachycardia with ventricular rate of 102. No acute ST segment changes. ASSESSMENT: Palpitations. PLAN: Extensive reassurance provided again for the patient today. No evidence of any cardiac abnormalities. She did seem very reassured after our visit. We talked extensively about stress and anxiety at home. She was given a prescription for lorazepam 0.5 mg 1-2 tabs q. 6-8 hours p.r.n., quantity 30 with no refills, to use very sparingly. We also discussed the possibility of starting a daily antidepressant medication, but she prefers to hold on that at this time. My bias would be to hold off on that as well and to try to address the anxiety and stress with more natural methods, and she is in agreement with that. Currently, she is exercising regularly, which I think is an excellent idea. She can follow up with Dr. Lorenzo as needed in the future or if she feels things are getting worse in terms of the anxiety and would like to discuss starting a daily antidepressant, she could call back as well. NOTE: It should be noted that the EKG acquired today was done while she was having her typical symptoms and again with the results noted above. CJM:[id number] C: 04/07/05 08:25 DOCUMENT: [id number] TROSLAG WELDING MACHINE OPERATOR documented in this encounter Plan of Treatment Not on filedocumented as of this encounter Procedures Procedure Name Priority Date/Time Associated Diagnosis Comme nts ECG 12 LEAD CLINIC Routine 04/04/2005 2:04 PM Res ults for this ELECTROSLAG WELDING MACHINE OPERATOR procedure are i n the results section. documented in this encounter Results ECG 12 lead clinic (04/04/2005 2:04 PM ELECTROSLAG WELDING MACHINE OPERATOR) Specimen (Source) Anatomical Collection Method Collection Time Re ceived Time Location / / Volume Laterality 04/04/2005 2:04 PM ELECTROSLAG WELDING MACHINE OPERATOR Narrative HP CONVERSION - 04/04/2005 2:04 PM ELECTROSLAG WELDING MACHINE OPERATOR Sinus tachycardia with sinus arrhythmia Rightward axis Borderline ECG No previous ECGs available Imr Conversion PN ECG ORDERABLES Performing Organization Address City/State/ZIP Code Phon e Number HP CONVERSION documented in this encounter Visit Diagnoses Not on filedocumented in this encounter Care Teams Car Supervisor Relationship Specialty Start Date End Date Lisa Gonzalez, SPOOLING MACHINE OPERATOR, STRESS TEST TECHNICIAN PCP - General 05/03/1998 11/02/13 [address] [place] [address] documented as of this encounter
--- OUTSIDE RECORDS SUMMARY | 2022-04-10 14:19 | XMS_ITS | Encounter Summary ---
:1970 Author Organization [facility] Address [address], [place] [address] Care Team Providers Name Role Phone Lisa Gonzalez APRN, CNP Primary Care Provider [phone] Encounter Details Date Type Department Care Team Description 08/15/2004 PN Conversion Only [place] [address] [place] [address] Social History Tobacco Use Types Packs/Day Years Used Date Smoking Tobacco: Never Assessed Sex Assigned at Date Recorded Not on file documented as of this encounter Plan of Treatment Not on filedocumented as of this encounter Visit Diagnoses Not on filedocumented in this encounter Care Teams Cone Worker Relationship Specialty Start Date End Date Lisa Gonzalez APRN, CNP PCP - General 05/03/1998 11/02/13 [address] [place] [address] documented as of this encounter
--- OUTSIDE RECORDS SUMMARY | 2022-04-10 14:19 | XMS_ITS | Encounter Summary ---
:1970 [facility] Address [address] [place] [address] Care Team Providers Name Role Phone Lisa Gonzalez AMANDA MARIN Primary Care Provider [phone] Reason for Visit Reason Comments Other Encounter Details Date Type Department Care Team Description 08/15/2004 Telephone [facility] Janelle Barajas MD Other [address] [address] [place] [address] [place] [address] [phone] (Wo rk) Social History Tobacco Use Types Packs/Day Years Used Date Smoking Tobacco: Never Assessed Sex Assigned at Date Recorded Not on file documented as of this encounter Progress Notes Shannon Fermin RN - 08/15/2004 11:35 AM CDT Phone Note filed by Shannon Fermin RN at 08/26/101739 Author: Shannon Fermin RN Service: (none) Author Type: (none) Filed: 08/26/101739 Note Time: 08/15/041134 Status: Signed Document Restorer: Fide Conversion You patient was seen today in Cardiology by Sr. Anderson. Thank you for the consultation. Created on 15Aug2004 11:35am by SHANNON DALE Acknowledged by JANELLE COTA on 12:39pm STITCH SLEEVE MAKER documented in this encounter Plan of Treatment Not on filedocumented as of this encounter Visit Diagnoses Not on filedocumented in this encounter Care Teams Financial Services Director Relationship Specialty Start Date End Date Lisa Gonzalez APRN, FILTER TANK TENDER HELPER PCP - General 05/03/1998 11/02/13 [address] [place] [address] documented as of this encounter
--- OUTSIDE RECORDS SUMMARY | 2022-04-10 14:19 | XMS_ITS | Encounter Summary ---
:1970 [facility] Address [address] [place] [address] Care Team Providers Name Role Phone Lisa Gonzalez APRN, AMANDA Primary Care Provider [phone] Reason for Visit Reason Comments Other Encounter Details Date Type Department Care Team Description 04/18/2004 Telephone [facility] Part[facility] Obstetrics/Gynecolog y [address] [facility] [address] [place] [address] [place] [address] [phone] (Wo rk) Social History Tobacco Use Types Packs/Day Years Used Date Smoking Tobacco: Never Assessed Sex Assigned at Date Recorded Not on file documented as of this encounter Progress Notes Bárbara Perea - 04/18/2004 2:53 PM CST Phone Note filed by Bárbara Perea at 08/26/10 4440 Author: Bárbara Perea Service: (none) Author Type: (none) Filed: 08/26/10 153 Note Time: 04/18/04 1453 Status: Signed Sandwich Machine Operator: Fide Quintero Pt. calling with multiple questions about her baby, tests she has been going through, and what can be done if there is a problem with the baby. She is anxious to speak to you. States she did leave a message for the perinatologist, but he has not returned her call. She can be reached at [phone]. Created on 18Apr2004 2:53pm by BÁRBARA PEREA R On 18Apr2004 3:18pm HENRIQUE RILEY wrote: Spoke with pt. Questions answered. Acknowledged by HENRIQUE RILEY on 3:18pm documented in this encounter Plan of Treatment Not on filedocumented as of this encounter Visit Diagnoses Not on filedocumented in this encounter Care Teams Rayon Tester Relationship Specialty Start Date End Date Lisa Gonzalez APRN, HANDLE AND VENT MACHINE OPERATOR PCP - General 05/03/1998 11/02/13 [address] [place] [address] documented as of this encounter
--- OUTSIDE RECORDS SUMMARY | 2022-04-10 14:19 | XMS_ITS | Encounter Summary ---
:1970 [facility] Address [address] [place] [address] Care Team Providers Name Role Phone Lisa Gonzalez APRN, CNP Primary Care Provider [phone] Encounter Details Date Type Department Care Team Description 06/11/2004 Routine [place] Henrique Xie Obstetrics/[place] [address] [facility] [address] [place] [address] [place] [address] (Wo rk) Social History Tobacco Use Types Packs/Day Years Used Date Smoking Tobacco: Never Assessed Sex Assigned at Date Recorded Not on file documented as of this encounter Plan of Treatment Not on filedocumented as of this encounter Visit Diagnoses Not on filedocumented in this encounter Care Teams Assistant To The Director Relationship Specialty Start Date End Date Lisa Gonzalez APRN, CNP PCP - General 05/03/1998 11/02/13 [address] [place] [address] documented as of this encounter
--- OUTSIDE RECORDS SUMMARY | 2022-04-10 14:19 | XMS_ITS | Encounter Summary ---
:1970 [facility] Address [address], [place] [address] Care Team Providers Name Role Phone Lisa Gonzalez APRN, CNP Primary Care Provider [phone] Encounter Details Date Type Department Care Team Description 05/29/2004 PN Conversion Only [place] [address] [address] [place] [address] Social History Tobacco Use Types Packs/Day Years Used Date Smoking Tobacco: Never Assessed Sex Assigned at Date Recorded Not on file documented as of this encounter Plan of Treatment Not on filedocumented as of this encounter Visit Diagnoses Not on filedocumented in this encounter Care Teams Production Line Operator Relationship Specialty Start Date End Date Lisa Gonzalez APRN, OCCUPATIONAL REHABILITATION AIDE PCP - General 05/03/1998 11/02/13 [address] [place] [address] documented as of this encounter
--- OUTSIDE RECORDS SUMMARY | 2022-04-10 14:19 | XMS_ITS | Encounter Summary ---
:1970 Author Organization [facility] Address [address] [place] [address] Care Team Providers Name Role Phone Lisa Gonzalez APRN, CNP Primary Care Provider [phone] Encounter Details Date Type Department Care Team Description 04/04/2005 PN Conversion Only [facility] Obdulio Mosquera, [address] [place] [address] [phone] [place] [address] (Wo rk) Social History Tobacco Use Types Packs/Day Years Used Date Smoking Tobacco: Never Assessed Sex Assigned at Date Recorded Not on file documented as of this encounter Last Filed Vital Signs Vital Sign Reading Time Taken Comments Blood Pressure 140/62 04/04/2005 1:29 PM RESTAURANT GREETER Pulse 100 04/04/2005 1:29 PM RESTAURANT GREETER Temperature - - Respiratory Rate - - Oxygen Saturation - - Inhaled Oxygen Concentration - - Weight 55.3 kg (121 lb 15.7 oz) 04/04/2005 1:29 PM RESTAURANT GREETER C: 55.3kg Height - - Body Mass Index - - documented in this encounter Plan of Treatment Not on filedocumented as of this encounter Visit Diagnoses Not on filedocumented in this encounter Care Teams Label Stamper Relationship Specialty Start Date End Date Lisa Gonzalez APRN, CNP PCP - General 05/03/1998 11/02/13 [address] [place], [place] [address] documented as of this encounter
--- OUTSIDE RECORDS SUMMARY | 2022-04-10 14:19 | XMS_ITS | Encounter Summary ---
:1970 [facility] Address [address] [address] Care Team Providers Name Role Phone Lisa Gonzalez APRN, AMANDA Primary Care Provider [phone] Encounter Details Date Type Department Care Team Description 03/18/2004 PN Conversion Only [facility] Henrique Xie [address] [facility] [place] [address] [address] [place], [place] [address] (Wo rk) Social History Tobacco Use Types Packs/Day Years Used Date Smoking Tobacco: Never Assessed Sex Assigned at Date Recorded Not on file documented as of this encounter Plan of Treatment Not on filedocumented as of this encounter Procedures Procedure Name Priority Date/Time Associated Comments Diagnosis ANTIBODY SCREEN Routine 03/18/2004 10:21 AM Resul ts for this TRIP MOTOR OPERATOR procedure are i n the results section. ANTIBODY IDENT-BL Routine 03/18/2004 10:21 AM Res ults for this TRIP MOTOR OPERATOR procedure are i n the results section. PARVOVIRUS B19 IGG & Routine 03/18/2004 10:21 AM Results for this IGM ANTIBODIES TRIP MOTOR OPERATOR procedure are in the results section. HEMOGLOBIN OB Routine 03/18/2004 10:21 AM Results for this TRIP MOTOR OPERATOR procedure are i n the results section. GLUCOSE - 1 HR. P.C. Routine 03/18/2004 10:21 AM Results for this PREG TRIP MOTOR OPERATOR procedure are i n the results section. documented in this encounter Results Antibody Screen (03/18/2004 10:21 AM TRIP MOTOR OPERATOR) P athologist Signature N/O BB POS No normal HP CONVERSION ANTIBODY range SCREEN Specimen (Source) Anatomical Collection Method Collection Time Re ceived Time Location / / Volume Laterality 03/18/2004 10:21 AM TRIP MOTOR OPERATOR Henrique Xie MD PN BLOOD BANK ORDERS Performing Organization Address City/[facility]/ZIP Code Phon e Number HP CONVERSION Glucose - 1 Hr. P.C. Preg (03/18/2004 10:21 AM TRIP MOTOR OPERATOR) athologist [facility] Glucose, GTT - 89 40 - 139 HP CONVERSION 1 Hour mg/dL Specimen (Source) Anatomical Collection Method Collection Time Re ceived Time Location / / Volume Laterality 03/18/2004 10:21 AM TRIP MOTOR OPERATOR Henrique Xie MD LAB_1 Performing Organization Address [facility] Code Phon e Number HP CONVERSION Parvovirus B19 Igg & Igm Antibodies (03/18/2004 10:21 AM TRIP MOTOR OPERATOR) athologist [facility] Parvovirus B19 0.11 HP CONVERSION IgG Antibody Comment: Interpretive data: REFERENCE INTERVAL: Parvovirus B19 Antib donal, IgG ??Less than 0.90 IV ........ Negative - No significant ? level of detectable Parvovirus ? B19 IgG antibody. ??0.90 - 1.10 IV ........... Equivocal - Repeat testing in ? 10-14 days may be helpful. ??Greater than 1.10 IV ..... Positive - IgG antibody to ? Parvovirus B19 detected which ? may indicate a current or ? previous infection. Seroconversion between acute and convale scent sera is considered strong evidence of current or recent infection. The best evidence for infection is a sig nificant change on two appropriately timed specimens, where both tests are done in the same laboratory at the same time. Parvovirus B19 IgM Antibody 0.09 HP CONVERSION Comment: Interpretive data: REFERENCE INTERVAL: Parvovirus B19 Antib donal, IgM ??Less than 0.90 IV ........ Negative - No significant ? level of detectable Parvovirus ? B19 IgM antibody. ??0.90 - 1.10 IV ........... Equivocal - Repeat testing in ? 10-14 days may be helpful. ??Greater than 1.10 IV ..... Positive - IgM antibody to ? Parvovirus B19 detected which ? may indicate a current or ? recent infection. Seroconversion between acute and convale scent sera is considered strong evidence of current or recent infection. The best evidence for infection is a sig nificant change on two appropriately timed specimens, where both tests are done in the same laboratory at the same time. Appearance of an IgM antibody response n ormally occurs 7-14 days after the onset of disease. Te sting immediately post- exposure is of no value without a later convalescent specimen. While the presence of IgM anti bodies suggest current or recent infection, low levels of IgM antibodies may occasionally persist for more than 1 2 months post-infection. Such a residual IgM resp onse may be distinguished from early IgM response to infection by testing sera from patients 3-4 weeks lat er for changing levels of specific IgM antibodies. Specimen (Source) Anatomical Collection Method Collection Time Re ceived Time Location / / Volume Laterality 03/18/2004 10:21 AM TRIP MOTOR OPERATOR Henrique Xie MD LAB_1 Performing Organization Address City/State/ZIP Code Phon e Number HP CONVERSION Hemoglobin Ob (03/18/2004 10:21 AM TRIP MOTOR OPERATOR) P athologist Signature OB Hemoglobin 10.7 gm/dL HP CONVERSION Comment: First trimester (week 12) 11.0 - 13.4 gm /dL Second trimester(week 20) 10.5 - 12.7 gm /dL Third trimester (week 32) 11.0 - 13.2 gm /dL From MMWR 1989;38(22): 400-4 Specimen (Source) Anatomical Collection Method Collection Time Re ceived Time Location / / Volume Laterality 03/18/2004 10:21 AM TRIP MOTOR OPERATOR Henrique Xie MD LAB_1 Performing Organization Address City/[facility]/ZIP Code Phon e Number HP CONVERSION Antibody Ident-Bl (03/18/2004 10:21 AM TRIP MOTOR OPERATOR) Patholo gist Method Time Signature Ab Interpretation FOOTNOTE No normal [facility] CONVERSIO N range Comment: PATIENT RECEIVED ANTEPARTUM RHOGAM ON . ??ANTI-D IDENTIFICATION IS CONSISTENT WITH ADMINISTRATION OF RH IMM UNE GLOBULIN. Specimen (Source) Anatomical Collection Method Collection Time Re ceived Time Location / / Volume Laterality 03/18/2004 10:21 AM TRIP MOTOR OPERATOR Henrique Xie MD PN BLOOD BANK ORDERS Performing Organization Address City/[facility]/ZIP [facility] Phon e Number HP CONVERSION documented in this encounter Visit Diagnoses Not on filedocumented in this encounter Care Teams Psychological Operations Relationship Specialty Start Date End Date Lisa Gonzalez, FOOD CHECKER, HUMAN RESOURCES CLERK PCP - General 05/03/1998 11/02/13 [address] [place] [address] documented as of this encounter
--- OUTSIDE RECORDS SUMMARY | 2022-04-10 14:19 | XMS_ITS | Encounter Summary ---
:1970 [facility] Address [address] [place] [address] Care Team Providers Name Role Phone Lisa Gonzalez Raymond MARIN CNP Primary Care Provider [phone] Encounter Details Date Type Department Care Team Description 04/12/2004 Office Visit [facility] Lou Jacobo MD [id number] [place] [address] [phone] Social History Tobacco Use Types Packs/Day Years Used Date Smoking Tobacco: Never Assessed Sex Assigned at Date Recorded Not on file documented as of this encounter Progress Notes Janelle Jacobo - 04/12/2004 12:01 AM CST Progress Notes signed by at 04/16/04 1712 Author: Janelle Cota MD Service: (none) Author Type: (none) Filed: 08/30/10 0253 Note Time: 04/12/04 0001 Status: Signed Scalehouse Attendant: Fide Conversion NAME: POLLY CASE MR: [id number] ACCT: [id number] VISIT: [id number] DICTATING CLINICIAN: JANELLE COTA MD JOB: [id number] CLINIC PROGRESS NOTE DATE OF VISIT: 04/12/2004 SUBJECTIVE: : 1970. Polly presents to clinic today for concerns about a possible vaginal yeast infection. She is currently 28 weeks and now getting her OB care through [facility]. She has had some lower abdominal cramping off and on throughout the and has noticed some itching but not particularly unusual discharge. Otherwise doing well, no other concerns. MEDICATIONS: Reviewed. Please see LastWord. ADR/ALLERGIES: REVIEWED. PLEASE SEE LASTWORD. OBJECTIVE: VS: BP: 122/70. P: 88. Wt: 148 lb. GENERAL: She is pleasant, in no acute distress. HEENT: Sclerae are clear. Conjunctivae not injected. Mucous membranes are moist. PELVIC: Reveals some erythema on the external genitalia which is mild. A sterile speculum is utilized. The vagina is pink and rugated. The cervix is closed and thick. There are no abnormalities. There is a scant amount of white discharge in the vaginal vault. LOWER EXTREMITIES: Without edema. DIAGNOSTICS: Wet prep was obtained which was negative for Trich, yeast or clue cells. ASSESSMENT: Yeast dermatitis in the external genitalia. PLAN: No evidence of internal vaginal yeast infection. Recommend topical treatment with Monistat or other pltr-qss-[id number] product. Certainly call or follow up if she continues to have symptoms or is not responding to the wczc-[id number]-[id number] product. LCM:[id number] C: 04/12/04 22:50 DOCUMENT: [id number] documented in this encounter Plan of Treatment Not on filedocumented as of this encounter Visit Diagnoses Not on filedocumented in this encounter Care Teams Management Trainer Relationship Specialty Start Date End Date Lisa Gonzalez, TANIA, METAL SHEET ROLLER OPERATOR PCP - General 05/03/1998 11/02/13 [address] [place] [address] documented as of this encounter
--- OUTSIDE RECORDS SUMMARY | 2022-04-10 14:19 | XMS_ITS | Encounter Summary ---
:1970 Author Organization [facility] Address [address] [place] [address] Care Team Providers Name Role Phone Carlos Lisa Andrade APRN, CNP Primary Care Provider [phone] Reason for Visit Reason Comments Other Encounter Details Date Type Department Care Team Description 08/14/[address] [facility] Domenica [place] [address] [phone] Social History Tobacco Use Types Packs/Day Years Used Date Smoking Tobacco: Never Assessed Sex Assigned at Date Recorded Not on file documented as of this encounter Progress Notes Pat Thompson - 08/14/2004 10:07 AM CDT Phone Note filed by Pat Thompson RN at 08/26/10 7321 Author: Pat Thompson RN Service: (none) Author Type: Registered Nurse Filed: 08/26/101737 Note Time: 08/14/04 1007 Status: Signed Teacher Asst: Pat Thompson RN (Registered Nurse) Polly had a stress test at [facility] on Saturday 08/12. They called Polly today and said you should have received the results. She is home:[phone]. She states she may not be home. If not she has given her permission to give the results to her John as he will be home. Created on 14Aug2004 10:07am by PAT THOMPSON R On 14Aug2004 12:05pm CRISTY COTA wrote: Domenica, I do not have these results, please call [facility] to get records. Acknowledged by CRISTY COTA on 12:05pm On 14Aug2004 1:06pm DOMENICA PUENTES wrote: I called [facility] and requested results. Medical Records did not know if they had results yet, if they do they will fax us them. Pt's notified. Acknowledged by DOMENICA PUENTES on 1:06pm On 14Aug2004 1:47pm DOMENICA PUENTES wrote: Received results. Please call. Pt's notified that they may not receive a call until after 5pm. On 14Aug2004 2:47pm DOMENICA PUENTES wrote: Per Dr Cota-pt needs cardiology consults sonu for abnormal nuclear stress test.//Pt was scheduled for 08/[address] Anderson. Pt was notified. On 14Aug2004 3:37pm CRISTY COTA wrote: Domenica, please fax records from [facility] to Dr. Anderson' office prior to her visit. thanks. Acknowledged by CRISTY COTA on 3:37pm On 14Aug2004 4:32pm DOMENICA PUENTES wrote: [facility] records were faxed to Dr Anderson at the [facility]. Acknowledged by DOMENICA PUENTES on 4:32pm ER GENERAL documented in this encounter Plan of Treatment Not on filedocumented as of this encounter Visit Diagnoses Not on filedocumented in this encounter Care Teams Cool Roofing Installer Relationship Specialty Start Date End Date Lisa Gonzalez APRN, MARKETING CONTENT SPECIALIST PCP - General 05/03/1998 11/02/13 [address] [place] [address] documented as of this encounter
--- OUTSIDE RECORDS SUMMARY | 2022-04-10 14:19 | XMS_ITS | Encounter Summary ---
:1970 Author Organization [facility] Address [address] [place] [address] Care Team Providers Name Role Phone Lisa Gonzalez APRN, CNP Primary Care Provider [phone] Reason for Visit Reason Comments Other Encounter Details Date Type Department Care Team Description 05/06/2005 Telephone [facility] Domenica [place] [address] [phone] Social History Tobacco Use Types Packs/Day Years Used Date Smoking Tobacco: Never Assessed Sex Assigned at Date Recorded Not on file documented as of this encounter Progress Notes Charlotte Irving - 05/06/2005 9:17 AM CST Phone Note filed by Charlotte Irving RN at 08/26/10 7193 Author: Charlotte Irving RN Service: (none) Author Type: Registered Nurse Filed: 08/26/102 Note Time: 05/06/05916 Status: Signed Dental Tech: Charlotte Irving RN (Registered Nurse) Pt. calling. She started taking Lexapro on 05/01. The last 3 nights has had episodes where her arms have felt burning and tingling. Also had a burning sensation in her throat for a few seconds. Is asking if this could be a side effect of the Lexapro. Please call her at either [phone] or on her cell at [phone]. Created on 06May2005 9:17am by CHARLOTTE IRVNIG On 06May2005 12:13pm CRISTY COTA wrote: does not sound like side effects from lexapro. The tingling is likely from her anxiety, the burning in her throat is likely reflux - I recommend the pepcid, zantac OR prilosec OTC that we talked about at her last visit. keep taking the lexapro. Acknowledged by CRISTY COTA on 12:13pm On 06May2005 2:15pm DOMENICA PUENTES wrote: Pt notified of above. Acknowledged by DOMENICA PUENTES on 2:15pm URE ARTIST documented in this encounter Plan of Treatment Not on filedocumented as of this encounter Visit Diagnoses Not on filedocumented in this encounter Care Teams Visual Education Director Relationship Specialty Start Date End Date Lisa Gonzalez, TANIA, BREAKFAST HOSTESS PCP - General 05/03/1998 11/02/13 [address] [place] [address] documented as of this encounter
--- OUTSIDE RECORDS SUMMARY | 2022-04-10 14:19 | XMS_ITS | Encounter Summary ---
:1970 [facility] Address [address] [place] [address] Care Team Providers Name Role Phone Lisa Gonzalez APRN, CNP Primary Care Provider [phone] Encounter Details Date Type Department Care Team Description 05/08/2004 Routine [place] [facility] X[facility] Obstetric[place] [address] [facility] [address] [place] [address] [place] [address] (Wo rk) Social History Tobacco Use Types Packs/Day Years Used Date Smoking Tobacco: Never Assessed Sex Assigned at Date Recorded Not on file documented as of this encounter Plan of Treatment Not on filedocumented as of this encounter Visit Diagnoses Not on filedocumented in this encounter Care Teams Grain Cleaner Relationship Specialty Start Date End Date Lisa Gonzalez APRN, CNP PCP - General 05/03/1998 11/02/13 [address] [place] [address] documented as of this encounter
--- OUTSIDE RECORDS SUMMARY | 2022-04-10 14:19 | XMS_ITS | Encounter Summary ---
:1970 [facility] Address [address], [place] [address] Care Team Providers Name Role Phone Lisa Gonzalez APRN, CNP Primary Care Provider [phone] Encounter Details Date Type Department Care Team Description 08/20/2004 PN Conversion Only [address] [address] [place] [address] Social History Tobacco Use Types Packs/Day Years Used Date Smoking Tobacco: Never Assessed Sex Assigned at Date Recorded Not on file documented as of this encounter Plan of Treatment Not on filedocumented as of this encounter Visit Diagnoses Not on filedocumented in this encounter Care Teams Administrative Volunteer Relationship Specialty Start Date End Date Lisa Gonzalez APRN, THEATER SET PRODUCTION DESIGNER PCP - General 05/03/1998 11/02/13 [address] [place] [address] documented as of this encounter
--- OUTSIDE RECORDS SUMMARY | 2022-04-10 14:19 | XMS_ITS | Encounter Summary ---
:1970 Author Organization [facility] Address [address] [place] [address] Care Team Providers Name Role Phone GonzalezLisa Raymodn MARIN CNP Primary Care Provider Reason for Visit Reason Comments Other Encounter Details Date Type Department Care Team Description 03/07/2005 Telephone [facility] Janelle Barajas [place] Other [address] [address] [place] [address] [place] [address] [phone] (Wo rk) Social History Tobacco Use Types Packs/Day Years Used Date Smoking Tobacco: Never Assessed Sex Assigned at Date Recorded Not on file documented as of this encounter Progress Notes Domenica Puentes - 03/07/2005 2:51 PM CDT Phone Note filed by Domenica Puentes RN at 08/26/102152 Author: Domenica Puentes RN Service: (none) Author Type: (none) Filed: 08/26/102152 Note Time: 03/07/05 1451 Status: Signed Jewelry Polisher: Fide Conversion Fax received from call center-pt wanted appt today for palpatations. She refused to talk to [place] emergency nurse line and she only wanted Bj to see her. I spoke with pt and advised UC or ER. Pt states that she spoke with mainspring strip gauger about this last week and she states that he told her that it was most likely benign. She states that she thinks it is anxiety. She will monitor palpatations and go to UC or ER if sx worsen. Created on 07Mar2005 2:51pm by DOMENICA PUENTES Acknowledged by JANELLE COTA on 4:21pm RANCE FOLLOW UP REPRESENTATIVE documented in this encounter Plan of Treatment Not on filedocumented as of this encounter Visit Diagnoses Not on filedocumented in this encounter Care Teams Corporate Executive Relationship Specialty Start Date End Date Lisa Gonzalez APRN, MISSILE FACILITIES REPAIRER PCP - General 05/03/1998 11/02/13 [address] [place] [address] documented as of this encounter
--- OUTSIDE RECORDS SUMMARY | 2022-04-10 14:20 | XMS_ITS | Encounter Summary ---
:1970 Author Organization [facility] Address [address] [place] [address] Care Team Providers Name Role Phone Lisa Gonzalez APRN, CNP Primary Care Provider [phone] Reason for Visit Reason Comments Other Encounter Details Date Type Department Care Team Description 01/25/2004 Telephone [facility], Message Other [address] [place] [address] Social History Tobacco Use Types Packs/Day Years Used Date Smoking Tobacco: Never Assessed Sex Assigned at Date Recorded Not on file documented as of this encounter Progress Notes Pat Thompson - 01/25/2004 8:47 AM CDT Phone Note filed by Pat Thompson RN at 08/26/10 9264 Author: Pat Thompson RN Service: (none) Author Type: Registered Nurse Filed: 08/26/10 1415 Note Time: 01/25/0463 Status: Signed Orthopedically Impaired Teacher: Pat Thompson RN (Registered Nurse) Polly has several concerns. She had an US yesterday (single fetus). She had mild cramps on the ...last night started more intense cramps...5p-and all evening...subsided at HS. She slept fine. She wants to talk...and is home:[address] [place] [address]. Created on 25Jan2004 8:47am by PAT THOMPSON R On 25Jan2004 6:06pm CRISTY COTA wrote: called patient and addressed concerns. Her placenta is very close to the cervical os. Recommended avoiding strenuous activity, caution regarding sexual activity and advised another US in 4-5 weeks. Advised to get prompt medical attention if she notices any vaginal bleeding. Patient incidentally mentioned that nurseline told her that [facility] was recorded as [facility] delivering hospital, this is incorrect, it should be [facility] and they should be sent copies of her records if not done already. Thanks. Acknowledged by CRISTY COTA on 6:06pm On 26Jan2004 8:26am LAURIE PUENTES wrote: US set up for Feb 22V at 10:30a. Please have her check in 5 minutes early and follow water prep.(She should know what that is.) If she needs to reschedule she can call [phone]. Left message for her to call [facility].for above info. Acknowledged by LAURIE PUENTES on 8:26am On 31Jan2004 3:02pm RAY BAJWA wrote: Pt informed of above message. Acknowledged by RAY BAJWA on 3:02pm documented in this encounter Plan of Treatment Not on filedocumented as of this encounter Visit Diagnoses Not on filedocumented in this encounter Care Teams Consulting Networking Engineer Relationship Specialty Start Date End Date Lisa Gonzalez APRN, SERVICE STATION OPERATOR PCP - General 05/03/1998 11/02/13 [address] [place] [address] documented as of this encounter
--- OUTSIDE RECORDS SUMMARY | 2022-04-10 14:20 | XMS_ITS | Encounter Summary ---
:1970 Author Organization [facility] Address [address] [place] [address] Care Team Providers Name Role Phone Lisa Gonzalez APRN, CNP Primary Care Provider [phone] Encounter Details Date Type Department Care Team Description 03/11/2004 Athletic Equipment Custodian Only CONVERSION CONVERSION Nicole Buitrago [address] [place] [address] Social History Tobacco Use Types Packs/Day Years Used Date Smoking Tobacco: Never Assessed Sex Assigned at Date Recorded Not on file documented as of this encounter Progress Notes Nicole Adan - 03/11/2004 12:01 AM CST Progress Notes signed by Nicole Harper at 03/11/04 8398 Author: Nicole Harper Service: (none) Author Type: Resource Filed: 08/30/10 0217 Note Time: 03/11/04 0001 Status: Signed Stunt Double: Nicole Harper (Resource) I notified Polly of final amnio results for chromosome analysis after verifying . Results show apparently normal chromosomes. Limits stressed. Other results not back yet. ATIONAL PSYCHOLOGY PROFESSOR documented in this encounter Plan of Treatment Not on filedocumented as of this encounter Visit Diagnoses Not on filedocumented in this encounter Care Teams Market Development Executive Relationship Specialty Start Date End Date Lisa Gonzalez APRN, CNP PCP - General 05/03/1998 11/02/13 [address] [place] [address] documented as of this encounter
--- OUTSIDE RECORDS SUMMARY | 2022-04-10 14:20 | XMS_ITS | Encounter Summary ---
:1970 Author Organization [facility] Address [address], [place] [address] Care Team Providers Name Role Phone Gonzalez Lisa Raymond MARIN, AMANDA Primary Care Provider [phone] Encounter Details Date Type Department Care Team Description 03/04/2004 Third Grade Teacher Only CONVERSION CONVERSION Nicole Buitrago [address] [place] [address] Social History Tobacco Use Types Packs/Day Years Used Date Smoking Tobacco: Never Assessed Sex Assigned at Date Recorded Not on file documented as of this encounter Progress Notes Nicole Adan - 03/04/2004 12:01 AM CDT Progress Notes signed by Nicole Harper at 03/04/04 1426 Author: Nicole Harper Service: (none) Author Type: Resource Filed: 08/30/100 Note Time: 03/04/04 0001 Status: Signed Product Development Actuary: Nicole Harper (Resource) Polly is calling for her FISH results from the amniocentesis done on 03/01/04. I spoke with the [facility] lab--they are having some troubles with the reagents for the test and had to rerun it. Therefore, they are hoping to have results back tomorrow. I explained this to Polly, emphasizing that they just haven't been able to get the test to run. We will contact her when the results are available--hopefully by tomorrow afternoon, but no guarantee of this. documented in this encounter Plan of Treatment Not on filedocumented as of this encounter Visit Diagnoses Not on filedocumented in this encounter Care Teams Director Pharmacology Relationship Specialty Start Date End Date Lisa Gonzalez APRN, WAITER/WAITRESS TAKE OUT PCP - General 05/03/1998 11/02/13 [address] [place] [address] documented as of this encounter
--- OUTSIDE RECORDS SUMMARY | 2022-04-10 14:20 | XMS_ITS | Encounter Summary ---
:1970 Author Organization [facility] Address [address], [place] [address] Care Team Providers Name Role Phone Lisa Gonzalez Raymond MARIN CNP Primary Care Provider [phone] Reason for Visit Reason Comments Other Encounter Details Date Type Department Care Team Description 02/28/2004 Telephone [facility] Janelle Barajas MD Other [address] [address] [place] [address] [place] [address] [phone] (Wo rk) Social History Tobacco Use Types Packs/Day Years Used Date Smoking Tobacco: Never Assessed Sex Assigned at Date Recorded Not on file documented as of this encounter Progress Notes Krista Wallace MA - 02/28/2004 12:06 PM CDT Phone Note filed by Krista Wallace MA at 08/26/10 1556 Author: Krista Wallace MA Service: (none) Author Type: Veterans Adviser Filed: 08/26/10 9867 Note Time: 02/28/04 1206 Status: Signed Button Spindler: Krista Wallace MA (Veterans Adviser) Provider informed pt that radiologist is recommending a level 2 OB US after her first US of 02/23/04. I spoke with Elida at [facility] and there is a 2-page form that provider needs to fill out and then to fax over at [phone] and they will contact pt. Any US report or OB info can go with it. Created on 28Feb2004 12:06pm by KRISTA WALLACE On 28Feb2004 12:32pm KT REYNOSO wrote: Pt calling for above message. Message was given to pt. On 28Feb2004 12:34pm JANELLE COTA wrote: we will fax form and they will contact patient, I will fill out form today. Acknowledged by JANELLE COTA on 12:34pm documented in this encounter Plan of Treatment Not on filedocumented as of this encounter Visit Diagnoses Not on filedocumented in this encounter Care Teams Taper Printed Circuit Layout Relationship Specialty Start Date End Date Lisa Gonzalez APRN, SALES FLOOR TEAM MEMBER PCP - General 05/03/1998 11/02/13 [address] [place] [address] documented as of this encounter
--- OUTSIDE RECORDS SUMMARY | 2022-04-10 14:20 | XMS_ITS | Encounter Summary ---
:1970 Author Organization [facility] Address [address] [place] [address] Care Team Providers Name Role Phone Lisa Gonzalez APRN, CNP Primary Care Provider [phone] Reason for Visit Reason Comments Other Encounter Details Date Type Department Care Team Description 01/03/2004 Telephone [facility] Domenica [place] [address] [phone] Social History Tobacco Use Types Packs/Day Years Used Date Smoking Tobacco: Never Assessed Sex Assigned at Date Recorded Not on file documented as of this encounter [place] [facility] [place] 01/03/2004 10:08 AM CDT Phone Note filed by IngBoo at 08/26/10 1476 Author: IngBoo Service: (none) Author Type: (none) Filed: 08/26/10 5092 Note Time: 01/03/04 1008 Status: Signed Cyber Intel Planner: IngBoo Pt is about 4 months , threw out her back a few days ago and is wondering what she can take for pain. Please call pt today at [phone]. Created on 03Jan2004 10:08am by RAY BAJWA On 03Jan2004 12:40pm CRISTY COTA wrote: recommend initially trying extra strength tylenol, heat and/or ice, physical therapy if needed. Acknowledged by CRISTY COTA on 12:40pm On 03Jan2004 1:03pm DOMENICA PUENTES wrote: Pt notified of above. Will call back if not better. Acknowledged by DOMENICA PUENTES on 1:03pm documented in this encounter Plan of Treatment Not on filedocumented as of this encounter Visit Diagnoses Not on filedocumented in this encounter Care Teams Registration Officer Relationship Specialty Start Date End Date Lisa Gonzalez APRN, HOSE TESTER PCP - General 05/03/1998 11/02/13 [address] [place] [address] documented as of this encounter
--- OUTSIDE RECORDS SUMMARY | 2022-04-10 14:20 | XMS_ITS | Encounter Summary ---
:1970 Author Organization [facility] Address [address] [place] [address] Care Team Providers Name Role Phone Lisa Gonzalez APRN, CNP Primary Care Provider [phone] Reason for Visit Reason Comments Other Encounter Details Date Type Department Care Team Description 03/04/2004 Telephone [facility] Domenica [place] [address] [phone] Social History Tobacco Use Types Packs/Day Years Used Date Smoking Tobacco: Never Assessed Sex Assigned at Date Recorded Not on file documented as of this encounter Progress Notes Center, Message - 03/04/2004 2:34 PM CDT Phone Note filed by Actionality at 08/26/10 9006 Author: Actionality Service: (none) Author Type: (none) Filed: 08/26/10 1455 Note Time: 03/04/04 1434 Status: Signed Storeperson: Message Center Pt calling today quite concerned because her level 2 ultrasound showed a spot in the baby's bowel area. She is waiting for the amnio results which should be back tomorrow. She is being tested to determine if she's a carrier for cystic fibrosis and she was wondering if her records from her previous clinic show if she has been tested for this in the past. She knows she has been tested for a lot of things and cannot remember if this is one of them. Pt's chart has been requested. Please call Polly tomorrow- she can be reached at [phone]. Created on 04Mar2004 2:34pm by RAY BAJWA On 05Mar2004 1:37pm CRISTY COTA wrote: Domenica, I don't have her chart. I really doubt anyone has tested her for that as there would be no reason to with normal pregnancies. Acknowledged by CRISTY COTA on 1:37pm On 05Mar2004 2:13pm DOMENICA PUENTES wrote: Pt notified of above. Acknowledged by DOMENICA PUENTES on 2:13pm documented in this encounter Plan of Treatment Not on filedocumented as of this encounter Visit Diagnoses Not on filedocumented in this encounter Care Teams Highway Truck Driver Relationship Specialty Start Date End Date Lisa Gonzalez APRN, DIAPER FOLDER PCP - General 05/03/1998 11/02/13 [address] [place] [address] documented as of this encounter
--- OUTSIDE RECORDS SUMMARY | 2022-04-10 14:20 | XMS_ITS | Encounter Summary ---
:1970 Author [facility] Address [address], [place] [address] Care Team Providers Name Role Phone Lisa Gonzalez APRN, CNP Primary Care Provider [phone] Encounter Details Date Type Department Care Team Description 01/19/2004 PN Conversion Only [address] [address] [place] [address] Social History Tobacco Use Types Packs/Day Years Used Date Smoking Tobacco: Never Assessed Sex Assigned at Date Recorded Not on file documented as of this encounter Plan of Treatment Not on filedocumented as of this encounter Visit Diagnoses Not on filedocumented in this encounter Care Teams Counter Dish Carrier Relationship Specialty Start Date End Date Lisa Gonzalez APRN, FLOOR MOLDER PCP - General 05/03/1998 11/02/13 [address] [place] [address] documented as of this encounter
--- OUTSIDE RECORDS SUMMARY | 2022-04-10 14:20 | XMS_ITS | Encounter Summary ---
:1970 Author Organization [email or web address] Address [address] [place] [address] Care Team Providers Name Role Phone Lisa Gonzalez APRN, CNP Primary Care Provider [phone] Encounter Details Date Type Department Care Team Description 02/23/2004 PN Conversion Only [facility] [address] [place] [address] Social History Tobacco Use Types Packs/Day Years Used Date Smoking Tobacco: Never Assessed Sex Assigned at Date Recorded Not on file documented as of this encounter Plan of Treatment Not on filedocumented as of this encounter Procedures Procedure Name Priority Date/Time Associated Diagnosis Comme nts US OB LIMITED Routine 02/23/2004 11:07 AM Results for this SINGLE CDT procedure are i n the results section. documented in this encounter Results US OB Limited (02/23/2004 11:07 AM CDT) Anatomical Region Laterality Modality Pelvis Other Specimen (Source) Anatomical Location Collection Method / Collectio n Time Received Time / Laterality Volume Narrative 02/23/2004 11:07 AM CDT HISTORY: Placental location and survey. Single living IUP in cephalic position. movement and cardiac activity were noted with the latter docu mented at a rate of 139 bpm. The amniotic fluid volume appearing norm al. Cervical length is measured at 3.3 up a maximum of 4.7 cm. Placenta is posterior in position and low lying being approximate ly 1.4 cm from the internal cervical os. The fetus with lying prone in position and facial profile is inadequate for assessment. Ne vertheless, the bowel loops do appear of somewhat greater echo genicity than typically seen. Significance of this findings is indeter minate but may be associated with various abnormalities including cys tic fibrosis, trisomy 21, viral infections, GI obstruction, etc. I would recommend a level 2 ultrasound in further evaluation. [id number] Dictating CAMRON JONES RADIOLOGIST Procedure Note Camron Ray - 07/18/2016Formatting o f this note might be different from the original. HISTORY: Placental location and caceres rvey. Single living IUP in cephalic position. movement and cardiac activity were noted with the latter docu mented at a rate of 139 bpm. The amniotic fluid volume appearing norm al. Cervical length is measured at 3.3 up a maximum of 4.7 cm. Placenta is posterior in position and low lying being approximate ly 1.4 cm from the internal cervical os. The fetus with lying prone in position and facial profile is inadequate for assessment. Ne vertheless, the bowel loops do appear of somewhat greater echo genicity than typically seen. Significance of this findings is indeter minate but may be associated with various abnormalities including cys tic fibrosis, trisomy 21, viral infections, GI obstruction, etc. I would recommend a level 2 ultrasound in further evaluation. [id number] Dictating CAMRON JONES RADIOLOGIST Janelle Jacobo MD [facility] documented in this encounter Visit Diagnoses Not on filedocumented in this encounter Care Teams Financial Consultant Relationship Specialty Start Date End Date Lisa Gonzalez, SHAREPOINT SPECIALIST, JAVASCRIPT FRONT END DEVELOPER PCP - General 05/03/1998 11/02/13 [address] [place] [address] documented as of this encounter
--- OUTSIDE RECORDS SUMMARY | 2022-04-10 14:20 | XMS_ITS | Encounter Summary ---
:1970 Author Organization [facility] Address [address] [place] [address] Care Team Providers Name Role Phone Lisa Gonzalez APRN, AMANDA Primary Care Provider [phone] Encounter Details Date Type Department Care Team Description 03/01/2004 PN Conversion Only [facility] Shanon Forrester [address] [place] [address] [place] [address] (Wo rk) Social History Tobacco Use Types Packs/Day Years Used Date Smoking Tobacco: Never Assessed Sex Assigned at Date Recorded Not on file documented as of this encounter Plan of Treatment Not on filedocumented as of this encounter Procedures Procedure Name Priority Date/Time Associated Comments Diagnosis LAB MISCELLANEOUS Routine 03/01/2004 3:28 PM Resu lts for this CDT procedure are i n the results section. FISH TRISOMY 13, 18, Routine 03/01/2004 3:28 PM R esults for this 21, AMNIOTIC FLUID CDT procedure are in the results section. AMNIOTIC FLUID Routine 03/01/2004 3:28 PM Results for this CHROMOSOMES CDT procedure are i n the results section. AMNIOTIC FLUID AFP Routine 03/01/2004 3:28 PM Res ults for this CDT procedure are i n the results section. documented in this encounter Results Amniotic Fluid AFP (03/01/2004 3:28 PM CDT) [facility] Method Time Signature Amniotic Fluid Footnote No normal HP CONVERSION AFP range Comment: Test Name ?Result ?Units ?Ref Range AFP, Amniotic ? 3.6 ? ug/mL MoM ? 1.0 ? MoM ? 0.0-1.9 Gestation Age ?23.4 ? Weeks AFP is normal for this gestational age. Comment: It should be noted that a normal value c annot be interpreted to mean that the fetus is free of any neural tube defect. The AFP assay excludes about 95% of all neural tube defects. Closed dysraphic states and small defects constitute the group where accurate exclusion is not possible. Ultrasound studies are recomme nded if they have not already been done. Testing performed by [facility], [place], [place]. Specimen (Source) Anatomical Collection Method Collection Time Re ceived Time Location / / Volume Laterality 03/01/2004 3:28 PM CDT Shanon Forrester MD LAB_1 Performing Organization Address City/[facility] Code Phon e Number HP CONVERSION Amniotic Fluid Chromosomes ANW (03/01/2004 3:28 PM CDT) [facility] Amniotic Fluid Footnote No normal HP CONVERSION Chromosome range Comment: Karyotype: 46, XY Interpretation: The sixteen cells analyzed from this amn iotic fluid specimen represent 15 centers/colonies that show an apparently normal male karyotype. Please note: ??This cytogenetic study is consistent with the results obtained from the previous fluorescent in situ hy bridization (FISH) study (see 03/07/2004 FISH report). Specimen (Source) Anatomical Collection Method Collection Time Re ceived Time Location / / Volume Laterality 03/01/2004 3:28 PM CDT Shanon Forrester MD LAB_1 Performing Organization Address City/[facility]/ZIP [facility] Phon e Number HP CONVERSION Fish Trisomy 13, 18, 21, Amniotic Fluid (03/01/2004 3:28 PM CDT) [facility] gist Method Time Signature FISH Trisomy Footnote No normal HP CONVERSION 13, 18, 21 range Comment: Karyotype: nuc benito ??Xcen(DXZ1x2), Ycen(SYZ3x1), 13 q14(RB1x2),18cen(C70L0h9), 21q22.13-q22.2([id number],D21S3 42x2) INTERPRETATION: FISH RESULTS: XY fetus with no statistic al evidence of trisomy for chromosomes 13,18 or 21. Fluorescent in situ hybridization (FISH) using alpha/cosmid molecular probes (AltheaDx) specific for chromosomes 13, 18, 21 and the X and Y chromosomes was performed on uncultured interphase cells from this amniotic fluid specimen. The percentage of analyzable interphase cells with two fluorescent signals was: 100% (50 cells/50 cells) for chromo some 13, ??94% (47 cells/50 cells) for chromosome 18, and 98% (49 cells/50 cell s) for chromosome 21. Fifty of the 50 analyzable interphase cells (100%) had o ne fluorescent signal for the X chromosome and one fluorescent signal fo r the Y chromosome. Thus, these FISH results suggest this specimen is from an XY fetus with no statistical evidence of trisomy for chromosomes 13, 18, and 2 1 [within the limits of the FISH technology utilized (German et al. 1994)] . ??Genetic counseling is indicated. This FDA approved test was developed by [employer]. and its performance characteristics determined by [employer]. Specimen (Source) Anatomical Collection Method Collection Time Re ceived Time Location / / Volume Laterality 03/01/2004 3:28 PM CDT Shanon Forrester MD LAB_1 Performing Organization Address City/State/ZIP Code Phon e Number HP CONVERSION Lab miscellaneous (03/01/2004 3:28 PM CDT) athologist Signature Result Sent Ref No normal HP CONVERSION range Comment: SOURCE: AMNIOTIC FLUID Test Name ? TOXOPLASMOSIS BY P CR AMNIOTIC FL Test Code ? 000 Performing Lab ?[facility] TEST CANCELLED AT [facility]. SPECIMEN NOT A CCEPTABLE. Specimen (Source) Anatomical Collection Method Collection Time Re ceived Time Location / / Volume Laterality 03/01/2004 3:28 PM CDT Shanon Forrester MD LAB_1 Performing Organization Address City/State/ZIP Code Phon e Number HP CONVERSION documented in this encounter Visit Diagnoses Not on filedocumented in this encounter Care Teams Credit Assistant Relationship Specialty Start Date End Date Lisa Gonzalez, CODE ENFORCEMENT OFFICER, PRESSURE DISPATCHER PCP - General 05/03/1998 11/02/13 [address] [place] [address] documented as of this encounter
--- OUTSIDE RECORDS SUMMARY | 2022-04-10 14:20 | XMS_ITS | Encounter Summary ---
:1970 Author Organization [facility] Address [address] [place] [address] Care Team Providers Name Role Phone Lisa Gonzalez APRN, CNP Primary Care Provider [phone] Encounter Details Date Type Department Care Team Description 02/28/2004 PN Conversion Only [place] [address] [place] [id number] [place] [address] (Wo rk) Social History Tobacco Use Types Packs/Day Years Used Date Smoking Tobacco: Never Assessed Sex Assigned at Date Recorded Not on file documented as of this encounter Plan of Treatment Not on filedocumented as of this encounter Procedures Procedure Name Priority Date/Time Associated Diagnosis Comme nts HEMOGLOBIN, BLOOD Routine 02/28/2004 11:11 AM Res ults for this CDT procedure are i n the results section. documented in this encounter Results (ABNORMAL) Hemoglobin, Blood (02/28/2004 11:11 AM CDT) P athologist Signature Hemoglobin 11.3 (L) 11.8 - 15.5 HP CONVERSION gm/dL Specimen (Source) Anatomical Collection Method Collection Time Re ceived Time Location / / Volume Laterality 02/28/2004 11:11 AM CDT Janelle Jacobo MD LAB_1 Performing Organization Address City/State/ZIP Code Phon e Number HP CONVERSION documented in this encounter Visit Diagnoses Not on filedocumented in this encounter Care Teams Viscosity Inspector Relationship Specialty Start Date End Date Lisa Gonzalez, TANIA, PLUMBING MECHANIC PCP - General 05/03/1998 11/02/13 [address] [place] [address] documented as of this encounter
--- OUTSIDE RECORDS SUMMARY | 2022-04-10 14:20 | XMS_ITS | Encounter Summary ---
:1970 Author Organization [facility] Address [address] [place] [address] Care Team Providers Name Role Phone Carlos Lisa Andrade APRN, AMANDA Primary Care Provider [phone] Encounter Details Date Type Department Care Team Description 03/01/2004 PN Conversion Only [facility] Janelle Jacobo, [address] [place] [address] [address] [place], [place] [address] (Wo rk) Social History Tobacco Use Types Packs/Day Years Used Date Smoking Tobacco: Never Assessed Sex Assigned at Date Recorded Not on file documented as of this encounter Plan of Treatment Not on filedocumented as of this encounter Procedures Procedure Name Priority Date/Time Associated Diagnosis Comme nts CYSTIC FIBROSIS Routine 03/01/2004 1:43 PM Result s for this MUTATION CDT procedure are i n the results section. documented in this encounter Results Cystic Fibrosis Mutation (03/01/2004 1:43 PM CDT) [facility] Method Time Signature Cystic See Note No normal HP CONVERSION Fibrosis Mut range Comment: SPECIMEN TYPE: ?BLDPER ETHNICITY: ? INDICATION: ? Carrier test/Screen ing RESULTS: ?NEGATIVE FOR THE 86 MUTATIONS ANALYZED. INTERPRETATION: ?? This individual's ris k to be a carrier is reduced from 1 (4%) to 1 (0.3%), based on these res ults, a negative family history and the absence of symptoms. Comments: Mutation detection rates among ethnic groups Detection rates are based on mutation fr equencies in patients affected with cystic fibrosis. ??Among individuals wit h an atypical or mild presentation (e.g. congenital absence of the vas defe rens, pancreatitis) detection rates may vary from those provided here: Ethnicity: Carrier risk reduction when no family hi story: 06/04 TO CF87 Detection rate: 92.6% References: ??STEPHANIE IN MED 3:[id number] i n conjunction with STEPHANIE IN MED 4:90, 2001 Ethnicity: Carrier risk reduction when no family hi story: TO CF87 Detection rate: 81% References: ??STEPHANIE IN MED 3:1682000 Ethnicity: Carrier risk reduction when no family hi story: TO CF87 Detection rate: 72% References: ??STEPHANIE IN MED 3:1682000 Ethnicity: Ashkenazi Sikhism Carrier risk reduction when no family hi story: 06/05 TO CF87 Detection rate: 97% References: ??AM J HUM STEPHANIE 51:951, 199 4 Ethnicity: Sikhism, NON-Ashkenazi Carrier risk reduction when no family hi story: CF87 Detection rate: ??Varies by country of origin References: ??STEPHANIE TESTING 5:47, 200, G ENET TESTING 1:351996 Ethnicity: Carrier risk reduction when no family hi story: CF87 Detection rate: Not provided References: ??Insufficient data Ethnicity: Other or mixed ethnicity Carrier risk reduction when no family hi story: CF87 Detection rate: Not provided References: ??Detection rate not determi stephen and varies with ethnicity This interpretation is based on the clin ical information provided and the current understanding of the molecular g enetics of this condition. Although DNA-based testing is highly accurate, ra re diagnostic errors may occur. Examples include misinterpretation becau se of genetic variants, blood transfusion, bone marrow transplantation , or erroneous representation of family relationships or contamination of a sample with maternal cells. See report for method and mutations anal yzed. Specimen (Source) Anatomical Collection Method Collection Time Re ceived Time Location / / Volume Laterality 03/01/2004 1:43 PM CDT Shanon Forrester MD LAB_1 Performing Organization Address City/State/ZIP Code Phon e Number HP CONVERSION documented in this encounter Visit Diagnoses Not on filedocumented in this encounter Care Teams Head And Neck Surgeon Relationship Specialty Start Date End Date Lisa Gonzalez APRN, INTERLOCKER MAINTAINER PCP - General 05/03/1998 11/02/13 [address] [place] [address] documented as of this encounter
--- OUTSIDE RECORDS SUMMARY | 2022-04-10 14:20 | XMS_ITS | Encounter Summary ---
:1970 [facility] Address [address] [place] [address] Care Team Providers Name Role Phone Carlos Lisa Andrade APRN, CNP Primary Care Provider [phone] Reason for Visit Reason Comments Other Encounter Details Date Type Department Care Team Description 01/24/2004 Telephone [facility] Raquel Hernandez Other [address] [place] [address] Social History Tobacco Use Types Packs/Day Years Used Date Smoking Tobacco: Never Assessed Sex Assigned at Date Recorded Not on file documented as of this encounter Progress Notes Raquel Mcmahan - 01/24/2004 8:26 PM CDT Phone Note filed by Raquel Mcmahan RN at 08/26/10 4461 Author: Raquel Mcmahan RN Service: (none) Author Type: Registered Nurse Filed: 08/26/10 1415 Note Time: 01/24/042025 Status: Signed Drilling Field Specialist: Raquel Mcmahan RN (Registered Nurse) Patient 19 weeks . Being followed by at this time. Intermittent cramping started yesterday,having more cramping with this . States the cramping continues more to left side. Had ultra sound done today. States techinican had to put probe inside. No discharge. Recommended patient lie down with feet up for at leat 1/2 hour. If sx continue,call back and we'll decide who needs to address sx. Created on 24Jan2004 8:26pm by RAQUEL MCMAHAN documented in this encounter Plan of Treatment Not on filedocumented as of this encounter Visit Diagnoses Not on filedocumented in this encounter Care Teams Russian Language Professor Relationship Specialty Start Date End Date Lisa Gonzalez APRN, NETBACKUP ENGINEER PCP - General 05/03/1998 11/02/13 [address] [place] [address] documented as of this encounter
--- OUTSIDE RECORDS SUMMARY | 2022-04-10 14:20 | XMS_ITS | Encounter Summary ---
:1970 Author [facility] Address [address] [place] [address] Care Team Providers Name Role Phone Lisa Gonzalez Raymond MARIN CNP Primary Care Provider [phone] Encounter Details Date Type Department Care Team Description 01/23/2004 Routine [facility] Lisebt Jacobo sa, MD [place] [id number] [place] [id number] [phone] Social History Tobacco Use Types Packs/Day Years Used Date Smoking Tobacco: Never Assessed Sex Assigned at Date Recorded Not on file documented as of this encounter Progress Notes Janelle Jacobo - 01/23/2004 12:01 AM CDT Progress Notes signed by at 01/26/04 0917 Author: Janelle Cota MD Service: (none) Author Type: (none) Filed: 08/30/10 0125 Note Time: 01/23/04 0001 Status: Signed Locomotive Operator Helper: Fide Conversion NAME: POLLY CASE MR: [id number] ACCT: [id number] VISIT: [id number] DICTATING CLINICIAN: JANELLE COTA MD JOB: [id number] CLINIC PROGRESS NOTE DATE OF VISIT: 01/23/2004 Corrected copy: 01/26/04 kevin SUBJECTIVE: : 1970. Polly presents to clinic today for a routine OB check. She is 17 plus 6 weeks gestational age today. She denies any major problems. Feels that she is showing a lot more and does not know if this is because she has had three previous pregnancies or if possibly it could represent twin . She has gained five pounds since her last visit here about a month ago. She denies any other problems. The nausea and vomiting have resolved. She at times will notice some trace edema in her lower extremities, especially after being on her feet a lot but this has been mild. Denies any other concerns. Of note: She is Rh negative and does tend toward large babies. She will be due for her first RhoGAM at 24 weeks. The patient has noticed movement of the baby and noticed this about a week and a half ago. OBJECTIVE: VS: BP: 132/62. Wt: 135 lb. In general, she is pleasant. Appears to be in no acute distress. Fundal height is 17-1/2 cm. heart tones 140's. Deep tendon reflexes are 2+ and symmetric. Lower extremities show just trace edema. Of note: While using the Doppler for heart tones, there was a period of time when the heart sounds were somewhat irregular, almost sounding like two heart sounds superimposed. ASSESSMENT: Intrauterine 17 weeks plus 6 weeks gestational age. This is a healthy . PLAN: heart sounds today somewhat suggestive of possible twin although this is unlikely. Will, however, proceed with OB ultrasound, which has been scheduled for 01/23 at 11:15 to rule out twin and also for survey. Recommend RhoGAM at 24 weeks. Also a visit with LABEL FUSER TENDER at 24 weeks and then again at 36 or 37 weeks. She will then need RhoGAM after delivery as well. Also recommend diabetes screen at about 24 weeks as well. Patient defers triple screen. LCM:[id number] C: 01/26/04 08:44 DOCUMENT: [id number] documented in this encounter Plan of Treatment Not on filedocumented as of this encounter Visit Diagnoses Not on filedocumented in this encounter Care Teams Filter Press Supervisor Relationship Specialty Start Date End Date Lisa Gonzalez, MEETING PLANNER, PRODUCTION CONTROL EXPEDITER PCP - General 05/03/1998 11/02/13 [address] [place] [address] documented as of this encounter
--- OUTSIDE RECORDS SUMMARY | 2022-04-10 14:20 | XMS_ITS | Encounter Summary ---
:1970 [facility] Address [address] [place] [address] Care Team Providers Name Role Phone Lisa Gonzalez APRN, CNP Primary Care Provider [phone] Encounter Details Date Type Department Care Team Description 03/01/2004 Procedure Visit [facility] Paloma Forrester, Maternal Medic ine [address] [facility] [address] [place] [address] [phone] (Wo rk) Social History Tobacco Use Types Packs/Day Years Used Date Smoking Tobacco: Never Assessed Sex Assigned at Date Recorded Not on file documented as of this encounter Plan of Treatment Not on filedocumented as of this encounter Visit Diagnoses Not on filedocumented in this encounter Care Teams Operating Theatre Technician Relationship Specialty Start Date End Date Lisa Gonzalez APRN, CNP PCP - General 05/03/1998 11/02/13 [address] [place] [address] documented as of this encounter
--- OUTSIDE RECORDS SUMMARY | 2022-04-10 14:20 | XMS_ITS | Encounter Summary ---
:1970 Author [facility] Address [address], [place] [address] Care Team Providers Name Role Phone Lisa Gonzalez Raymond MARIN CNP Primary Care Provider [phone] Reason for Visit Reason Comments Other Encounter Details Date Type Department Care Team Description 02/29/2004 Telephone [facility] Janelle Barajas MD Other [address] [address] [place] [address] [place] [address] [phone] (Wo rk) Social History Tobacco Use Types Packs/Day Years Used Date Smoking Tobacco: Never Assessed Sex Assigned at Date Recorded Not on file documented as of this encounter Progress Notes Pat Thompson - 02/29/2004 3:53 PM CDT Phone Note filed by Pat Thompson RN at 08/26/10 8839 Author: Pat Thompson RN Service: (none) Author Type: Registered Nurse Filed: 08/26/10 8991 Note Time: 02/29/04 8809 Status: Signed Cigar Roller: Pat Thompson RN (Registered Nurse) Polly is calling with the name of the Rhogam she would like to receive. This is her 4th and she is Rh-neg. She went on the internet and the name of this Rhogam is: [employer] (Nadi).Her phone number is:[phone], if you need to talk to her. Created on 29Feb2004 3:53pm by PAT THOMPSON On 01Mar2004 8:18am LAURIE PUENTES wrote: The name of the Rhogam that FP and OB is BayRho-D. Is there a difference? On 01Mar2004 9:01am LAURIE PUENTES wrote: Pt was notified that we do not carry the specific Rhogam that she requested. She states that she is ok using the Rhogam that our clinic uses. Acknowledged by JANELLE COTA on 11:25am documented in this encounter Plan of Treatment Not on filedocumented as of this encounter Visit Diagnoses Not on filedocumented in this encounter Care Teams Toll Line Mechanic Relationship Specialty Start Date End Date Lisa Gonzalez APRN, CHARTER REPRESENTATIVE PCP - General 05/03/1998 11/02/13 [address] [place] [address] documented as of this encounter
--- OUTSIDE RECORDS SUMMARY | 2022-04-10 14:20 | XMS_ITS | Encounter Summary ---
:1970 Author Organization [facility] Address [address] [place] [address] Care Team Providers Name Role Phone Lisa Gonzalez APRN, CNP Primary Care Provider [phone] Encounter Details Date Type Department Care Team Description 03/01/2004 Office Visit Specialty [facility] 393 Pedro Mcallister CGC Maternal Medic ine [address] [facility] [address] [place] [address] [place] [address] [phone] Social History Tobacco Use Types Packs/Day Years Used Date Smoking Tobacco: Never Assessed Sex Assigned at Date Recorded Not on file documented as of this encounter Progress Notes Reina Watts CGC - 03/01/2004 12:01 AM CDT Progress Notes signed by Shanon Forrester MD at 03/18/04 0945 Author: Reina Watts CGC Service: (none) Author Type: Counselor Filed: 08/30/10 0209 Note Time: 03/01/04 0001 Status: Signed Gardening Instructor: Reina Watts CGC (Counselor) NAME: POLLY CASE MR: [id number] ACCT: [id number] VISIT: [id number] DICTATING CLINICIAN: REINA WATTS JOB: [id number] CLINIC PROGRESS NOTE DATE OF VISIT: 03/01/2004 SUBJECTIVE: Dictation under Dr. Iman Forrester. : 1970. DIAGNOSIS: Genetic counseling to discuss ultrasound findings. I met with Polly Case and her , John, on 03/01/04 at the [facility]. She was seen for genetic counseling to discuss ultrasound finding of echogenic bowel. In addition, we reviewed her age-related risks for chromosome abnormality. Polly is G4, P3, with an CHUCK of 06/24/04, based on LMP of 09/16/03. The baseline risks of defects (3-4%) and mental retardation (2-3%) was reviewed. The main area of increased concern is ultrasound finding of echogenic bowel and her maternal age of 33 at delivery. At 33 years of age at delivery, Polly's chance of having a child with Down syndrome is 1:385, and her risk for having a child with any nondisjunction chromosome abnormality is 1:200. I explained this risk to include trisomies 13, 18, 21, and those related to the sex chromosomes. I discussed chromosomes and chromosome abnormalities in detail. I also discussed neural tube defects as being a common defect unrelated to maternal age. 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 This finding was confirmed by Dr. Forrester at today's ultrasound dated 03/01/04. I explained that echogenic bowel can be a normal variant. It is also associated with an increased risk for chromosome abnormalities, cystic fibrosis, and infection (including CMV and toxoplasmosis). The risks for chromosome abnormalities is significantly increased in the presence of additional ultrasound anomalies. It was noted that the remainder of the ultrasound today was within normal limits. Maternal serum screening was not previously performed in this and was not discussed today due to advanced gestational age. Genes and chromosomes were distinguished. I illustrated meiosis, nondisjunction, normal and trisomy karyotypes. A level II ultrasound as a screening tool for chromosome abnormalities was reviewed. Approximately half of babies with Down syndrome and most babies with trisomies 13 and 18 have distinctive features noted on ultrasound at this time in the . Babies with sex chromosome trisomies are unlikely to have distinctive features noted on ultrasound. I explained that the amniocentesis can diagnose or exclude a chromosome abnormality. It detects greater than 99% of chromosome problems. The risk of miscarriage secondary to the procedure was explained to be 0.5% above her baseline risk. There is also the minimal risk of injury, leakage, and infection. Results of the amnio take 10 to 14 days. Fluorescent in situ hybridization (FISH) probes can be ordered to give preliminary information related to chromosomes 13, 18, 21, and the sex chromosomes, available in 24 to 48 hours. We discussed options should the baby be affected. As the patient is currently 24 weeks, options are limited. She was made aware of the benefits of having information from the testing including preparation, reassurance, and management decisions. Following our discussion, Polly elected to proceed with amniocentesis. In addition, FISH testing was ordered for preliminary information in a rapid turnaround time. We will contact her as soon as results are available. I obtained a family history at the time of our meeting. Please refer to the pedigree obtained 03/01/04. Polly's John, as well as two of their children, have asthma. Additionally, John's brother and his children are also known to be affected. Allergic conditions, such as asthma, are very heterogenous and greatly influenced by environmental factors. Although it is known that asthma can be familial, recurrence risks have not been firmly established. Some studies have suggested that the risk may be as high as 15% when one parent is affected. Polly is of half Greek, half Northern Irish[place] descent. John is of Urdu (non-Temple) and Bengali-Turkish descent. I explained that cystic fibrosis is a common genetic condition that couples are normally at 1:2500 risk of having a child with. Because of the ultrasound finding of echogenic bowel this risk is increased. Polly had her blood drawn today to see if she is a carrier of CF. John declined CF blood draw and they decline concurrent testing. If both parents are found to be carriers there is a 1:4 chance that a would be affected. diagnosis is available through the amniocentesis and cells will be set aside for the possibility of this testing. We also briefly discussed Jey-Sachs screening due to Polly's Temple heritage. She declines this testing. Due to Polly's partial Greek heritage, we discussed increased risk for hemoglobin disorders including thalassemia, again as John does not have a high-risk ethnicity, Polly declines hemoglobin screening as well. All questions were answered. Please see letter dictated 03/06/04. Total time spent with patient was 40 minutes, counseling time 40 minutes. OBJECTIVE: N/A ASSESSMENT: Genetic counseling due to ultrasound finding of echogenic bowel and AMA. PLAN: 1. Amniocentesis performed. The clinic will contact patient with results. 2. Patient had blood draw for cystic fibrosis DNA carrier test, we will contact patient with results. 3. CMV, toxo and parvo testing ordered on amniotic fluid, we will contact patient with results. JLF:[id number] C: 03/05/04 21:20 DOCUMENT: [id number] documented in this encounter Plan of Treatment Not on filedocumented as of this encounter Visit Diagnoses Not on filedocumented in this encounter Care Teams Installment Dealer Relationship Specialty Start Date End Date Lisa Gonzalez APRN, HOT ROLL INSPECTOR PCP - General 05/03/1998 11/02/13 [address] [place] [address] documented as of this encounter
--- OUTSIDE RECORDS SUMMARY | 2022-04-10 14:20 | XMS_ITS | Encounter Summary ---
:1970 [facility] Address [address] [place] [address] Care Team Providers Name Role Phone Lisa Gonzalez Raymond MARIN CNP Primary Care Provider [phone] Encounter Details Date Type Department Care Team Description 02/28/2004 Routine [facility] Lisbet Jacobo sa, MD [place] [id number] [place] [id number] [phone] Social History Tobacco Use Types Packs/Day Years Used Date Smoking Tobacco: Never Assessed Sex Assigned at Date Recorded Not on file documented as of this encounter Progress Notes Janelle Jacobo - 02/28/2004 12:01 AM CDT Progress Notes signed by at 03/05/04 1440 Author: Janelle Cota MD Service: (none) Author Type: (none) Filed: 08/30/10 0206 Note Time: 02/28/04 0001 Status: Signed Client Development Consultant: Fide Conversion NAME: POLLY CASE MR: [id number] ACCT: [id number] VISIT: [id number] DICTATING CLINICIAN: JANELLE COTA MD JOB: [id number] CLINIC PROGRESS NOTE DATE OF VISIT: 02/28/2004 SUBJECTIVE: : 1970. Polly is currently 23+2 weeks gestational age. She comes to clinic today for an OB check. She has been doing well. She has no particular complaints. However, recently ultrasound was done to check position of the placenta and there was some increased echogenicity of the bowel noted. Level 2 ultrasound is recommended. The placenta is now low lying, not lyndon placenta previa. She denies any lower extremity edema, denies any vaginal bleeding or further concerns. Is feeling the baby move quite a bit. She will be due for her RhoGAM as she is Rh negative at 28 weeks. She would prefer to get the most purified form of RhoGAM. This is what she has received in prior pregnancies. No other concerns today. MEDICATIONS: Reviewed, please see Last Word. ADR/ALLERGIES: REVIEWED, PLEASE SEE LAST WORD. OBJECTIVE: VS: BP: 110/60. Wt: 142 lb which is up 12 lb from her initial exam. GENERAL: She is pleasant, in no acute distress. HEENT: Sclerae are clear. Conjunctivae not injected. Mucous membranes are moist. Deep tendon reflexes are 2+ and symmetric. Lower extremities are without edema. Fundal height is 24 cm. presentation appears to be cephalic. heart tones in the 140's. ASSESSMENT: 1. Intrauterine at 23+2 weeks gestational age in a 4, para 3. Will check a hemoglobin today. Recommend she get scheduled for visit with PARTS ADMINISTRATOR as soon as possible as she should have had an appointment there a couple of weeks ago. We will administer RhoGAM at 28 weeks. Will try to find the formula that she is requesting which apparently is a highly purified product. Recommend glucose tolerance test in two weeks. Follow up with me one month after seeing PARTS ADMINISTRATOR or prior to 28 weeks as she will need her RhoGAM. 2. Abnormal OB ultrasound with increased echogenicity of the bowel. Recommend level 2 ultrasound, this will be scheduled in the next few days. Further plan based on that result. Patient was reassured today. PLAN: See Assessment. KATHEM:[id number] C: 03/02/04 23:41 DOCUMENT: [id number] documented in this encounter Plan of Treatment Not on filedocumented as of this encounter Visit Diagnoses Not on filedocumented in this encounter Care Teams Verify Rep Relationship Specialty Start Date End Date Lisa Gonzalez APRN, SKEIN WINDER PCP - General 05/03/1998 11/02/13 [address] [place] [address] documented as of this encounter
--- OUTSIDE RECORDS SUMMARY | 2022-04-10 14:20 | XMS_ITS | Encounter Summary ---
:1970 Author Organization [facility] Address [address] [place] [address] Care Team Providers Name Role Phone Lisa Gonzalez APRN, CNP Primary Care Provider [phone] Encounter Details Date Type Department Care Team Description 01/24/2004 PN Conversion Only [facility] [address] [place] [address] Social History Tobacco Use Types Packs/Day Years Used Date Smoking Tobacco: Never Assessed Sex Assigned at Date Recorded Not on file documented as of this encounter Plan of Treatment Not on filedocumented as of this encounter Procedures Procedure Name Priority Date/Time Associated Diagnosis Comme nts US OB >/= 14 WEEKS Routine 01/24/2004 11:58 AM Re sults for this 0 DAYS, SINGLE CDT procedure are in FETUS the results section. documented in this encounter Results US OB >/= 14 Weeks 0 Days, Single Fetus (01/24/2004 11:58 AM CDT) Anatomical Region Laterality Modality Pelvis Other Specimen (Source) Anatomical Location Collection Method / Collectio n Time Received Time / Laterality Volume Narrative 01/24/2004 11:58 AM CDT A single fetus is present in transverse lie with placenta posterior and low with marginal placenta previa as the placenta lies within approximately 2 mm of the internal os. ? ?The cervix ??measures 3.2 cm lengthwise. ??Composite gestational age of the fetus is 19 weeks with ultrasonic measurements congruent. ??Femur length is 2.9 cm with biparietal diameter at 4.1 cm. ??Head ci rcumference is 15.9 cm and the abdominal circumference is 14.1 cm. ??No gross congenital anomalies seen but the facial profile is not ideally seen. ??There does appear to be some echogenicity of the vida wel in the lower abdomen which is of questionable significance. ? ?Suggest followup study to include the facial profile, a reex amination of the bowel, as well as a reexamination of the locati on of the placenta in approximately 3-4 weeks. [id number] Dictating NESTOR LEIGH MD Procedure Note Nestor Menendez - 07/18/2016 A single fetus is present in transverse lie with placenta posterior and low with marginal placenta previa as the placenta lies within approximately 2 mm of the internal os. T he cervix measures 3.2 cm lengthwise. Composite gestational age of the fetus is 19 weeks with ultrasonic measurements congruent. Femur length is 2.9 cm with biparietal diameter at 4.1 cm. Head circ umference is 15.9 cm and the abdominal circumference is 14.1 cm. No g ross congenital anomalies seen but the facial profile is not ideally seen. There does appear to be some echogenicity of the vida wel in the lower abdomen which is of questionable significance. S uggest followup study to include the facial profile, a reex amination of the bowel, as well as a reexamination of the locati on of the placenta in approximately 3-4 weeks. [id number] Dictating NESTOR LEIGH MD Janelle Jacobo MD [facility] documented in this encounter Visit Diagnoses Not on filedocumented in this encounter Care Teams Customer Acquisition Specialist Relationship Specialty Start Date End Date Lisa Gonzalez, MECHANIC MARINE ENGINE, SPA DIRECTOR/FINANCE PCP - General 05/03/1998 11/02/13 [address] [place] [address] documented as of this encounter
--- OUTSIDE RECORDS SUMMARY | 2022-04-10 14:20 | XMS_ITS | Encounter Summary ---
:1970 [facility] Address [address] [place] [address] Care Team Providers Name Role Phone Lisa Gonzalez APRN, CNP Primary Care Provider [phone] Encounter Details Date Type Department Care Team Description 03/05/2004 Routine [facility] Obstetric[place] [address] [facility] [address] [place] [address] [place] [address] (Wo rk) Social History Tobacco Use Types Packs/Day Years Used Date Smoking Tobacco: Never Assessed Sex Assigned at Date Recorded Not on file documented as of this encounter Plan of Treatment Not on filedocumented as of this encounter Visit Diagnoses Not on filedocumented in this encounter Care Teams Resident Hall Director Relationship Specialty Start Date End Date Lisa Gonzalez APRN, CNP PCP - General 05/03/1998 11/02/13 [address] [place] [address] documented as of this encounter
--- OUTSIDE RECORDS SUMMARY | 2022-04-10 14:21 | XMS_ITS | Encounter Summary ---
:1970 [facility] Address [address] [place] [address] Care Team Providers Name Role Phone Lisa Gonzalez Raymond MARIN, AMANDA Primary Care Provider [phone] Encounter Details Date Type Department Care Team Description 12/13/2003 Initial [facility] Lisbet Jacobo sa, MD [place] [id number] [place] [id number] [phone] Social History Tobacco Use Types Packs/Day Years Used Date Smoking Tobacco: Never Assessed Sex Assigned at Date Recorded Not on file documented as of this encounter Progress Notes Janelle Jacobo - 12/13/2003 12:01 AM CDT H&P signed by at 12/14/03 1314 Author: Janelle Cota MD Service: (none) Author Type: (none) Filed: 08/30/10 0045 Note Time: 12/13/03 0001 Status: Signed Mail Room Clerk: Fide Conversion NAME: POLLY CASE MR: [id number] ACCT: [id number] VISIT: [id number] DICTATING CLINICIAN: JANELLE COTA MD JOB: [id number] CLINIC PHYSICAL DATE OF VISIT: 12/13/2003 SUBJECTIVE: : 1970. Polly presents to clinic today for her first OB visit. She has obtained at least two tests at home which were positive. Last menstrual period was 09/16/03. test was positive on 10/27/03. This would put her at 12+4 weeks gestational age. This is her fourth . She is quite sure of her last menstrual period. Her menses prior to were regular every 28 days. Her prior pregnancies were all fairly normal. However, she did have rather large babies; first baby was 9 pounds, 6 ounces; second 10 pounds, 1 ounce; and last baby was 8 pounds, 15 ounces. She did require induction of deliveries with all three. Otherwise no other complications. No history of gestational diabetes, etc. She is Rh negative, and therefore will require RhoGAM at 28 weeks, and then after delivery. FAMILY HISTORY: Notable for twins, both on her side and her 's side. The patient herself is a twin. Mother has a history of breast cancer. Father has a history of high blood pressure. Otherwise notable for allergies. Genetic screening is positive only for maternal age greater than 35 years old; patient is currently 33 years old with birthday 1970. PAST MEDICAL HISTORY: Unremarkable. ADR/ALLERGIES: SHE DOES HAVE ALLERGIES TO IODINE, PENICILLIN, AND SOME INTOLERANCE TO CONTROL PILLS. Symptoms since her last menstrual period include some suprapubic crampiness. Otherwise none. She is currently taking just a regular multivitamin. Not vitamins. Her nausea and vomiting have completely resolved. SOCIAL HISTORY: The patient denies any use of caffeine or tobacco. Denies alcohol or other drug use. She is not exposed to secondhand smoke. She is a hbvo-mr-gdzp mom, . OBJECTIVE: VS: BP: 122/62. Ht: 5 foot 7-1/2 inches. Wt: 130 pounds. GENERAL: She is a very pleasant, healthy appearing woman in no acute distress. HEENT: Sclerae are clear. Conjunctivae not injected. Mucous membranes are moist. NECK: Negative for thyromegaly. ABDOMEN: Gravid, soft and nontender. EXTREMITIES: Lower extremities are without edema. Deep tendon reflexes are 2+ and symmetric. No further exam was performed today as patient was just seen for a full physical exam in 08/2003. Please refer to that dictation. That exam was normal, as well as her labs, including a Pap smear. heart tones: 150. ASSESSMENT: 1. Intrauterine at approximately 12+4 weeks gestational age. Patient is 4 para 3 and Rh negative. No other risk factors are identified. We will send her down to the lab for labs. She is low-risk for sexually transmitted diseases or HIV, and does decline that testing today. We discussed having triple screen done at 18 weeks. She thinks that she will decline that but will think about it and let me know next visit. She will require RhoGAM at 28 weeks and then again after delivery. We did a lot of education today, discussed anesthesia. She prefers Nubain. She plans to breast and bottle feed. Advised that she start vitamins rather than a regular multivitamin. Recommended followup with me in one month. She understands that she will need to see Freelance Graphic Designer at 24 weeks, then again at 36 weeks, and that they will be doing her delivery. She is comfortable with that and wants to deliver at [facility]. She will see me, however, for the remainder of her care. PLAN: See assessment. LCM:[id number] C: 12/14/03 12:07 DOCUMENT: [id number] documented in this encounter Plan of Treatment Not on filedocumented as of this encounter Visit Diagnoses Not on filedocumented in this encounter Care Teams Actuary Relationship Specialty Start Date End Date Lisa Gonzalez APRN, CONCRETE BUCKET LOADER PCP - General 05/03/1998 11/02/13 [address] [place] [address] documented as of this encounter
--- OUTSIDE RECORDS SUMMARY | 2022-04-10 14:21 | XMS_ITS | Encounter Summary ---
:[address] [facility] Address [address] [place] [address] Care Team Providers Name Role Phone Lisa Gonzalez APRN, CNP Primary Care Provider [phone] Encounter Details Date Type Department Care Team Description 11/15/2003 Correspondence None Unknown, Physici an PARPI to [facility] [address], [place] [address] (Wo rk) Social History Tobacco Use Types Packs/Day Years Used Date Smoking Tobacco: Never Assessed Sex Assigned at Date Recorded Not on file documented as of this encounter Progress Notes Unknown, Physician - 11/15/2003 12:00 AM CDT documented in this encounter Plan of Treatment Not on filedocumented as of this encounter Visit Diagnoses Not on filedocumented in this encounter Care Teams Cinema Operator Relationship Specialty Start Date End Date Lisa Gonzalez APRN, CNP PCP - General 05/03/1998 11/02/13 [address] [place] [address] documented as of this encounter
--- OUTSIDE RECORDS SUMMARY | 2022-04-10 14:21 | XMS_ITS | Encounter Summary ---
:1970 Author Organization [facility] Address [address] [place] [address] Care Team Providers Name Role Phone Lisa Gonzalez Raymond MARIN, AMANDA Primary Care Provider [phone] Encounter Details Date Type Department Care Team Description 08/24/2003 PN Conversion Only [place] [address] [facility] [address] [place] [address] (Wo rk) Social History Tobacco Use Types Packs/Day Years Used Date Smoking Tobacco: Never Assessed Sex Assigned at Date Recorded Not on file documented as of this encounter Plan of Treatment Not on filedocumented as of this encounter Procedures Procedure Name Priority Date/Time Associated Comments Diagnosis ANATOMICAL PATH Routine 08/24/2003 9:33 AM Result s for this LIQUID BASED CDT procedure are i n the results section. documented in this encounter Results Pap Smear (08/24/2003 9:33 AM CDT) [facility] Method Time Signature PAP Smear SEE TEXT No normal HP CONVERSION Liquid Based range Comment: Patient: POLLY CASE ? CERVICAL CYTOLOGY REPORT Pathology # ??[id number] ?Date Obtained: ? Date Received: CYTOLOGIC IMPRESSION: Negative for intraepithelial lesion or m alignancy. ? KEARA TIONAL DATA LMP: ?08-19-03 CLINICAL HIST LIQUID BASED PAP CERVICAL SPECIMEN ADEQUACY: ?? Satisfactory. ENDOCERVICAL CELLS: ??Present. Verified 09/01/03 by: ??MB ? (electronic signature) Specimen (Source) Anatomical Collection Method Collection Time Re ceived Time Location / / Volume Laterality 08/24/2003 9:33 AM CDT Janelle Jacobo MD LAB_1 Performing Organization Address City/State/ZIP Code Phon e Number HP CONVERSION documented in this encounter Visit Diagnoses Not on filedocumented in this encounter Care Teams Information Technology Professor Relationship Specialty Start Date End Date Lisa Gonzalez, FARM OR RANCH ANIMAL CARETAKER, PETROLEUM ENGINEER PCP - General 05/03/1998 11/02/13 [address] [place] [address] documented as of this encounter
--- OUTSIDE RECORDS SUMMARY | 2022-04-10 14:21 | XMS_ITS | Encounter Summary ---
:1970 Author Organization [facility] Address [address] [place] [address] Care Team Providers Name Role Phone GonzalezLisa Raymond MARIN CNP Primary Care Provider [phone] Encounter Details Date Type Department Care Team Description 02/03/2003 PN Conversion Only [facility] Dwayne Peterson MD [facility] [address] [place] [address] [place], [place] [phone] (Wo rk) Social History Tobacco Use Types Packs/Day Years Used Date Smoking Tobacco: Never Assessed Sex Assigned at Date Recorded Not on file documented as of this encounter Progress Notes Ranjan Peterson MD - 02/03/2003 12:01 AM CDT Progress Notes signed by Ranjan Peterson MD at 04/18/032057 Author: Dwayne Peterson MD Service: (none) Author Type: Physician Filed: 08/29/10 1712 Note Time: 02/03/03 0001 Status: Signed Convolute Tube Winder: Dwayne Peterson MD (Physician) NAME: POLLY CASE MR: [id number] ACCT: [id number] VISIT: [id number] DICTATING CLINICIAN: RANJAN PETERSON MD JOB: [id number] CLINIC PROGRESS NOTE DATE OF VISIT: 02/03/2003 SUBJECTIVE: : 1970 The patient is a 32-year-old female who presents to clinic for concern about hepatitis B vaccine. 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 One of the kids was bleeding and she was exposed to the blood, but she said that she never had any cuts or anything like that, but she is concerned about future contact with other same events. She would like to have a hepatitis B vaccine. Otherwise, she has never had a hepatitis A or hepatitis B exposure in the past. Also, she never had a vaccine either. Also, she had a concern about asthma and wheezing. Her son and her were treated for asthma, and she does not have any symptoms of tightness of the chest or coughing, but she does hear herself wheezing on inspiration, not expiration. She was concerned about the possibility of asthma and wanted to have that checked. PAST MEDICAL HISTORY: Healthy. MEDS: None. ADR/ALLERGIES: IODINE, PENICILLIN. SOCIAL HISTORY: Nonsmoker. OBJECTIVE: VS: BP: 108/70. P: 62. Wt: 127.9. HEENT: Pupils equal and reactive to light. NECK: Supple. No JVP. No bruits. LUNGS: Clear to auscultation. The fourth expiration does not have any high pitched sounds. No wheezing. CARDIOVASCULAR: S1, S2. No murmur. No gallops. No rubs. ASSESSMENT: 1. Hepatitis B vaccine with blood exposure. 2. Concern about asthma. PLAN: Reassured Polly that I did not hear any wheezing and she does not have any symptoms of asthma. I suggested at this point probably continue to watch. The patient is going to schedule for hepatitis B. Follow as needed. TT: CT: [id number] C: 02/04/03 20:29 DOCUMENT: [id number] GER BUSINESS PLANNING documented in this encounter Plan of Treatment Not on filedocumented as of this encounter Visit Diagnoses Not on filedocumented in this encounter Care Teams Cement Truck Driver Relationship Specialty Start Date End Date Lisa Gonzalez, MANAGER PROVIDER RELATIONS, UTILITY INSPECTOR PCP - General 05/03/1998 11/02/13 [address] [place] [address] documented as of this encounter
--- OUTSIDE RECORDS SUMMARY | 2022-04-10 14:21 | XMS_ITS | Encounter Summary ---
:1970 Author Organization [facility] Address [address] [place] [address] Care Team Providers Name Role Phone Lisa Gonzalez APRN, CNP Primary Care Provider [phone] Encounter Details Date Type Department Care Team Description 12/23/2002 Correspondence None Unknown, Physici an [facility] [address] [place] [address] (Wo rk) Social History Tobacco Use Types Packs/Day Years Used Date Smoking Tobacco: Never Assessed Sex Assigned at Date Recorded Not on file documented as of this encounter Progress Notes Unknown, Physician - 12/23/2002 12:00 AM CDT documented in this encounter Plan of Treatment Not on filedocumented as of this encounter Visit Diagnoses Not on filedocumented in this encounter Care Teams Heavy Antiarmor Weapons Infantryman Relationship Specialty Start Date End Date Lisa Gonzalez APRN, CNP PCP - General 05/03/1998 11/02/13 [address] [place] [address] documented as of this encounter
--- OUTSIDE RECORDS SUMMARY | 2022-04-10 14:21 | XMS_ITS | Encounter Summary ---
:1970 Author Organization [facility] Address [address] [place] [address] Care Team Providers Name Role Phone Lisa Gonzalez APRN, CNP Primary Care Provider [phone] Reason for Visit Reason Comments Other Encounter Details Date Type Department Care Team Description 11/30/2003 Telephone [facility] Ibeth Llamas Other [address] [place] [address] Social History Tobacco Use Types Packs/Day Years Used Date Smoking Tobacco: Never Assessed Sex Assigned at Date Recorded Not on file documented as of this encounter Progress Notes Ibeth Murillo - 11/30/2003 2:51 PM CDT Phone Note filed by Ibeth Murillo RN at 08/26/10 9865 Author: Ibeth Murillo RN Service: (none) Author Type: (none) Filed: 08/26/10 1349 Note Time: 11/30/03 1451 Status: Signed Engineering Technology Instructor: Fied Quintero Pt calling and she is by positive home test. Her LMP was 09/16/03 with a EDC of 06/22/04. She is already taking a multi Vit which has 400mcg of Folic Acid. She is new to our OB dept [facility] She is now over 10 wks along and our first opening for NOB is 12/29/03 and she wishes not to go to [place]. She would like to see Dr. Lorenzo in FP for her first visit and then switch up to CYBER ENGINEER. Transferred to scheduling to make appt. Created on 30Nov2003 2:51pm by IBETH MURILLO documented in this encounter Plan of Treatment Not on filedocumented as of this encounter Visit Diagnoses Not on filedocumented in this encounter Care Teams Snipper Relationship Specialty Start Date End Date Lisa Gonzalez APRN, LINKER UP PCP - General 05/03/1998 11/02/13 [address] [place] [address] documented as of this encounter
--- OUTSIDE RECORDS SUMMARY | 2022-04-10 14:21 | XMS_ITS | Encounter Summary ---
:1970 Author Organization [facility] Address [address], [place] [address] Care Team Providers Name Role Phone Lisa Gonzalez Raymond MARIN CNP Primary Care Provider [phone] Encounter Details Date Type Department Care Team Description 08/30/2003 PN Conversion Only [place] [address] [place] [address] (Wo rk) Social History Tobacco Use Types Packs/Day Years Used Date Smoking Tobacco: Never Assessed Sex Assigned at Date Recorded Not on file documented as of this encounter Plan of Treatment Not on filedocumented as of this encounter Procedures Procedure Name Priority Date/Time Associated Diagnosis Comme nts LIPID PANEL AND Routine 08/30/2003 9:38 AM Result s for this DIRECT LDL(IF CDT procedure are in NEEDED) the results section. documented in this encounter Results (ABNORMAL) Lipid Panel and Direct LDL(If Needed) (08/30/2003 9:38 AM CDT) [facility] gist Method Time Signature Length Of Fast 14.0 Hours HP CONVERSION Cholesterol/HDL 2.3 No normal HP CONVERSION Ratio Screen range Cholesterol 155 125 - 199 HP CONVERSION mg/dL HDL Cholesterol 68 (H) 40 - 60 HP CONVERSION mg/dL Triglycerides 41 0 - 199 HP CONVERSION mg/dL LDL Calculated 79 66 - 129 HP CONVERSION mg/dL Comment: Specimen (Source) Anatomical Collection Method Collection Time Re ceived Time Location / / Volume Laterality 08/30/2003 9:38 AM CDT Janelle Jacobo MD LAB_1 Performing Organization Address City/State/ZIP Code Phon e Number HP CONVERSION documented in this encounter Visit Diagnoses Not on filedocumented in this encounter Care Teams Fire Pilot Relationship Specialty Start Date End Date Lisa Gonzalez APRN, ROUTEMAN PCP - General 05/03/1998 11/02/13 [address] [place] [address] documented as of this encounter
--- OUTSIDE RECORDS SUMMARY | 2022-04-10 14:21 | XMS_ITS | Encounter Summary ---
:1970 Author Organization [facility] Address [address] [place] [address] Care Team Providers Name Role Phone Lisa Gonzalez APRN, CNP Primary Care Provider [phone] Encounter Details Date Type Department Care Team Description 01/05/2003 Office Visit [facility] Zarina Schilling, RESPIRATORY ABNORM NEC; [address] [facility] [address] [place], [place] [address] [place], [place] [phone] Social History Tobacco Use Types Packs/Day Years Used Date Smoking Tobacco: Never Assessed Sex Assigned at Date Recorded Not on file documented as of this encounter Plan of Treatment Not on filedocumented as of this encounter Visit Diagnoses Diagnosis Other dyspnea and respiratory abnormalit y Chest pain, unspecified documented in this encounter Care Teams Catalyst Supervisor Relationship Specialty Start Date End Date Lisa Gonzalez APRN, CNP PCP - General 05/03/1998 11/02/13 [address] [place] [address] documented as of this encounter
--- OUTSIDE RECORDS SUMMARY | 2022-04-10 14:21 | XMS_ITS | Encounter Summary ---
:1970 Author [facility] Address [address] [place] [address] Care Team Providers Name Role Phone Lisa Gonzalez APRN, CNP Primary Care Provider [phone] Encounter Details Date Type Department Care Team Description 12/30/2002 Telephone [place] [facility] Lisa Gonzalez, Victoria PRN, Practice [facility] [address] [facility] [address] [place], [place] [address] [place] [address] [phone] (Wo rk) Social History Tobacco Use Types Packs/Day Years Used Date Smoking Tobacco: Never Assessed Sex Assigned at Date Recorded Not on file documented as of this encounter Progress Notes Lisa Gonzalez - 12/30/2002 12:00 AM CDT documented in this encounter Plan of Treatment Not on filedocumented as of this encounter Visit Diagnoses Not on filedocumented in this encounter Care Teams Medical Scheduler Relationship Specialty Start Date End Date Lisa Gonzalez APRN, CNP PCP - General 05/03/1998 11/02/13 [address] [place] [address] documented as of this encounter
--- OUTSIDE RECORDS SUMMARY | 2022-04-10 14:21 | XMS_ITS | Encounter Summary ---
:1970 Author Organization [facility] Address [address], [place] [address] Care Team Providers Name Role Phone Lisa Gonzalez APRN, CNP Primary Care Provider [phone] Encounter Details Date Type Department Care Team Description 11/14/2003 PN Conversion Only [place] [facility] [address] [place] [address] Social History Tobacco Use Types Packs/Day Years Used Date Smoking Tobacco: Never Assessed Sex Assigned at Date Recorded Not on file documented as of this encounter Plan of Treatment Not on filedocumented as of this encounter Visit Diagnoses Not on filedocumented in this encounter Care Teams Road Roller Operator Relationship Specialty Start Date End Date Lisa Gonzalez APRN, GLASS LATHE OPERATOR PCP - General 05/03/1998 11/02/13 [address] [place] [address] documented as of this encounter
--- OUTSIDE RECORDS SUMMARY | 2022-04-10 14:21 | XMS_ITS | Encounter Summary ---
:[address] [facility] Address [address] [place] [address] Care Team Providers Name Role Phone Lisa Gonzalez APRN, CNP Primary Care Provider [phone] Encounter Details Date Type Department Care Team Description 08/24/2003 PN Conversion Only [facility] [place] [address] [phone] Social History Tobacco Use Types Packs/Day Years Used Date Smoking Tobacco: Never Assessed Sex Assigned at Date Recorded Not on file documented as of this encounter Progress Notes Phone Note, Clinician - 08/28/2003 12:01 AM CDT Phone Note filed by Clinician Phone Note at 08/27/10 1351 Author: Clinician Phone Note Service: (none) Author Type: Resource Filed: 08/27/10 1353 Note Time: 08/28/03 0001 Status: Signed Public Relations Director: Clinician Phone Note (Resource) TO: JANELLE COTA FROM: RAY BAJWA [phone] 08/28/03 * PROVIDER MESSAGE: RETURN * 02:02PM * CALL REQUESTED * MESSAGE: Pt is coming in on Thursday * HOME PHONE:[phone] * to have her cholesterol checked, * CONTACT PHONE:[phone] * would like to have a CRP test added * Polly * to this. Please call when orders have been sent down. SUBJECTIVE: ALLERGIES/SENSITIVITIES... Iodine(anaphylaxis) 03/15/98 CURRENT MEDICATIONS... vitamins 03/15/98 PERTINENT PAST HISTORY... Healthy; approximately 7 weeks gestation confirmed by lab positive uri ne Hcg 03/15/98 WEIGHT: ASSESSMENT: Lab Orders PLAN: DISPOSITION: NO DISPOSITION GIVEN CALL BY RAY BAJWA 08/28/2003 02:01PM [phone] ADDENDUM: <> 08/29/2003 11:02AM by LAURIE PUENTES CUT OFF MACHINE OPERATOR: per Dr Cota: I can't see any reason for this test. What type of CRP- why does she want it?//Pt states that she heard that everyone should have a CRP test and also because of the pangs she gets. Said that it is in regards to what you dicussed at a recent visit.//Told pt that CRP detects heart disease and that she should have the test if she has a strong fx hx of heart disease. I told her that if she wanted to have it that her insurance company might not pay for it with out good cause. She stated that she will hold off on it for now. Janelle Jacobo - 08/24/2003 12:01 AM CDT H&P signed by at 08/24/03 1539 Author: Janelle Cota MD Service: (none) Author Type: (none) Filed: 08/29/10 3686 Note Time: 08/24/03 0001 Status: Signed Public Relations Director: [facility] NAME: POLLY CASE MR: [id number] ACCT: [id number] VISIT: [id number] DICTATING CLINICIAN: JANELLE COTA MD JOB: [id number] CLINIC PHYSICAL DATE OF VISIT: 08/24/2003 ASSESSMENT: 1. Healthcare maintenance. We will obtain a pap smear. Also have her return when she is fasting for a fractionated cholesterol. Feel her risk for diabetes is extremely low. This could be checked in the future if indicated. Recommend monthly self breast exams, mammograms at age 38 yearly, osteoporosis prevention with weightbearing exercise as she is doing, and adequate calcium in her diet, if needed a supplement with mprs-qkl-bzhibup calcium. We will also update her hepatitis vaccination status with her third shot today. 2. Anxiety with panic disorder. Patient defers medication at this time. However, she would be a candidate for antidepressant such as Lexapro or Zoloft if she is interested in the future. Also occasional use of benzodiazepine may be reasonable as well. We will also refer her to mental health to see if there are any classes available for stress management or meditation. 3. Allergic rhinitis. Continue with Rhinocort. Would also recommend antihistamine such as Claritin over the counter. Follow up p.r.n. PLAN: See assessment. SUBJECTIVE: : 1970. Polly presents to clinic today for a complete physical exam. She has been rather healthy and does not really have any health concerns, with the exception of some nasal congestion which seems to be worse. She has a history of possible allergic rhinitis. She has been using Rhinocort which seems to have helped somewhat. She is not currently on antihistamine, however. Her other concern is with episodic anxiety with panic attacks. She has had chest pain in the past which has been worked up and no other cause has been found. She was offered benzodiazepines but did not want to fill the prescription for that. She states that she still occasionally will get some chest discomfort when she is feeling anxious or having panic. Overall she is very low risk for cardiovascular disease. Her third concern is she needs a third hepatitis B vaccination today. MEDICATIONS: Rhinocort. ADR/ALLERGIES: IODINE, PENICILLIN, AND OCP'S WHICH CAUSE HIVES. CONTRACEPTION: Condoms. HABITS: She is a nonsmoker, nondrinker. Caffeine: Two cups a day. Exercise: Three to four times a week. She enjoys a slow jog or brisk walking. Breast Self Exam: Occasionally. Seat Belt Use: Always. Diet is balanced with a fair amount of calcium. PAST MEDICAL HISTORY: Significant for panic disorder and anxiety, not currently treated with any medications. Also allergic rhinitis and what sounds like vasomotor rhinitis. SURGICAL HISTORY: Sounds like she may have had some ureter surgery as a child, perhaps for reflux. Fractures: Left foot, severe injury, which required surgery to correct tendons and blood vessels. Her only problem at this time is with some numbness of the left great toe. OTHER HOSPITALIZATIONS: None. GYNECOLOGIC HISTORY: Last menstrual period 08/19/03. She is having regular monthly periods without problems. She has never had an abnormal pap smear, STD, or IUD. OB HISTORY: 3, para 3. No problems with her labor or deliveries, except all required induction. FAMILY HISTORY: Mother was a smoker, had lung cancer, at age 63. Father with hyperlipidemia, also obesity. She has a twin brother who is healthy and one sister who is healthy. Maternal grandmother with TB in her 40s, which caused her . Maternal grandfather with prostate cancer and some sort of gastrointestinal cancer. He was also a smoker. Paternal grandmother of old age. Paternal grandfather had a young , she is not sure what the cause was. No family history of breast cancer or diabetes mellitus. 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 Has three children with problems with allergies and asthma. Her youngest child has severe peanut allergy which causes a lot of stress for the patient. OBJECTIVE: VS: BP: 136/82. P: 80. Ht: 5 ft 7-1/2 in tall. Wt: 127 lb. GENERAL: She is a very healthy appearing woman who appears younger than her stated age. HEENT: Sclerae are clear. Conjunctivae not injected. Nose is remarkable for turbinate swelling, right side greater than the left, but improved from previous. Mucous membranes are moist. Pupils equally round and reactive to light. TMs are clear. Throat is nonerythematous. There are no exudates. Dentition is in excellent condition. NECK: Supple. There is no lymphadenopathy or thyromegaly. There are no carotid bruits. LUNGS: Clear to auscultation. HEART: Regular rate and rhythm, S1, S2, without murmur. Chest is nontender to palpation. BREASTS: Normal to inspection and palpation. There is no axillary lymphadenopathy. No nipple discharge. ABDOMEN: Soft, nontender, nondistended. There is no hepatosplenomegaly. BACK: Negative for CVA tenderness. No tenderness to percussion of the spine. PELVIC: Reveals normal external genitalia. Vagina is pink and rugated. There is no observable discharge present. Cervix is multiparous and slightly posterior. Bimanual exam is negative for cervical motion tenderness, negative for adnexal masses or tenderness. LOWER EXTREMITIES: Without edema. Distal pulses are full and symmetric. SKIN: Intact without rash or worrisome lesions. There is evidence of tanning. LCM:[id number] C: 08/24/03 14:48 DOCUMENT: [id number] Janelle Jacobo Christine - 06/06/2003 12:01 AM CST Progress Notes signed by at 06/06/03 1504 Author: Janelle Cota MD Service: (none) Author Type: (none) Filed: 08/29/10 1926 Note Time: 06/06/03 0001 Status: Signed Public Relations Director: [facility] Conversion NAME: POLLY CASE MR: [id number] ACCT: [id number] VISIT: [id number] DICTATING CLINICIAN: JANELLE COTA MD JOB: [id number] CLINIC PROGRESS NOTE DATE OF VISIT: 06/06/2003 SUBJECTIVE: : 1970. Polly presents to clinic today with concerns about indoor allergies. She seems to have ongoing nasal congestion, runny nose, and intermittent sinus headaches. She has 2 children with asthma. She finds when she is exposed to dust that she has multiple sneezing and runny nose. She also notices similar symptoms when she exercises and when she eats spicy foods. She denies cough, denies shortness of breath that accompany these symptoms. Denies any wheezing. Nasal steroid sprays have been very effective for her 2 children and she is wondering if she can start one. No other concerns today. MEDICATIONS: None. ADR/ALLERGIES: PENICILLIN AND IODINE. SOCIAL HISTORY: She is a nonsmoker. OBJECTIVE: VS: BP: 130/82. P: 76. Wt: 129 lb. GENERAL: She is a pleasant, healthy-appearing female in no acute distress. HEENT: Sclerae clear. Conjunctivae non-injected. Mucous membranes are moist. Pupils equally round and reactive to light. TMs are clear. Nose is remarkable for some turbinate swelling bilaterally, left side worse than the right. There is also some clear drainage present and some erythema. Throat is non-erythematous. There are no exudates. Face is negative for tenderness to percussion of the sinuses. NECK: Supple. There is no lymphadenopathy or thyromegaly. LUNGS: Clear to auscultation bilaterally. ASSESSMENT: Allergic rhinitis. PLAN: Nasacort 2 sprays each side once a day. She was given refills for 1 year. Also recommended an antihistamine. She will think about that and, if she so desires, she can start Claritin [id number]-[id number]. Also notified her that Singulair could be added as well if she felt that the steroid spray alone was not helping her. Patient is agreeable to the plan. TT: CT: LCM:[id number] C: 06/06/03 14:52 DOCUMENT: [id number] Phone Note, Clinician - 04/17/2003 12:01 AM CST Phone Note filed by Clinician Phone Note at 08/27/10 0087 Author: Clinician Phone Note Service: (none) Author Type: Resource Filed: 08/27/10 1245 Note Time: 04/17/03 0001 Status: Signed Public Relations Director: Clinician Phone Note (Resource) TO: RUY FIERRO FROM: ALLISON SANCHEZ LPN [phone] * PROVIDER MESSAGE: ROUTINE * 04/17/03 12:46PM * *WITHIN 4 HOURS * MESSAGE: Pt's mother is calling * HOME PHONE:[phone] * requesting concerning the flu * CONTACT PHONE:[phone] * shots. Mother declined to discuss with nurse. SUBJECTIVE: ALLERGIES/SENSITIVITIES... Iodine(anaphylaxis) 03/15/98 CURRENT MEDICATIONS... vitamins 03/15/98 PERTINENT PAST HISTORY... Healthy; approximately 7 weeks gestation confirmed by lab positive uri ne Hcg 03/15/98 WEIGHT: ASSESSMENT: REQUESTING PHONE CALL FROM PROVIDER PLAN: DISPOSITION: NO DISPOSITION GIVEN CALL BY ALLISON SANCHEZ LPN 04/17/2003 12:40PM [phone] ADDENDUM: <> 04/20/2003 05:51PM by RUY FIERRO MD: children with risk factors should get flu shot. mom will bring them i n for shot. documented in this encounter Plan of Treatment Not on filedocumented as of this encounter Visit Diagnoses Not on filedocumented in this encounter Care Teams Stockbroker Relationship Specialty Start Date End Date Lisa Gonzalez APRN, POLE CLIMBER PCP - General 05/03/1998 11/02/13 [address] [place] [address] documented as of this encounter
--- OUTSIDE RECORDS SUMMARY | 2022-04-10 14:21 | XMS_ITS | Encounter Summary ---
:1970 Author Organization [facility] Address [address] [place] [address] Care Team Providers Name Role Phone Gonzalez Lisa Andrade APRN, CNP Primary Care Provider [phone] Encounter Details Date Type Department Care Team Description 12/13/2003 PN Conversion Only [place] [address] [address] [place] [id number] [place] [address] (Wo rk) Social History Tobacco Use Types Packs/Day Years Used Date Smoking Tobacco: Never Assessed Sex Assigned at Date Recorded Not on file documented as of this encounter Plan of Treatment Not on filedocumented as of this encounter Procedures Procedure Name Priority Date/Time Associated Comments Diagnosis BLOOD GROUP & RH Routine 12/13/2003 4:24 PM Resul ts for this (BLOOD TYPE) CDT procedure are i n the results section. ANTIBODY SCREEN Routine 12/13/2003 4:24 PM Result s for this CDT procedure are i n the results section. RPR BLOOD Routine 12/13/2003 4:24 PM Results f or this CDT procedure are i n the results section. URINALYSIS COMPLETE Routine 12/13/2003 4:24 PM Re sults for this CDT procedure are i n the results section. RUBELLA IMMUNE Routine 12/13/2003 4:24 PM Results for this STATUS CDT procedure are i n the results section. HEP B SURFACE Routine 12/13/2003 4:24 PM Results for this ANTIGEN, NO REFLEX CDT procedure are in the results section. URINE CULTURE Routine 12/13/2003 4:24 PM Results for this CDT procedure are i n the results section. COMPLETE BLOOD Routine 12/13/2003 4:24 PM Results for this COUNT-NO DIFF CDT procedure are in the results section. documented in this encounter Results Antibody Screen (12/13/2003 4:24 PM CDT) athologist Signature N/O BB NEG No normal HP CONVERSION ANTIBODY range SCREEN Specimen (Source) Anatomical Collection Method Collection Time Re ceived Time Location / / Volume Laterality 12/13/2003 4:24 PM CDT Janelle Jacobo MD PN BLOOD BANK ORDERS Performing Organization Address City/[facility]/ZIP Code Phon e Number HP CONVERSION (ABNORMAL) Complete Blood Count-No Diff (12/13/2003 4:24 PM CDT) [facility] Method Time Signature White Blood Cell 9.8 3.8 - HP CONVERSION Count 11.0 K/cmm Red Blood Cell 3.65 (L) 3.70 - HP CONVERSION Count 5.20 m/cmm Hemoglobin 11.3 (L) 11.8 - HP CONVERSION 15.5 gm/dL Hematocrit 33.8 (L) 35.0 - HP CONVERSION 46.0 % Mean Corpuscular 92.8 80.0 - HP CONVERSION Volume 100.0 fl Mean Corpuscular 30.9 27.0 - HP CONVERSION Hemoglobin 34.0 pg Mean Corpuscular 33.3 32.0 - HP CONVERSION Hemoglobin Conc 36.5 Grimes gm/dL RDW 12.4 11.0 - HP CONVERSION 15.0 % Platelet Count 258 140 - 450 HP CONVERSION k/cmm Specimen (Source) Anatomical Collection Method Collection Time Re ceived Time Location / / Volume Laterality 12/13/2003 4:24 PM CDT Janelle Jacobo MD LAB_1 Performing Organization Address City/[facility] Code Phon e Number HP CONVERSION Urinalysis Complete (12/13/2003 4:24 PM CDT) [facility] Method Time Signature Glucose, Negative Neg-Trac HP CONVERSION Qualitative U Protein Urine Negative Neg-Trac HP CONVERSION Ketones Negative Negative HP CONVERSION U BILI Negative Negative HP CONVERSION U Specific <=1.005 1.005 - 25 HP CONVERSION [place] Blood Urine Negative Negative HP CONVERSION pH Urine 6.5 4.5 - 7.5 HP CONVERSION Urobilinogen Negative 0.2 - 1.0 HP CONVERSION Urine Nitrite Urine Negative Negative HP CONVERSION Leukocyte Negative Negative HP CONVERSION Esterase Urine White Blood Negative 0 - 3 HP CONVERSION Cells Urine Red Blood Cells Negative 0 - 2 HP CONVERSION Urine Bacteria Urine N/A None HP CONVERSION Epithelial Cells Few Few /HPF HP CONVERSION Specimen (Source) Anatomical Collection Method Collection Time Re ceived Time Location / / Volume Laterality 12/13/2003 4:24 PM CDT Janelle Jacobo MD LAB_1 Performing Organization Address City/[facility]/ZIP Code Phon e Number HP CONVERSION Blood Group & Rh (Blood Type) (12/13/2003 4:24 PM CDT) athologist Signature BB BLOOD TYPE O NEG No normal HP CONVERSION (BLOOD GROUP & range RH) Specimen (Source) Anatomical Collection Method Collection Time Re ceived Time Location / / Volume Laterality 12/13/2003 4:24 PM CDT Janelle Jacobo MD PN BLOOD BANK ORDERS Performing Organization Address [facility] Phon e Number HP CONVERSION RPR Blood (12/13/2003 4:24 PM CDT) athologist Signature RPR Non Reac Non Reac HP CONVERSION Specimen (Source) Anatomical Collection Method Collection Time Re ceived Time Location / / Volume Laterality 12/13/2003 4:24 PM CDT Janelle Jacobo MD LAB_1 Performing Organization Address City/[facility]/ZIP Code Phon e Number HP CONVERSION Rubella Immune Status (12/13/2003 4:24 PM CDT) athologist Signature Rubella Immune Immune Immune HP CONVERSION Status Specimen (Source) Anatomical Collection Method Collection Time Re ceived Time Location / / Volume Laterality 12/13/2003 4:24 PM CDT Janelle Jacobo MD LAB_1 Performing Organization Address City/[facility]/ZIP Code Phon e Number HP CONVERSION Hep B Surface Antigen, No Reflex (12/13/2003 4:24 PM CDT) Analysis Performed At [facility] Time Signature Hep B Surf Ag Negative Negative HP CONVERSION Specimen (Source) Anatomical Collection Method Collection Time Re ceived Time Location / / Volume Laterality 12/13/2003 4:24 PM CDT Janelle Jacobo MD LAB_1 Performing Organization Address [facility] Code Phon e Number HP CONVERSION Urine Culture (12/13/2003 4:24 PM CDT) [facility] Time Signature Urine Culture SEE TEXT HP CONVERSION Comment: Patient: POLLY CASE Culture, Urine @ ?Collected: ??[id number] Source: Clean Ca ?Processed: ??[id number] ??[id number] Final Report ------ ?[id number] ??[id number] No growth @ = URINE CULTURE Performed at ??[address] [place], [place] ?[address] Specimen (Source) Anatomical Collection Method Collection Time Re ceived Time Location / / Volume Laterality 12/13/2003 4:24 PM CDT Janelle Jacobo MD LAB_1 Performing Organization Address [facility] Phon e Number HP CONVERSION documented in this encounter Visit Diagnoses Not on filedocumented in this encounter Care Teams Stereotype Molder Relationship Specialty Start Date End Date Lisa Gonzalez, BLOOD BANK LABORATORY TECHNOLOGIST, MOLDED GOODS OPERATOR PCP - General 05/03/1998 11/02/13 [address] [place] [address] documented as of this encounter
--- OUTSIDE RECORDS SUMMARY | 2022-04-10 14:21 | XMS_ITS | Encounter Summary ---
:1970 Author Organization [facility] Address [address] [place] [address] Care Team Providers Name Role Phone Lisa Gonzalez APRN, CNP Primary Care Provider [phone] Encounter Details Date Type Department Care Team Description 12/27/2002 Telephone [place] [facility] Lisa Gonzalez, Victoria PRN, Practice [facility] [address] [facility] [address] [place], [place] [address] [place] [address] [phone] (Wo rk) Social History Tobacco Use Types Packs/Day Years Used Date Smoking Tobacco: Never Assessed Sex Assigned at Date Recorded Not on file documented as of this encounter Progress Notes Lisa Gonzalez - 12/27/2002 12:00 AM CDT documented in this encounter Plan of Treatment Not on filedocumented as of this encounter Visit Diagnoses Not on filedocumented in this encounter Care Teams Abrasive Coating Machine Operator Relationship Specialty Start Date End Date Lisa Gonzalez APRN, CNP PCP - General 05/03/1998 11/02/13 [address] [place] [address] documented as of this encounter
--- OUTSIDE RECORDS SUMMARY | 2022-04-10 14:21 | XMS_ITS | Encounter Summary ---
:1970 Author Organization [facility] Address [address] [place] [address] Care Team Providers Name Role Phone Lisa Gonzalez APRN, CNP Primary Care Provider [phone] Encounter Details Date Type Department Care Team Description 12/26/2002 Telephone [place] [facility] Lisa Gonzalez, Victoria PRN, Practice [facility] [address] [facility] [address] [place], [place] [address] [place] [address] [phone] (Wo rk) Social History Tobacco Use Types Packs/Day Years Used Date Smoking Tobacco: Never Assessed Sex Assigned at Date Recorded Not on file documented as of this encounter Progress Notes Lisa Gonzalez - 12/26/2002 12:00 AM CDT documented in this encounter Plan of Treatment Not on filedocumented as of this encounter Visit Diagnoses Not on filedocumented in this encounter Care Teams Licensed Clinical Psychologist Relationship Specialty Start Date End Date Lisa Gonzalez APRN, CNP PCP - General 05/03/1998 11/02/13 [address] [place] [address] documented as of this encounter
--- OUTSIDE RECORDS SUMMARY | 2022-04-10 14:21 | XMS_ITS | Encounter Summary ---
:1970 Author Organization [facility] Address [address] [place] [address] Care Team Providers Name Role Phone Carlos Lisa Raymond MARIN, AMANDA Primary Care Provider [phone] Encounter Details Date Type Department Care Team Description 11/14/2003 PN Conversion Only [place] [facility] N Alvarez Pandya, [address] [place] [address] [place], [place] [address] (Wo rk) Social History Tobacco Use Types Packs/Day Years Used Date Smoking Tobacco: Never Assessed Sex Assigned at Date Recorded Not on file documented as of this encounter Plan of Treatment Not on filedocumented as of this encounter Procedures Procedure Name Priority Date/Time Associated Comments Diagnosis URINALYSIS COMPLETE Routine 11/14/2003 6:29 PM Re sults for this CDT procedure are i n the results section. documented in this encounter Results Urinalysis Complete (11/14/2003 6:29 PM CDT) [facility] Method Time Signature Glucose, Negative Neg-Trac HP CONVERSION Qualitative U Protein Urine Negative Neg-Trac HP CONVERSION Ketones Negative Negative HP CONVERSION U BILI Negative Negative HP CONVERSION U Specific 1.015 1.005 - 25 HP CONVERSION [place] Blood Urine Negative Negative HP CONVERSION pH Urine 7.0 4.5 - 7.5 HP CONVERSION Urobilinogen Negative 0.2 - 1.0 HP CONVERSION Urine Nitrite Urine Negative Negative HP CONVERSION Leukocyte Negative Negative HP CONVERSION Esterase Urine White Blood Negative 0 - 3 HP CONVERSION Cells Urine Red Blood Cells Negative 0 - 2 HP CONVERSION Urine Specimen (Source) Anatomical Collection Method Collection Time Re ceived Time Location / / Volume Laterality 11/14/2003 6:29 PM CDT Alvarez Pandya MD LAB_1 Performing Organization Address City/State/ZIP Code Phon e Number HP CONVERSION documented in this encounter Visit Diagnoses Not on filedocumented in this encounter Care Teams Product Safety Administrator Relationship Specialty Start Date End Date Lisa Gonzalez, STRATEGIC ACCOUNT MANAGER, TRAILER ASSEMBLER PCP - General 05/03/1998 11/02/13 [address] [place] [address] documented as of this encounter
--- OUTSIDE RECORDS SUMMARY | 2022-04-10 14:21 | XMS_ITS | Encounter Summary ---
:1970 Author Organization [facility] Address [address], [place] [address] Care Team Providers Name Role Phone Lisa Gonzalez APRN, CNP Primary Care Provider [phone] Encounter Details Date Type Department Care Team Description 12/13/2003 PN Conversion Only [place] [address] [address] [place] [address] Social History Tobacco Use Types Packs/Day Years Used Date Smoking Tobacco: Never Assessed Sex Assigned at Date Recorded Not on file documented as of this encounter Plan of Treatment Not on filedocumented as of this encounter Visit Diagnoses Not on filedocumented in this encounter Care Teams Dumper Operator Relationship Specialty Start Date End Date Lisa Gonzalez APRN, GARAGE MANAGER PCP - General 05/03/1998 11/02/13 [address] [place] [address] documented as of this encounter
--- OUTSIDE RECORDS SUMMARY | 2022-04-10 14:21 | XMS_ITS | Encounter Summary ---
:1970 Author Organization [facility] Address [address] [place] [address] Care Team Providers Name Role Phone Lisa Gonzalez APRN, CNP Primary Care Provider [phone] Encounter Details Date Type Department Care Team Description 05/19/2003 Telephone [place] [facility] Mark Shaw MD [address] [facility] [address] [place], [place] [address] [place] [address] [phone] (Wo rk) Social History Tobacco Use Types Packs/Day Years Used Date Smoking Tobacco: Never Assessed Sex Assigned at Date Recorded Not on file documented as of this encounter Progress Notes Mark Shaw - 05/19/2003 12:00 AM MESSAGE BROKER DEVELOPER AGE BROKER DEVELOPER documented in this encounter Plan of Treatment Not on filedocumented as of this encounter Visit Diagnoses Not on filedocumented in this encounter Care Teams Project Manager/Design Manager Relationship Specialty Start Date End Date Lisa Gonzalez APRN, CNP PCP - General 05/03/1998 11/02/13 [address] [place] [address] documented as of this encounter
--- OUTSIDE RECORDS SUMMARY | 2022-04-10 14:22 | XMS_ITS | Encounter Summary ---
:1970 Author Organization [facility] Address [address] [place] [address] Care Team Providers Name Role Phone Lisa Gonzalez APRN, CNP Primary Care Provider Reason for Visit Reason Comments SHOT,NOS VIA INTERFACE Encounter Details Date Type Department Care Team Description 10/31/1998 Office Visit [place] [facility] Unknown, ROUT POS TPART FOLLOW-UP Practice Physician [address] [place] [address], [place] [address] [place], [place] [phone] [address] Social History Tobacco Use Types Packs/Day Years Used Date Smoking Tobacco: Never Assessed Sex Assigned at Date Recorded Not on file documented as of this encounter Plan of Treatment Not on filedocumented as of this encounter Visit Diagnoses Diagnosis Routine follow-up documented in this encounter Care Teams Feller Buncher Operator Relationship Specialty Start Date End Date Lisa Gonzalez APRN, CNP PCP - General 05/03/1998 11/02/13 [address] [place] [address] documented as of this encounter
--- OUTSIDE RECORDS SUMMARY | 2022-04-10 14:22 | XMS_ITS | Encounter Summary ---
:1970 Author Organization [facility] Address [address] [place] [address] Care Team Providers Name Role Phone Lisa Gonzalez APRN, CNP Primary Care Provider [phone] Encounter Details Date Type Department Care Team Description 06/23/2001 Office Visit [place] [facility] Lisa Gonzalez G YNECOLOGIC EXAMINATION; Practice AMANDA MARIN SCREENING MAL NEOP-CERVIX [address] [facility] [address] [place] [phone] (Wo rk) Social History Tobacco Use Types Packs/Day Years Used Date Smoking Tobacco: Never Assessed Sex Assigned at Date Recorded Not on file documented as of this encounter Progress Notes Lisa Gonzalez - 06/23/2001 12:00 AM CSTS: 30-year-old female presents to clinic for routine health maintenance, pap and pelvic. 3, para 3-0-0-3. Regular monthly menses. No intermenstrual bleeding, no PCB, no dyspareunia. She and her are using condoms for contraception. They haven't decided if they are going to have yet another child. 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 No problems with depression or abuse. NO chronic medical problems. No history of hospitalizations or surgeries. Medications: none. Allergies: iodine. Habits include ETOH: 0-1 per month. No nicotine or illicit drugs. Adequate calcium intake. Caffeine: 2-3 per day. No regular exercise. Family history: hypertension in father. ROS: general state of health is good. No fever, chills or sweats. No chest pain or palpitations. No cough or wheezing. No abdominal pain, diarrhea, constipation or melena. No dysuria, urgency, frequency or hematuria. O: WEIGHT 129 pounds. HEIGHT 67 1/2 inches. TEMPERATURE 97.5. PULSE 84. RESPIRATIONS 12. BLOOD PRESSURE 122/72. Alert, oriented, cooperative, well groomed, in no apparent distress. Pupils equal, round, reactive to light and accommodation. OP clear. Tympanic membranes pearly boo, translucent. Neck supple. NO adenopathy. Heart regular rate and rhythm. Lungs clear to auscultation. Breasts soft without masses. Abdomen: flat, no tenderness or masses. External genitalia negative. Vagina: pink, moist, without lesions or discharge. Pap taken. Negative CMT. Uterus: small, firm, mobile, nontender. No adnexal fullness or tenderness. A: 1. Routine health maintenance, pap and pelvic. P: 1. If she should decide to attempt , have encouraged her to begin taking a multiple vitamin. She understands and agrees with this plan. IN SUMMARY: ROUTINE HEALTH MAINTENANCE, PAP AND PELVIC. cc: L TESTER documented in this encounter Plan of Treatment Not on filedocumented as of this encounter Visit Diagnoses Diagnosis Gynecological examination Screening for malignant neoplasm of the cervix documented in this encounter Care Teams Covering Machine Operator Helper Relationship Specialty Start Date End Date Lisa Gonzalez, INTEGRATION DIRECTOR, ZONING ADMINISTRATOR PCP - General 05/03/1998 11/02/13 [address] [place] [address] documented as of this encounter
--- OUTSIDE RECORDS SUMMARY | 2022-04-10 14:22 | XMS_ITS | Encounter Summary ---
:[address] [facility] Address [address] [place] [address] Care Team Providers Name Role Phone Lisa Gonzalez APRN, CNP Primary Care Provider [phone] Reason for Visit Reason Comments PHONE CALL TO PATIENT VIA INTERFACE Encounter Details Date Type Department Care Team Description 06/04/1999 Office Visit [place] [facility] DEPRESSI VE DISORDER NOS Practice [address] [place], [place] [address] Social History Tobacco Use Types Packs/Day Years Used Date Smoking Tobacco: Never Assessed Sex Assigned at Date Recorded Not on file documented as of this encounter Plan of Treatment Not on filedocumented as of this encounter Visit Diagnoses Diagnosis Depressive disorder, not elsewhere class ified documented in this encounter Care Teams Refractory Manager Relationship Specialty Start Date End Date Lisa Gonzalez APRN, CNP PCP - General 05/03/1998 11/02/13 [address] [place], [place] [address] documented as of this encounter
--- OUTSIDE RECORDS SUMMARY | 2022-04-10 14:22 | XMS_ITS | Encounter Summary ---
:1970 Author [facility] Address [address] [place] [address] Care Team Providers Name Role Phone Lisa Gonzalez APRN, CNP Primary Care Provider [phone] Reason for Visit Reason Comments NST,(NON STRESS TEST) VIA INTERFACE Encounter Details Date Type Department Care Team Description 10/25/1998 Office Visit [place] [facility] Unknown, PROLONGE D PREG-ANTEPART Practice Physician [address] [place] [address] [address] [place], [place] [address] [place], [place] [phone] [address] Social History Tobacco Use Types Packs/Day Years Used Date Smoking Tobacco: Never Assessed Sex Assigned at Date Recorded Not on file documented as of this encounter Plan of Treatment Not on filedocumented as of this encounter Visit Diagnoses Diagnosis PROLONGED PREG-ANTEPART documented in this encounter Care Teams Roll Mechanic Relationship Specialty Start Date End Date Lisa Gonzalez APRN, CNP PCP - General 05/03/1998 11/02/13 [address] [place] [address] documented as of this encounter
--- OUTSIDE RECORDS SUMMARY | 2022-04-10 14:22 | XMS_ITS | Encounter Summary ---
:1970 Author Organization [facility] Address [address] [place] [address] Care Team Providers Name Role Phone Non Pn, Clinician MD Primary Care Provider Unavailable Encounter Details Date Type Department Care Team Description 07/28/1999 Orders Only [facility] Epic, Internal [address] [place], [place] [address] [facility] [phone] [place] [address] Social History Tobacco Use Types Packs/Day Years Used Date Smoking Tobacco: Never Assessed Sex Assigned at Date Recorded Not on file documented as of this encounter Plan of Treatment Not on filedocumented as of this encounter Procedures Procedure Name Priority Date/Time Associated Diagnosis Comme nts UA WITH MICRO Waiting 07/28/1999 12:53 PM Results for this DIRECTOR AUTOMOTIVE procedure are i n the results section . documented in this encounter Results (ABNORMAL) UA WITH MICRO (07/28/1999 12:53 PM DIRECTOR AUTOMOTIVE) [facility] Method Time Signature Appr Pale Yel [facility] Appr Cloudy [facility] Sp Gr 1.005 1.005 - [facility] 1.030 Leuk Sml (A) [facility] Nitr Neg [facility] pH 6.5 4.5 - 8.0 [facility] Prot Neg mg/dl [facility] Gluc Neg mg/dl [facility] Ket Neg mg/dl [facility] Urob 0.2 0.2 - 1.0 [facility] EU/dl Bili Neg [facility] Blood Tr (A) [facility] RBC'S 0-3 0 - 3 /hpf [facility] WBC'S 3-5 0 - 5 /hpf [facility] Epith, Few /hpf [facility] Squamous Bact Mod [facility] Casts 0 /lpf [facility] Specimen Anatomical Collection Method Collection Time Receive d Time (Source) Location / / Volume Laterality 07/28/1999 12:53 07/28/1999 PM DIRECTOR AUTOMOTIVE 12:54 PM DIRECTOR AUTOMOTIVE Narrative [facility] - 07/28/1999 12:53 PM DIRECTOR AUTOMOTIVE Ordered by [facility] Internal Processing Epic LAB_1 Performing Organization Address City/State/ZIP Code Phon e Number [facility] [phone] [facility] [address] [address] documented in this encounter Visit Diagnoses Not on filedocumented in this encounter Care Teams Surfacing Machine Operator Relationship Specialty Start Date End Date Non Pn, Clinician, PCP - General 11/03/13 [place] [address] documented as of this encounter
--- OUTSIDE RECORDS SUMMARY | 2022-04-10 14:22 | XMS_ITS | Encounter Summary ---
:1970 Author Organization [facility] Address [address], [place] [address] Care Team Providers Name Role Phone Lisa Gonzalez APRN, CNP Primary Care Provider [phone] Reason for Visit Reason Comments OB EXAM,WEEKLY VIA INTERFACE Encounter Details Date Type Department Care Team Description 10/22/1998 Office Visit [facility] Emi Feldman RVIS OTHER NORMAL Practice MD Nghia PREG [address] [facility] [address] [place] [address] [phone] Social History Tobacco Use Types Packs/Day Years Used Date Smoking Tobacco: Never Assessed Sex Assigned at Date Recorded Not on file documented as of this encounter Plan of Treatment Not on filedocumented as of this encounter Visit Diagnoses Diagnosis Supervision of other normal documented in this encounter Care Teams Supervisor Heat Treating Relationship Specialty Start Date End Date Lisa Gonzalez APRN, CNP PCP - General 05/03/1998 11/02/13 [address] [place] [address] documented as of this encounter
--- OUTSIDE RECORDS SUMMARY | 2022-04-10 14:22 | XMS_ITS | Encounter Summary ---
:1970 Author Organization [facility] Address [address] [place] [address] Care Team Providers Name Role Phone Lisa Gonzalez APRN, CNP Primary Care Provider [phone] Reason for Visit Reason Comments MEDICATION CHECK VIA INTERFACE Encounter Details Date Type Department Care Team Description 05/06/1999 Office Visit [facility] Lisa Gonzalez A CUTE STRESS REACT NEC; Practice AMANDA MARIN FOLLOW-UP EXAM NEC; [address] [facility] [address] [facility] [place] [address] [phone] (Wo rk) Social History Tobacco Use Types Packs/Day Years Used Date Smoking Tobacco: Never Assessed Sex Assigned at Date Recorded Not on file documented as of this encounter Progress Notes Lisa Gonzalez - 05/06/1999 12:00 AM CSTS: 28-year old white female presents to clinic for follow up of OCPs and for discussion about stress.She was started on Desogen in December. She's been tolerating this well. She does occasionally get a headache either in the third of fourth week of her pill pack that is relieved with plain Tylenol. This is bilateral, no nausea, vomiting, tingling, weakness or photophobia. No history of migraines. She wishes to continue with the Desogen. Polly becomes tearful talking about the stress she's had recently in her life. She [place] her [place] from [place] and are somewhat isolated. They have no relatives or friends here. Her mother in law did come out after her third child was born and is out here over the holiday season, however, she's planning on going back east soon. 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 They have three children, a 3 year old, a 21 month old and a 6 month old. The 21 month old has just been diagnosed with asthma and has been quite ill with both pneumonia and RSV this winter. She's nebbing him frequently. Other children have been ill with ear infections also. She feels overwhelmed and is very anxious and nervous about his asthma. Baby is still awakening at night and they have very broken sleep periods. She sleeps four to five hours a night. She is not able to nap during the day. She cannot find the time to exercise. She states she eats all the time. Her weight has been stable. She feels herself crying many days of the week due to the stress. She has not felt as though she would hurt herself or others. She does not feel she has a depressed mood consistently. She feels anxious and is asking for some medication to calm herself down. She has no prior history of mental health disorders or depression. Caffeine: 4 per day. Nicotine: none. Elicit drugs: none. No chronic medical conditions. No history of hospitalizations or surgeries. Medications: Desogen. ALLERGIES: IODINE. O: Weight: 127 pounds. BP: 130/60. Alert, oriented, cooperative, well groomed and in no apparent distress. Good eye contact. Logical, directive conversation, becomes tearful when talking about her son. A: 1. Follow up OCPs. 2. Stress. P: 1. She's given a refill of her Desogen for one year. She's to monitor her headaches. Return to clinic if they worsen or fail to improve. 2. Polly is given our depression packet along with written information on stress reduction. She's referred to [facility] for their phone counseling and is encouraged to start using her treadmill at home even if for short periods at a time. We will have our [facility] Depression nurse call Polly to check in with her in about a week. She's to check in with me after reading through our literature or if she has worsening problems. She's encouraged to take some time for herself each day if possible. We discussed possible networking with other family members for child swapping for some relief from her family. She understands and agrees with this plan. IN SUMMARY: FOLLOW UP OCPS,STRESS. cc: NDWATER MONITORING TECHNICIAN documented in this encounter Plan of Treatment Not on filedocumented as of this encounter Visit Diagnoses Diagnosis Other acute reactions to stress (HRC) Other acute reactions to stress Other follow-up examination(V67.59) Other follow-up examination Contraceptive surveillance, unspecified documented in this encounter Care Teams Chip Bin Operator Relationship Specialty Start Date End Date Lisa Gonzalez, TOUR SALES REPRESENTATIVE, COLOR DRUM WORKER PCP - General 05/03/1998 11/02/13 [address] [place] [address] documented as of this encounter
--- OUTSIDE RECORDS SUMMARY | 2022-04-10 14:22 | XMS_ITS | Encounter Summary ---
:1970 Author Organization [facility] Address [address] [place] [address] Care Team Providers Name Role Phone Lisa Gonzalez APRN, CNP Primary Care Provider [phone] Reason for Visit Reason Comments RASH Encounter Details Date Type Department Care Team Description 10/11/2002 Telephone Careline Bárbara Fernandez RN RASH [address] [place], [place] [address] [place] [address] Social History Tobacco Use Types Packs/Day Years Used Date Smoking Tobacco: Never Assessed Sex Assigned at Date Recorded Not on file documented as of this encounter Nursing Notes 10/11/2002 11:59 PM CDT >> BÁRBARA FERNANDEZ cornell Oct 11, 2002 8:46 AM >> CALL RECEIVED. Contact: has appt at 11:10 today wonders if should keep uri x 3 weeks but getting better rash started yesterday on arms, itchy, blotchy took some benadryl, fell asleep and rash was gone when woke up rash is back this morning no new soaps, foods, no resp distress made appt to have rash checked but it goes away with the benadryl and will probably be gone by the t eren gets to clinic Plan; will cancel appt observe cont with benadryl, fluids RC if not better, any increase sx, concerns documented in this encounter Plan of Treatment Not on filedocumented as of this encounter Visit Diagnoses Not on filedocumented in this encounter Care Teams District Recruiter Relationship Specialty Start Date End Date Lisa Gonzalez APRN, DRILL SHARPENER PCP - General 05/03/1998 11/02/13 [address] [place] [address] documented as of this encounter
--- OUTSIDE RECORDS SUMMARY | 2022-04-10 14:22 | XMS_ITS | Encounter Summary ---
:1970 Author Organization [facility] Address [address] [place] [address] Care Team Providers Name Role Phone Lisa Gonzalez APRN, CNP Primary Care Provider Reason for Visit Reason Comments UTI VIA INTERFACE Encounter Details Date Type Department Care Team Description 09/29/1999 Office Visit [facility] [place] UTI; [address] [facility] LABORATORY EXAMINATION [place], [place] [address] Social History Tobacco Use Types Packs/Day Years Used Date Smoking Tobacco: Never Assessed Sex Assigned at Date Recorded Not on file documented as of this encounter Progress Notes Ronni Adames - 09/29/1999 12:00 AM CDTS: This is a 29-year-old mother of three children who returns today because of recurrent symptoms of bladder infection. I saw this patient on July 28, 1999. At that time she had an uncomplicated urinary tract infection. I prescribed Bactrim DS and she reported a brisk response and no further difficulties until today. She had onset of burning with urination, no gross hematuria, no fever, no nausea, no vomiting. The urinary tract infection was preceded this time by some low back discomfort but that was just minimal and has resolved and the problem is not related. O: Temperature is 96.9, pulse 78, respiratory rate 16, blood pressure 120/68. URINALYSIS: Showed both micro hematuria, proteinuria, and pyuria. A: Recurrent urinary tract infection. P: Since this is recurrent within two months will treat with Cipro 500 mg twice a day for seven days. The patient was advised to push fluids and to let us know if there is not a response to antibiotic within one to two days. Also recommended that she have a urinalysis completed in the next month or so to make sure that she resolves from this infection. IN SUMMARY: RECURRENT URINARY TRACT INFECTION cc: documented in this encounter Plan of Treatment Not on filedocumented as of this encounter Visit Diagnoses Diagnosis Urinary tract infection, site not specif ied Laboratory examination documented in this encounter Care Teams Chip Loft Worker Relationship Specialty Start Date End Date Lisa Gonzalez, TELEVISION STATION MANAGER, ROAD MARKER PCP - General 05/03/1998 11/02/13 [address] [place] [address] documented as of this encounter
--- OUTSIDE RECORDS SUMMARY | 2022-04-10 14:22 | XMS_ITS | Encounter Summary ---
:1970 Author Organization [facility] Address [address], [place] [address] Care Team Providers Name Role Phone Lisa Gonzalez APRN, CNP Primary Care Provider [phone] Reason for Visit Reason Comments OB EXAM,WEEKLY VIA INTERFACE Encounter Details Date Type Department Care Team Description 10/25/1998 Office Visit [facility] Emi Feldman RVIS OTHER NORMAL Practice MD Nghia PREG [address] [facility] [address] [place] [address] [phone] Social History Tobacco Use Types Packs/Day Years Used Date Smoking Tobacco: Never Assessed Sex Assigned at Date Recorded Not on file documented as of this encounter Plan of Treatment Not on filedocumented as of this encounter Visit Diagnoses Diagnosis Supervision of other normal documented in this encounter Care Teams Needle Loom Tender Relationship Specialty Start Date End Date Lisa Gonzalez APRN, CNP PCP - General 05/03/1998 11/02/13 [address] [place] [address] documented as of this encounter
--- OUTSIDE RECORDS SUMMARY | 2022-04-10 14:22 | XMS_ITS | Encounter Summary ---
:1970 Author Organization [facility] Address [address] [place] [address] Care Team Providers Name Role Phone Lisa Gonzalez APRN, CNP Primary Care Provider [phone] Reason for Visit Reason Comments UTI VIA INTERFACE Encounter Details Date Type Department Care Team Description 07/28/1999 Office [facility] [place] [facility]; [address] [facility] LABORATORY EXAMINATION [place], [place] [address] Social History Tobacco Use Types Packs/Day Years Used Date Smoking Tobacco: Never Assessed Sex Assigned at Date Recorded Not on file documented as of this encounter Progress Notes Ronni Adames - 07/28/1999 12:00 AM CSTS: Polly Case is a mother of three children under the age of three who comes in because of frequent urination. Symptoms began on Thursday with burning on urination. Since then the burning has improved but has urinary urgency and nocturia. Her temperature was higher earlier today but that has resolved. Slight nausea before lunch which has resolved. No vomiting, no flank pain. O: ON EXAM: Temperature is 98, pulse was 84, blood pressure was 90/60. There is no costovertebral tenderness. Urinalysis showed positive for both blood and leukocytes. The micro showed 3-5 white blood cells and 0-3 red blood cells. A: Uncomplicated urinary tract infection. P: Force fluids and Bactrim DS 1 twice a day for three days. If there is no improvement she is going to be followed up with her doctor. IN SUMMARY: UNCOMPLICATED URINARY TRACT INFECTION cc: EL OCCUPATIONAL THERAPIST documented in this encounter Plan of Treatment Not on filedocumented as of this encounter Visit Diagnoses Diagnosis Urinary tract infection, site not specif ied Laboratory examination documented in this encounter Care Teams Oil And Gas Specialist Relationship Specialty Start Date End Date Lisa Gonzalez, OIL AND GAS SPECIALIST, AIRLINE MECHANIC PCP - General 05/03/1998 11/02/13 [address] [place] [address] documented as of this encounter
--- OUTSIDE RECORDS SUMMARY | 2022-04-10 14:22 | XMS_ITS | Encounter Summary ---
:1970 Author Organization [facility] Address [address] [place] [address] Care Team Providers Name Role Phone Lisa Gonzalez APRN, CNP Primary Care Provider [phone] Encounter Details Date Type Department Care Team Description 07/26/2002 Correspondence External to Unknown, [facility] [address] [place] [address] (Wo rk) Social History Tobacco Use Types Packs/Day Years Used Date Smoking Tobacco: Never Assessed Sex Assigned at Date Recorded Not on file documented as of this encounter Progress Notes Unknown, Physician - 07/26/2002 12:00 AM BIG DATA DEVELOPER documented in this encounter Plan of Treatment Not on filedocumented as of this encounter Visit Diagnoses Not on filedocumented in this encounter Care Teams Golf Caddy Relationship Specialty Start Date End Date Lisa Gonzalez APRN, CNP PCP - General 05/03/1998 11/02/13 [address] [place] [address] documented as of this encounter
--- OUTSIDE RECORDS SUMMARY | 2022-04-10 14:22 | XMS_ITS | Encounter Summary ---
:1970 Author [facility] Address [address] [place] [address] Care Team Providers Name Role Phone Lisa Gonzalez APRN, AMANDA Primary Care Provider [phone] Encounter Details Date Type Department Care Team Description 06/23/2001 Orders Only [facility] Lisa Gonzalez, [address] [facility] [address], BUSINESS PROCESS ASSOCIATE [place], [place] [address] [facility] [phone] [place], [place] [address] (Wo rk) Social History Tobacco Use Types Packs/Day Years Used Date Smoking Tobacco: Never Assessed Sex Assigned at Date Recorded Not on file documented as of this encounter Plan of Treatment Not on filedocumented as of this encounter Procedures Procedure Name Priority Date/Time Associated Diagnosis Comme nts CLERICAL PRODUCTION WORKER CYTOLOGY Routine 06/23/2001 2:53 PM Results f or this PAINTER AND BODY MECHANIC APPRENTICE procedure are i n the results section . documented in this encounter Results CLERICAL PRODUCTION WORKER CYTOLOGY (06/23/2001 2:53 PM PAINTER AND BODY MECHANIC APPRENTICE) [facility] Method Time Signature Price Analyst Cytology Price Analyst Cytology Report [facility]IONS * Amended * Patient Name: POLLY CASE Taken: 06/23/01 Received: 07/01/01 Reported: 08/03/01 Physician(s): LISA GONZALEZ ([id number]) ? [id number] Final Cytologic Diagnosis Cervical Endocervical,routine: ? Satisfactory for evaluation. ??Endocervical cells and/or squamous metaplastic cells ??present. This pap smear was sent to [facility] [address] [facility], [address], [place], [place] ??[address] for evaluation. ??Their results are as follows. ? WITHIN NORMAL LIMITS (WNL) ? Comment ldr2/08/03/01 Signed Copy on File ? TECH 904, [employer] ? Amendments Amended: ??08/03/01 by Iman Ann Reason: ? Typographical Error ? replace electronic signature with manual sign out Previous Signout Date: 08/03/01 Source of Specimen(s) Cervical Endocervical,routine Clinical History Date of Last Menstrual Period: ? 06/06/01 Menstrual History: Contraceptive History: Control Pills Cancer History: Infection History: Treatment History: Other Clinical Conditions: LAST PAP: 12/20/98 [id number] Other Related Clinical Data Specimen Anatomical Collection Method Collection Time Receive d Time (Source) Location / / Volume Laterality 06/23/2001 2:53 PM 2 2:53 PAINTER AND BODY MECHANIC APPRENTICE PM PAINTER AND BODY MECHANIC APPRENTICE Lisa Gonzalez APRN, CNP UNLISTED CODE Performing Organization Address City/State/ZIP Code Phon e Number [address] [address] [place], [place] [phone] documented in this encounter Visit Diagnoses Not on filedocumented in this encounter Care Teams Quality Assurance Specialist Relationship Specialty Start Date End Date Lisa Gonzalez APRN, BUSINESS PROCESS ASSOCIATE PCP - General 05/03/1998 11/02/13 [address] [place] [address] documented as of this encounter
--- OUTSIDE RECORDS SUMMARY | 2022-04-10 14:22 | XMS_ITS | Encounter Summary ---
:1970 Author Organization [facility] Address [address] [place] [address] Care Team Providers Name Role Phone Non Pn, Clinician MD Primary Care Provider Unavailable Encounter Details Date Type Department Care Team Description 06/23/2001 Orders Only Lisa Serna, [address] AMANDA MARIN [place], [place] [phone] [facility] [phone] [place] [address] (Wo rk) Social History Tobacco Use Types Packs/Day Years Used Date Smoking Tobacco: Never Assessed Sex Assigned at Date Recorded Not on file documented as of this encounter Plan of Treatment Not on filedocumented as of this encounter Procedures Procedure Name Priority Date/Time Associated Diagnosis Comme nts PAP TEST, ROUTINE Routine 06/23/2001 10:00 AM Res ults for this UNIFIED COMMUNICATIONS ARCHITECT procedure are i n the results section. documented in this encounter Results PAP SMEAR, ROUTINE (06/23/2001 10:00 AM UNIFIED COMMUNICATIONS ARCHITECT) [facility] Method Time Signature Pap Smear, Referred to [facility]; Separate [facility] Routine Report to Follow Specimen Anatomical Collection Method Collection Time Receive d Time (Source) Location / / Volume Laterality 06/23/2001 10:00 07/01/2001 AM UNIFIED COMMUNICATIONS ARCHITECT 11:24 AM UNIFIED COMMUNICATIONS ARCHITECT Lisa Gonzalez APRN, CNP LAB_1 Performing Organization Address City/State/ZIP Code Phon e Number [facility] [phone] [address] documented in this encounter Visit Diagnoses Not on filedocumented in this encounter Care Teams Project Asst Relationship Specialty Start Date End Date Non Pn, Clinician, PCP - General 11/03/13 [facility][1] [place] [address] documented as of this encounter
--- OUTSIDE RECORDS SUMMARY | 2022-04-10 14:22 | XMS_ITS | Encounter Summary ---
:1970 Author Organization [facility] Address [address] [place] [address] Care Team Providers Name Role Phone Carlos Lisa Andrade APRN, CNP Primary Care Provider [phone] Reason for Visit Reason Comments UTI avuc adult Encounter Details Date Type Department Care Team Description 07/28/1999 Telephone Careline Tasha Olvera, UTI (avuc adult) [address] Selena King RN [place], [place] [address] [facility] [phone] [place], [place] [phone] Social History Tobacco Use Types Packs/Day Years Used Date Smoking Tobacco: Never Assessed Sex Assigned at Date Recorded Not on file documented as of this encounter Nursing Notes 07/28/1999 11:59 PM PROMOTIONS OFFICER - Apple Diana Started and completed on Sun Jul 28, 1999 10:37 AM CALL RECEIVED. Contact: -pt TRIAGE REFERENCE: UTI IN FEMALE - GARBAGE TRUCK HELPER CNG (c) 1997 CONCERN: sx suggestive of uti STAT SYMPTOMS:nausea ASSESSMENT: sx started earlier in the week Symptoms include: discomfort or pain with urination, frequency in urination, urgency. Complicating symptoms include: temperature now is 100.7, chills on and off periodically, nild back p ain upper back, nausea. not . no vomiting or abd pain. no vag changes. no painfu l intercourse. sexually active. uses condoms Complicating History: none LMP: july 12, 1999 PMH: healthy. CURRENT MEDICATION: none MEDICATION ALLERGIES: yes; iodine, poss pcn. HOME TREATMENT: Discussed per guideline:. PLAN: ucc today. pt to c.b immed for any worsening or new sx ( discussed ) - Selena Olvera Started and completed on ThuJul 28, 1999 10:30 AM documented in this encounter Plan of Treatment Not on filedocumented as of this encounter Visit Diagnoses Not on filedocumented in this encounter Care Teams Core Maker Helper Relationship Specialty Start Date End Date Lisa Gonzalez, VEHICLE CHECK IN CLERK, CHILD LIFE SPECIALIST PCP - General 05/03/1998 11/02/13 [address] [place] [address] documented as of this encounter
--- OUTSIDE RECORDS SUMMARY | 2022-04-10 14:22 | XMS_ITS | Encounter Summary ---
:1970 Author Organization [facility] Address [address] [place] [address] Care Team Providers Name Role Phone Lisa Gonzalez APRN, CNP Primary Care Provider [phone] Encounter Details Date Type Department Care Team Description 09/17/2000 Office Visit [facility] Lisa Gonzalez S PRAIN/STRAIN OF NECK Practice AMANDA MARIN [address] [facility] [address] [place] [address] [phone] (Wo rk) Social History Tobacco Use Types Packs/Day Years Used Date Smoking Tobacco: Never Assessed Sex Assigned at Date Recorded Not on file documented as of this encounter Progress Notes Lisa Gonzalez - 09/17/2000 12:00 AM CDTS: 30-year-old female presents to clinic concerned about right sided neck pain. She first noticed this approximately 2 weeks ago. It is slightly better now. She denies any particular injury. She's had problems with this off and on in the past. She attributes some of this to stress but also to problems with lifting. She has 3 small children and totes her youngest around on her hip quite frequently. She's also carrying somewhat heavy purse. She denies any activities at home or any sporting activities. She has recently starting working out at the [email or web address] but has been trying to avoid upper body exercises. She gets pain in the right side of her neck and it will occasionally radiate down into the right arm. She has no numbness, tingling or weakness. She's been taking ibuprofen usually just 200-400 mg 1 to 2 times a day. She's not doing any icing. She did apply heat but this didn't seem to help. She's requesting a referral for chiropractics which she may opt to use if the pain gets too bad. No other chronic medical problems. Medications: Motrin as above. ALLERGIES: IODINE. O: Temperature 98. Pulse: 82. Blood pressure 120/70. Alert, oriented, cooperative, well groomed and in no apparent distress. Neck is symmetric. There is no spinal tenderness. No paravertebral tenderness. Full range of motion of the neck. She does have some discomfort with rotation to the right when lateral bending to the right. Deep tendon reflexes upper extremities full and brisk. Radial pulses +2/4. Hands are pink. Has strong shoulder shrug. A: 1. Right neck pain. P: 1. May opt to use Motrin up to 800 mg po t.i.d. with food prn. She should also try icing over heat. She's given a for your neck book and specific exercises are outlined for her to try. She's also given Flexeril 10 mg po t.i.d. prn and cautioned regarding possible drowsiness. May opt to use this at bedtime if she has discomfort. She's also given a referral to chiropractics as requested. May use this if she has no improvement of her pain. She understands and agrees with this plan. IN SUMMARY: RIGHT NECK PAIN cc: documented in this encounter Plan of Treatment Not on filedocumented as of this encounter Visit Diagnoses Diagnosis Sprain of neck documented in this encounter Care Teams Sky Diver Relationship Specialty Start Date End Date Lisa Gonzalez, WASTE BALER, HEALTHCARE INTERPRETER PCP - General 05/03/1998 11/02/13 [address] [place] [address] documented as of this encounter
--- OUTSIDE RECORDS SUMMARY | 2022-04-10 14:22 | XMS_ITS | Encounter Summary ---
:1970 Author Organization [facility] Address [address] [place] [address] Care Team Providers Name Role Phone Lisa Gonzalez APRN, CNP Primary Care Provider [phone] Reason for Visit Reason Comments UTI adult/ av ucc/thanks Encounter Details Date Type Department Care Team Description 09/29/1999 Telephone Careline Carmelita Torres, UTI (adult/ av [address] RN ucc/thanks) [place], [place] [address] CARELINE [phone] [place], [place] Social History Tobacco Use Types Packs/Day Years Used Date Smoking Tobacco: Never Assessed Sex Assigned at Date Recorded Not on file documented as of this encounter Nursing Notes 09/29/1999 11:59 PM CDT - Lorin Malin Started and completed on Sun September 29, 1999 7:31 AM CALL RECEIVED. 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 2months ago last inf STAT SYMPTOMS:none per guideline. ASSESSMENT: Symptoms include: discomfort or pain with urination, frequency in urination, urgency. Complicating symptoms include: abdominal pain. Complicating History: no significant PMH or complicating symptoms present. LMP: 1 week ago. PMH: healthy. CURRENT MEDICATION: no. MEDICATION ALLERGIES: yes; iodine and pcn. Pharmacy: [facility] / [phone] HOME TREATMENT: increase intake of water, eliminate caffeine and alcohol, to decrease irritation ofurinary tract mucosa, avoid perfumed soaps or bath additives, showers recommended, For prevention o f UTI: use cotton underwear, avoid long intervals between urination, drink 6-8 8oz glasses of water daily, minimally, if no health restrictions, empty bladder after intercourse. 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 Pop Rivera Dr would like her seen in [facility]/ pt to be seen at uc. Pt understood and was able to repeat treatment.To call back if sx worsen,change or w/ any questions and concerns. - Carmelita Torres Started on ThuSeptember 29, 1999 6:59 AM Completed on ThuSeptember 29, 1999 7:14 AM documented in this encounter Plan of Treatment Not on filedocumented as of this encounter Visit Diagnoses Not on filedocumented in this encounter Care Teams Rn Military Relationship Specialty Start Date End Date Lisa Gonzalez APRN, ASSISTANT PROFESSOR OF NURSING PCP - General 05/03/1998 11/02/13 [address] [place] [address] documented as of this encounter
--- OUTSIDE RECORDS SUMMARY | 2022-04-10 14:22 | XMS_ITS | Encounter Summary ---
:1970 Author Organization [facility] Address [address] [place] [address] Care Team Providers Name Role Phone Lisa Gonzalez APRN, CNP Primary Care Provider [phone] Encounter Details Date Type Department Care Team Description 12/23/2002 Notes/Orders [facility] RAD IOLOGICAL EXAM [facility] H, AMANDA MARIN NEC (Primary Dx) [address] [facility] [address] [place], [place] [address] [place], [place] [phone] [address] Social History Tobacco Use Types Packs/Day Years Used Date Smoking Tobacco: Never Assessed Sex Assigned at Date Recorded Not on file documented as of this encounter Procedure Notes Sarmad Mott - 12/23/2002 12:00 AM CDTAssociated Order(s): CHEST 2 VIEW (PA/LATERAL) CLINICAL DATA: READ OUTSIDE FILMS - OUTSIDE FILMS FROM [facility] EXAMINATION: PA AND LATERAL CHEST, 12/21/02: Bone mineral is felt to be grossly within normal limits. A quantitative assessment of bone mineral could be obtained by a DEXA scan if clinically indicated. Heart size normal. Lungs clear. There are some calcifications in the T11-12 disk space. This is an indication of minor degenerative change in the T11-12 disk. Otherwise the chest x-ray is normal. Sarmad Mott MD A cc: Radiology AV Lisa Gonzalez NP documented in this encounter Plan of Treatment Not on filedocumented as of this encounter Procedures Procedure Name Priority Date/Time Associated Diagnosis Comme nts RADEX CH 2 VIEWS Routine 12/23/2002 Radiological Exam Nec Re sults for this FRNT&LAT procedure are i n the results section . documented in this encounter Results CHEST 2 VIEW (PA/LATERAL) (12/23/2002) Anatomical Region Laterality Modality Other Specimen (Source) Anatomical Location Collection Method / Collectio n Time Received Time / Laterality Volume Transcriptions Sarmad Mott - 12/23/2002 12 :00 AM CDTCLINICAL DATA: READ OUTSIDE FILMS - OUTSIDE FILMS FROM [facility] EXAMINATION: PA AND LATERAL CHEST, : Bone mineral is felt to be grossly withi n normal limits. A quantitative assessment of bone mineral could be obta ined by a DEXA scan if clinically indicated. Heart size normal. Lungs srikanth r. There are some calcifications in the T11-12 disk space. This is an ind ication of minor degenerative change in the T11-12 disk. Otherwise the chest x-ray is normal. Sarmad Mott MD A cc: Radiology AV Lisa Gonzalez NP Lisa Gonzalez APRN, CNP RAD_1 documented in this encounter Visit Diagnoses Diagnosis Radiological examination, not elsewhere classified - Primary documented in this encounter Care Teams Special Warfare Combatant Crewman Relationship Specialty Start Date End Date Lisa Gonzalez APRN, MEASURING MACHINE OPERATOR PCP - General 05/03/1998 11/02/13 [address] [place] [address] documented as of this encounter
--- OUTSIDE RECORDS SUMMARY | 2022-04-10 14:22 | XMS_ITS | Encounter Summary ---
:1970 Author Organization [facility] Address [address] [place] [address] Care Team Providers Name Role Phone Lisa Gonzalez APRN, CNP Primary Care Provider [phone] Encounter Details Date Type Department Care Team Description 03/17/2001 Office Visit [facility] Sarmad Vaughn, ACUTE URI NOS Practice [address] [place] [address] [facility] [address] [place], [place] [address] (Wo rk) Social History Tobacco Use Types Packs/Day Years Used Date Smoking Tobacco: Never Assessed Sex Assigned at Date Recorded Not on file documented as of this encounter Progress Notes JohanaSarmad - 03/17/2001 12:00 AM CSTSUBJECTIVE: URI symptoms over the past two days. Did have a temp up to 100 yesterday. Has had myalgias. Occasional cough. No shortness of breath or chest pain. Two children at home are sick as well. She did attempt to give blood two weeks ago, and fainted shortly after they inserted the needle. She stated she was out for one to two seconds. Has had some aches since then. No lightheadedness or dizziness. OBJECTIVE: Alert and in no acute distress. Does not appear acutely ill. Blood pressure, 134/82. Temperature, 97.9. Pulse, 80 and regular. TMs retracted bilaterally. No sinus tenderness. Throat reveals mild cobblestoning. Neck is supple without adenopathy. Lungs are clear bilaterally. No wheezes, rales, or rhonchi. Heart: Regular rate and rhythm without murmur. Examination of the back reveals mild tenderness over the rhomboid muscles bilaterally. ASSESSMENT: 1. URI. 2. Rhomboid strain, secondary to #1. PLAN: Continue with Motrin as needed. Patient requesting a muscle relaxant. Robaxin 1 to 2 t.i.d. prn. Follow up as needed. IN SUMMARY: URI cc: [place] EQUIPMENT ASSOCIATE documented in this encounter Plan of Treatment Not on filedocumented as of this encounter Visit Diagnoses Diagnosis Acute upper respiratory infections of un specified site documented in this encounter Care Teams Radiologist Diagnostic Relationship Specialty Start Date End Date Lisa Gonzalez APRN, NURSE PARALEGAL PCP - General 05/03/1998 11/02/13 [address] [place] [address] documented as of this encounter
--- OUTSIDE RECORDS SUMMARY | 2022-04-10 14:22 | XMS_ITS | Encounter Summary ---
:1970 Author Organization [facility] Address [address] [place] [address] Care Team Providers Name Role Phone Lisa Gonzalez APRN, CNP Primary Care Provider [phone] Encounter Details Date Type Department Care Team Description 10/28/1998 Other Services Bon Palacios MD [address] [place] [address] (Wo rk) Social History Tobacco Use Types Packs/Day Years Used Date Smoking Tobacco: Never Assessed Sex Assigned at Date Recorded Not on file documented as of this encounter Plan of Treatment Not on filedocumented as of this encounter Visit Diagnoses Diagnosis Single liveborn, born in hospital, [facility] without mention of delivery documented in this encounter Care Teams Forest Fire Control Officer Relationship Specialty Start Date End Date Lisa Gonzalez APRN, CNP PCP - General 05/03/1998 11/02/13 [address] [place] [address] documented as of this encounter
--- OUTSIDE RECORDS SUMMARY | 2022-04-10 14:22 | XMS_ITS | Encounter Summary ---
:1970 Author Organization [facility] Address [address] [place] [address] Care Team Providers Name Role Phone Lisa Gonzalez APRN, CNP Primary Care Provider [phone] Reason for Visit Reason Comments BACK PAIN Encounter Details Date Type Department Care Team Description 03/17/1999 Telephone Careline Garima Guaman BACK PAIN [address] 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 Contact: Self @ >> GARIMA YU 03/17/1999 11:50 am PER BACK TRAUMA/BACK PAIN CNG 1998: STAT SX BACK PAIN: ; no possible spinal cord injury; no new paralysis, weakness or numbness of limbs; no new bowel or bladder retention or incontinence ass. with back sx; no abrupt onset of pain or new severe pain in a pt. over 50 ASSESSMENT: incident (back pain dev about an hr ago; has a 4 month old, 19 month old; 3 year old), location (mid-back area, around umbilical area but in the back), duration (one hr), intensity of pain (with movement is very intense), pain at rest (ok), fever (no), uti sx (no), health (healthy), current meds (BC pills), , . HOME TREATMENT: PER BACK TRAUMA/BACK PAIN CNG 1997: documented in this encounter Plan of Treatment Not on filedocumented as of this encounter Visit Diagnoses Not on filedocumented in this encounter Care Teams Maple Sugar Maker Relationship Specialty Start Date End Date Lisa Gonzalez APRN, CONTEMPORARY OR MODERN DANCER PCP - General 05/03/1998 11/02/13 [address] [place] [address] documented as of this encounter
--- OUTSIDE RECORDS SUMMARY | 2022-04-10 14:22 | XMS_ITS | Encounter Summary ---
:1970 Author Organization [facility] Address [address] [place] [address] Care Team Providers Name Role Phone Lisa Gonzalez APRN, AMANDA Primary Care Provider [phone] Encounter Details Date Type Department Care Team Description 12/21/2002 Orders Only External to Unknown, Physici an [address] [place], [place] [address] (Wo rk) Social History Tobacco Use Types Packs/Day Years Used Date Smoking Tobacco: Never Assessed Sex Assigned at Date Recorded Not on file documented as of this encounter Procedure Notes Lisa Gonzalez - 12/21/2002 12:00 AM CDTAssociated Order(s): OUTSIDE IMAGE Lisa Gonzalez - 12/21/2002 12:00 AM CDTAssociated Order(s): OUTSIDE LAB Lisa Gonzalez - 12/21/2002 12:00 AM CDTAssociated Order(s): OUTSIDE IMAGE Lisa Gonzalez - 12/21/2002 12:00 AM CDTAssociated Order(s): OUTSIDE LAB documented in this encounter Plan of Treatment Not on filedocumented as of this encounter Procedures Procedure Name Priority Date/Time Associated Diagnosis Comme nts OUTSIDE IMAGE 12/21/2002 12:00 AM Results for this CDT procedure are i n the results section . OUTSIDE IMAGE 12/21/2002 12:00 AM Results for this CDT procedure are i n the results section . OUTSIDE LAB 12/21/2002 12:00 AM Results for this CDT procedure are i n the results section . OUTSIDE LAB 12/21/2002 12:00 AM Results for this CDT procedure are i n the results section . documented in this encounter Results OUTSIDE LAB (12/21/2002 12:00 AM CDT) Narrative 12/21/2002 12:00 AM CDT This result has an attachment that is no t available. Ordered by an unspecified provider. Transcriptions Lisa Gonzalez - 12/21/2002 12:00 AM CDT Physician Unknown DUMMY/OTHER/AR OUTSIDE LAB (12/21/2002 12:00 AM CDT) Narrative 12/21/2002 12:00 AM CDT This result has an attachment that is no t available. Ordered by an unspecified provider. Transcriptions Lisa Gonzalez - 12/21/2002 12:00 AM CDT Physician Unknown DUMMY/OTHER/AR OUTSIDE IMAGE (12/21/2002 12:00 AM CDT) Anatomical Region Laterality Modality Other Narrative 12/21/2002 12:00 AM CDT This result has an attachment that is no t available. Ordered by an unspecified provider. Transcriptions Lisa Gonzalez - 12/21/2002 12:00 AM CDT Physician Unknown DUMMY/OTHER/AR OUTSIDE IMAGE (12/21/2002 12:00 AM CDT) Anatomical Region Laterality Modality Other Narrative 12/21/2002 12:00 AM CDT This result has an attachment that is no t available. Ordered by an unspecified provider. Transcriptions Lisa Gonzalez - 12/21/2002 12:00 AM CDT Physician Unknown DUMMY/OTHER/AR documented in this encounter Visit Diagnoses Not on filedocumented in this encounter Care Teams Cremator Relationship Specialty Start Date End Date Lisa Gonzalez, RADIO MAINTAINER, FACTORY MAINTENANCE MANAGER PCP - General 05/03/1998 11/02/13 [address] [place] [address] documented as of this encounter
--- OUTSIDE RECORDS SUMMARY | 2022-04-10 14:22 | XMS_ITS | Encounter Summary ---
:1970 Author Organization [facility] Address [address] [place] [address] Care Team Providers Name Role Phone Lisa Gonzalez APRN, CNP Primary Care Provider [phone] Reason for Visit Reason Comments POST- VIA INTERFACE Encounter Details Date Type Department Care Team Description 12/20/1998 Office Visit [facility] Lisa Gonzalez R OUT POSTPART Practice AMANDA MARIN FOLLOW-UP [address] [facility] [address] [place] [address] [phone] (Wo rk) Social History Tobacco Use Types Packs/Day Years Used Date Smoking Tobacco: Never Assessed Sex Assigned at Date Recorded Not on file documented as of this encounter Progress Notes Lisa Gonzalze - 12/20/1998 12:00 AM CDTS: 28-year-old white female presents to clinic for check. She had a vaginal delivery on 10/29/98. Female child Adelina was 8 lbs 15 oz. Things have been going well for Polly. She is bottle feeding and had no problems with her breasts drying up. She did have lochia for approximately 1 weeks and has had no menstrual bleeding since that time. She's having no problems with urination and bowel movements. She's returned to sexual activity and she and her have been using condoms. This is not uncomfortable for her. She's also started exercising and has been using the treadmill for the last 2 weeks. Her last recorded weight was 167 lbs and she is down to 129 lbs. She thinks she'd like to go down at least another 10 lbs. She denies problems with post- depression. Her sfxzya-dx-cej is currently in the house helping out. is also very helpful. She does have 3 small children under the age of 3. Polly is requesting control pills. She was on oral contraceptives sometime in the past. She does not remember the name of her pills. She broke out in hives about 2 weeks after starting on the pills. She was not sure if this was related. She has no problems or prior history with blood clots. She's a non-smoker. No chronic medical problems. Medications: none. Allergies: ? penicillin, iodine. O: Weight: 129 lbs. Blood pressure 110/70. Alert, oriented, cooperative, well groomed woman in no apparent distress. Breasts are symmetric. There's no skin dimpling, no masses or tenderness. No nipple retraction or discharge. No axillary or supraclavicular lymphadenopathy. Neck is supple. No thyromegaly. Abdomen is flat, no tenderness or masses. External genitalia negative. BSU negative. Vagina pink, moist, without lesions or discharge. Pap was taken with cytobrush and spatula. Negative CMT. Uterus has returned to normal size. It's small, firm, mobile. No tenderness and no adnexal fullness or tenderness. A: 1. exam. P: 1. Will start on Desogen 1 po q day x 28 days. She's to start on the first Thursday of her first menstrual period and she should use condoms for the first month. Return to clinic in 2 to 3 months for follow-up of pills. She was given written information on pills and we did review side effects and warnings signs. She understand and agrees with this plan. IN SUMMARY: EXAM cc: documented in this encounter Plan of Treatment Not on filedocumented as of this encounter Visit Diagnoses Diagnosis Routine follow-up documented in this encounter Care Teams 911 Dispatcher Relationship Specialty Start Date End Date Lisa Gonzalez, CREDIT VERIFICATION CLERK, WEDDING PHOTOGRAPHER PCP - General 05/03/1998 11/02/13 [address] [place] [address] documented as of this encounter
--- OUTSIDE RECORDS SUMMARY | 2022-04-10 14:22 | XMS_ITS | Encounter Summary ---
:1970 Author Organization [facility] Address [address] [place] [address] Care Team Providers Name Role Phone Non Pn, Clinician MD Primary Care Provider Unavailable Encounter Details Date Type Department Care Team Description 10/31/1999 Orders Only Lisa Serna H, [address] HOME IMPROVEMENT ADVISOR, SENIOR TREASURY ANALYST [place], [place] [phone] [facility] [phone] [place] [address] (Wo rk) Social History Tobacco Use Types Packs/Day Years Used Date Smoking Tobacco: Never Assessed Sex Assigned at Date Recorded Not on file documented as of this encounter Plan of Treatment Not on filedocumented as of this encounter Procedures Procedure Name Priority Date/Time Associated Diagnosis Comme nts UA WITH MICRO Waiting 10/31/1999 9:27 AM Results for this CDT procedure are i n the results section . documented in this encounter Results UA WITH MICRO (10/31/1999 9:27 AM CDT) [facility] Method Time Signature Appr Dark Yel [facility] Appr Hazy [facility] Sp Gr 1.019 1.005 - [facility] 1.030 Leuk Neg [facility] Nitr Neg [facility] pH 7.0 4.5 - 8.0 [facility] Prot Neg mg/dl [facility] Gluc Neg mg/dl [facility] Ket Neg mg/dl [facility] Urob 0.2 0.2 - 1.0 [facility] EU/dl Bili Neg [facility] Blood Neg [facility] RBC'S 0 0 - 3 [facility] /hpf WBC'S 0 0 - 5 [facility] /hpf Epith, Few /hpf [facility] Squamous Bact Few [facility] Casts 0 /lpf [facility] Comment Urine [facility] Cultured Specimen Anatomical Collection Method Collection Time Receive d Time (Source) Location / / Volume Laterality 10/31/1999 9:27 AM 0 9:28 CDT AM CDT Lisa Gonzalez HOME IMPROVEMENT ADVISOR, SENIOR TREASURY ANALYST LAB_1 Performing Organization Address City/State/ZIP Code Phon e Number [facility] [phone] [facility] [address] [address] documented in this encounter Visit Diagnoses Not on filedocumented in this encounter Care Teams Aerospace Medicine Physician Relationship Specialty Start Date End Date Non Pn, Clinician, PCP - General 11/03/13 [place] [address] documented as of this encounter
--- OUTSIDE RECORDS SUMMARY | 2022-04-10 14:22 | XMS_ITS | Encounter Summary ---
:1970 Author Organization [facility] Address [address] [place] [address] Care Team Providers Name Role Phone Lisa Gonzalez APRN, CNP Primary Care Provider [phone] Reason for Visit Reason Comments COUGH VIA INTERFACE Encounter Details Date Type Department Care Team Description 02/25/1999 Office Visit [facility] Saritha Figueroa MD ACUTE URI NOS; Practice [address] [place]UTE [place] [address] [place], [place] [phone] (Wo rk) Social History Tobacco Use Types Packs/Day Years Used Date Smoking Tobacco: Never Assessed Sex Assigned at Date Recorded Not on file documented as of this encounter Progress Notes Drake Figueroa - 02/25/1999 12:00 AM CDTS: The patient is in with cough, congestion, back pain with cough and headaches for two days. She has treated the headache with Tylenol. She also started on Desogen one month ago and wonders if this might be the source of her headaches. That's a possibility. Her headaches are not severe and sound like muscle contraction, so I would continue with the Desogen and follow the headaches along. If they are persistent, that might be a reason for discontinuing the medication, but would see about the frequency, severity and the consistently of these headaches before doing so, especially since she does have URI symptoms now and that's another possible cause of her headaches. O: Weight is 126. Temperature is 97.3. Blood pressure is 112/64. She is alert and awake and not in marked distress. Tympanic membranes are guerra blue with light reflex 4:00 right 8:00 left. No erythema or distortion. The pharynx was free of erythema, exudate, mass or lesion. Neck had full range of motion without pain. No adenopathy. No thyromegaly. No masses. No lesions. Auscultation of the lungs were clear. On palpation there was no fremitus. She's got fairly marked laryngitis which is almost always viral. P: I am going to treat her as a viral illness with fluids, humidity, Tylenol, tincture of time which should bring resolution. Recheck if the symptoms persist or increase. cc: documented in this encounter Plan of Treatment Not on filedocumented as of this encounter Visit Diagnoses Diagnosis Acute upper respiratory infections of un specified site Acute laryngitis documented in this encounter Care Teams Medicine Teacher Relationship Specialty Start Date End Date Lisa Gonzalez APRN, SIGNAL APPRENTICE PCP - General 05/03/1998 11/02/13 [address] [place] [address] documented as of this encounter
--- OUTSIDE RECORDS SUMMARY | 2022-04-10 14:22 | XMS_ITS | Encounter Summary ---
:1970 Author Organization [facility] Address [address] [place] [address] Care Team Providers Name Role Phone Lisa Gonzalez APRN, CNP Primary Care Provider [phone] Reason for Visit Reason Comments FOLLOW-UP,UTI VIA INTERFACE Encounter Details Date Type Department Care Team Description 10/31/1999 Office Visit [facility] Lisa Gonzalez F OLLOW-UP EXAM NEC; Practice AMANDA MARIN UTI; [address] [place] VACCINE FOR TETANUS + DIPHTHERIA; [place], [place] LABORAT ORY EXAMINATION [phone] (Wo rk) Social History Tobacco Use Types Packs/Day Years Used Date Smoking Tobacco: Never Assessed Sex Assigned at Date Recorded Not on file documented as of this encounter Progress Notes Lisa Gonzalez - 10/31/1999 12:00 AM CDTS: 29 year-old white female presents to clinic for follow-up urinary tract infection. She is concerned as she has had 2 urinary tract infections this year. She had one 07/28/99, and was treated with Bactrim DS b.i.d. x 3 days with resolution of her symptoms. She had another urinary tract infection documented 09/29/99, and was treated with Cipro 500 mg twice a day x 7 days. She felt better after the first 1-2 days of the Cipro and currently has no dysuria, urgency, frequency, hematuria or nocturia. She denies any other recent urinary tract infections but has difficulty remembering but thinks she had problems as a small child and was told she had a small opening, not sure if this was to her bladder or urethra. She does not remember if this was a urethral dilatation. She had surgery at age 1 for this and had no problems after that time. Polly would also like me to check a mole on her left back. She thinks this has been there for many years and does not think she has seen any changes. However, her noticed this and though she should have it checked. She has had no irritation, itching or bleeding. No history of skin cancer. She does admit to frequent suntanning in her youth and [place] Also, uses sunscreen on her face but usually not on the rest of her body. Medications: none. Allergies: iodine. O: Alert, oriented, cooperative, well groomed, in no apparent distress. Urinalysis shows specific gravity of 1.019, leukocyte, esterase negative; pH 7.0. RBC's 0, WBC's 0. Apparent nevus left back well circumscribed, symmetric, monochromatic 3 mm x 5 mm. There is a central area which is slightly raised. No signs of irritation. A: Follow-up urinary tract infection. 2. Back lesion. P: Polly is encouraged to increase her fluid intake and to urinate both before and after intercourse. Follow-up with any urinary tract infection symptoms. 2. Polly is strongly encouraged to use sunscreen and avoid high sun hours of exposure. She is to monitor the lesion on her back and return to clinic if this changes. She is given written information on skin cancer which includes warning signs. She understands and agrees with this plan. 3. TD given today. Otherwise preventative health care is up to date. IN SUMMARY: FOLLOW-UP URINARY TRACT INFECTION, BACK LESION. cc: documented in this encounter Plan of Treatment Not on filedocumented as of this encounter Visit Diagnoses Diagnosis Other follow-up examination(V67.59) Other follow-up examination Urinary tract infection, site not specif ied Need for Td vaccine Need for prophylactic vaccination with t etanus-diphtheria (Td) Laboratory examination documented in this encounter Care Teams Hand Candle Dipper Relationship Specialty Start Date End Date Lisa Gonzalez, NURSE PARALEGAL, TRANSMISSION SPECIALIST PCP - General 05/03/1998 6/25/14 [address] [place] [address] documented as of this encounter
--- OUTSIDE RECORDS SUMMARY | 2022-04-10 14:22 | XMS_ITS | Encounter Summary ---
:1970 [facility] Address [address], [place] [address] Care Team Providers Name Role Phone Lisa Gonzalez APRN, CNP Primary Care Provider [phone] Encounter Details Date Type Department Care Team Description 10/28/1998 [place] [address] [place], [place] [phone] (Wo rk) Social History Tobacco Use Types Packs/Day Years Used Date Smoking Tobacco: Never Assessed Sex Assigned at Date Recorded Not on file documented as of this encounter Plan of Treatment Not on filedocumented as of this encounter Visit Diagnoses Diagnosis Supervision of other normal First-degree perineal laceration, with d elivery Outcome of delivery, single liveborn documented in this encounter Care Teams Whiskey Regauger Relationship Specialty Start Date End Date Lisa Gonzalez APRN, CNP PCP - General 05/03/1998 11/02/13 [address] [place] [address] documented as of this encounter
--- OUTSIDE RECORDS SUMMARY | 2022-04-10 14:22 | XMS_ITS | Encounter Summary ---
:1970 Author Organization [facility] Address [address] [place] [address] Care Team Providers Name Role Phone Lisa Gonzalez APRN, CNP Primary Care Provider [phone] Encounter Details Date Type Department Care Team Description 11/17/2001 Orders Only Lisa Gonzalez APRN, CNP [address] [place] [address] (Wo rk) Social History Tobacco Use Types Packs/Day Years Used Date Smoking Tobacco: Never Assessed Sex Assigned at Date Recorded Not on file documented as of this encounter Plan of Treatment Not on filedocumented as of this encounter Procedures Procedure Name Priority Date/Time Associated Diagnosis Comme nts HEMOGLOBIN, BLOOD Routine 11/17/2001 11:07 AM Res ults for this CDT procedure are i n the results section. LIPID PANEL, FAST > Routine 11/17/2001 11:07 AM R esults for this 12 HOUR CDT procedure are i n the results section. documented in this encounter Results HEMOGLOBIN, BLOOD (11/17/2001 11:07 AM CDT) P athologist Signature Hemoglobin 12.0 12.0 - 16.0 [facility] g/dl Specimen Anatomical Collection Method Collection Time Receive d Time (Source) Location / / Volume Laterality 11/17/2001 11:07 11/17/2001 AM CDT 11:08 AM CDT Lisa Gonzalez APRN, CNP LAB_1 Performing Organization Address City/State/ZIP Code Phon e Number [id number] [phone] [facility] [address] [phone] CHOLESTEROL LIPID PANEL FAST >12HR FAST (11/17/2001 11:07 AM CDT) athologist Signature Cholesterol 138 <200 mg/dl [facility] Triglyceride 29 <200 mg/dl [facility] HDL 52 >35 mg/dl [facility] LDL, Calc. 80 mg/dl [facility] Hours Fasting 12 hours [facility] Specimen Anatomical Collection Method Collection Time Receive d Time (Source) Location / / Volume Laterality 11/17/2001 11:07 11/17/2001 AM CDT 11:08 AM CDT Lisa Gonzalez APRN, CNP LAB_1 Performing Organization Address City/State/[facility] Phon e Number [id number] [phone] [phone] documented in this encounter Visit Diagnoses Not on filedocumented in this encounter Care Teams Boarding Mother Relationship Specialty Start Date End Date Lisa Gonzalez APRN, AMANDA PCP - General 05/03/1998 11/02/13 [address] [place] [address] documented as of this encounter
--- OUTSIDE RECORDS SUMMARY | 2022-04-10 14:22 | XMS_ITS | Encounter Summary ---
:1970 Author [facility] Address [address], [place] [address] Care Team Providers Name Role Phone Lisa Gonzalez APRN, CNP Primary Care Provider [phone] Encounter Details Date Type Department Care Team Description 12/21/2002 Emergency Room External to Lisa Gonzalez, FV R idges for chest AMANDA MARIN pain [address] [place] [address] (Wo rk) Social History Tobacco Use Types Packs/Day Years Used Date Smoking Tobacco: Never Assessed Sex Assigned at Date Recorded Not on file documented as of this encounter Progress Notes Lisa Gonzalez - 12/21/2002 12:00 AM CDT documented in this encounter Plan of Treatment Not on filedocumented as of this encounter Visit Diagnoses Not on filedocumented in this encounter Care Teams Steam Tender Relationship Specialty Start Date End Date Lisa Gonzalez APRN, CNP PCP - General 05/03/1998 11/02/13 [address] [place], [place] [id number] documented as of this encounter
--- OUTSIDE RECORDS SUMMARY | 2022-04-10 14:22 | XMS_ITS | Encounter Summary ---
:1970 Author Organization [facility] Address [address] [place] [address] Care Team Providers Name Role Phone Non Pn, Clinician MD Primary Care Provider Unavailable Encounter Details Date Type Department Care Team Description 10/31/1999 Orders Only Lisa Serna, [address] AMANDA MARIN [place], [place] [phone] [facility] [phone] [place] [address] (Wo rk) Social History Tobacco Use Types Packs/Day Years Used Date Smoking Tobacco: Never Assessed Sex Assigned at Date Recorded Not on file documented as of this encounter Plan of Treatment Not on filedocumented as of this encounter Procedures Procedure Name Priority Date/Time Associated Diagnosis Comme nts URINE CULTURE Routine 10/31/1999 9:27 AM Results for this CDT procedure are i n the results section . documented in this encounter Results URINE CULTURE (MIDSTREAM) (10/31/1999 9:27 AM CDT) Component Value Ref Test Analysis Performed At [facility] Range Method Time Signature Specimen Urine [facility] Description Special None [facility] Requests Culture Mixed [place] Consisting Predominantly of [facility] Nonpathogens Report Status Final [facility] Report Status [id number] [facility] Specimen Anatomical Collection Method Collection Time Receive d Time (Source) Location / / Volume Laterality 10/31/1999 9:27 AM 0 9:28 CDT AM CDT Lisa Gonzalez APRN, CNP LAB_1 Performing Organization Address City/State/ZIP Code Phon e Number [facility] [phone] [facility] [address] [address] documented in this encounter Visit Diagnoses Not on filedocumented in this encounter Care Teams Visual Lead Relationship Specialty Start Date End Date Non Pn, Clinician, PCP - General 11/03/13 [place] [address] documented as of this encounter
--- OUTSIDE RECORDS SUMMARY | 2022-04-10 14:22 | XMS_ITS | Encounter Summary ---
:1970 Author Organization [facility] Address [address] [place] [address] Care Team Providers Name Role Phone Lisa Gonzalez APRN, CNP Primary Care Provider [phone] Encounter Details Date Type Department Care Team Description 11/15/2001 Office Visit [facility] Lisa Gonzalez S HORTNESS OF BREATH; Practice AMANDA MARIN MALAISE AND FATIGUE (OTHER); [address] LUMP OR MASS IN BREAST; [place], [place] SCREEN DEFIC ANEMIA NEC; [address] SCREENING-ENDOC/NUT/MET NEC [phone] (Wo rk) Social History Tobacco Use Types Packs/Day Years Used Date Smoking Tobacco: Never Assessed Sex Assigned at Date Recorded Not on file documented as of this encounter Progress Notes Lisa Gonzalez - 11/15/2001 12:00 AM CDTS: [age] [id number] female presents to clinic with multiple concerns. She is requesting a cholesterol check and a hemoglobin. States that she's been anemic in the past. She also states that she failed to mention during her physical in 06/12 that very rarely she'll feel slightly short of breath when she is very active with her children. She does not feel this way when she is exercising however. She has no wheezing or coughing. Two of her children have asthma and she has tried their peak flow meters before and seems to have good peak flows. She has no history of asthma herself. Does not feel short of breath today. Problem number three is that of a breast lump in the right breast. She felt this twice over the last week, however is unable to locate the lump today. Admits she does not do breast self exam consistently. She has never had a mammogram. No family history of breast cancer, no nipple discharge. Medications: none. Allergies: iodine. O: Height 5 feet 7 1/2 inches, temperature 97.9, blood pressure 122/70. Alert, oriented, cooperative, well groomed, in no apparent distress. Lungs clear to auscultation, no wheezes, rhonchi or crackles, respirations easy and even. Peak flow max 440. Breasts are asymmetric and she states that this is not new. She has no skin changes, no nipple retraction or discharge, no axillary or supraclavicular adenopathy. She is unable to locate the lump herself today and I am unable to locate any lumps, bumps or tenderness. There is no nipple discharge. A: 1. Occasional shortness of breath. 2. History of anemia. 3. History of breast lump. P: 1. Should check peak flows if she feels short of breath again. Return to clinic with any continued problems. 2. Total cholesterol, HDL and hemoglobin are pending. 3. Should continue with monthly breast self exam, monitor breasts. Mammo-care method is taught. Return to clinic if she develops any other noticeable lumps or bumps. IN SUMMARY: MULTIPLE cc: documented in this encounter Plan of Treatment Not on filedocumented as of this encounter Visit Diagnoses Diagnosis Shortness of breath Other malaise and fatigue Lump or mass in breast Screening for other and unspecified defi ciency anemia Screening for other and unspecified endo crine, nutritional, metabolic and immunity disorders documented in this encounter Care Teams Creative Writer Relationship Specialty Start Date End Date Lisa Gonzalez, VEGETABLE TRIMMER, RATER ASSOCIATE PCP - General 05/03/1998 11/02/13 [address] [place] [address] documented as of this encounter
--- OUTSIDE RECORDS SUMMARY | 2022-04-10 14:22 | XMS_ITS | Encounter Summary ---
:1970 Author Organization [facility] Address [address] [place] [address] Care Team Providers Name Role Phone Non Pn, Clinician MD Primary Care Provider Unavailable Encounter Details Date Type Department Care Team Description 09/29/1999 Orders Only [facility] Epic, Internal [address] [place], [place] [address] [facility] [phone] [place] [address] Social History Tobacco Use Types Packs/Day Years Used Date Smoking Tobacco: Never Assessed Sex Assigned at Date Recorded Not on file documented as of this encounter Plan of Treatment Not on filedocumented as of this encounter Procedures Procedure Name Priority Date/Time Associated Diagnosis Comme nts UA WITH MICRO Waiting 09/29/1999 12:01 PM Results for this CDT procedure are i n the results section . documented in this encounter Results (ABNORMAL) UA WITH MICRO (09/29/1999 12:01 PM CDT) [facility] gist Method Time Signature Appr Dark Yel [facility] Appr Cloudy [facility] Sp Gr 1.015 1.005 - [facility] 1.030 Leuk Lrg (A) [facility] Nitr Neg [facility] pH 6.5 4.5 - 8.0 [facility] Prot 100 (A) JAYNE mg/dl [facility] Gluc Neg mg/dl [facility] Ket Neg mg/dl [facility] Urob 0.2 0.2 - 1.0 [facility] EU/dl Bili Neg [facility] Blood Mod (A) [facility] RBC'S 5-10 0 - 3 /hpf [facility] WBC'S 6-10 0 - 5 /hpf [facility] Epith, Mod /hpf [facility] Squamous Bact Mod [facility] Casts 0 /lpf [facility] Specimen Anatomical Collection Method Collection Time Receive d Time (Source) Location / / Volume Laterality 09/29/1999 12:01 09/29/1999 PM CDT 12:02 PM CDT Narrative [facility] - 09/29/1999 12:01 PM CDT Ordered by [facility] Internal Processing Epic LAB_1 Performing Organization Address City/State/ZIP Code Phon e Number [facility] [phone] [facility] [address] [address] documented in this encounter Visit Diagnoses Not on filedocumented in this encounter Care Teams Process Control Manager Relationship Specialty Start Date End Date Non Pn, Clinician, PCP - General 11/03/13 [place] [address] documented as of this encounter
--- OUTSIDE RECORDS SUMMARY | 2022-04-10 14:22 | XMS_ITS | Encounter Summary ---
:1970 Author Organization [facility] Address [address] [place] [address] Care Team Providers Name Role Phone Lisa Gonzalez APRN, CNP Primary Care Provider [phone] Encounter Details Date Type Department Care Team Description 12/23/2002 Office Visit [facility] Lisa Gonzalez A NXIETY DISORDER NOS; Practice [place] [address] [facility] [address] [place] [address] [phone] (Wo rk) Social History Tobacco Use Types Packs/Day Years Used Date Smoking Tobacco: Never Assessed Sex Assigned at Date Recorded Not on file documented as of this encounter Last Filed Vital Signs Vital Sign Reading Time Taken Comments Blood Pressure 120/80 12/23/2002 2:20 PM CDT Pulse 74 12/23/2002 2:20 PM CDT Temperature 37.1 ??C (98.8 ??F) 12/23/2002 2:20 PM CDT Respiratory Rate 12 12/23/2002 2:20 PM CDT Oxygen Saturation - - Inhaled Oxygen Concentration - - Weight 56.3 kg (124 lb 3.2 oz) 12/23/2002 2:20 PM CDT Height - - Body Mass Index - - documented in this encounter Progress Notes 12/23/2002 2:20 PM CDT Polly Case is here today for f/u er visit 12/21/02 for chest pain. Are you having other pain today, that you want to discuss with the provider? -YES Preventive Services up to date? -YES Immunizations up to date? -YES Do you ever feel physically threatened or emotionally afraid? -NO Tobacco Status reviewed? (see History Social-Substance) -YES attendant coin operated laundry offered? -NOT APPLICABLE. Aspirin taken daily? -NO BP was taken on the RIGHT arm. BP cuff size used? -Adult Regular Health Education given? -NO. Contact phone number [phone] (home) [phone] (work), alternate phone number . Sheron CAMACHO Santana 12/23/2002 2:29 PM Lisa Gonzalez H - 12/23/2002 12:00 AM CDTSUBJECTIVE: 32-year-old female presents to clinic for follow-up of [facility] ER visit on 12/21/02. Patient states that she awakened on 12/21/02 and was experiencing some pain in her epigastric area, up into her anterior chest. She has also been having increasing problems with belching and nausea. She reports some shortness of breath. She called into the nurse line and was encouraged to call 911. Instead she went with a neighbor to the ER. I do not have the full discharge dictation, however, do have results of a negative chest x-ray, normal CBC with differential, negative cardiac enzymes, negative D-dimer and unremarkable electrolytes. Patient reports that she was on a shelter monitor during her stay and was told she had a normal EKG. She states that she was told that her symptoms were most likely related to stress. Patient reports that she has always been a nervous person. She has been under a large amount of stress recently. Her works for [employer] and was laid off of his job one month ago. They had moved to [place] from [facility] because of his job. [place]. [place] are planning [place] the first week in January for her brother's marriage. This is also stressful. She has 2 young children with severe asthma. She has been up during the night nebbing the children and has been somewhat sleep deprived. She is also very concerned as one of her children has a peanut allergy and she is very nervous about sending this child off to school. 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 Patient feels somewhat of a dry throat. She will rarely have symptoms of heartburn, no constipation, melena, bright red blood per rectum. When she is feeling very nervous she will have looser stools. No brackish taste in the mouth. No increased symptoms when she is lying flat. However, states that she does feel more like belching when she is lying flat. She has not tried any [id number]-xbafsfm antacids. She has 2 caffeinated beverages per day, no use of alcohol, nicotine or illicit drugs. She will use an Excedrin twice a week for headaches and is otherwise not on medications and dislikes taking medications. FAMILY HISTORY - father with hyperlipidemia, paternal uncle PA, otherwise no history of cardiovascular disease. OBJECTIVE: Alert, oriented and cooperative, thin female who appears quite nervous. Has a stutter to her talk on occasion. S1, S2 without murmur, S3, S4, RRR. Lungs are CTA. No crackles, rhonchi or wheezing. Skin is warm and dry. Pulse 74. Blood pressure 120/80. Does not become tearful during conversation. AP pressure over the sternum reveals no increased tenderness to the chest, no signs of costochondritis. ASSESSMENT: 1. Chest pain of unsure etiology, most likely related to anxiety. Possible reflux. PLAN: 1. Patient has discussed use of medication for anxiety in the past and has not wanted to do this. She is interested now in having a prescription for something to use for anxiety. We talked about the use of Xanax prn or an antidepressant medication such as Paxil and she would like to have prescription for Paxil. She tells me she is not sure if she will actually have this filled. Her insurance is running out within the next month. I have also referred her to Lisa Baer for help with stress management techniques. If she develops chest pain again she is instructed on how to take her pulse. If she has palpitations should contact me in clinic or if the chest pain does not go away, should call the nurse line or 911. 2. Regarding the belching may try gvoa-[id number]-cjlkmdm Zantac 75mg 1-2 tablets. If she sees an improvement in her belching should call me at clinic for prescription for Zantac. She is encouraged to discontinue all caffeine. Follow up with me towards the end of the month. She understands and agrees with this plan. 3. Patient is given prescription for Paxil 10mg po qd. Follow-up prn. Patient states that the physician who read her x-ray at [facility] told her that he had never seen decalcification on a young person as he saw on her. Will have our radiologist overread the x-ray and she may call for results this next week. 25 out of 30 minutes spent in counseling and education. P cc: documented in this encounter Plan of Treatment Not on filedocumented as of this encounter Visit Diagnoses Diagnosis Anxiety state, unspecified (HRC) Anxiety state, unspecified Chest pain, unspecified documented in this encounter Care Teams Lumber Straightener Relationship Specialty Start Date End Date Lisa Gonzalez, TANIA, DONOR RELATIONS MANAGER PCP - General 05/03/1998 11/02/13 [address] [place] [address] documented as of this encounter
--- OUTSIDE RECORDS SUMMARY | 2022-04-10 14:22 | XMS_ITS | Encounter Summary ---
:1970 Author Organization [facility] Address [address] [place] [address] Care Team Providers Name Role Phone Lisa Gonzalez APRN, CNP Primary Care Provider [phone] Encounter Details Date Type Department Care Team Description 07/26/2002 Office Visit [facility] Mark Shaw MD SKIN HYPERTRO/ATROPH [address] [facility] [address] [place], [place] [address] [place], [place] [phone] Social History Tobacco Use Types Packs/Day Years Used Date Smoking Tobacco: Never Assessed Sex Assigned at Date Recorded Not on file documented as of this encounter Progress Notes 07/26/2002 9: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 Primary care provider is RITA Emmanuel [facility], 07/26/2002, 9:22 AM Mark Shaw - 07/26/2002 12:00 AM CSTS: This patient presents today mainly for a prescription for an antiwrinkle cream for the skin around her eyes. She states that she has been developing wrinkles over the past several years and has heard that there are some prescription antiwrinkle creams that she could use. She states that her skin is very sensitive and she has tried many different sdbw-gck-tubyhsi products including products containing retinol and vitamin A. The product that she has found to be the most helpful so far is a Neutrogena product with copper and she wonders if there is a prescription medication with copper that she could get. She is otherwise healthy, takes no medications, and is allergic to iodides and penicillin. O: The patient is a well appearing female who is oriented and in no acute distress. She does have multiple fine wrinkles at her eyes laterally and underneath her eyes. Her skin does appear somewhat dry. A: Wrinkles. P: We discussed dry skin care in general. I explained that with her skin being sensitive and with the area involved it may be difficult for her to find a prescription cream that is not irritating. However, I gave her samples of both [place] 0.02% cream and Avage cream to try. I suggested that she start with the [place] and use this every 2nd or 3rd night. She may increase the frequency to every night as tolerated. If she finds this to be helpful she can fill a prescription for this cream. Otherwise, I asked her to move on to the Avage cream of which I gave her samples. She was also given a prescription for this which she may fill. Lastly, I gave her some samples of Eucerin Q10 cream to try. If she likes this, this is ejzh-jjo-gvpmsip. She may return on a p.r.n. basis. IN SUMMARY: Wrinkles. 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
--- OUTSIDE RECORDS SUMMARY | 2022-04-10 14:23 | XMS_ITS | Encounter Summary ---
:1970 Author Organization [facility] Address [address], [place] [address] Care Team Providers Name Role Phone Lisa Gonzalez APRN, CNP Primary Care Provider [phone] Reason for Visit Reason Comments OB EXAM,BI-WEEKLY VIA INTERFACE Encounter Details Date Type Department Care Team Description 09/21/1998 Office Visit [facility] Emi Feldman RVIS OTHER NORMAL Practice MD Nghia PREG [address] [facility] [address] [place] [address] [phone] Social History Tobacco Use Types Packs/Day Years Used Date Smoking Tobacco: Never Assessed Sex Assigned at Date Recorded Not on file documented as of this encounter Plan of Treatment Not on filedocumented as of this encounter Visit Diagnoses Diagnosis Supervision of other normal documented in this encounter Care Teams Lobbyist Relationship Specialty Start Date End Date Lisa Gonzalez APRN, CNP PCP - General 05/03/1998 11/02/13 [address] [place] [address] documented as of this encounter
--- OUTSIDE RECORDS SUMMARY | 2022-04-10 14:23 | XMS_ITS | Encounter Summary ---
:1970 Author [facility] Address [address], [place] [address] Care Team Providers Name Role Phone Lisa Gonzalez APRN, CNP Primary Care Provider [phone] Encounter Details Date Type Department Care Team Description 05/30/1998 [place] [address] [place], [place] [id number] (Wo rk) Social History Tobacco Use Types Packs/Day Years Used Date Smoking Tobacco: Never Assessed Sex Assigned at Date Recorded Not on file documented as of this encounter Plan of Treatment Pending Results Name Type Priority Associated Diagnoses Date/Ti me FIRST OB Lab Routine 05/30/1998 9:00 AM FIRST AID OFFICER documented as of this encounter Procedures Procedure Name Priority Date/Time Associated Diagnosis Comme nts FIRST OB Routine 05/30/1998 9:00 AM FIRST AID OFFICER documented in this encounter Visit Diagnoses Not on filedocumented in this encounter Care Teams Linux Network Administrator Relationship Specialty Start Date End Date Lisa Gonzalez APRN, CNP PCP - General 05/03/1998 11/02/13 [address] [place], [place] [id number] documented as of this encounter
--- OUTSIDE RECORDS SUMMARY | 2022-04-10 14:23 | XMS_ITS | Encounter Summary ---
:1970 Author Organization [facility] Address [address], [place] [address] Care Team Providers Name Role Phone Lisa Gonzalez APRN, CNP Primary Care Provider [phone] Reason for Visit Reason Comments OB EXAM,WEEKLY VIA INTERFACE Encounter Details Date Type Department Care Team Description 10/11/[address] [facility] ([place], [place]) Emi Feldman RVIS OTHER NORMAL Practice MD Nghia PREG [address] [facility] [address] [place] [address] [phone] Social History Tobacco Use Types Packs/Day Years Used Date Smoking Tobacco: Never Assessed Sex Assigned at Date Recorded Not on file documented as of this encounter Plan of Treatment Not on filedocumented as of this encounter Visit Diagnoses Diagnosis Supervision of other normal documented in this encounter Care Teams Jacquard Twine Polisher Operator Relationship Specialty Start Date End Date Lisa Gonzalez APRN, CNP PCP - General 05/03/1998 11/02/13 [address] [place] [address] documented as of this encounter
--- OUTSIDE RECORDS SUMMARY | 2022-04-10 14:23 | XMS_ITS | Encounter Summary ---
:1970 Author Organization [facility] Address [address] [place] [address] Care Team Providers Name Role Phone Gonzalez Lisa Raymond MARIN CNP Primary Care Provider [phone] Encounter Details Date Type Department Care Team Description 05/30/1998 [place] [address] [place], [place] [phone] (Wo rk) Social History Tobacco Use Types Packs/Day Years Used Date Smoking Tobacco: Never Assessed Sex Assigned at Date Recorded Not on file documented as of this encounter Plan of Treatment Not on filedocumented as of this encounter Procedures Procedure Name Priority Date/Time Associated Diagnosis Comme nts URINE CULTURE Routine 05/30/1998 9:00 AM Results for this LABORER PIPELINE procedure are i n the results section . documented in this encounter Results URINE CULTURE (MIDSTREAM) (05/30/1998 9:00 AM LABORER PIPELINE) Component Value Ref Test Analysis Performed At [facility] Range Method Time Signature Specimen Urine [facility] Description Special None [facility] Requests Culture Mixed [place] Consisting Predominantly of [facility] Nonpathogens Report Status [facility] [id number] [facility] Specimen Anatomical Collection Method Collection Time Receive d Time (Source) Location / / Volume Laterality 05/30/1998 9:00 AM 9:01 LABORER PIPELINE AM LABORER PIPELINE Emi Feldman MD LAB_1 Performing Organization Address City/State/ZIP Code Phon e Number [facility] [phone] [facility] [address] [place] [address] [address] documented in this encounter Visit Diagnoses Not on filedocumented in this encounter Care Teams Shipping Agent Relationship Specialty Start Date End Date Lisa Gonzalez APRN, HEALTH TECHNICAL WRITER PCP - General 05/03/1998 11/02/13 [address] [place] [address] documented as of this encounter
--- OUTSIDE RECORDS SUMMARY | 2022-04-10 14:23 | XMS_ITS | Encounter Summary ---
:1970 Author Organization [facility] Address [address] [place] [address] Care Team Providers Name Role Phone Lisa Gonzalez APRN, CNP Primary Care Provider [phone] Reason for Visit Reason Comments Concerns Encounter Details Date Type Department Care Team Description 06/23/1998 Telephone Careline Peter Henderson, Concerns [address] 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 Had 2 loose stools last night Not pure watery. Soft stools. No temp. Not achy. Had cough for 1 week. Pt. was seen on Thu or . and said he would run cultures and treat with antibiotics if she ran a temp. Told patient she should watch symptoms. If any temp and watery stools, call back. >> CALL RECEIVED. Contact: [phone] >> PETER HENDERSON 06/23/1998 01:21 pm Preg 23 wks. Was seen at clinic last week with concerns of poss listeriosis. Had no sx at that time. Last pm had 2 loose stools, cont mild stomach ache today. No n/v. afebrile. Wakes sometimes in am's feeling diaphoretic. Next ob appt scheduled 06/27. documented in this encounter Plan of Treatment Not on filedocumented as of this encounter Visit Diagnoses Not on filedocumented in this encounter Care Teams Service Parts Driver Relationship Specialty Start Date End Date Lisa Gonzalez APRN, SENIOR DRAFTER PCP - General 05/03/1998 11/02/13 [address] [place] [address] documented as of this encounter
--- OUTSIDE RECORDS SUMMARY | 2022-04-10 14:23 | XMS_ITS | Encounter Summary ---
:1970 Author Organization [facility] Address [address], [place] [address] Care Team Providers Name Role Phone Lisa Gonzalez APRN, CNP Primary Care Provider [phone] Reason for Visit Reason Comments TEST RESULTS VIA INTERFACE Encounter Details Date Type Department Care Team Description 10/03/1998 Office Visit [facility] Emi Feldman RVIS OTHER NORMAL Practice MD Nghia PREG [address] [facility] [address] [place] [address] [phone] Social History Tobacco Use Types Packs/Day Years Used Date Smoking Tobacco: Never Assessed Sex Assigned at Date Recorded Not on file documented as of this encounter Plan of Treatment Not on filedocumented as of this encounter Visit Diagnoses Diagnosis Supervision of other normal documented in this encounter Care Teams Rubber Goods Finisher Relationship Specialty Start Date End Date Lisa Gonzalez APRN, CNP PCP - General 05/03/1998 11/02/13 [address] [place] [address] documented as of this encounter
--- OUTSIDE RECORDS SUMMARY | 2022-04-10 14:23 | XMS_ITS | Encounter Summary ---
:1970 Author Organization [facility] Address [address] [place] [address] Care Team Providers Name Role Phone Lisa Gonzalez APRN, CNP Primary Care Provider [phone] Reason for Visit Reason Comments VIA INTERFACE Encounter Details Date Type Department Care Team Description 10/02/1998 Office Visit [facility], ANTENAT AL SCREENING NEC and Gynecology Physician [address] [facility] [address] [place], [place] [address] [place], [place] [phone] Social History Tobacco Use Types Packs/Day Years Used Date Smoking Tobacco: Never Assessed Sex Assigned at Date Recorded Not on file documented as of this encounter Plan of Treatment Not on filedocumented as of this encounter Visit Diagnoses Diagnosis Other screening Other specified screening documented in this encounter Care Teams Gate Person Relationship Specialty Start Date End Date Lisa Gonzalez APRN, CNP PCP - General 05/03/1998 11/02/13 [address] [place] [address] documented as of this encounter
--- OUTSIDE RECORDS SUMMARY | 2022-04-10 14:23 | XMS_ITS | Encounter Summary ---
:1970 Author Organization [facility] Address [address], [place] [address] Care Team Providers Name Role Phone Lisa Gonzalez APRN, CNP Primary Care Provider [phone] Encounter Details Date Type Department Care Team Description 06/18/1998 Office Visit Johann Valdivia M D [address], [place] [address] (Wo rk) Social History Tobacco Use Types Packs/Day Years Used Date Smoking Tobacco: Never Assessed Sex Assigned at Date Recorded Not on file documented as of this encounter Progress Notes Johann Valdivia - 06/18/1998 12:00 AM CSTS: Polly is 5 months . Her has been unremarkable. The baby has been active, even today. She had been drinking milk which was identified as being potentially contaminated with Listeria. She has for the last week had some cold like symptoms. The cold is similar to what other members of her family have had with runny nose, congestion and clear nasal drainage. She denies any fever. She denies any cough, headache, dizziness, vertigo or other symptoms. O: Exam reveals that her heart and lungs are normal. No adenopathy cervical, axillary or groin. heart tones are 150. Fetus is active on exam. A/P: Without fever, I will not go ahead and treat her. She was warned that should she get a temperature that we would want her to come back in, get blood cultures and start her on either Amoxicillin IV or Septra po. She is aware of this and will keep an eye on that and if any changes, she will let us know. 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
--- OUTSIDE RECORDS SUMMARY | 2022-04-10 14:23 | XMS_ITS | Encounter Summary ---
:1970 Author Organization [facility] Address [address], [place] [address] Care Team Providers Name Role Phone Lisa Gonzalez APRN, CNP Primary Care Provider [phone] Reason for Visit Reason Comments OB EXAM,MONTHLY VIA INTERFACE Encounter Details Date Type Department Care Team Description 09/05/1998 Office Visit [facility] Emi Feldman KRYSTLEMona RVIS OTHER NORMAL PREG; Mady Agrawal MD LABORATORY EXAMINATION [address] [facility] [address] [place] [id number] Social History Tobacco Use Types Packs/Day Years Used Date Smoking Tobacco: Never Assessed Sex Assigned at Date Recorded Not on file documented as of this encounter Plan of Treatment Not on filedocumented as of this encounter Visit Diagnoses Diagnosis Supervision of other normal Laboratory examination documented in this encounter Care Teams Sales Activity Manager Relationship Specialty Start Date End Date Lisa Gonzalez APRN, CNP PCP - General 05/03/1998 11/02/13 [address] [place] [address] documented as of this encounter
--- OUTSIDE RECORDS SUMMARY | 2022-04-10 14:23 | XMS_ITS | Encounter Summary ---
:1970 Author Organization [facility] Address [address] [place] [id number] Care Team Providers Name Role Phone Lisa Gonzalez APRN, AMANDA Primary Care Provider [phone] Encounter Details Date Type Department Care Team Description 03/23/1998 PN Conversion Only CONV MATT [facility]BG Madalyn Zavala, [address] [place], [place] [address] Social History Tobacco Use Types Packs/Day Years Used Date Smoking Tobacco: Never Assessed Sex Assigned at Date Recorded Not on file documented as of this encounter Progress Notes Conversion, [facility] - 03/15/1998 12:01 AM CST Phone Note signed by at 03/15/98 [id number] Author: Fide Conversion Service: (none) Author Type: (none) Filed: 08/28/10 0736 Note Time: 03/15/98 0001 Status: Signed Rubber Down: Fide Conversion IMPRESSION: : ruptured membranes - nurse guidelines. TO: DOMINGO ROSS FROM: OLGA LIDIA MARSHALL RN [phone] * PROVIDER MESSAGE: DIANNE *NO * 03/15/98 10:29PM * INPUT NECESSARY * MESSAGE: addiction counselor for Dr. Cano * HOME PHONE:[phone] * reassure pt that there is minimal * CONTACT PHONE:[phone] * amniot ic fluid at this point in the and that it may have been incr eased vaginal moisture or urine leakage. Pt is to call back if abdomin al cramping or bleeding SUBJECTIVE: CHIEF CONCERN... Possible ruptured membranes, patient reports a slow leak over the last few hours or days. Pt calling, states she is approximately 7 weeks ge station. She states she noted a gush of clear fl uid tonight.Pt denies abdominal pain/cramping or b lood/mucous discharge. ALLERGIES/SENSITIVITIES... Iodine(anaphylaxis) 03/15/98 CURRENT MEDICATIONS... vitamins 03/15/98 PERTINENT PAST HISTORY... Healthy; approximately 7 weeks gestation confirmed by lab positive uri ne Hcg 03/15/98 WEIGHT: PATIENT IS . PATIENT IS NOT NURSING. ASSESSMENT: : ruptured membranes - nurse guidelines. PLAN: DISPOSITION: CONTACTED ONCALL RECOMMENDED THE FOLLOWING... Referenced guideline : ruptured membranes - nurse guidelines.. Spontaneous leakage of urine may occur periodically during late , but examination should take place to rule out Rupture of the bag of adkins may occur as a gush of liquid or a slow steady trickle. INFORMED PATIENT TO CALLBACK IF... Reasons to call back reviewed- caller verbalizes understanding of the need to call back if -Any other questions or concerns CALL BY OLGA LIDIA MARSHALL RN 03/15/1998 10:07PM [phone] ADDENDUM: OP INFRASTRUCTURE ARCHITECT Conversion, [facility] - 03/01/1998 12:01 AM CDT Phone Note signed by at 03/01/98 0826 Author: Fide Conversion Service: (none) Author Type: (none) Filed: 08/28/10 0721 Note Time: 03/01/982015 Status: Signed Rubber Down: Fide Quintero IMPRESSION: : Missed period/question of - nurse guidelines SUBJECTIVE: PATIENT COMPLAINS OF... Missed * HOME PHONE: [phone] * period/possible , not on oral contraceptives 2 weeks late , not on any control . Has been nauseated. Suspects . ; -Patient has reason to suspect ALLERGIES/SENSITIVITIES... Iodine 03/01/98 CURRENT MEDICATIONS... Estrostep 03/01/98 PERTINENT PAST HISTORY... healthy 03/01/98 ASSESSMENT: : Missed period/question of - nurse guidelines DISPOSITION: HOME CARE PATIENT IS POSSIBLY ; PATIENT IS NOT NURSING; PLAN: RECOMMENDED THE FOLLOWING... Referenced guideline : Missed period/question of - nurse guidelines. -Take home test patient refuses to have test done at home. Will come to the lab. Patient information given per Missed period nurse guideline. INFORMED PATIENT TO CALLBACK IF... Reasons to call back reviewed- caller verbalizes understanding of the need to call back for the following reasons: -Any other questions or concerns Call taken by BÁRBARA ADLER RN [phone] 03/01/1998 04:07 PM ADDENDUM: OP INFRASTRUCTURE ARCHITECT Conversion, [facility] - 12/14/1997 12:01 AM CDT Phone Note signed by at 12/14/97 9867 Author: Fide Conversion Service: (none) Author Type: (none) Filed: 08/28/10604 Note Time: 12/14/97 0001 Status: Signed Rubber Down: Fide Quintero IMPRESSION: Bites insect-(adult)-nurse guidelines SUBJECTIVE: PATIENT COMPLAINS OF... Insect * HOME PHONE: [phone] * bite, -Red lumps in the skin Pt. states she was bit by a mosquito last pm on the wrist. Area is itchy, red, warm to the touch. Has put ice to area x2, tried no other home management. Wrist area is swollen.; ALLERGIES/SENSITIVITIES... Iodine 12/14/97 CURRENT MEDICATIONS... Estrostep 12/14/97 PERTINENT PAST HISTORY... healthy 12/14/97 ASSESSMENT: Bites insect-(adult)-nurse guidelines DISPOSITION: HOME CARE PATIENT IS NOT ; PATIENT IS NOT NURSING; PLAN: RECOMMENDED THE FOLLOWING... Referenced guideline Bites insect-(adult)-nurse guidelines. -Wash bite thoroughly with soap and water -Apply ice cube to site -Take OTC antihistamine of choice, as directed on package -Apply a paste made of baking soda and water or take a baking soda bath if there are many bites -Apply Calamine lotion or OTC 1% hydrocortisone cream for itching and inflammation as directed -Monitor area for signs of infection -Avoid scratching as it may prolong the symptoms and introduce bacteria causing infections Patient information given per Insect bites nurse guidelines. INFORMED PATIENT TO CALLBACK IF... Reasons to call back reviewed- caller verbalizes understanding of the need to call back for the following reasons: -Symptoms continue to worsen -Symptoms of infection -Any other questions or concerns PATIENT DECLINED CALLBACK Call taken by RUY HAUSER RN [phone] 12/14/1997 09:48 PM ADDENDUM: OP INFRASTRUCTURE ARCHITECT Ingrid, [facility] - 11/06/1997 12:01 AM CDT Progress Notes signed by Madalyn Zavala APRN, HEALTH UNIT SUPERVISOR at 11/13/97 7758 Author: Fide Conversion Service: (none) Author Type: (none) Filed: 08/28/10 0530 Note Time: 11/06/97 0001 Status: Signed Rubber Down: Fide Quintero IMPRESSION: Normal gynecologic exam. SUBJECTIVE: Polly Case is a 27-year-old female 2, parody 2-0-0-2 with a last menstrual period of 10/26/97. She presents for two reasons. The first is that she is due for her Pap smear. She also would like to be fitted for a diaphragm or cervical cap. She reports that she has been experiencing side effects of control pills that are unacceptable to her. She is experiencing headaches, diarrhea, breakthrough bleeding, and hives. They would like one more child and then a permanent method of control. Following exam and inability to fit either a cervical cap or diaphragm, they will use barrier methods, probably condoms alone. She had been taking Estratest and discontinued it last week. She has never used a diaphragm or cervical cap. History is reviewed and updated from first OB history obtained 12/19/96. Subsequent and delivery were uneventful. Mother is from lung cancer at age 62. Father is alive and well, age 59. She has a twin brother who is alive and well. She has a sister, age 31, who is alive and well. All grandparents of old age with exception of maternal grandmother who from tuberculosis complications. ADVERSE DRUG REACTIONS: IODINE, PENICILLIN. OBJECTIVE: BP: 120/78. HT: 5 feet, 7.5 inches tall. WT: 126 lb. Exam external genitalia unremarkable. Exam internal vaginal vault unremarkable. Pap smear obtained using cytobrush. Bimanual exam reveals a retroverted uterus which is small, firm, ovoid, mobile, and nontender. Adnexal exam unremarkable without masses or tenderness. Neither cervical cap or diaphragm fit well due to retroverted uterus. ASSESSMENT: Normal gynecologic exam. PLAN: 1. Pap smear. 2. Discussion regarding contraceptive alternatives. 3. Return to clinic in one year or p.r.n. [id number] OP INFRASTRUCTURE ARCHITECT Conversion, [facility] - 10/27/1997 12:01 AM CDT Phone Note signed by at 10/27/97 6371 Author: Fide Conversion Service: (none) Author Type: (none) Filed: 08/28/10 0522 Note Time: 10/27/97 0001 Status: Signed Rubber Down: Fide Conversion IMPRESSION: GLADYS questions - TREATING PROVIDER: MERA LEON SUBJECTIVE: * HOME PHONE: [phone] * PATIENT COMPLAINS OF... 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 ALLERGIES/SENSITIVITIES... Iodine 10/27/97 CURRENT MEDICATIONS... Estrostep Fe 10/27/97 PERTINENT PAST HISTORY... healthy 10/27/97 ASSESSMENT: BCP questions DISPOSITION: NO DISPOSITION GIVEN PATIENT IS NOT ; PATIENT IS NOT NURSING; PLAN: Call taken by NICK GARCIA RN [phone] 10/27/1997 02:51 PM ADDENDUM: OP INFRASTRUCTURE ARCHITECT Jana Morse PA-C - 10/11/1997 12:01 AM CDT Progress Notes signed by Jana Morse PA-C at 11/06/97 1428 Author: Jana Morse PA-C Service: (none) Author Type: Physician Command Post Craftsman Filed: 08/28/10 0507 Note Time: 10/11/97 0001 Status: Signed Rubber Down: Jana Morse PA-C (Physician Command Post Craftsman) IMPRESSION: Benign lump right thigh. SUBJECTIVE: Polly is a 27-year-old who presents to the clinic today because she is concerned about a lump on her upper thigh. She noticed this on Thursday. She is concerned if it's related to control pills or not. She started about two months ago and was hesitant in starting. There has been no redness or tenderness to touch in this area. She states she did have a baby about two months ago. ADVERSE DRUG REACTIONS: IODINE, PENICILLIN. MEDICATIONS: Estrastep. OBJECTIVE: BP: 150/104 initially, repeat was 132/76. Wt: 135 lb. Upon inspection, patient has a small indention on her upper thigh and it looks like she has a lipoma above this area. It's not red or warm to touch. ASSESSMENT: Indention, possible lipoma upper thigh. PLAN: Explained to patient that I don't think that this is related to the control pills, and though she denies any recent trauma, I did reassure the patient that this is benign. Encouraged her to look for signs of redness, red lumps, swelling, or tenderness in this area. beh Conversion, [facility] - 10/10/1997 12:01 AM CDT Phone Note signed by at 10/10/97 2444 Author: Fide Conversion Service: (none) Author Type: (none) Filed: 08/28/10 0506 Note Time: 10/10/97 0001 Status: Signed Rubber Down: Fide Conversion IMPRESSION: Lump on right thigh - TREATING PROVIDER: MARILYN CANO SUBJECTIVE: * HOME PHONE: [phone] * PATIENT COMPLAINS OF... Pt. started on BCP's [address] Marilyn Cano; is 2 months post ; tonight she noticed a bump on her outer right thigh; she did not bump the thigh; denies pain but is worried she may have a blood clot; she sounds shaky so transferred her to rolls mill operator to have doctor addiction counselor for rn recovery call her back; ALLERGIES/SENSITIVITIES... nka 07/14/97 CURRENT MEDICATIONS... vitamin 07/14/97 PERTINENT PAST HISTORY... healthy 07/14/97 ASSESSMENT: Lump on right thigh DISPOSITION: NO DISPOSITION GIVEN PATIENT IS NOT ; OMITTED ASKING ABOUT NURSING; PLAN: Call taken by NEELAM MATTSON RN [phone] 10/10/1997 10:17 PM ADDENDUM: OP INFRASTRUCTURE ARCHITECT Conversion, Fide - 07/14/1997 12:01 AM CST Phone Note signed by at 07/14/97 Author: Fide Conversion Service: (none) Author Type: (none) Filed: 08/28/10 0345 Note Time: 07/14/97 0001 Status: Signed Rubber Down: Fide Conversion IMPRESSION: malaise - TREATING PROVIDER: MARILYN CANO SUBJECTIVE: * HOME PHONE: [phone] * PATIENT COMPLAINS OF... Pt calls stating that she is 38 wks and has a temp of 99.8 Is complaining of body aches, malaise some nausea No vomiting Has been drinking but no appetite. Child had similar symptoms 2 days ago ALLERGIES/SENSITIVITIES... nka 07/14/97 CURRENT MEDICATIONS... vitamin 07/14/97 PERTINENT PAST HISTORY... healthy 07/14/97 ASSESSMENT: malaise DISPOSITION: HOME CARE PATIENT IS ; PATIENT IS NOT NURSING; PLAN: RECOMMENDED THE FOLLOWING... Recommended monitoring INFORMED PATIENT TO CALLBACK IF... symptoms persist or worsen PATIENT DECLINED CALLBACK Call taken by HECTOR RICARDO RN [phone] 07/14/1997 08:42 PM ADDENDUM: OP INFRASTRUCTURE ARCHITECT Ayden Frye - 02/24/1997 12:01 AM CDT Progress Notes signed by Ayden Frye MD at 03/02/97 1812 Author: Ayden Frye MD Service: (none) Author Type: Physician Filed: 08/28/10 0138 Note Time: 02/24/97 0001 Status: Signed Rubber Down: Ayden Frye MD (Physician) IMPRESSION: Left trapezius strain. SUBJECTIVE: Patient is a 26-year-old female who presents with left- sided neck pain and discomfort. No numbness, tingling in the arm. No weakness in the arm. She has a 15-csykg-zgn child and does carry her a lot with that arm on that side of the body. She also is 4 1/2 months currently. Recalls no other specific injury. Gives her a lot of trouble at night and difficulty sleeping. OBJECTIVE: No spinous process tenderness. Full range of motion in the neck. Left trapezius muscle tender and sore. Normal muscle strength upper extremities, deltoid, biceps, triceps, wrist flexion, wrist extension, and director of corporate communications strength 4/4, right over left. General sensation intact to light touch, sharp, and dull touch throughout the upper extremities. ASSESSMENT: Left trapezius strain. PLAN: Tylenol Extra Strength as needed. Will refer her for physical therapy for treatment and evaluation. Follow up afterwards if improvement not noted. beh OP INFRASTRUCTURE ARCHITECT documented in this encounter Plan of Treatment Not on filedocumented as of this encounter Procedures Procedure Name Priority Date/Time Associated Comments Diagnosis REPEAT OB WORKUP Routine 03/23/1998 10:22 AM Resu lts for this HADOOP INFRASTRUCTURE ARCHITECT procedure are i n the results section. URINE CULTURE Routine 03/23/1998 10:22 AM Results for this HADOOP INFRASTRUCTURE ARCHITECT procedure are i n the results section. ANATOMICAL PATH-C Routine 03/23/1998 5:53 AM Resu lts for this HADOOP INFRASTRUCTURE ARCHITECT procedure are i n the results section. TEST Routine 03/02/1998 1:33 PM Results for this (URINE) CDT procedure are i n the results section. ANATOMICAL PATH-C Routine 11/06/1997 7:49 AM Resu lts for this CDT procedure are i n the results section. TEST Routine 09/25/1997 11:48 AM Result s for this (URINE) CDT procedure are i n the results section. RESULT CONVERSION Routine 05/30/1997 11:02 AM Res ults for this DUMMY ORDER HADOOP INFRASTRUCTURE ARCHITECT procedure are i n the results section. RESULT CONVERSION Routine 05/22/1997 2:39 PM Resu lts for this DUMMY ORDER HADOOP INFRASTRUCTURE ARCHITECT procedure are i n the results section. ANTIBODY SCREEN Routine 05/08/1997 11:45 AM Resul ts for this HADOOP INFRASTRUCTURE ARCHITECT procedure are i n the results section. HEMOGLOBIN OB Routine 05/08/1997 11:45 AM Results for this HADOOP INFRASTRUCTURE ARCHITECT procedure are i n the results section. GLUCOSE - 1 HR. P.C. Routine 05/08/1997 11:45 AM Results for this PREG HADOOP INFRASTRUCTURE ARCHITECT procedure are i n the results section. documented in this encounter Results Repeat Ob Workup (03/23/1998 10:22 AM HADOOP INFRASTRUCTURE ARCHITECT) P athologist Signature BB BLOOD TYPE O NEG No normal HP CONVERSION (BLOOD GROUP & range RH) N/O BB NEG No normal HP CONVERSION ANTIBODY range SCREEN Comment: O NEG OB Hemoglobin 12.2 12.0 - 16.0 gm/dL HP CONVE RSION Comment: O NEG First trimester (week 12) 11.0 - 13.4 gm /dL Second trimester(week 20) 10.5 - 12.7 gm /dL Third trimester (week 32) 11.0 - 13.2 gm /dL From MMWR 1988;38(22): 400-4 Please note change in reference range ef fective June 10, 2000 RPR Non Reac Non Reac HP CONVERSION Comment: O NEG Hep B Surf Ag Negative Negative HP CONVERSION Comment: O NEG Specimen (Source) Anatomical Collection Method Collection Time Re ceived Time Location / / Volume Laterality 03/23/1998 10:22 AM HADOOP INFRASTRUCTURE ARCHITECT Marilyn Cano MD PN BLOOD BANK ORDERS Performing Organization Address City/State/ZIP Code Phon e Number HP CONVERSION (ABNORMAL) Urine Culture (03/23/1998 10:22 AM HADOOP INFRASTRUCTURE ARCHITECT) [facility] Method Time Signature Urine Culture SEE TEXT HP CONVERSION (A) Comment: Patient: POLLY CASE Culture, Urine @ ?Collected: ??[id number] ??[id number] Source: Clean Ca ?Processed: ??[id number] ??1223 ? 1C SENS Final Report ------ ?[id number] ??1003 10-50,000 CFU/mL Staphylococcus coagulas e negative Susceptibility Testing C NEGA ??SRUTHI INTERP: ?S ??CIPROFLOXA ABY, CLINDAMYCIN, GENTAMICIN, TRIMETH-SULFA, ?VANC OMYCIN ? R ??CEPH( CEFAZOLIN), ERYTHROMYCIN, IMIPENEM, OXACILLIN, ?PENI CILLIN @ = URINE CULTURE Performed at ??[address] [place], [place] ?[address] Specimen (Source) Anatomical Collection Method Collection Time Re ceived Time Location / / Volume Laterality 03/23/1998 10:22 AM HADOOP INFRASTRUCTURE ARCHITECT Marilyn Cano MD LAB_1 Performing Organization Address City/State/ZIP Code Phon e Number HP CONVERSION Anatomical Path-C (03/23/1998 5:53 AM HADOOP INFRASTRUCTURE ARCHITECT) athologist Signature PAP Smear SEE TEXT No normal HP CONVERSION range Comment: Patient: POLLY CASE ? CERVICAL CYTOLOGY REPORT Pathology # ??[id number] ?Date Obtained: ? Date Received: LMP: ?01-18-98 CLINICAL HIST ? 9 WKS PREG ?? PREV S MEAR 12-20-96 CERVICAL SMEAR SPECIMEN ADEQUACY: ?? Satisfactory. ENDOCERVICAL CELLS: ??Present. CYTOLOGIC IMPRESSION: Within Normal Limits (Negative). Verified 04/04/98 by: ??DLS ?(electronic signature) Specimen (Source) Anatomical Collection Method Collection Time Re ceived Time Location / / Volume Laterality 03/23/1998 5:53 AM HADOOP INFRASTRUCTURE ARCHITECT Marilyn Cano MD LAB_1 Performing Organization Address [facility] Phon e Number HP CONVERSION (ABNORMAL) Test (Urine) (03/02/1998 1:33 PM CDT) Patholo gist Method Time Signature Urine Positive (A) No normal HP CONVERSION range Test Comment: The sensitivity of this assay is 25 mIU/ mL. This test can detect as early as 10-12 days after conception. It may be positive before a first missed menses. A negative result does no t rule out an early . Specimen (Source) Anatomical Collection Method Collection Time Re ceived Time Location / / Volume Laterality 03/02/1998 1:33 PM CDT Marilyn Cano MD LAB_1 Performing Organization Address [facility] Phon e Number HP CONVERSION Anatomical Path-C (11/06/1997 7:49 AM CDT) athologist Signature PAP Smear SEE TEXT No normal HP CONVERSION range Comment: Patient: POLLY CASE ? CERVICAL CYTOLOGY REPORT Pathology # ??[id number] ?Date Obtained: ? Date Received: LMP: CLINICAL HIST CERVICAL SMEAR SPECIMEN ADEQUACY: ?? Satisfactory. ENDOCERVICAL CELLS: ??Present. CYTOLOGIC IMPRESSION: Within Normal Limits (Negative). Verified 11/14/97 by: ??DLS ?(electronic signature) Specimen (Source) Anatomical Collection Method Collection Time Re ceived Time Location / / Volume Laterality 11/06/1997 7:49 AM CDT Marilyn Cano MD LAB_1 Performing Organization Address [facility]/State/ZIP Code Phon e Number HP CONVERSION Test (Urine) (09/25/1997 11:48 AM CDT) Patholo gist Method Time Signature Urine Negative No normal HP CONVERSION Test range Comment: The sensitivity of this assay is 25 mIU/ mL. This test can detect as early as 10-12 days after conception. It may be positive before a first missed menses. A negative result does no t rule out an early . Specimen (Source) Anatomical Collection Method Collection Time Re ceived Time Location / / Volume Laterality 09/25/1997 11:48 AM CDT Marilyn Cano MD LAB_1 Performing Organization Address City/State/ZIP Code Phon e Number HP CONVERSION Result Conversion Dummy Order (05/30/1997 11:02 AM HADOOP INFRASTRUCTURE ARCHITECT) P athologist Signature Parvovirus B19 < 0.80 PIV HP CONVERSION IgM Comment: Interpretation of Results <0.80 PIV: ? No detectable IgM antib donal to Parvovirus B19 0.80-1.19 PIV: Antibody detected at an e quivocal level. Please submit a ? second specimen in 7-14 days for confirmation. > or = 1.20 PIV: Positive for IgM antibo dy to Parvovirus B19. ? IgM antibodies typ ically appear 4-10 days after onset of ? illness. The titer continues to rise for one month and then ? declines to undete ctable levels after 1-2 months. The ? presence of IgM sp ecific antibody may indicate a current or ? recent infection.I gM responses during primary infection may ? be weak or absent. It is recommended to test further by PCR ? or submit a second specimen for IgG determination in 3-5 wks Specimen (Source) Anatomical Collection Method Collection Time Re ceived Time Location / / Volume Laterality 05/30/1997 11:02 AM HADOOP INFRASTRUCTURE ARCHITECT Marilyn Cano MD LAB_1 Performing Organization Address [facility] Phon e Number HP CONVERSION Result Conversion Dummy Order (05/22/1997 2:39 PM HADOOP INFRASTRUCTURE ARCHITECT) P athologist Signature Parvovirus IgG <0.80 PIV HP CONVERSION Comment: Interpretation of Results: <0.80 PIV: No detectable IgG antibody to Parvovirus B19. Please submit a ? second specimen in 3-5 w eeks. 0.80-1.19 PIV: Antibody detected at an e quivocal level. Please submit a ? second specimen in 7-14 days for confirmation. > or = 1.20 PIV: Positive for IgG antibo dy to Parvovirus B19. Indicates ? a recent or past infecti on. IgG antibodies rise about 3-5 weeks ? post exposure and may pe rsist for years. For research use only: Not for diagnosti c use. Specimen (Source) Anatomical Collection Method Collection Time Re ceived Time Location / / Volume Laterality 05/22/1997 2:39 PM HADOOP INFRASTRUCTURE ARCHITECT Marilyn Cano MD LAB_1 Performing Organization Address [facility] Phon e Number HP CONVERSION (ABNORMAL) Hemoglobin Ob (05/08/1997 11:45 AM HADOOP INFRASTRUCTURE ARCHITECT) [facility] gist Method Time Signature OB Hemoglobin 10.4 (LL) 12.0 - HP CONVERSION 16.0 gm/dL Comment: First trimester (week 12) 11.0 - 13.4 gm /dL Second trimester(week 20) 10.5 - 12.7 gm /dL Third trimester (week 32) 11.0 - 13.2 gm /dL From MMWR 1989;38(22): 400-4 Please note change in reference range ef fective June 10, 2000 Specimen (Source) Anatomical Collection Method Collection Time Re ceived Time Location / / Volume Laterality 05/08/1997 11:45 AM HADOOP INFRASTRUCTURE ARCHITECT Marilyn Cano MD LAB_1 Performing Organization Address City/[facility]/ZIP Code Phon e Number HP CONVERSION Antibody Screen (05/08/1997 11:45 AM HADOOP INFRASTRUCTURE ARCHITECT) P athologist Signature N/O BB NEG No normal HP CONVERSION ANTIBODY range SCREEN Specimen (Source) Anatomical Collection Method Collection Time Re ceived Time Location / / Volume Laterality 05/08/1997 11:45 AM HADOOP INFRASTRUCTURE ARCHITECT Marilyn Cano MD PN BLOOD BANK ORDERS Performing Organization Address City/[facility]/ZIP Code Phon e Number HP CONVERSION Glucose - 1 Hr. P.C. Preg (05/08/1997 11:45 AM HADOOP INFRASTRUCTURE ARCHITECT) P athologist Signature Glucose, GTT - 74 40 - 139 HP CONVERSION 1 Hour mg/dL Specimen (Source) Anatomical Collection Method Collection Time Re ceived Time Location / / Volume Laterality 05/08/1997 11:45 AM HADOOP INFRASTRUCTURE ARCHITECT Marilyn Cano MD LAB_1 Performing Organization Address [facility] Phon e Number HP CONVERSION documented in this encounter Visit Diagnoses Not on filedocumented in this encounter Care Teams [employer] Supervisor Relationship Specialty Start Date End Date Lisa Gonzalez, TRAVEL REGISTERED NURSE ONCOLOGY, HEALTH UNIT SUPERVISOR PCP - General 05/03/1998 11/02/13 [address] [place] [address] documented as of this encounter
--- OUTSIDE RECORDS SUMMARY | 2022-04-10 14:23 | XMS_ITS | Encounter Summary ---
:1970 Author Organization [facility] Address [address], [place] [address] Care Team Providers Name Role Phone Lisa Gonzalez APRN, CNP Primary Care Provider [phone] Reason for Visit Reason Comments OB EXAM,WEEKLY VIA INTERFACE Encounter Details Date Type Department Care Team Description 10/18/1998 Office Visit [facility] Emi Feldman RVIS OTHER NORMAL Practice MD [place] PREG [address] [facility] [address] [place] [address] [phone] Social History Tobacco Use Types Packs/Day Years Used Date Smoking Tobacco: Never Assessed Sex Assigned at Date Recorded Not on file documented as of this encounter Plan of Treatment Not on filedocumented as of this encounter Visit Diagnoses Diagnosis Supervision of other normal documented in this encounter Care Teams Senior Sharepoint Architect Relationship Specialty Start Date End Date Lisa Gonzalez APRN, CNP PCP - General 05/03/1998 11/02/13 [address] [place] [address] documented as of this encounter
--- OUTSIDE RECORDS SUMMARY | 2022-04-10 14:23 | XMS_ITS | Encounter Summary ---
:1970 Author Organization [facility] Address [address], [place] [address] Care Team Providers Name Role Phone Lisa Gonzalez APRN, CNP Primary Care Provider [phone] Encounter Details Date Type Department Care Team Description 08/07/1998 Orders Only Carlyn Cruz MD [address] [place] [place] [address] (Wo rk) Social History Tobacco Use Types Packs/Day Years Used Date Smoking Tobacco: Never Assessed Sex Assigned at Date Recorded Not on file documented as of this encounter Plan of Treatment Not on filedocumented as of this encounter Procedures Procedure Name Priority Date/Time Associated Diagnosis Comme nts HEMOGLOBIN, BLOOD Routine 08/07/1998 11:45 AM Res ults for this TURBO ELECTRIC OPERATOR procedure are i n the results section. GLUCOSE - 1 HR. Routine 08/07/1998 11:45 AM Resul ts for this P.C. PREG TURBO ELECTRIC OPERATOR procedure are i n the results section. documented in this encounter Results GLUCOSE - 1 HR. P.C. PREG (08/07/1998 11:45 AM TURBO ELECTRIC OPERATOR) P athologist Signature Glucose 125 70 - 140 [facility] mg/dl Grams of 50 gm [facility] Glucose Specimen Anatomical Collection Method Collection Time Receive d Time (Source) Location / / Volume Laterality 08/07/1998 11:45 08/07/1998 AM TURBO ELECTRIC OPERATOR 11:46 AM TURBO ELECTRIC OPERATOR Carlyn Cruz MD LAB_1 Performing Organization Address City/State/ZIP Code Phon e Number [facility] [phone] [facility] [address] [address] (ABNORMAL) HEMOGLOBIN, BLOOD (08/07/1998 11:45 AM TURBO ELECTRIC OPERATOR) P athologist Signature Hemoglobin 10.4 (L) 12.0 - [facility] 16.0 g/dl Specimen Anatomical Collection Method Collection Time Receive d Time (Source) Location / / Volume Laterality 08/07/1998 11:45 08/07/1998 AM TURBO ELECTRIC OPERATOR 11:46 AM TURBO ELECTRIC OPERATOR Carlyn Cruz MD LAB_1 Performing Organization Address City/State/ZIP Code Phon e Number [facility] [phone] [phone] documented in this encounter Visit Diagnoses Not on filedocumented in this encounter Care Teams Helicopter Technician Relationship Specialty Start Date End Date Lisa Gonzalez, TANIA, IT RISK AND ASSURANCE SENIOR MANAGER PCP - General 05/03/1998 11/02/13 [address] [place] [address] documented as of this encounter
--- OUTSIDE RECORDS SUMMARY | 2022-04-10 14:24 | XMS_ITS | Encounter Summary ---
:1970 Author Organization [facility] Address [address] [place] [address] Care Team Providers Name Role Phone Lisa Gonzalez Raymond MARIN, AMANDA Primary Care Provider [phone] Encounter Details Date Type Department Care Team Description 12/26/1996 PN Conversion Only [facility] CONVERSION Marilyn Pond MD [address] [facility] [address] [place] [address] (Wo rk) Social History Tobacco Use Types Packs/Day Years Used Date Smoking Tobacco: Never Assessed Sex Assigned at Date Recorded Not on file documented as of this encounter Plan of Treatment Not on filedocumented as of this encounter Procedures Procedure Name Priority Date/Time Associated Comments Diagnosis CONVERSION DEFAULT Routine 12/20/1996 6:06 AM Res ults for this INTERFACE ORDER CDT procedure ar e in the results section. documented in this encounter Results Conversion Default Interface Order (12/20/1996 6:06 AM CDT) P athologist Signature PAP Smear See Detail HP CONVERSION Comment: Patient: POLLY CASE ?CERVICAL CYTOLOGY REPORT Pathology # ??[id number] ?Date Obtained: ?Date Received: LMP: ?10-21-96 CLINICAL HIST ? 8 1/2 WKS PREG ??NE W PT CERVICAL SMEAR SPECIMEN ADEQUACY: ?? Satisfactory. ENDOCERVICAL CELLS: ??Present. CYTOLOGIC IMPRESSION: Within Normal Limits (Negative). Verified 01/11/97 by: ??ARC ?(electronic signature) Specimen (Source) Anatomical Collection Method Collection Time Re ceived Time Location / / Volume Laterality 12/20/1996 6:06 AM CDT Madalyn Laure LAB_1 Performing Organization Address City/State/ZIP Code Phon e Number HP CONVERSION documented in this encounter Visit Diagnoses Not on filedocumented in this encounter Care Teams Rental Coordinator Relationship Specialty Start Date End Date Lisa Gonzalez, TRAFFIC INCIDENT MANAGEMENT MANAGER, NATURAL RESOURCES ENGINEER PCP - General 05/03/1998 11/02/13 [address] [place] [address] documented as of this encounter
--- OUTSIDE RECORDS SUMMARY | 2022-04-10 14:24 | XMS_ITS | Encounter Summary ---
:1970 Author Organization [facility] Address [address] [place] [address]. [place] [address] Care Team Providers Name Role Phone Unavailable Primary Care Provider Unavailable Encounter Details Date Type Department Care Team Description 08/11/2004 Historic Results INTERFACED REPORT Alberto Leal MD [facility] [place] [address] [place] [address] (Wo rk) Social History Tobacco Use Types Packs/Day Years Used Date Smoking Tobacco: Never Assessed Sex Assigned at Date Recorded Not on file documented as of this encounter Plan of Treatment Not on filedocumented as of this encounter Procedures Procedure Name Priority Date/Time Associated Diagnosis Comme nts TROPONIN I Timed 08/11/2004 3:25 AM Results f or this CDT procedure are i n the results section . documented in this encounter Results Troponin I (08/11/2004 3:25 AM CDT) P athologist Signature Troponin I <0.07 0.00 - 0.40 [facility] ug/L Specimen Anatomical Collection Method Collection Time Receive d Time (Source) Location / / Volume Laterality 08/11/2004 3:25 AM 5 3:25 CDT AM CDT Rowena Leal MD LAB - BLOOD ORDERABLES Performing Organization Address City/State/ZIP Code Phon e Number [facility] documented in this encounter Visit Diagnoses Not on filedocumented in this encounter
--- OUTSIDE RECORDS SUMMARY | 2022-04-10 14:24 | XMS_ITS | Encounter Summary ---
:1970 Author Organization [facility] Address [address] [place] [address]. [place] [address] Care Team Providers Name Role Phone Unavailable Primary Care Provider Unavailable Encounter Details Date Type Department Care Team Description 01/07/2008 Historic Results INTERFACED REPORT Zhao Dietz MD [place] [address] Social History Tobacco Use Types Packs/Day Years Used Date Smoking Tobacco: Never Assessed Sex Assigned at Date Recorded Not on file documented as of this encounter Plan of Treatment Not on filedocumented as of this encounter Procedures Procedure Name Priority Date/Time Associated Comments Diagnosis D DIMER QUANTITATIVE STAT 01/07/2008 2:30 AM R esults for this CDT procedure are i n the results section. documented in this encounter Results (ABNORMAL) D dimer quantitative (01/07/2008 2:30 AM CDT) P athologist Signature D Dimer 0.6 (H) 0.0 - 0.50 [facility] ug/ml FEU Specimen Anatomical Collection Method Collection Time Receive d Time (Source) Location / / Volume Laterality 01/07/2008 2:30 AM 8 2:13 CDT AM CDT Johann Dietz MD LAB - BLOOD ORDERABLES Performing Organization Address City/State/ZIP Code Phon e Number [facility] documented in this encounter Visit Diagnoses Not on filedocumented in this encounter
--- OUTSIDE RECORDS SUMMARY | 2022-04-10 14:24 | XMS_ITS | Encounter Summary ---
:1970 Author Organization [place] Address [address] [place] [address]. [place] [address] Care Team Providers Name Role Phone Clinic, [facility] Primary Care Provider [phone] Reason for Visit Reason Comments Headache Encounter Details Date Type Department Care Team Description 08/14/2021 Emergency [facility] Ania Gore Acute no nintractable headache, unspecified headache type; [facility] Emergency MD Fariha Photophobia; Dept [facility] Non-intractable vomiting wit h nausea, unspecified vomiting type [address] [place], [place] [address] [facility] [phone] [place] [address] (Wo rk) Social History Tobacco Use Types Packs/Day Years Used Date Smoking Tobacco: Never Assessed Sex Assigned at Date Recorded Not on file COVID-19 Exposure Response Date Recorded In the last month, have you been in contact with No / Unsure 08/14/2021 7:34 PM CDT someone who was confirmed or suspected to have Coronavirus / COVID-19? documented as of this encounter Last Filed Vital Signs Vital Sign Reading Time Taken Comments Blood Pressure 99/64 08/14/2021 10:05 PM CDT Pulse 84 08/14/2021 10:05 PM CDT Temperature 36.1 ??C (97 ??F) 08/14/2021 7:42 PM CDT Respiratory Rate 16 08/14/2021 10:05 PM CDT Oxygen Saturation 100% 08/14/2021 10:05 PM CDT Inhaled Oxygen Concentration - - Weight - - Height - - Body Mass Index - - documented in this encounter Discharge Instructions Discharge InstructionsAnia Gore MD - 08/14/2021 9:50 PM CDT Discharge Instructions Migraine You were seen today for a headache that your provider thinks is likely a migraine. At this time yourprovider does not find that your headache is a sign of anything dangerous or life-threatening. However, sometimes the signs of serious illness do not show up right away. Generally, every Emergency Department visit should have a follow-up clinic visit with either a primary or a specialty clinic/provider. Please follow-up as instructed by your emergency provider today. Return to the Emergency Department if: You get a fever of 100.4??F or higher. You get a stiff neck with your headache. You get a new headache that is different or worse than headaches you have had before. You are vomiting (throwing up) and cannot keep food or water down. You have blurry or double vision or other problems with your eyes. You have a new weakness on one side of your body. You have difficulty with balance which is new. You or your family thinks you are confused. You have a seizure. Treatment: Often, treatment for your migraine will take some time to make you headache stop. Going home to sleep can be very effective. Use your medications as directed; overuse of medications can actually cause headaches. Once your headache has gone away, avoid triggers such as certain foods, skipping meals, bright lights, changes in sleep, exercise and stress. Migraine headaches can have symptoms before the pain starts, like vision changes, funny smells/tastes, dizziness or other symptoms. Treating a headache as soon as the first symptoms come on is very important and gives the best chance of stopping the headache. If headaches are severe or frequent, you may need to start daily medication to prevent the headaches. Carbon monoxide can cause headaches, so not burning things in your home is important. Also get a carbon monoxide detector. Some medications for migraines may raise your blood pressure, so use with caution if you have high blood pressure or heart problems. If you were given a prescription for medicine here today, be sure to read all of the information (including the package insert) that comes with your prescription. This will include important information about the medicine, its side effects, and any warnings that you need to know about. The pharmacist who fills the prescription can provide more information and answer questions you may have about the medicine. If you have questions or concerns that the pharmacist cannot address, please call or return to the Emergency Department. Remember that you can always come back to the Emergency Department if you are not able to see your regular provider in the amount of time listed above, if you get any new symptoms, or if there is anything that worries you. documented in this encounter Medications at Time of Discharge Medication Sig Dispensed Refills Start Date End Date prochlorperazine (COMPAZINE) Take 1 tablet (10 20 tablet 0 08/14/2021 10 MG tablet mg) by mouth every 6 hours as needed for nausea or vomiting (headache) documented as of this encounter ED Notes Chiquita Harris RN - 08/14/2021 7:41 PM CDT Pt arrives to ED with a migraine and vomiting that began this morning. States the vomitiing with herheadaches is new. Unable to tolerate any PO. States she got her second booster and has been taking vitamins with her doctor's approval. Ania Gore MD - 08/14/2021 7:34 PM CDT History Chief Complaint: Headache ARPIT Case is a 51 year old female with history of migraine who presents with headache. Patient has had a headache which was similar to her history of migraine episodes however has been more frequent in the last 1-2 month. She is also concerned with the new nausea and vomiting this morning which are unusual. She was unable to keep anything down. She also has had a family history of migraine. She reportedly has not been formally diagnosed with a migraine nor has she had a head CT. She took 2 Tylenol and 1 ibuprofen more than 6 hours ago. She has had phonophobia but not photophobia. She has had chills and shaky, which she contributes to being dehydrated. No trouble walking, weakness, double vision, abdominal pain, fever, chest pain, shortness of breath. She had a COVID booster last Thursday. Review of Systems Constitutional: Positive for chills. Negative for fever. Eyes: Negative for photophobia and visual disturbance. Respiratory: Negative for shortness of breath. Cardiovascular: Negative for chest pain. Gastrointestinal: Negative for abdominal pain. Neurological: Positive for headaches. Negative for weakness. All other systems reviewed and are negative. Allergies: Iodine I 131 Tositumomab Penicillins Medications: No current outpatient medications on file. Past Medical History: Anxiety Allergic rhinitis Anemia Migraine Past Surgical History: No past surgical history on file. Family History: Migraine Social History: Presents with daughter. Non-smoker. Physical Exam Patient Vitals for the past 24 hrs: BP Temp Temp src Pulse Resp SpO2 08/14/212147 103/59 -- -- 93 16 97 % 08/14/211941 133/85 97 ??F (36.1 ??C) Temporal 90 18 98 % Physical Exam General: Adult female, laying on the stretcher Eyes: PERRL, Conjunctive within normal limits. EOMI. Photophobic ENT: Moist mucous membranes, oropharynx clear. Neck: No rigidity. Normal spontaneous ROM. CV: Normal S1S2, no murmur, rub or gallop. Regular rate and rhythm Resp: Normal respiratory effort. GI: Abdomen is soft, nontender and nondistended. MSK: No edema. Nontender. Normal active range of motion. Skin: Warm and dry. No rashes or lesions or ecchymoses on visible skin. Neuro: Alert and oriented. Responds appropriately to all questions and commands. No focal findings appreciated. Normal muscle tone. Psych: Appropriate Emergency Department Course Emergency Department Course: Reviewed: I reviewed nursing notes, vitals, past medical history and Care Everywhere Assessments: 2019 I obtained history and examined the patient as noted above. 2148 Patient states that her headache is nearly gone, she is feeling much better, and would like to go home. Interventions: 1944 Zofran 4mg p.o. 2029 Toradol 15mg IV 2030 Bolus 1L IV 2030 Reglan 10mg IV 2030 Benadryl 50mg IV Disposition: The patient was discharged to home. Impression & Plan Medical Decision Making: The patient presented with a headache consistent with their normal migraine aside from significant nausea and vomiting she has had today. Her presentation seems most consistent with migraine headache, although it does not appear that she has had a formal diagnosis. She notes her symptoms have been slightly increased in number, and she has not had brain imaging, but she feels that she would prefer to wait and talk further with her primary doctor after discussion of imaging here today. The patient hasnot had any fever, weakness, neck stiffness or confusion. There is no evidence of meningitis or subarachnoid hemorrhage. The pain has improved with medication interventions. The patient should follow-up with their primary physician within 3 days. Return if increasing pain, fever, vomiting or weakness.Take medications as directed. She feels comfortable this plan is discharged home in improved condition. Diagnosis: ICD-10-CM 1. Acute nonintractable headache, unspecified headache type R51.9 2. Photophobia H53.149 3. Non-intractable vomiting with nausea, unspecified vomiting type R11.2 Discharge Medications: New Prescriptions PROCHLORPERAZINE (COMPAZINE) 10 MG TABLET Take 1 tablet (10 mg) by mouth every 6 hours as needed for nausea or vomiting (headache) Scribe Disclosure: I, Pari Mercer, am serving as a scribe at 8:19 PM on 08/14/2021 to document services personally performed by Ania Gore MD based on my observations and the provider's statements to me. Ania Gore MD 08/14/212235 documented in this encounter Plan of Treatment Not on filedocumented as of this encounter Procedures Procedure Name Priority Date/Time Associated Diagnosis Comme nts EXTRA TUBE STAT 08/14/2021 8:24 PM Results f or this CDT procedure are i n the results section. EXTRA PURPLE TOP STAT 08/14/2021 8:24 PM Resul ts for this TUBE CDT procedure are i n the results section. EXTRA GREEN TOP STAT 08/14/2021 8:24 PM Result s for this (LITHIUM HEPARIN) CDT procedure are in TUBE the results section. EXTRA RED TOP TUBE STAT 08/14/2021 8:24 PM Res ults for this CDT procedure are i n the results section. EXTRA BLUE TOP TUBE STAT 08/14/2021 8:24 PM Re sults for this CDT procedure are i n the results section. documented in this encounter Results Extra Purple Top Tube (08/14/2021 8:24 PM CDT) athologist Signature Hold Specimen [facility] 08/14/2021 [facility] 9:47 PM CDT Specimen Anatomical Collection Method / Collection Time Recei jhoana Time (Source) Location / Volume Laterality Blood STRUCTURE OF RIGHT Venipuncture / 08/14/2021 8:24 04/0 10/2021 8:33 UPPER LIMB / Unknown PM CDT PM CDT Unknown Ania Gore MD LAB - BLOOD ORDERABLES Performing Organization Address City/[facility]/ZIP [facility] [place] [phone] Care Lab [address] Lab (1st floor, no room number) Extra Green Top ([place] Heparin) Tube (08/14/2021 8:24 PM CDT) athologist Signature Hold Specimen [facility] 08/14/2021 LABORATORY 9:47 PM CDT Specimen Anatomical Collection Method / Collection Time Recei jhoana Time (Source) Location / Volume Laterality Blood STRUCTURE OF RIGHT Venipuncture / 08/14/2021 8:24 04/0 10/2021 8:33 UPPER LIMB / Unknown PM CDT PM CDT Unknown Ania Gore MD LAB - BLOOD ORDERABLES Performing Organization Address City/[facility]/ZIP Code [place] [phone] Care Lab [address] Lab (1st floor, no room number) Extra Red Top Tube (08/14/2021 8:24 PM CDT) athologist Signature Hold Specimen [facility] 08/14/2021 LABORATORY 9:47 PM CDT Specimen Anatomical Collection Method / Collection Time Recei jhoana Time (Source) Location / Volume Laterality Blood STRUCTURE OF RIGHT Venipuncture / 08/14/2021 8:24 04/0 10/2021 8:33 UPPER LIMB / Unknown PM CDT PM CDT Unknown Ania Gore MD LAB - BLOOD ORDERABLES Performing Organization Address City/State/ZIP Code [place] [address] Care Lab [address] Lab (1st floor, no room number) Extra Blue Top Tube (08/14/2021 8:24 PM CDT) athologist Signature Hold Specimen [facility] 08/14/2021 [facility] 9:47 PM CDT Specimen Anatomical Collection Method / Collection Time Recei jhoana Time (Source) Location / Volume Laterality Blood STRUCTURE OF RIGHT Venipuncture / 08/14/2021 8:24 04/0 10/2021 8:33 UPPER LIMB / Unknown PM CDT PM CDT Unknown Ania Gore MD LAB - BLOOD ORDERABLES Performing Organization Address City/[facility]/ZIP Code [place] [address] Care Lab [address] Lab (1st floor, no room number) documented in this encounter Visit Diagnoses Diagnosis Acute nonintractable headache, unspecifi ed headache type Photophobia Visual discomfort Non-intractable vomiting with nausea, un specified vomiting type documented in this encounter Administered Medications Inactive Administered Medications - up to 3 most recent administrations Medication Order MAR Action Action Date Dose Rate Site 0.9% sodium chloride BOLUS New Bag 08/14/2021 8:31 PM CDT 1,000 mLs 1000 mL/hr Intravenous, 1,000 mL, ONCE, at 1,000 mL/hr, Administer over 1 Hours, On Thu08/14/21 at 2029, For 1 dose diphenhydrAMINE (BENADRYL) injection 50 mg Given 08/14/2021 8:31 PM CDT 50 mg 50 mg, Intravenous, ONCE, On Thu08/14/21 at 2029, For 1 dose ketorolac (TORADOL) injection 15 mg Given 08/14/2021 8:30 PM CDT 15 mg 15 mg, Intravenous, ONCE, On Thu08/14/21 at 2029, For 1 dose, Can cause pain on injection. If ordered intravenously (IV) : administer through a running maintenance fluid over 1 minute followed by a flush. If patient complains of pain on injection, may dilute 15-30 mg in 5 mL and push over 1 to 2 minutes. metoclopramide (REGLAN) injection 10 mg Given 08/14/2021 8:31 PM CDT 10 mg 10 mg, Intravenous, Administer over 2 Minutes, ONCE, On Thu08/14/21 at 2030, For 1 dose, Avoid use if patient has full bowel obstruction or perforation. Irritant. ondansetron (ZOFRAN-ODT) ODT tab 4 mg Given 08/14/2021 7:45 PM CDT 4 mg 4 mg, Oral, ONCE, On Thu08/14/21 at 1945, For 1 dose, With dry hands, peel back foil backing and gently remove tablet. Do not push oral disintegrating tablet through foil backing. Administer immediately on tongue and oral disintegrating tablet dissolves in seconds, then swallow with saliva. Liquid not required. sodium chloride 0.9% infusion at 125 mL/hr, Intravenous, CONTINUOUS, A dminister after the bolus., Starting on Thu08/14/21 at 2130, Until Thu08/15/21 at 0040 documented in this encounter Active and Recently Administered Medications Times are shown in CDT. Scheduled Medication Order 08/12/2021 08/13/2021 08/14/2021 0.9% sodium chloride BOLUS (COMPLETED) 2030 (New Bag - Provider: Leigha Wolff RN)2203 (Stopped - Provider: Leigha Wolff RN) Intravenous, 1,000 mL, ONCE, at 1,000 mL /hr, Administer over 1 Hours, On Thu08/14/21 at 2029, For 1 dose diphenhydrAMINE (BENADRYL) injection 50 mg (COMPLETED) 2030 (Given - Provider: Leigha Wolff RN) 50 mg, Intravenous, ONCE, On Thu08/14/21 at 2029, For 1 dose ketorolac (TORADOL) injection 15 mg (COMPLETED) 2029 (Given - Provider: Leigha Wolff, DAREN) 15 mg, Intravenous, ONCE, On Thu08/14/21 at 2029, For 1 dose, Can cause pain on injection. If ordered intravenously (IV) : administer through a running maintenance fluid over 1 minute followed by a flush . If patient complains of pain on inject ion, may dilute 15-30 mg in 5 mL and push over 1 to 2 minutes. metoclopramide (REGLAN) injection 10 mg (COMPLETED) 2030 (Given - Provider: Leigha Wolff RN) 10 mg, Intravenous, Administer over 2 Mi nutes, ONCE, On Thu08/14/21 at 2030, For 1 dose, Avoid use if patient has full bowel obstruction or perforation. Irritant. ondansetron (ZOFRAN-ODT) ODT tab 4 mg (COMPLETED) 1944 (Given - Provider: Chiquita Harris RN) 4 mg, Oral, ONCE, On Thu08/14/21 at 194, For 1 dose, With dry hands, peel back foil backing and gently remove tablet. Do not push oral disintegrating tablet through foil backing. Administer immediately on tongue and oral disintegrating tablet dissolves in seconds, then swallow with saliva. Liquid not required. Continuous Medication Order 08/12/2021 08/13/2021 08/14/2021 sodium chloride 0.9% infusion 21 30 (Canceled Entry - Provider: Orders Generic Provider - Comment: Automatically canceled at discontinue of medication order) at 125 mL/hr, Intravenous, CONTINUOUS, A dminister after the bolus., Starting on Thu08/14/21 at 2130, Until Elizabeth 08/15/21 at 0040 documented in this encounter Care Teams Prime Broker Relationship Specialty Start Date End Date [facility] PCP - General 12/28/[address] [place] [id number] documented as of this encounter
--- OUTSIDE RECORDS SUMMARY | 2022-04-10 14:24 | XMS_ITS | Encounter Summary ---
:1970 Author Organization [place] Address [address] [place] [address]. [place] [address] Care Team Providers Name Role Phone Unavailable Primary Care Provider Unavailable Encounter Details Date Type Department Care Team Description 01/07/2008 Emergency room [facility] Results MD [place] [address] Social History Tobacco Use Types Packs/Day Years Used Date Smoking Tobacco: Never Assessed Sex Assigned at Date Recorded Not on file documented as of this encounter Progress Notes Interface, Guidance Adviser - 01/12/2008 7:27 AM CDT FINAL ATTENDING PHYSICIAN: Faiza Khan CHIEF COMPLAINT: Chest pain. HISTORY OF PRESENT ILLNESS: Polly Case is a 37-year-old healthy female who noted the onset of localized left anterior chest pain on the edge of her left breast fold, describing a sharp pain clearly intensified with upright positioning and with inspiration and breathing. There was no aggravation with recumbency. The patient's symptoms were evaluated in urgent care between 5 and 6:00 p.m. at the [facility] last evening and she was directed here for further evaluation because of a slight elevation of a D-dimer assay. The patient states that her symptoms have dissipated within the past hour. She has a prior history of similar but less sustained episodes of pain. The patient denies risk factors for venous thromboembolism, as she does not use control pills and has had no prolongedtravel, history of cancer, deep venous thrombosis of the lower extremities, recent major surgery, limb immobilization, tobacco use and/or family history of thrombophilia. The patient does have a history of mild asthma but has been asymptomatic. She has not had fever, chills or other symptoms of respiratory infection. PAST MEDICAL/SURGICAL HISTORY: Remarkable for benign nevi excision and urethral dilatation as a child. She has also had right foot surgery. MEDICATIONS: Zyrtec and Singulair. ALLERGIES: She has hypersensitivity to iodinated contrast agents, penicillin and is on control pills. 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 FAMILY HISTORY: Negative. REVIEW OF SYSTEMS: Please see present illness. Completed system review is negative. PHYSICAL EXAMINATION: VITAL SIGNS: Temperature is 97.5, pulse 85, respirations were not recorded but observed at 18 and nonlabored, blood pressure 129/85, and O2 sat 100% on room air. GENERAL: A pleasant, cooperative womanof stated age. HEENT: Lids and conjunctivae are clear. Ears, nose and throat examinations are negative. NECK: Trachea is midline. RESPIRATORY: Chest wall tenderness is present at the left breast inframammary fold overlying the lower chest wall without skin inflammatory changes. There is no crepitus palpable. Lungs are symmetrically clear without pleural rub, wheezes or rales. CARDIOVASCULAR: Heart without murmur, rub or extra sounds. Peripheral arterial pulses are symmetric, full and without bruits. ABDOMEN: Soft and nontenderwithout mass or megaly. MUSCULOSKELETAL: Spine and extremity examination is negative. NEUROLOGIC: Cranial nerve, motor, sensory and cerebellar testing is symmetric, physiologic and normal. SKIN: Revealed no exanthem. LABORATORY AND DIAGNOSTIC IMAGING: A D-dimer was repeated here and is slightly elevated at 0.6. Nuclear medicine imaging was then undertaken in light of her iodinated contrast sensitivity with a normal perfusion lung scan with no abnormalities identified. DISCUSSION, PLAN AND DISPOSITION: The patient was apprised that her illness is most compatible witha viral syndrome. I have advised use of ibuprofen 600 mg per dose 3-4 times daily for the next 5-7 days. Follow up with her primary care physician at [facility] should be undertaken if progressive shortness of breath, fever, cough or other new symptoms surface. DISCHARGE DIAGNOSIS: Viral pleurodynia. Electronically signed on 01/12/2008 07:27 by DAMIAN THOMPSON MD MT: [id number] Name: POLLY CASE Account: [id number] : 1970 Visit Date: 01/07/2008 Document: [id number] cc: Bill Licea documented in this encounter Plan of Treatment Not on filedocumented as of this encounter Visit Diagnoses Not on filedocumented in this encounter
--- OUTSIDE RECORDS SUMMARY | 2022-04-10 14:24 | XMS_ITS | Encounter Summary ---
:1970 Author Organization [place] Address [address] [place] [address]. [place] [address] Care Team Providers Name Role Phone Unavailable Primary Care Provider Unavailable Encounter Details Date Type Department Care Team Description 01/07/2008 Results Only [facility] Mirela, Johann carcamo, Hospital [place] [address] Social History Tobacco Use Types Packs/Day Years Used Date Smoking Tobacco: Never Assessed Sex Assigned at Date Recorded Not on file documented as of this encounter Plan of Treatment Not on filedocumented as of this encounter Procedures Procedure Name Priority Date/Time Associated Diagnosis Comme [facility] LUNG PERFUSION Routine 01/07/2008 3:38 AM Resu lts for this SCAN CDT procedure are i n the results section. documented in this encounter Results LUNG PERFUSION IMAGING (01/07/2008 3:38 AM CDT) Anatomical Region Laterality Modality Other Specimen (Source) Anatomical Collection Method Collection Time Re ceived Time Location / / Volume Laterality 01/07/2008 3:38 AM CDT Impressions 01/07/2008 8:26 AM CDT NUCLEAR MEDICINE LUNG PERFUSION SCAN ?? Jan 07, 2008, 3:38 AM HISTORY: Left chest pain. TECHNIQUE: The patient was administered 2.7 mCi Tc 99m MAA intravenously prior to performing the pe rfusion images. FINDINGS: No peripheral wedge shaped def ects are identified to suggest pulmonary emboli. Therefore, no ventilat ion images were performed. IMPRESSION: Normal lung perfusion scan. Johann Dietz MD SPECIAL IMAGING STUDIES documented in this encounter Visit Diagnoses Not on filedocumented in this encounter
--- OUTSIDE RECORDS SUMMARY | 2022-04-10 14:24 | XMS_ITS | Clinical Summary ---
:1970 Author Organization [place] Address [address] [place] [address]. [place] [address] Care Team Providers Name Role Phone Clinic, [facility] Primary Care Provider [phone] Allergies Active Allergy Reactions Severity Noted Date Comments Iodine I 131 Tositumomab 12/27/2012 Penicillins 12/27/2012 Medications Medication Sig Dispensed Refills Start Date End Date Status prochlorperazine Take 1 tablet 20 tablet 0 08/14/2021 Active (COMPAZINE) 10 MG tablet (10 mg) by mouth every 6 hours as needed for nausea or vomiting (headache) Social History Tobacco Use Types Packs/Day Years [...] CDT Inhaled Oxygen Concentration - - Weight 59 kg (130 lb) 12/27/2012 11:43 PM CDT Height 170.2 cm (5' 7) 12/27/2012 11:43 PM CDT Body Mass Index 20.36 12/27/2012 11:43 PM CDT Plan of Treatment Health Maintenance Due Date Last Done Comments ADVANCE CARE PLANNING 1970 ANNUAL REVIEW OF HM ORDERS 1968 CT COLONOGRAPHY 1968 FIT-DNA (Cologuard) 1968 FIT 1968 FLEX SIG 1968 MAMMO SCREENING 1968 COVID-19 Vaccine (#1) 01/10/1969 COLONOSCOPY 1978 COLORECTAL CANCER SCREENING 1978 HIV SCREENING 07/11/1983 HEPATITIS C SCREENING 1986 PAP 1989 YEARLY PREVENTIVE VISIT 06/23/2002 06/23/2001 LIPID 2013 ZOSTER IMMUNIZATION (1 of 2018 2) PHQ-2 (once per calendar 05/11/2021 year) INFLUENZA VACCINE (#1) 2022 02/16/2018, 03/16/2013, 01/30/2012, Additional history exists DTAP/TDAP/TD IMMUNIZATION 02/08/2024 02/07/2014, 05/10/2001 , (2 - Td or Tdap) 05/10/2001, Additional history exists HEPATITIS B IMMUNIZATION Completed 08/24/2003, 03/24/2003, 02/03/2003 IPV IMMUNIZATION Aged Out No longer eligi ble based on patient 's age to complete this topic MENINGITIS IMMUNIZATION Aged Out No longe r eligible based on patient 's age to complete this topic Pneumococcal Vaccine: Aged Out No longer eligible Pediatrics (0 to 5 Years) based on patient's age and At-Risk Patients (6 to to co mplete this topic 64 Years) Insurance Payer Benefit Plan / Subscriber ID Effective Phone Address [facility] [id number] 2012-Pres [phone] [address] [facility] [address] [place] [address] Care Teams Sagger Preparer Relationship Specialty Start Date End Date Clinic, [facility] PCP - General 12/28/[address] [place] [id number]
--- OUTSIDE RECORDS SUMMARY | 2022-04-10 14:24 | XMS_ITS | Encounter Summary ---
:1970 Author Organization [place] Address [address] [place] [address]. [place] [address] Care Team Providers Name Role Phone Unavailable Primary Care Provider Unavailable Encounter Details Date Type Department Care Team Description 10/17/2009 Historic Results INTERFACED REPORT Admit, Unknown Social History Tobacco Use Types Packs/Day Years Used Date Smoking Tobacco: Never Assessed Sex Assigned at Date Recorded Not on file documented as of this encounter Plan of Treatment Not on filedocumented as of this encounter Procedures Procedure Name Priority Date/Time Associated Diagnosis Comme nts TROPONIN POCT Routine 10/17/2009 5:20 AM Results for this CDT procedure are i n the results section . TROPONIN POCT Routine 10/17/2009 1:33 AM Results for this CDT procedure are i n the results section . documented in this encounter Results Troponin POCT (10/17/2009 5:20 AM CDT) P athologist Signature Troponin I 0.00 0.00 - 0.10 MISYS ug/L Specimen Anatomical Collection Method Collection Time Receive d Time (Source) Location / / Volume Laterality 10/17/2009 5:20 AM 0 5:36 CDT AM CDT Unknown Admit LAB - ENTER/EDIT POCT Performing Organization Address City/State/ZIP Code Phon e Number MISYS Troponin POCT (10/17/2009 1:33 AM CDT) P athologist Signature Troponin I 0.00 0.00 - 0.10 MISYS ug/L Specimen Anatomical Collection Method Collection Time Receive d Time (Source) Location / / Volume Laterality 10/17/2009 1:33 AM 0 1:45 CDT AM CDT Unknown Admit LAB - ENTER/EDIT POCT Performing Organization Address City/State/ZIP Code Phon e Number MISYS documented in this encounter Visit Diagnoses Not on filedocumented in this encounter
--- OUTSIDE RECORDS SUMMARY | 2022-04-10 14:24 | XMS_ITS | Encounter Summary ---
:1970 Author Organization [place] Address [address] [place] [address]. [place] [address] Care Team Providers Name Role Phone Unavailable Primary Care Provider Unavailable Encounter Details Date Type Department Care Team Description 10/16/2009 Historic Results INTERFACED REPORT Admit, Unknown Social History Tobacco Use Types Packs/Day Years Used Date Smoking Tobacco: Never Assessed Sex Assigned at Date Recorded Not on file documented as of this encounter Plan of Treatment Not on filedocumented as of this encounter Procedures Procedure Name Priority Date/Time Associated Comments Diagnosis HCG QUALITATIVE STAT 10/16/2009 9:15 PM Result s for this CDT procedure are i n the results section. CBC WITH PLATELETS STAT 10/16/2009 9:15 PM Res ults for this CDT procedure are i n the results section. TROPONIN POCT Routine 10/16/2009 9:04 PM Results for this CDT procedure are i n the results section. BASIC METABOLIC PANEL STAT 10/16/2009 9:00 PM Results for this CDT procedure are i n the results section. documented in this encounter Results CBC with platelets (10/16/2009 9:15 PM CDT) athologist Signature MCV 90 78 - 100 fl MISYS MCH 30.1 26.5 - 33.0 MISYS pg MCHC 33.5 31.5 - 36.5 MISYS g/dL RDW 12.8 10.0 - 15.0 MISYS % WBC 7.8 4.0 - 11.0 MISYS 10e9/L RBC Count 4.02 3.8 - 5.2 MISYS 10e12/L Hemoglobin 12.1 11.7 - 15.7 MISYS g/dL Hematocrit 36.1 35.0 - 47.0 MISYS % Platelet Count 207 150 - 450 MISYS 10e9/L Specimen Anatomical Collection Method Collection Time Receive d Time (Source) Location / / Volume Laterality 10/16/2009 9:15 PM 0 8:51 CDT PM CDT Ania Gore MD LAB - BLOOD ORDERABLES Performing Organization Address [facility] Phon e Number MISYS HCG qualitative (10/16/2009 9:15 PM CDT) Patholo gist Method Time Signature HCG Qualitative Negative NEG MISYS Serum Comment: This test provides a presumptive diagno sis of or non-. A confirmed diagnosis should on ly be made by a physician after all clinical and laboratory findings have b een evaluated. Specimen Anatomical Collection Method Collection Time Receive d Time (Source) Location / / Volume Laterality 10/16/2009 9:15 PM 0 8:53 CDT PM CDT Ania Gore MD LAB - BLOOD ORDERABLES Performing Organization Address [facility] Phon e Number MISYS Troponin POCT (10/16/2009 9:04 PM CDT) P athologist Signature Troponin I 0.00 0.00 - 0.10 MISYS ug/L Specimen Anatomical Collection Method Collection Time Receive d Time (Source) Location / / Volume Laterality 10/16/2009 9:04 PM 0 CDT 10:[address] Unknown Admit LAB - ENTER/EDIT POCT Performing Organization Address [facility] Phon e Number MISYS (ABNORMAL) Basic metabolic panel (10/16/2009 9:00 PM CDT) P athologist Signature Sodium 138 133 - 144 MISYS mmol/L Potassium 3.8 3.4 - 5.3 MISYS mmol/L Chloride 105 94 - 109 MISYS mmol/L Carbon Dioxide 28 20 - 32 MISYS mmol/L Glucose 85 60 - 99 MISYS mg/dL Urea Nitrogen 10 5 - 24 MISYS mg/dL Creatinine 0.54 0.52 - 1.04 MISYS mg/dL Comment: New IDMS-traceable calibration beginning 09/09/07 GFR Estimate >90 >60 mL/min/1.7m2 MISYS GFR Estimate If Black >90 >60 mL/min/1.7m2 M ISYS Calcium 9.2 8.5 - 10.4 mg/dL MISYS Anion Gap 5 (L) 6 - 17 mmol/L MISYS Specimen Anatomical Collection Method Collection Time Receive d Time (Source) Location / / Volume Laterality 10/16/2009 9:00 PM 0 8:51 CDT PM CDT Ania Gore MD LAB - BLOOD ORDERABLES Performing Organization Address City/State/ZIP Code Phon e Number MISYS documented in this encounter Visit Diagnoses Not on filedocumented in this encounter
--- OUTSIDE RECORDS SUMMARY | 2022-04-10 14:24 | XMS_ITS | Encounter Summary ---
:1970 Author Organization [place] Address [facility] [place] [address] Care Team Providers Name Role Phone Unavailable Primary Care Provider Unavailable Encounter Details Date Type Department Care Team Description 06/14/2004 Delivery Summary [place] OB Transcripti on Yony Grimes (Residential Mental Health Worker) [address] [place] [address] [place] [address] UROLOGY [address] [facility] [address] [place], [place] [address] Social History Tobacco Use Types Packs/Day Years Used Date Smoking Tobacco: Never Assessed Sex Assigned at Date Recorded Not on file documented as of this encounter Miscellaneous Notes L&D Delivery Note - Yony Grimes - 06/14/2004 12:00 AM CHANNEL MARKETING SPECIALIST : DELIVERY: Polly Mulligan is a 33-year-old, G4, P3-0-0-3, with an LMP of 09/16/03, giving her an EDC of 06/24/04, who was admitted to Labor and Delivery the morning of 06/14/04 at 38-week's, 4-day's gestation for induction for history of macrosomia times three. She underwent artificial rupture of membranes which demonstrated clear fluid. IV Pitocin was initiated. Her first and second stages of labor were essentially unremarkableand she went on to deliver a single live male, 8 lb 9 oz, (3875 grams) with Apgars of 8 and 9 at one and five minutes, respectively, over an intact perineum. This was followed by delivery of an intact spontaneous placenta, containing a three vessel cord. She did not sustain any significant lacerations. Estimated blood loss 250 cc. COMPLICATIONS: None. Both mother and tolerated delivery well. [id number]_ YONY GRIMES MD 151:5 MT: Document: [id number] [place], [place] Name: MR#: POLLY CASE -00 DELIVERY SUMMARY Page 2 of 1 LCN: OB DSC: 06/16/2004 [place], [place] Name: MR#: POLLY CASE [id number] : Admit Date: Account #: 1970 06/14/2004 [id number] Doctor: YONY GRIMES MD DELIVERY SUMMARY Page 1 of 1 NEL MARKETING SPECIALIST documented in this encounter Plan of Treatment Not on filedocumented as of this encounter Visit Diagnoses Not on filedocumented in this encounter
--- OUTSIDE RECORDS SUMMARY | 2022-04-10 14:24 | XMS_ITS | Encounter Summary ---
:1970 Author Organization [place] Address [facility] hospital[facility] [place] [address] Care Team Providers Name Role Phone Unavailable Primary Care Provider Unavailable Encounter Details Date Type Department Care Team Description 10/16/2009 Emergency room [facility] Ania Solomon, Hospital Results MD EMERGENCY PHYSIC DIONE PARKINSON [address] [place], [place] [address] (Wo rk) Social History Tobacco Use Types Packs/Day Years Used Date Smoking Tobacco: Never Assessed Sex Assigned at Date Recorded Not on file documented as of this encounter Progress Notes Ania Solomon - 10/22/2009 6:44 AM CDT FINAL CHIEF COMPLAINT: Midsternal chest pain into under left breast starting this morning. HISTORY OF PRESENT ILLNESS: Polly Case is a 39-year-old female who presents to the emergency room with the above stated concerns. Per her report, she noticed that she was having mid-sided chest pain under the left breast that she describes as squeezing and lasting seconds. It is about 4 to 5/10 at its maximum. She denies any associated symptoms aside from slight nausea. She has not had any shortness breath. She denies lower extremity edema. She denies any trauma to the area, although she notesshe was reaching up for baskets frequently recently. She cannot reproduce the pain. She notes that when it comes, it lasts for seconds and then goes away on its own. She has never had pain like this bef ore. She notes she has had pain related to anxiety, but this is different. She has also had a workupin the past for pain in her chest, but again was this is different. She is not treated for cancer. She has not had any trauma to her lower extremities. MEDICATIONS: Pulmicort, albuterol. ALLERGIES: Penicillin, iodine. PAST MEDICAL HISTORY: Mild asthma, anxiety. SOCIAL HISTORY: The patient does not smoke. She does not use non-prescribed or recreational drugs, specifically cocaine. She does not use alcohol. She does feel safe at home. FAMILY HISTORY: Father has coronary artery disease and had an AK at the age of 72, no early coronary disease. No history of DVT or pulmonary embolism. REVIEW OF SYSTEMS: As noted in history of present illness. All other systems are reviewed and negative. The patient denies anxiety currently. She notes that was having some GI upset a little earlier today but denies that being problematic for her now. PHYSICAL EXAMINATION: VITAL SIGNS: Blood pressure is 145/95, pulse is 98, respiratory rate is 18, temperature 98.7 orally, oxygen saturation 100% on room air. GENERAL: A young- appearing female sitting flat on a stretcher in no respiratory distress. EYES: Pupils are equal, round, react to light. Conjunctivae are normal. ENT: Moist mucous membranes. Oropharynx is clear. CARDIOVASCULAR: Normal S1, S2. Regular rate and rhythm. No JVD. No murmurs, rubs or gallops. RESPIRATORY: Clear to auscultation bilaterally. No wheezes, rales or rhonchi. GASTROINTESTINAL: Abdomen soft, nontender, nondistended. MUSCULOSKELETAL: The patient moves extremities normally. No extremity edema. No calf asymmetry or tenderness to palpation. SKIN: Warm and dry. No rashes, lesions or ecchymoses. NEUROLOGIC: Alert and oriented x3. No focal neurologic findings. Responds appropriately to all questions. PSYCHIATRIC: Normal affect. Pleasant woman. LABORATORY AND DIAGNOSTICS: A 12-lead EKG showed normal sinus rhythm, ventricular rate of 90 with normal intervals and normal axis. There is no sign of acute ST or T-wave changes. An i-STAT troponin was 0. CBC is unremarkable. Basic metabolic panel showed a mildly decreased anion gap of 5, but no other abnormalities. Blood was negative. Two-view chest x-ray did not show any acute abnormalities on preliminary read. EMERGENCY DEPARTMENT COURSE: Polly Case is a 39-year-old female who presents to the emergency room with substernal and left-sided chest pressure that has been intermittent throughout the day today. It seemed somewhat atypical for cardiac etiology, but I am unable to reproduce it, it is not clearly musculoskeletal, and I do not have another obvious reason for it. She does not have significant coronary artery disease risk factors, but she has a father who had an AK at an older age. When she presented to the emergency room, an IV was established. She was placed on a monitor with pulse oximetry. EKG was obtained immediately which was normal. I-STAT troponin was also normal. She is low risk for pulmonary embolism and essentially rules out by PERC rules. Because of the nature of the pain and the way that it is not reproducible, I will admit her to our Chest Pain Evaluation Unit for serial enzymes and provocative testing in the morning. The patient is agreeable to this plan. I have low suspicionfor aortic dissection or primary lung pathology with a normal chest x-ray. This does not sound like esophageal spasm. The patient has had pain related to anxiety in the past, but this is different for her. As noted above, it would be best in this case to rule out that this is cardiac in origin, due toher age, since it does not seem to be explained in any other way. The patient was given 162 mg of asp irin orally. She did not have any pain while here in the emergency room. DISPOSITION: The patient is admitted to CPEU pain-free. DIAGNOSIS: Chest pain. Electronically signed on 10/22/2009 06:43 by ANIA SOLOMON MD MT: MARYANNE#[id number] Name: POLLY CASE Account: [id number] : 1970 Visit Date: 10/16/2009 Document: [id number] documented in this encounter Plan of Treatment Not on filedocumented as of this encounter Visit Diagnoses Not on filedocumented in this encounter
--- OUTSIDE RECORDS SUMMARY | 2022-04-10 14:24 | XMS_ITS | Encounter Summary ---
:1970 Author Organization [facility] Address [address] [place] [address]. [place] [address] Care Team Providers Name Role Phone [facility] Primary Care Provider [phone] Reason for Visit Reason Comments Other patient complaining of palpi tations Encounter Details Date Type Department Care Team Description 12/27/2012 - Emergency [facility] Gabe Ratliff (Primary Dx); 12/28/2012 [facility] Emergency MD Juliano Sinus tachycardia Dept [facility] [address] [place], [place] [address] [address] [id number] [place] [address] [place], [place] [id number] (Wo rk) Social History Tobacco Use Types Packs/Day Years Used Date Smoking Tobacco: Never Assessed Sex Assigned at Date Recorded Not on file documented as of this encounter Last Filed Vital Signs Vital Sign Reading Time Taken Comments Blood Pressure 107/80 12/28/2012 2:00 AM CDT Pulse - - Temperature 36.6 ??C (97.8 ??F) 12/27/2012 11:43 PM CDT Respiratory Rate 16 12/27/2012 11:43 PM CDT Oxygen Saturation 97% 12/28/2012 2:00 AM CDT Inhaled Oxygen Concentration - - Weight 59 kg (130 lb) 12/27/2012 11:43 PM CDT Height 170.2 cm (5' 7) 12/27/2012 11:43 PM CDT Body Mass Index 20.36 12/27/2012 11:43 PM CDT documented in this encounter Discharge Instructions Discharge InstructionsGabe Ratliff MD - 12/28/2012 2:04 AM CDT Images from the original note were not included. Home Back SP RU CH *HEART PALPITATIONS Palpitations refers to the feeling that your heart is beating hard, fast or irregular. Some people describe it as pounding or skipped beats. Palpitations may occur in persons with heart disease, but can also occur in healthy persons. Your doctor does not believe that anything dangerous is causing your symptoms at this time. Heart-related causes: ?? Arrhythmia (a change from the heart's normal rhythm) ?? Disease of the heart valves Rtg-hpnuv-tuklzsh causes: ?? Certain medicines (such as asthma inhalers and decongestants) ?? Some herbal supplements, energy drinks and pills, and weight loss pills ?? Illegal stimulant drugs (such as cocaine, crank, methamphetamine, PCP) ?? Caffeine, alcohol and tobacco ?? Medical conditions such as thyroid disease, anemia, anxiety and panic disorder Sometimes the cause cannot be found. HOME CARE: 1. Avoid excess caffeine, alcohol, tobacco and any stimulant drugs. 2. Tell your doctor about any prescription or edfw-eib-kabeaug or herbal medicines you take. FOLLOW UP with your doctor or as advised by our staff. GET PROMPT MEDICAL ATTENTION if any of the following occur together with palpitations: ?? Weakness, dizziness, light-headed or fainting ?? Chest pain or shortness of breath ?? Rapid heart rate (over 120 beats per minute, at rest) ?? Palpitations that lasts over 20 minutes ?? Weakness of an arm or leg or one side of the face ?? Difficulty with speech or vision ?? [phone] [place] [address]. All rights reserved. This information is not intended as a substitute for professional medical care. Always follow your healthcare professional's instructions. documented in this encounter ED Notes Ania Mabry RN - 12/28/2012 2:10 AM CDT Pt to follow up as directed. Pt given verbal and written discharge instructions. Gabe Ratliff MD - 12/28/2012 12:23 AM CDT History Chief Complaint: Palpitations ARPIT Case is a 42 year old female who presents with palpitations. The patient reports she started to experience palpitations around 1700 yesterday evening. She explains she has experienced similar palpitation episodes before, was seen by her primary care physician and everything was okay. She states she is unsure if this is caffeine related as she has had 1-2 extra cups of tea than she normally does in a day. The patient notes she was exposed to a lot cleaning products today as she spent time cleaning her bathrooms. She also notes she is unsure how much water she drank today and could be dehydrated. She explains she also feels a pounding in her throat and chest. The patient denies activity change, fevers, jaw pain, shortness of breath, chest pain, abdominal pain, nausea, vomiting, or rash. Allergies: Iodine I 131 Penicillins Medications: The patient is currently on no regular medications. Past Medical History: The patient does not have any pertinent past medical history. Past Surgical History: The patient does not have any pertinent past surgical history. Family History: Myocardial Infarction Marital Status: Social History: The patient does not smoke cigarettes and does not drink alcohol. The patient presents in the emergency department alone. Review of Systems Constitutional: Negative for fever and activity change. HENT: No Jaw Pain. Respiratory: Negative for shortness of breath. Cardiovascular: Positive for palpitations. Negative for chest pain. Gastrointestinal: Negative for nausea, vomiting and abdominal pain. Skin: Negative for rash. All other systems reviewed and are negative. Physical Exam First Vitals: BP: 140/88 mmHg Heart Rate: 112 Temp: 97.8 ??F (36.6 ??C) Resp: 16 Height: 170.2 cm (5' 7) Weight: 58.968 kg (130 lb) SpO2: 96 % Physical Exam General: Patient is alert and interactive when I enter the room Head: The scalp, face, and head appear normal Eyes: The pupils are equal, round, and reactive to light Conjunctivae and sclerae are normal ENT: External acoustic canals are normal The oropharynx is normal without erythema. Uvula is in the midline No thyroid medley. No thyroid mass. Neck: Normal range of motion CV: Tachycardia. S1/S2. No murmurs. Resp: Lungs are clear without wheezes or rales. No distress GI: Abdomen is soft, no rigidity, guarding, or rebound No distension. No tenderness to palpation in any quadrant. MS: Normal tone. Joints grossly normal without effusions. No asymmetric leg swelling, calf or thigh tenderness. Normal motor assessment of all extremities. Skin: No rash or lesions noted. Normal capillary refill noted Neuro: Speech is normal and fluent. Face is symmetric. Moving all extremities well. Psych: Awake. Alert. Normal affect. Appropriate interactions. Lymph: No anterior cervical lymphadenopathy noted Emergency Department Course ECG: Rate 109 bpm. [place] interval 170. QRS duration 96. QT/QTc 352/474. P-R-T axes 72 70 39. Sinus tachycardia. Nonspecific ST abnormality. Abnormal ECG. N STEMI. Performed at 2345. Read by Dr. Ratliff at 2350. Laboratory: BMP: Creatinine 0.49 (Low), o/w WNL Hemoglobin: 11.9 TSH: 2.99 Interventions: Sodium chloride 0.9% 1,000 mL IV (includes bolus + continuous drip) x 2 Emergency Department Course: I examined the patient and discussed a plan of care. IV inserted and blood drawn. The patient was placed on continuous cardiac monitoring and pulse oximetry. EKG was done. The patient reported feeling improved after the above interventions. Rechecked the patient, findings and plan explained to the patient. Patient discharged home, status improved, with instructions regarding supportive care, medications, and reasons to return as well as the importance of close follow-up was reviewed. Impression & Plan Medical Decision Making: Polly Case is a 42 year old female who presents for evaluation of palpitations. Initial ECG shows sinus tachycardia. A broad differential diagnosis was considered including SVT, Atrial fibrillation, ventricular arrhythmia, thyroid disease, acute electrolyte abnormality, anemia, heart disease, PE, etc. The workup and exam here in ED would indicate that supportive outpatient management is indicated. No signs of infection on exam or history. I doubt PE as patient is without chest symptoms, no hypoxia, etc. Doubt acute coronary syndrome given symptoms and exam. Will have them follow up with lisa jones. Most likely etiology is dehydration ( rapid decrease in HR with fluids and cleaning all day) plus use of more caffeinated beverages than usual. Critical Care time: none Diagnosis: 1. Palpitation 2. Sinus tachycardia I, Iva Smithammed, am serving as a Scribe on 12/28/2012 at 12:23 AM to personally document services performed by Dr. Ratliff based upon my observations and the provider's statements to me. Iva Donnell 12/27/2012 [facility] EMERGENCY DEPARTMENT Gabe Ratliff MD 12/28/12 0319 Raquel Gandhi RN - 12/27/2012 11:45 PM CDT Pt states she had more caffeine than usual and was also cleaning her home with heavy smelling bleachand chemicals. documented in this encounter Plan of Treatment Not on filedocumented as of this encounter Procedures Procedure Name Priority Date/Time Associated Comments Diagnosis TSH WITH FREE T4 STAT 12/28/2012 12:14 AM Resu lts for this REFLEX CDT procedure are i n the results section. HEMOGLOBIN STAT 12/28/2012 12:14 AM Results for this CDT procedure are i n the results section. BASIC METABOLIC STAT 12/28/2012 12:14 AM Resul ts for this PANEL CDT procedure are i n the results section. EKG 12-LEAD, TRACING STAT 12/27/2012 11:45 PM Results for this ONLY CDT procedure are i n the results section. documented in this encounter Results TSH with free T4 reflex (12/28/2012 12:14 AM CDT) P athologist Signature TSH 2.99 0.4 - 5.0 [facility] mU/L HOSPITAL LAB Specimen Anatomical Collection Method Collection Time Receive d Time (Source) Location / / Volume Laterality Blood specimen 12/28/2012 12:14 3 (specimen) AM CDT 12:47 AM CDT Gabe Ratliff MD LAB - BLOOD ORDERABLES Performing Organization Address City/State/ZIP Code Phon e Number [facility] [address] [place], [place] [address] [facility] LAB Hemoglobin (12/28/2012 12:14 AM CDT) P athologist Signature Hemoglobin 11.9 11.7 - 15.7 [facility] g/dL [facility] LAB Specimen Anatomical Collection Method Collection Time Receive d Time (Source) Location / / Volume Laterality Blood specimen 12/28/2012 12:14 3 (specimen) AM CDT 12:47 AM CDT aGbe Ratliff MD LAB - BLOOD ORDERABLES Performing Organization Address City/State/[facility] Code Phon e Number [facility] [address], [place] [address] [facility] LAB (ABNORMAL) Basic metabolic panel (BMP) (12/28/2012 12:14 AM CDT) Analysis Performed At Patho logist Time Signature Sodium 141 133 - 144 [place] mmol/L [facility] LAB Potassium 3.4 3.4 - 5.3 [place] mmol/L [facility] Chloride 102 94 - 109 [place] mmol/L [facility] Carbon Dioxide 26 20 - 32 [place] mmol/L [facility] Anion Gap 13 6 - 17 [place] mmol/L [facility] Glucose 90 60 - 99 [place] mg/dL [facility] Urea Nitrogen 9 5 - 24 [place] mg/dL [facility] Creatinine 0.49 (L) 0.52 [facility] 1.04 mg/dL [facility] GFR Estimate >90 >60 [place] mL/min/1.[address] LAB GFR Estimate If >90 >60 [place] Black mL/min/1.[address] LAB Calcium 9.2 8.5 - 10.4 [place] mg/dL [facility] LAB Specimen Anatomical Collection Method Collection Time Receive d Time (Source) Location / / Volume Laterality Blood specimen 12/28/2012 12:14 3 (specimen) AM CDT 12:47 AM CDT Gabe Ratliff MD LAB - BLOOD ORDERABLES Performing Organization Address City/[facility]/ZIP [facility] Phon e Number [facility] [address] [place], [place] [address] [facility] EKG 12-lead, tracing only (12/27/2012 11:45 PM CDT) [facility] gist Method Time Signature Interpretation ECG Click View RADIOLOGY Image link RESULTS to view waveform and result Specimen (Source) Anatomical Collection Method Collection Time Re ceived Time Location / / Volume Laterality 12/27/2012 11:45 PM CDT Valery García MD ECG ORDERABLES Performing Organization Address City/State/ZIP Code Phon e Number RADIOLOGY RESULTS documented in this encounter Visit Diagnoses Diagnosis Palpitation - Primary Palpitations Sinus tachycardia Other specified cardiac dysrhythmias documented in this encounter Administered Medications Inactive Administered Medications - up to 3 most recent administrations Medication Order MAR Action Action Date Dose Rate Site sodium chloride 0.9 % New Bag 12/28/2012 1:30 AM CDT 1,000 mLs 10 00 mL/hr BOLUS 1,000 mL Intravenous, 1,000 mL, ONCE, at 1,000 mL/hr, Administer over 1 Hours, On Tu12/28/12 at 0045, For 1 dose documented in this encounter Active and Recently Administered Medications Times are shown in CDT. Scheduled Medication Order 12/26/2012 12/27/2012 12/28/2012 sodium chloride 0.9 % BOLUS 1,000 mL (COMPLETED) [id number] (New Bag - Provider: Ania Mabry, RN)0217 (Stopped - Provider: Ania Mabry, RN) Intravenous, 1,000 mL, ONCE, at 1,000 mL /hr, for 1 Hours, 12/28/12 at 0045, For 1 dose documented in this encounter Care Teams Energy Efficiency Specialist Relationship Specialty Start Date End Date [facility], [facility] PCP - General 12/28/[address] [place] [id number] documented as of this encounter
--- OUTSIDE RECORDS SUMMARY | 2022-04-10 14:24 | XMS_ITS | Encounter Summary ---
:1970 Author Organization [facility] Address [address] [place] [address]. [place] [address] Care Team Providers Name Role Phone Unavailable Primary Care Provider Unavailable Encounter Details Date Type Department Care Team Description 10/17/2009 Results Only INTERFACED REPORT Ania Gore MD EMERGENCY PHYSIC [facility] [address] [place], [place] [address] (Wo rk) Social History Tobacco Use Types Packs/Day Years Used Date Smoking Tobacco: Never Assessed Sex Assigned at Date Recorded Not on file documented as of this encounter Plan of Treatment Not on filedocumented as of this encounter Procedures Procedure Name Priority Date/Time Associated Diagnosis Comme [facility] ECHO HEART Routine 10/17/2009 7:13 AM Result s for this XTHORACIC, CDT procedure are i n STRESS/REST the results section. documented in this encounter Results ECHO HEART XTHORACIC, STRESS/REST (10/17/2009 7:13 AM CDT) [facility] Method Time Signature [facility] Interpretation Summary RESULTS THIS IS A NORMAL STRESS ECHO AND STRESS EKG. Atyical chest pain in stage 2 lasting a few seconds. PatientHeight: 68 in PatientWeight: 130 lbs SystolicPressure: 104 mmHg DiastolicPressure: 78 mmHg HeartRate: 96 bpm BSA 1.7 m^2 Baseline The baseline ECG displays abnormal ST segments in the inferi or leads. The patient is in normal sinus rhythm. The visual ejection fraction is estimated at 55-60%. No regional wall motion abnormalities noted. Stress Exercise was stopped due to fatigue. The patient exercised 9:00. Patient experienced 2 episodes of chest pain in stage 2 only , with both episodes lasting a few seconds. Normal blood pressure response to exercise. Target Heart Rate was achieved. A treadmill exercise test according to the Pb protocol wa s performed. The EKG portion of this stress test was negative for i nducible ischemia (see echo results below). A moderately-high workload was achieved. No arrhythmia noted. The visual ejection fraction is estimated at >70%. Left ventricular cavity size decreases with exercise. Global LV systolic function augments with exercise. Normal resting wall motion and no stress-induced wall motion abnormality. Right Ventricle The right ventricle is normal in size and function. Mitral Valve There is trace mitral regurgitation. Tricuspid Valve There is trace tricuspid regurgitation. Right ventricular systolic pressure could not be approximate d due to inadequate tricuspid regurgitation. Aortic Valve Normal tricuspid aortic valve. Procedure Stress Echo Complete. Stress Results Protocol: ??Pb Target HR: 152 bpm ?Maximum Predicted HR: 1 79 bpm Stage ?Duration(mm:ss) ??HR(bpm) ?? BP ?DOSE ??Comment ? 03:00 ?134 ? 110/70 ? 03:00 ?139 ? 120/70 ? 03:00 ?171 ? 140/70 ?Max BP ? Recovery ? 06:00 ?104 ? 110/70 ?RPP [id number] Stress Duration: 09:00 mm:ss ??Recovery Time: 06:00 mm:ss Maximum Stress HR: 171 bpm ?METS: 10 Interpreting Physician: ??Jono Knutson MD electronical ly signed on 10-17-2009 08:01:21 Anatomical Region Laterality Modality Other Specimen (Source) Anatomical Collection Method Collection Time Re ceived Time Location / / Volume Laterality 10/17/2009 7:13 AM CDT Ania Gore MD [employer] [facility] documented in this encounter Visit Diagnoses Not on filedocumented in this encounter
--- OUTSIDE RECORDS SUMMARY | 2022-04-10 14:24 | XMS_ITS | Encounter Summary ---
:1970 Author Organization [facility] Address [address] [place] [address]. [place] [address] Care Team Providers Name Role Phone [facility] Primary Care Provider [phone] Encounter Details Date Type Department Care Team Description 10/17/2009 Historic Results [facility] Heart Unknown, [facility] [address] [address] Social History Tobacco Use Types Packs/Day Years Used Date Smoking Tobacco: Never Assessed Sex Assigned at Date Recorded Not on file documented as of this encounter Plan of Treatment Not on filedocumented as of this encounter Procedures Procedure Name Priority Date/Time Associated Diagnosis Comme nts ECHO CARDIAC - HIM SCAN 10/17/2009 12:00 AM CDT - ARCHIVE documented in this encounter Results ECHO CARDIAC - HIM SCAN - ARCHIVE (10/17/2009 12:00 AM CDT) Anatomical Region Laterality Modality Echocardiography Specimen (Source) Anatomical Location Collection Method / Collectio n Time Received Time / Laterality Volume 10/17/2009 Narrative This result has an attachment that is no t available. Provider Scan CV ECHO ORDERABLES documented in this encounter Visit Diagnoses Not on filedocumented in this encounter Care Teams Line Appliance Assembler Relationship Specialty Start Date End Date [facility] PCP - General 12/28/[address] [place] [id number] documented as of this encounter
--- OUTSIDE RECORDS SUMMARY | 2022-04-10 14:24 | XMS_ITS | Encounter Summary ---
:1970 Author Organization [facility] Address [address] [place] [address]. [place] [address] Care Team Providers Name Role Phone [facility] Primary Care Provider [phone] Encounter Details Date Type Department Care Team Description 08/14/2021 Travel Social History Tobacco Use Types Packs/Day Years Used Date Smoking Tobacco: Never Assessed Sex Assigned at Date Recorded Not on file COVID-19 Exposure Response Date Recorded In the last month, have you been in contact with No / Unsure 08/14/2021 7:34 PM CDT someone who was confirmed or suspected to have Coronavirus / COVID-19? documented as of this encounter Plan of Treatment Not on filedocumented as of this encounter Visit Diagnoses Not on filedocumented in this encounter Care Teams Rice Milling Supervisor Relationship Specialty Start Date End Date [facility] PCP - General 12/28/[address] [place] [id number] documented as of this encounter
--- OUTSIDE RECORDS SUMMARY | 2022-04-10 14:24 | XMS_ITS | Encounter Summary ---
:1970 Author Organization [facility] Address [address] [place] [address]. [place] [address] Care Team Providers Name Role Phone [facility] Primary Care Provider [phone] Encounter Details Date Type Department Care Team Description 08/15/2021 Documentation Only INTERFACED REPORT Unknown, Provider Social History Tobacco Use Types Packs/Day Years [...] on filedocumented in this encounter Care Teams Aircrewman Relationship Specialty Start Date End Date [facility] PCP - General 12/28/[address] [place] [id number] documented as of this encounter
--- OUTSIDE RECORDS SUMMARY | 2022-04-10 14:24 | XMS_ITS | Encounter Summary ---
:1970 Author Organization [facility] Address [address] [place] [address]. [place] [address] Care Team Providers Name Role Phone Unavailable Primary Care Provider Unavailable Encounter Details Date Type Department Care Team Description 08/10/2004 Emergency room Rahul Limon MD EMERGENCY PHYSIC [facility] [address] [place], [place] [address] (Wo rk) Social History Tobacco Use Types Packs/Day Years Used Date Smoking Tobacco: Never Assessed Sex Assigned at Date Recorded Not on file documented as of this encounter Progress Notes Rahul Limon - 08/10/2004 11:59 PM CONSTRUCTION SUPERINTENDENT : 66 CPEU DISCHARGE SUMMARY NOTE: The patient is a 34-year-old female who was admitted to the Chest Pain Evaluation Unit by Dr. Leal on 08-10-04 during the afternoon, early evening hours on 08-10-04. The patient has left chest discomfort, palpitations, has had a negative Holter monitor in the past. The patient does have stress at home with four small children and her has apparently been intermittently laid off. They have no family support here. The patient had a ventilation perfusion scan performed which was apparently negative for pulmonary embolism. Dr. Leal felt the patient would benefit from outpatient Holter monitor. She was monitored in the CPEU all evening, overnight and into the morning hours today, had three negative enzymes performed with three negative troponins, two negative myoglobins. The patient had no ectopy or dysrhythmia in the CPEU. On discharge examination the patient's vital signs reveal a blood pressure of 117/73, pulse 80, respiratory rate 16, O2 sats normal, temperature is normal. Chest; lungs are clear. Cardiovascular; heart is in a regular rate and rhythm with a normalS1 and S2. There is no S3 or S4. There is no cardiac murmur. The skin is without rash. Psychiatric; I spent approximately 30 to 40 minutes with this patient, talking to her about palpitations, heart disease, her stress echo results. She had a stress echo in the Department of Cardiopulmonary read by Dr. Garcia as indicating suspicious area of hypokinesis in the mid anteroseptal area, not seen on two views, only seen on one view, and he wanted her to have a nuclear perfusion test. He is going to set this up for tomorrow. This patient has negative enzymes, normal appearing electrocardiogram, has normal exercise capacity, had normal stress EKG without symptoms, up to 12 mets, exercises on a treadmill regularly. Nonetheless, she will be set up for an outpatient Holter monitor and nuclear perfusion testing tomorrow. The patient has significant stress at times, she has palpitations. I discussed with her the use of anxiolytics and beta blockers as well which may be indicated, but will not be initiated today. FINAL DIAGNOSIS: Palpitations and chest symptoms, not inducing coronary ischemia with an equivocal stress echo test. DISPOSITION AND PLAN: Call doctor on Thursday to set up a Holter monitor. This may be arranged here in our Cardiopulmonary Unit tomorrow. Nuclear perfusion testing tomorrow here at [facility] or at [facility] to clarify echo findings, aspirin daily. Return to the Emergency Room with increasing symptoms. Follow up with Cardiology after the above studies are complete. DISCHARGE TIME: 11:20 on 08-11-04. [id number] RAHUL LIMON MD 111:1 MT: Document: [id number] [place], [place] Name: MR#: POLLY CASE [id number] EMERGENCY ROOM ENCOUNTER Page 2 of 2 LCN: CPEU DSC: 08/11/2004 [place], [place] Name: MR#: POLLY CASE [id number] : Admit Date: Account #: 1970 08/10/2004 [id number] Doctor: RAHUL LIMON MD EMERGENCY ROOM ENCOUNTER Page 1 of 2 documented in this encounter Plan of Treatment Not on filedocumented as of this encounter Visit Diagnoses Not on filedocumented in this encounter
--- OUTSIDE RECORDS SUMMARY | 2022-04-10 14:24 | XMS_ITS | Encounter Summary ---
:1970 Author Organization [place] Address [address] [place] [address]. 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 HISTORY OF THE PRESENT ILLNESS: This is a 34-year-old white female who presents here complaining of a pounding sensation in the heart that started 1-1/2 hours prior to arrival. She says she was walking to seed cone picker her daughter and then all of sudden started having this pounding sensation in the left anterior chest wall. It was associated with shortness of breath. The sensation lasted for about 15 minutes but she continues to have minimal discomfort in the chest. The patient states she has had the same episode about two months ago prior to delivering her child. She said she called the [facility] and they evaluated her and apparently they told her that everything was fine and she did not get rechecked. She did go to her doctor after that and they noticed that her blood pressure was slightly elevated but they told her nothing to be concerned about. The patient states that about 1-1/2 years ago she did have some anterior chest pain that she was evaluated here in the Emergency Department for. She said she went home on a Holter monitor and was told that everything was normal. The patient states that, I am a very nervous person. But she says she denies feeling nervous or anxious prior to these episodes happening. The patient denies any fevers. No headache. No problems with her eyes. No sore throat. No chest pain. She says she occasionally does have some pains in the right lower rib area but not associated with this. She does state that she feels short of breath. No abdominal pain. No nausea. No vomiting. No diarrhea. No dysuria. No hematuria. No leg swelling. No history of recent travel. Last menstrual period was five days ago and she said it was a heavy period. The patient does state that she has four children and she does have increased stress in the family. She does state that one of her children had been diagnosed with asthma recently but she says nothing more than usual. PAST MEDICAL HISTORY: Negative. ALLERGIES: IODINE, gives her anaphylaxis and PENICILLIN. MEDICATIONS: Nasacort. PAST SURGICAL HISTORY: Foot surgery and bladder surgery as a child. SOCIAL HISTORY: No smoking. No alcohol. No drugs. FAMILY HISTORY: Mother of lung cancer. REVIEW OF SYSTEMS: As noticed above, all others have been reviewed and are negative. PHYSICAL EXAMINATION: Blood pressure is 130/89 and then 141/87. Heart rate is 108. Respiratory rate is 20. Temperature is 97.4. She is saturating 100% on room air. In general this is a well-appearing female. She is sitting in bed. She is cooperative and pleasant with examination. She does appear to be somewhat anxious and is tearful with examination. HEAD Is normocephalic and atraumatic. EARS are bilaterally pearly white. EYES: Pupils are equal and reactive to light. NOSE is patent. THROAT: The uvula is midline. There is no exudates. She has moist mucous membranes. NECK: The trachea is midline. The NECK is supple. There is no thyromegaly. Cardiovascular: S1, S2. Her HEART rate varies from 90 to about 130. She is sinus rhythm. ABDOMEN is soft. It is nontender. LUNGS are clear to auscultation bilaterally. She has 2+ femoral pulses, 2+ dorsalis pedis pulses, 2+ radial pulses. Neurological: Cranial nerves II-XII are intact. Strength is 5/5 in the upper EXTREMITIES and 5/5 in the lower EXTREMITIES. Reflexes are 2+ throughout. Psychiatry: She is appropriate. She does appear nervous. EMERGENCY DEPARTMENT PLAN: We will obtain an IV access. We will obtain an electrocardiogram and chest x-ray. We will evaluate the patient for pulmonary embolism. She has complained of shortness of breath and she is and we will reevaluate. EMERGENCY DEPARTMENT COURSE: Please note that the patient continued to do well. She did state that the pounding sensation in the heart was getting better. She was given 2 milligrams of Ativan p.o. because I do feel that the patient was quite nervous and anxious being here in the Emergency Department. Blood work revealed the patient to have a chemistry panel. Cardiac enzymes were within normal limits. TSH was normal at 3.06. Urine test was negative. D-dimer was within normal limits at 0.2, and coagulation studies were normal. Hemoglobin was 13.3. Hematocrit was normal at 14.6. The patient had a chest x-ray that was evaluated by me that shows no acute pulmonary abnormality. No consolidations. No pulmonary edema. Please note that my clinical impression is a 34-year-old female who presents complaining of anterior left chest discomfort while she was walking associated with shortness of breath and a pounding sensation. It lasted at its worse for 30 minutes and has subsequently become better. She did have a similar episode about 1-1/2 years ago but at that time the pain was more severe. She had a Holter monitor placed and it apparently there was nothing acute. Currently she does appear very nervous. Please note that when I do enter the room the patient seems to be in a normal sinus rhythm, but as I talk to her she does become quite hypertensive around the 's. We did have a chance to obtain an electrocardiogram which shows the patient to be in sinus tachycardia, ventricular rate of 102, but it was noted that the patient had a pause and then she became sinus rhythm with a rate of about 70, but I did think her T-wave was a little bit different concerning for either an escaped atrial rhythm or escaped junctional rhythm. I was concerned about atrial dysfunction, therefore I obtained a continuous electrocardiogram tracing which showed the patient to have no sinus pause but it shows the patient to be what appears to be a sinus arrhythmia. I did get a chance to discuss the patient with Dr. Sam, who was the order dispatcher chief on-call. I told him about her electrocardiogram that again shows the patient to be tachycardiac, she has a pause and then apparently is to have a different T-wave pathology concerning for any dysfunction. He says that currently the patient really has no risk factors. She is quite young and he suggests a Holter outpatient. I went back into her room and I spoke with the patient. We had a second electrocardiogram done. The patient denied any chest pain. Her rate ventricular was around 92 and it shows sinus arrhythmia. There was no pause in this one. She does feel uncomfortable going home. She is concerned about the discomfort in the anterior chest. Therefore my plan is to admit her to the Chest Pain Evaluation Unit for serial cardiac enzymes, rule out with an exercise stress test in the morning but most likely the patient really needs to benefit from a Holter monitor and cardiology evaluation and she agreed with this finding. She was admitted to the Chest Pain Evaluation Unit chest pain free for serial cardiac enzymes and stress test in the morning. Patient risk factors for coronary artery disease are low and I believer her risk factors for acute coronary syndrome are low, but she will admitted and monitored. [id number] ELISE DUONG MD MT: Document: [id number] CC: ELISE DUONG MD [place], [place] Name: MR#: POLLY CASE -[id number] EMERGENCY ROOM ENCOUNTER Page 4 of 3 LCN: CPEU DSC: 08/11/2004 [place], [place] Name: MR#: POLLY CASE [id number] : Admit Date: Account #: 1970 08/10/2004 [id number] Doctor: ELISE DUONG MD EMERGENCY ROOM ENCOUNTER Page 1 of 3 IUM NOTE INTEREST CALCULATOR CLERK documented in this encounter Plan of Treatment Not on filedocumented as of this encounter Visit Diagnoses Not on filedocumented in this encounter
--- OUTSIDE RECORDS SUMMARY | 2022-04-10 14:24 | XMS_ITS | Encounter Summary ---
:1970 Author Organization [facility] Address [address] [place] [address]. [place] [address] Care Team Providers Name Role Phone Unavailable Primary Care Provider Unavailable Encounter Details Date Type Department Care Team Description 08/12/2004 [facility] Results [address] [place], [place] [phone] (Wo rk) Social History Tobacco Use Types Packs/Day Years Used Date Smoking Tobacco: Never Assessed Sex Assigned at Date Recorded Not on file documented as of this encounter Plan of Treatment Not on filedocumented as of this encounter Procedures Procedure Name Priority Date/Time Associated Comments Diagnosis C MYOCARDIAL IMAGE Routine 08/12/2004 1:11 PM Res ults for this MULTPLE,SPECT CDT procedure are in the results section. HC CARDIAC STRESS Routine 08/12/2004 12:31 PM Res ults for this TEST, TRACING ONLY CDT procedure are in the results section. documented in this encounter Results MYOCARDIAL IMAGE MULTPLE,SPECT (08/12/2004 1:11 PM CDT) Anatomical Region Laterality Modality Other Specimen (Source) Anatomical Collection Method Collection Time Re ceived Time Location / / Volume Laterality 08/12/2004 1:11 PM CDT Impressions 10/17/2004 8:11 AM CDT GATED EXERCISE MYOCARDIAL PERFUSION SCIN TIGRAPHY Done on 08/12/04. ??Polly Case is a 34-year-old female. ?? 68. INDICATION: Assessment of myocardial pe rfusion with a history of palpitations. Indication for exercise st ress testing was palpitations. IMPRESSIONS: I Exercise Test ??1. The patient exercised to an adequa te cardiac workload with good functional aerobic capacity demonstrated . ??2. The patient experienced fatigue du ring the test. ??3. ECG report done under separate cov er. II Myocardial Perfusion Scintigraphy ??1. Myocardial perfusion using single isotope technique demonstrated no significant perfusion defect consiste nt with significant ischemia or infarct. ??There was a mild decrease in activity in the anterior septum and anterolateral holcomb at rest m ost likely consistent with artifact related to soft tissue attenuat ion, motion correction, and bowel uptake artifact. ?2. Gating demonstrated a normal sized left ventricle with adequate to slightly decreased contractility with no significant regional wall motion abnormality. ??3. The ejection fraction was 49%. RESTING TOMOGRAPHY: Following the injec tion of 11.2 mCi of technetium-99m tetrofosmin, gamma camera imaging was performed using 180* SPECT technique. EXERCISE TEST RESULTS: The patient exer cised for 9 minutes according to the Pb protocol. The peak heart ra te achieved was 171, which is 93% of the age predicted maximum heart r ate, 4.1 METS. ??Blood pressure at peak exercise was 144/104 gi ving a pressure rate product of 25,794. The test was terminated secon sunita to fatigue. ECG report done under separate cover. Ninety seconds prior to the termination of exercise, the patient was injected with 29.8 mCi of technetium-99m Tetrofosmin. Gamma camera imaging was performed later using 180* S PECT technique. TOMOGRAPHIC RESULTS: ??On the stress im ages, there was no significant perfusion defect. ??On the rest images, there was a moderate decrease in activity involving the anterior septu m and anterolateral wall. ?? Gated images demonstrated a normal sized left ventricle with adequate to slightly decreased contractility with no significant regional wall motion abnormality. ??The ejection fract ion is 49% with stress, 58% at rest. ??There was motion correction on r est and stress images with bowel uptake artifact and diaphragm atte nuation on rest greater than stress and a question of slight breast a ttenuation present. ?? ADDENDUM: ??The patient's overall left v entricular function did decrease slightly with exercise from 58 to 49%, and there may have been a slight suggestion of sluggishness of the anterior wall. ??There did not appear to be significant or kadie re hypokinesis. ??This may have been related to the very mild hyper tensive response to exercise that was experienced with a blood pressu re of 145/104 at peak exercise. ??Again, there was no obvious or significant perfusion defects especially on the stress images to suggest significant ischemic disease. ??There was a moderate defect involving the anterior septum/anterior wall at rest which may b e artifactual. ??The slight decrease in left ventricular function ma y be a result of the hypertension or perhaps a very early car diomyopathy. ??Clinical correlation is advised. Michael Garcia MD SPECIAL IMAGING STUDIES CARDIAC STRESS TST,TRACING ONLY (08/12/2004 12:31 PM CDT) Component Value Ref Test Analysis Performed At [facility] PFSweb Range Method Time Signature IMAGECAST RADIOLOGY RESULT Name of Patient: ??Polly Case ?? : ??66 RESULTS ?? INDICATION: ??The patient is a 34-year-old woman studied in tiay because of palpitations and further studied with nuclear str ess because of the suspicious area in the midanteroseptal and mi danterior views in the parasternal long axis. ? The patient exercised for nine minutes according to the Bruc e protocol increasing heart rate from 106 to 171 beats per min mayra and peaking blood pressure at 145/75. ??She achieved 93 percent of age predicted maximum heart rate and a rate pressure product of 24,795 and developed fatigue but not chest pain. ??The baseline electrocardiogram showed nonspecific T changes in the inferi or and anterolateral leads. ??With exercise no additional ST segmen t depression was induced nor was ectopy seen. ??This is an unr emarkable stress portion of this stress nuclear evaluation. ??The nucl ear imaging will be separately reported. Specimen (Source) Anatomical Collection Method Collection Time Re ceived Time Location / / Volume Laterality 08/12/2004 12:31 PM CDT Michael Garcia MD EKG TECHNICAL Performing Organization Address City/State/ZIP Code Phon e Number RADIOLOGY RESULTS documented in this encounter Visit Diagnoses Not on filedocumented in this encounter
--- OUTSIDE RECORDS SUMMARY | 2022-04-10 14:24 | XMS_ITS | Encounter Summary ---
:1970 Author Organization [place] Address [address] [place] [address]. [place] [address] Care Team Providers Name Role Phone Unavailable Primary Care Provider Unavailable Encounter Details Date Type Department Care Team Description 10/17/2009 Historic Results INTERFACED REPORT Interface, Yoni domínguez MD Social History Tobacco Use Types Packs/Day Years Used Date Smoking Tobacco: Never Assessed Sex Assigned at Date Recorded Not on file documented as of this encounter Plan of Treatment Not on filedocumented as of this encounter Procedures Procedure Name Priority Date/Time Associated Diagnosis Comme nts EKG 12 LEAD Routine 10/17/2009 1:05 AM Results f or this CDT procedure are i n the results section . documented in this encounter Results EKG 12 LEAD (10/17/2009 1:05 AM CDT) Component Value Ref Range Test Analysis Performed Pathologis t Method Time At Signature Ventricular Rate 84 BPM RADIOLOGY RESULTS Atrial Rate 84 BPM RADIOLOGY RESULTS SD Interval 166 ms RADIOLOGY RESULTS QRS Duration 94 ms RADIOLOGY RESULTS QT 346 ms RADIOLOGY RESULTS QTc 408 ms RADIOLOGY RESULTS P Standard 74 degrees RADIOLOGY RESULTS R AXIS 75 degrees RADIOLOGY RESULTS T Standard 60 degrees RADIOLOGY RESULTS Interpretation AGE AND GENDER SPECIFIC ECG ANALYSIS RADIOLOGY ECG Sinus rhythm with sinus arrhythmia RESULTS Normal ECG Unconfirmed report - interpretation of this ECG is compute r generated - see medical record for final interpretation Specimen Anatomical Collection Method Collection Time Receive d Time (Source) Location / / Volume Laterality 10/17/2009 1:05 AM 0 CDT 11:17 AM CDT Transcripton Interface ECG ORDERABLES Performing Organization Address City/State/ZIP Code Phon e Number RADIOLOGY RESULTS documented in this encounter Visit Diagnoses Not on filedocumented in this encounter
--- OUTSIDE RECORDS SUMMARY | 2022-04-10 14:24 | XMS_ITS | Encounter Summary ---
:1970 Author Organization [facility] Address [address] [place] [address]. [place] [address] Care Team Providers Name Role Phone Unavailable Primary Care Provider Unavailable Encounter Details Date Type Department Care Team Description 06/15/2004 Historic Results INTERFACED REPORT Kaela Underwood MD [facility] [address] [facility] [address] [place], [place] [address] (Wo rk) Social History Tobacco Use Types Packs/Day Years Used Date Smoking Tobacco: Never Assessed Sex Assigned at Date Recorded Not on file documented as of this encounter Plan of Treatment Not on filedocumented as of this encounter Procedures Procedure Name Priority Date/Time Associated Comments Diagnosis HEMOGLOBIN Timed 06/15/2004 12:17 PM Results for this POTTER OR CERAMIC ARTIST procedure are i n the results section. RH IMMUNE GLOBULIN Routine 06/15/2004 7:00 AM Res ults for this SCREEN POTTER OR CERAMIC ARTIST procedure are i n the results section. HEMOGLOBIN Routine 06/15/2004 7:00 AM Results f or this POTTER OR CERAMIC ARTIST procedure are i n the results section. documented in this encounter Results (ABNORMAL) Hemoglobin (06/15/2004 12:17 PM POTTER OR CERAMIC ARTIST) athologist Signature Hemoglobin 9.2 (L) 11.7 - 15.7 MISYS g/dL Specimen Anatomical Collection Method Collection Time Receive d Time (Source) Location / / Volume Laterality 06/15/2004 12:17 06/15/2004 PM POTTER OR CERAMIC ARTIST 12:00 PM POTTER OR CERAMIC ARTIST Desire White MD LAB - BLOOD ORDERABLES Performing Organization Address City/State/ZIP Code Phon e Number MISYS (ABNORMAL) Hemoglobin (06/15/2004 7:00 AM POTTER OR CERAMIC ARTIST) P athologist Signature Hemoglobin 8.9 (L) 11.7 - 15.7 MIS[place] g/dL Specimen (Source) Anatomical Collection Method Collection Time Re ceived Time Location / / Volume Laterality 06/15/2004 7:00 AM 5 POTTER OR CERAMIC ARTIST Yony Underwood MD LAB - BLOOD ORDERABLES Performing Organization Address [facility] Phon e Number MISYS Rh Immune Globulin Study (06/15/2004 7:00 AM POTTER OR CERAMIC ARTIST) Patholo gist Method Time Signature ABO O MISYS RH(D) Neg MISYS Blood Neg MISYS Screen Blood Bank Antibody MISYS Comment screening not done due to Rhogam Comment: Suitable for Rh Immunoglobulin 1 vial Rh Immune Globulin required Specimen Anatomical Collection Method Collection Time Receive d Time (Source) Location / / Volume Laterality 06/15/2004 7:00 AM 5 8:05 POTTER OR CERAMIC ARTIST PM POTTER OR CERAMIC ARTIST Yony Underwood MD LAB - BLOOD BANK TEST ORDER Performing Organization Address [facility] Phon e Number MISYS documented in this encounter Visit Diagnoses Not on filedocumented in this encounter
--- OUTSIDE RECORDS SUMMARY | 2022-04-10 14:24 | XMS_ITS | Encounter Summary ---
:1970 Author Organization [place] Address [address] [place] [address]. [place] [address] Care Team Providers Name Role Phone Unavailable Primary Care Provider Unavailable Encounter Details Date Type Department Care Team Description 10/16/2009 [facility] Results EMERGENCY PHYSIC DIONE PARKINSON [address] [place], [place] [phone] (Wo rk) Social History Tobacco Use Types Packs/Day Years Used Date Smoking Tobacco: Never Assessed Sex Assigned at Date Recorded Not on file documented as of this encounter Plan of Treatment Not on filedocumented as of this encounter Procedures Procedure Name Priority Date/Time Associated Diagnosis Comme nts CHEST TWO VIEWS, Routine 10/16/2009 9:37 PM Re sults for this FRONT/LAT CDT procedure are i n the results section. documented in this encounter Results CHEST X-RAY 2 VW (10/16/2009 9:37 PM CDT) Anatomical Region Laterality Modality Other Specimen (Source) Anatomical Collection Method Collection Time Re ceived Time Location / / Volume Laterality 10/16/2009 9:37 PM CDT Impressions 10/17/2009 7:13 AM CDT CHEST TWO VIEW* Oct 16, 2009 9:37:00 PM HISTORY: Chest pain. FINDINGS: Negative. Ania Gore MD GENERAL IMAGING documented in this encounter Visit Diagnoses Not on filedocumented in this encounter
--- OUTSIDE RECORDS SUMMARY | 2022-04-10 14:24 | XMS_ITS | Encounter Summary ---
:1970 Author Organization [place] Address [facility] [place] [address] Care Team Providers Name Role Phone Unavailable Primary Care Provider Unavailable Encounter Details Date Type Department Care Team Description 10/17/2009 Emergency room [facility] Henrique Garcia , [facility] Results MD EMERGENCY PHYSIC DIONE PARKINSON [address] [place] [phone] (Wo rk) Social History Tobacco Use Types Packs/Day Years Used Date Smoking Tobacco: Never Assessed Sex Assigned at Date Recorded Not on file documented as of this encounter Progress Notes Henrique Garcia - 10/19/2009 6:08 PM CDT FINAL CPEU DISCHARGE SUMMARY HISTORY OF PRESENT ILLNESS: Please see Dr. Gore's notes for full details. She admitted the patient to the CPEU. Briefly the patient complained of some pain along her left lower rib margin and distal to the sternum. She said felt a rumbling in there, intermittent sharp twinges of pain which have been lasting seconds at a time. She had been admitted to the CPEU yesterday for workup for this. The patient underwent a stress test and reports the pain is still as coming and going. PHYSICAL EXAMINATION: GENERAL: The patient is a well-developed 39-year-old female in no respiratory distress, alert, pleasant and appropriate. VITAL SIGNS: Blood pressure 111/59, pulse 99, respirations 20, satting 99% on room air. HEENT: Pupils are equal, round, reactive. HEME: No signs of active bleeding. LYMPHATICS: No adenopathy. CARDIOVASCULAR: Regular rate and rhythm, good pulses. RESPIRATORY: Lungs are clear. GASTROINTESTINAL: Soft with palpation distal to the xiphoid just lateral to this on the left side there is a little bit of discomfort and it recreates the pain. There is no guarding or rebound, however. SKIN: Cool, pink and dry. NEUROLOGIC: The patient is intact. LABORATORY AND DIAGNOSTICS: The patient's labs were reviewed and her stress test as well read by the radiologist as normal. Her serial troponins were normal. Chest x-ray was normal. EMERGENCY DEPARTMENT COURSE AND DECISION MAKING: The patient complained that the pain was mainly inher abdomen, felt a rumbling and very unusual seconds of pain. She was not tender over her gallbladder. I did feel this is unlikely for ACS as well as a story very inconsistent with PE as well. The patient will be started on Levsin to try to help with this. She was instructed to follow up and I did tell her to return if symptoms do worsen or change. PLAN: Use Levsin, fluids, rest, return if new symptoms or problems and follow up with her doctor for reassessment in 2 days. Electronically signed on 10/19/2009 18:08 by HENRIQUE GARCIA MD MT: [id number] Name: POLLY CASE Account: [id number] : 1970 Visit Date: 10/17/2009 Document: [id number] cc: [facility] documented in this encounter Plan of Treatment Not on filedocumented as of this encounter Visit Diagnoses Not on filedocumented in this encounter
--- OUTSIDE RECORDS SUMMARY | 2022-04-10 14:24 | XMS_ITS | Encounter Summary ---
:1970 Author Organization [facility] Address [address] [place] [address]. [place] [address] Care Team Providers Name Role Phone [facility] Primary Care Provider [phone] Encounter Details Date Type Department Care Team Description 08/12/[address] [facility] Heart Unknown, [facility] ider [address] [address] Social History Tobacco Use Types Packs/Day Years Used Date Smoking Tobacco: Never Assessed Sex Assigned at Date Recorded Not on file documented as of this encounter Plan of Treatment Not on filedocumented as of this encounter Procedures Procedure Name Priority Date/Time Associated Diagnosis Comme nts NUCLEAR CARDIAC - HIM 08/12/2004 12:00 AM CDT SCAN - ARCHIVE documented in this encounter Results NUCLEAR CARDIAC - HIM SCAN - ARCHIVE (08/12/2004 12:00 AM CDT) Anatomical Region Laterality Modality Other Specimen (Source) Anatomical Location Collection Method / Collectio n Time Received Time / Laterality Volume 08/12/2004 Narrative This result has an attachment that is no t available. Provider Scan IMG NM ORDERABLES documented in this encounter Visit Diagnoses Not on filedocumented in this encounter Care Teams Shale Planer Operator Relationship Specialty Start Date End Date [facility] PCP - General 12/28/[address] [place] [address] documented as of this encounter
--- OUTSIDE RECORDS SUMMARY | 2022-04-10 14:24 | XMS_ITS | Encounter Summary ---
:1970 Author Organization [facility] Address [address] [place] [address]. [place] [address] Care Team Providers Name Role Phone Unavailable Primary Care Provider Unavailable Encounter Details Date Type Department Care Team Description 10/16/2009 Historic Results INTERFACED REPORT Interface, Yoni domínguez MD Social History Tobacco Use Types Packs/Day Years Used Date Smoking Tobacco: Never Assessed Sex Assigned at Date Recorded Not on file documented as of this encounter Plan of Treatment Not on filedocumented as of this encounter Procedures Procedure Name Priority Date/Time Associated Diagnosis Comme nts EKG 12 LEAD Routine 10/16/2009 8:35 PM Results f or this CDT procedure are i n the results section . documented in this encounter Results EKG 12 LEAD (10/16/2009 8:35 PM CDT) Component Value Ref Range Test Analysis Performed Pathologis t Method Time At Signature Ventricular Rate 90 BPM RADIOLOGY RESULTS Atrial Rate 90 BPM RADIOLOGY RESULTS NE Interval 140 ms RADIOLOGY RESULTS QRS Duration 98 ms RADIOLOGY RESULTS QT 350 ms RADIOLOGY RESULTS QTc 428 ms RADIOLOGY RESULTS P [place] 74 degrees RADIOLOGY RESULTS R AXIS 79 degrees RADIOLOGY RESULTS T [place] 56 degrees RADIOLOGY RESULTS Interpretation Sinus rhythm RADIOLOGY ECG Normal ECG RESULTS Unconfirmed report - interpretation of this ECG is compute r generated - see medical record for final interpretation Specimen Anatomical Collection Method Collection Time Receive d Time (Source) Location / / Volume Laterality 10/16/2009 8:35 PM 0 CDT 10:13 AM CDT Transcripton Interface ECG ORDERABLES Performing Organization Address City/State/ZIP Code Phon e Number RADIOLOGY RESULTS documented in this encounter Visit Diagnoses Not on filedocumented in this encounter
--- OUTSIDE RECORDS SUMMARY | 2022-04-10 14:24 | XMS_ITS | Encounter Summary ---
:1970 Author Organization [facility] Address [address] [place] [address]. [place] [address] Care Team Providers Name Role Phone Unavailable Primary Care Provider Unavailable Encounter Details Date Type Department Care Team Description 08/10/2004 Historic Results INTERFACED REPORT Alberto Leal MD EMERGENCY PHYSIC [facility] [address] [place] [address] (Wo rk) Social History Tobacco Use Types Packs/Day Years Used Date Smoking Tobacco: Never Assessed Sex Assigned at Date Recorded Not on file documented as of this encounter Plan of Treatment Not on filedocumented as of this encounter Procedures Procedure Name Priority Date/Time Associated Comments Diagnosis TROPONIN I Timed 08/10/2004 10:40 Results for this PM ULTRASONIC SEAMING MACHINE OPERATOR procedure are i n the results section. MYOGLOBIN Timed 08/10/2004 10:40 Results for this PM ULTRASONIC SEAMING MACHINE OPERATOR procedure are i n the results section. HCG QUALITATIVE URINE STAT 08/10/2004 10:30 Re sults for this PM ULTRASONIC SEAMING MACHINE OPERATOR procedure are i n the results section. TROPONIN I STAT 08/10/2004 6:25 PM Results f or this ULTRASONIC SEAMING MACHINE OPERATOR procedure are i n the results section. HEMOGRAM DIFFERENTIAL STAT 08/10/2004 6:25 PM Results for this AND PLATELET ULTRASONIC SEAMING MACHINE OPERATOR procedure are i n the results section. TSH WITH FREE T4 REFLEX STAT 08/10/2004 6:25 PM Results for this ULTRASONIC SEAMING MACHINE OPERATOR procedure are i n the results section. INR STAT 08/10/2004 6:25 PM Results f or this ULTRASONIC SEAMING MACHINE OPERATOR procedure are i n the results section. PARTIAL THROMBOPLASTIN STAT 08/10/2004 6:25 PM Results for this TIME ULTRASONIC SEAMING MACHINE OPERATOR procedure are i n the results section. MYOGLOBIN STAT 08/10/2004 6:25 PM Results f or this ULTRASONIC SEAMING MACHINE OPERATOR procedure are i n the results section. D DIMER QUANTITATIVE STAT 08/10/2004 6:25 PM R esults for this ULTRASONIC SEAMING MACHINE OPERATOR procedure are i n the results section. BASIC METABOLIC PANEL STAT 08/10/2004 6:25 PM Results for this ULTRASONIC SEAMING MACHINE OPERATOR procedure are i n the results section. documented in this encounter Results Myoglobin (08/10/2004 10:40 PM ULTRASONIC SEAMING MACHINE OPERATOR) athologist Signature Myoglobin 14 <120 ug/L MISYS Specimen Anatomical Collection Method Collection Time Receive d Time (Source) Location / / Volume Laterality 08/10/2004 10:40 08/10/2004 PM ULTRASONIC SEAMING MACHINE OPERATOR 10:25 PM ULTRASONIC SEAMING MACHINE OPERATOR Rowena Leal MD LAB - BLOOD ORDERABLES Performing Organization Address [facility] Phon e Number MISYS Troponin I (08/10/2004 10:40 PM ULTRASONIC SEAMING MACHINE OPERATOR) athologist Signature Troponin I <0.07 0.00 - 0.40 MISYS ug/L Specimen Anatomical Collection Method Collection Time Receive d Time (Source) Location / / Volume Laterality 08/10/2004 10:40 08/10/2004 PM ULTRASONIC SEAMING MACHINE OPERATOR 10:25 PM ULTRASONIC SEAMING MACHINE OPERATOR Rowena Leal MD LAB - BLOOD ORDERABLES Performing Organization Address [facility] Code Phon e Number MISYS HCG qualitative urine (08/10/2004 10:30 PM ULTRASONIC SEAMING MACHINE OPERATOR) athologist Signature HCG Qual Urine Negative NEG MISYS Specimen Anatomical Collection Method Collection Time Receive d Time (Source) Location / / Volume Laterality 08/10/2004 10:30 08/10/2004 PM ULTRASONIC SEAMING MACHINE OPERATOR 10:48 PM ULTRASONIC SEAMING MACHINE OPERATOR Rowena Leal MD LAB - URINE ORDERABLES Performing Organization Address [facility]/ZIP [facility] Phon e Number MISYS Hemogram differential and platelet (08/10/2004 6:25 PM ULTRASONIC SEAMING MACHINE OPERATOR) [facility] gist Method Time Signature MCV 93 78 - 100 MISYS fl MCH 30.2 26.5 - MISYS 33.0 pg MCHC 32.7 32.0 - MISYS 36.0 g/dL RDW 10.9 10.0 - MISYS 15.0 % WBC 7.7 4.0 - MISYS 11.0 10e9/L RBC Count 4.39 3.8 - 5.2 MISYS 10e12/L Hemoglobin 13.3 11.7 - MISYS 15.7 g/dL Hematocrit 40.6 35.0 - MISYS 47.0 % % Neutrophils 73 40 - 75 % MISYS % Lymphocytes 21 20 - 48 % MISYS % Monocytes 6 0 - 12 % MISYS % Eosinophils 0 0 - 6 % MISYS % Basophils 0 0 - 2 % MISYS Platelet Count 278 150 - 450 MISYS 10e9/L Absolute 5.6 1.6 - 8.3 MISYS Neutrophil 10e9/L Absolute 1.6 0.8 - 5.3 MISYS Lymphocytes 10e9/L Absolute 0.4 0.0 - 1.3 MISYS Monocytes 10e9/L Absolute 0.0 0.0 - 0.7 MISYS Eosinophils 10e9/L Absolute 0.0 0.0 - 0.2 MISYS Basophils 10e9/L Diff Method Automated MISYS Method Specimen Anatomical Collection Method Collection Time Receive d Time (Source) Location / / Volume Laterality 08/10/2004 6:25 PM 5 5:54 ULTRASONIC SEAMING MACHINE OPERATOR PM ULTRASONIC SEAMING MACHINE OPERATOR Rowena Leal MD LAB - BLOOD ORDERABLES Performing Organization Address City/State/ZIP Code Phon e Number MISYS INR (08/10/2004 6:25 PM ULTRASONIC SEAMING MACHINE OPERATOR) P athologist Signature INR 0.98 0.86 - 1.14 MISYS Specimen Anatomical Collection Method Collection Time Receive d Time (Source) Location / / Volume Laterality 08/10/2004 6:25 PM 5 5:54 ULTRASONIC SEAMING MACHINE OPERATOR PM ULTRASONIC SEAMING MACHINE OPERATOR Rowena Leal MD LAB - BLOOD ORDERABLES Performing Organization Address City/State/ZIP Code Phon e Number MISYS Partial thromboplastin time (08/10/2004 6:25 PM ULTRASONIC SEAMING MACHINE OPERATOR) P athologist Signature PTT 29 22 - 37 sec MISYS Specimen Anatomical Collection Method Collection Time Receive d Time (Source) Location / / Volume Laterality 08/10/2004 6:25 PM 5 5:54 ULTRASONIC SEAMING MACHINE OPERATOR PM ULTRASONIC SEAMING MACHINE OPERATOR Rowena Leal MD LAB - BLOOD ORDERABLES Performing Organization Address City/State/ZIP Code Phon e Number MISYS D dimer quantitative (08/10/2004 6:25 PM ULTRASONIC SEAMING MACHINE OPERATOR) athologist Signature D Dimer 0.2 0.0 - 0.50 MISYS ugFEU/mL Comment: Reviewed, acceptable Specimen Anatomical Collection Method Collection Time Receive d Time (Source) Location / / Volume Laterality 08/10/2004 6:25 PM 5 5:54 ULTRASONIC SEAMING MACHINE OPERATOR PM ULTRASONIC SEAMING MACHINE OPERATOR Rowena Leal MD LAB - BLOOD ORDERABLES Performing Organization Address City/State/ZIP Code Phon e Number MISYS Basic metabolic panel (08/10/2004 6:25 PM ULTRASONIC SEAMING MACHINE OPERATOR) athologist Signature Sodium 144 133 - 144 MISYS mmol/L Potassium 3.7 3.4 - 5.3 MISYS mmol/L Chloride 105 94 - 109 MISYS mmol/L Carbon Dioxide 29 20 - 32 MISYS mmol/L Glucose 105 60 - 110 MISYS mg/dL Urea Nitrogen 9 5 - 24 MISYS mg/dL Creatinine 0.60 0.60 - MISYS 1.30 mg/dL GFR Estimate >80 >60 MISYS mL/min/1.7 m2 GFR Estimate If >80 >60 MISYS Black mL/min/1.7 m2 Calcium 9.4 8.5 - 10.4 MISYS mg/dL Anion Gap 11 6 - 17 MISYS mmol/L Specimen Anatomical Collection Method Collection Time Receive d Time (Source) Location / / Volume Laterality 08/10/2004 6:25 PM 5 5:54 ULTRASONIC SEAMING MACHINE OPERATOR PM ULTRASONIC SEAMING MACHINE OPERATOR Rowena Leal MD LAB - BLOOD ORDERABLES Performing Organization Address City/State/ZIP Code Phon e Number MISYS Myoglobin (08/10/2004 6:25 PM ULTRASONIC SEAMING MACHINE OPERATOR) athologist Signature Myoglobin 11 <120 ug/L MISYS Specimen Anatomical Collection Method Collection Time Receive d Time (Source) Location / / Volume Laterality 08/10/2004 6:25 PM 5 5:54 ULTRASONIC SEAMING MACHINE OPERATOR PM ULTRASONIC SEAMING MACHINE OPERATOR Rowena Leal MD LAB - BLOOD ORDERABLES Performing Organization Address City/State/ZIP Code Phon e Number MISYS Troponin I (08/10/2004 6:25 PM ULTRASONIC SEAMING MACHINE OPERATOR) athologist Signature Troponin I <0.07 0.00 - 0.40 MISYS ug/L Specimen Anatomical Collection Method Collection Time Receive d Time (Source) Location / / Volume Laterality 08/10/2004 6:25 PM 5 5:54 ULTRASONIC SEAMING MACHINE OPERATOR PM ULTRASONIC SEAMING MACHINE OPERATOR Rowena Leal MD LAB - BLOOD ORDERABLES Performing Organization Address City/[facility] Code Phon e Number MISYS TSH with free T4 reflex (08/10/2004 6:25 PM ULTRASONIC SEAMING MACHINE OPERATOR) athologist Signature TSH 3.06 0.4 - 5.0 MISYS mU/L Specimen Anatomical Collection Method Collection Time Receive d Time (Source) Location / / Volume Laterality 08/10/2004 6:25 PM 5 5:54 ULTRASONIC SEAMING MACHINE OPERATOR PM ULTRASONIC SEAMING MACHINE OPERATOR Rowena Leal MD LAB - BLOOD ORDERABLES Performing Organization Address City/State/[facility] Code Phon e Number MISYS documented in this encounter Visit Diagnoses Not on filedocumented in this encounter
--- NOTE | 2022-04-10 14:30 | CRLHL7_ITS ---
For Patients: As a result of the Century Cures Act, medical imaging exams and procedure reports are released immediately into your electronic medical record. You may view this report before your referring provider. If you have questions, please contact your health care provider. INDICATION: Headaches with vomiting. TECHNIQUE: Multiplanar multisequence noncontrast MR images acquired through the brain. COMPARISON: None. FINDINGS: The ventricles and sulci are within normal limits for patient age. No mass effect or midline shift. No parenchymal signal abnormalities. No intracranial hemorrhage or pathologic extra-axial fluid collection. No diffusion restriction to suggest acute infarction. The major arterial flow voids of the skullbase are preserved. The globes are symmetric. The paranasal sinuses are well aerated. The mastoid air cells are clear. IMPRESSION: Unremarkable noncontrast MRI of the brain. Dictated by Fernando Nathan MD @ 04/10/2022 3:50:48 PM (Electronically Signed)
== END 2022-04-10 14:07 | disposition home or self-care (01) ==
LOC: MRI 14:07
PROVIDERS: PCP Physician Assistant Medical; Visit Provider Physician Assistant Medical
DX: R51.9 Headache, unspecified (principal); R11.10 Vomiting, unspecified
CPT/HCPCS: 70551

== ENCOUNTER 2022-09-04 10:27 | Outpatient (CLI) | payer OTHER, SELFPAY | END 2022-09-04 10:28 | disposition home or self-care (01) | PROVIDERS: PCP Physician Assistant Medical; Visit Provider Physician Assistant Medical | DX: Z00.00 Encounter for general adult medical examination without abnormal findings (principal); D50.9 Iron deficiency anemia, unspecified; Z13.29 Encounter for screening for other suspected endocrine disorder; Z13.6 Encounter for screening for cardiovascular disorders | CPT/HCPCS: 80053; 80061; 83540; 84443 ==

== ENCOUNTER 2022-11-03 13:18 | Outpatient (CLI) | payer OTHER, SELFPAY ==
--- NOTE | 2022-11-03 13:20 | CRLHL7_ITS ---
For Patients: As a result of the Century Cures Act, medical imaging exams and procedure reports are released immediately into your electronic medical record. You may view this report before your referring provider. If you have questions, please contact your health care provider. BILATERAL SCREENING MAMMOGRAM WITH COMPUTER-AIDED DETECTION AND TOMOSYNTHESIS TECHNIQUE: CC and MLO views were obtained. These mammographic images have been obtained using full-field digital technique. These mammographic images were interpreted with the benefit of computer-aided detection. Breast Tomosynthesis was used in this interpretation. COMPARISON FILM: 10/25/21, 10/24/20, 10/24/19. FINDINGS: There are scattered areas of fibroglandular density IMPRESSION: There is no radiographic evidence for malignancy. ASSESSMENT: BI-RADS Category 1: Negative RECOMMENDATION: Routine screening mammogram in 1 year. A lay language report of this examination will be provided to the patient. Bob Bryant M.D. Diagnostic Radiologist [email or web address] GENET/Dictated by: Bob Bryant MD @ 11/04/2022 8:54:00 AM (Electronically Signed)
== END 2022-11-03 13:19 | disposition home or self-care (01) ==
PROVIDERS: PCP Physician Assistant Medical; Visit Provider Physician Assistant Medical
DX: Z12.31 Encounter for screening mammogram for malignant neoplasm of breast (principal)
CPT/HCPCS: 77063; 77067

== ENCOUNTER 2023-11-13 12:40 | Outpatient (CLI) | payer OTHER, SELFPAY ==
--- OUTSIDE RECORDS SUMMARY | 2023-11-13 12:43 | XMS_ITS | Encounter Summary ---
Author Organization [facility] Address [address] [place] [address]. [place] [address] Care Team Providers Care Plastic Process Technician Name Role Phone [facility] Primary Care Provider Encounter Details Date Type Department Care Team (Late st Contact Info) Description 08/15/2021 Documentation Only INTERFACED REPORT Unknown, Provider Social History Tobacco Use Types Packs/Day Years Used Date Smoking Tobacco: Never Assessed Sex and Gender Information Value Date Recorded Sex Assigned at Not on file Gender Identity Not on file Sexual Orientation Not on file COVID-19 Exposure Response Date Recorded In the last month, have you been in contact with someone who was confirmed or suspected to have Coronavirus / COVID-19? No / Unsure 08/14/2021 7:34 PM CDT documented as of this encounter Plan of Treatment Not on file documented as of this encounter Visit Diagnoses Not on filedocumented in this encounter Care Teams Plastic Process Technician Relationship Specialty Start Date End Date [facility] [address] [place] [id number] PCP - General 12/28/12 documented as of this encounter
--- OUTSIDE RECORDS SUMMARY | 2023-11-13 12:43 | XMS_ITS | Clinical Summary ---
Author Organization [facility] Address [address], [place] [address] Care Team Providers Care Insole And Heel Stiffener Name Role Phone Clinician, Not Found MD Primary Care Provider Un available Source Comments You are receiving this document as you are listed as the primary care provider,follow-up provider, or the patient has been referred to you for consultation.This is in compliance with the Medicare and[place]health[place] EHR Incentive Program,which states Providers who transition their patient to another setting of careor provider of care or refers their patient to another provider of care shouldprovide summary care record for each transition of care or referral. [employer] Allergies Active Allergy Reactions Criticality Noted Date Comments Iodides 05/27/1999 Iodine 06/07/2003 PN: ANAPHYLAXIS Other 04/04/2005 PN: - control pills-hives Penicillins 06/07/2003 PN: HIVES Medications Medication Sig Dispensed Refills Start Date End Date Status PAXIL 10MG ORAL TABS 1 po qd 30 1 12/23/2002 Active ALBUTEROL IN Inhale 1-2 puffs every 4 hours as needed. LW Comment:WITH SPACER 3 08/24/2008 Active LORazepam (ATIVAN) 0.5 MG tablet Take 0.5 mg by mouth every 6 hours as needed for Anxiety. 07/07/2013 Active Probiotic Product (PROBIOTIC OR) Take 1 capsule by mouth daily (every 24 hours). 12/20/2015 Active ranitidine (ZANTAC) 150 MG tablet Take 150 mg by mouth nightly. 12/20/2015 Active Active Problems Problem Noted Date Diagnosed Date Anxiety state 07/26/2007 Overview: Anxiety NOS Allergic rhinitis 07/26/2007 Overview: Rhinitis Allergic NOS Anemia 07/26/2007 Overview: Anemia NOS Amblyopia 08/05/2006 Overview: Amblyopia NOS Immunizations Name Administration Dates Next Due Flu Vac Preserv Free (3+yrs) 02/14/2008, 03/09/2007,02/28/2004, 003 HepB Adult (Engerix-B, 20+ y rs, 3 dose series) 08/24/2003,03/24/2003,02/03/2003 Rho(D) - IG, IM 03/01/2004,08/07/1997,05/08/1997 Td 05/10/2001,10/31/1999 Varicella 12/25/1998(Deferred: Immune by Angie mayes) Social History Tobacco Use Types Packs/Day Years Used Date Smoking Tobacco: Never Smokeless Tobacco: Never Sex and Gender Information Value Date Recorded Sex Assigned at Not on file Gender Identity Not on file Sexual Orientation Not on file Last Filed Vital Signs Vital Sign Reading Time Taken Comments Blood Pressure 141/71 07/07/2013 8:20 AM MARSHMALLOW MAKER Pulse 119 07/07/2013 8:20 AM MARSHMALLOW MAKER Temperature 37.4 ??C (99.3 ??F) 07/25/2008 8 :04 AM CDT C: 37.4 C Respiratory Rate 14 07/07/2013 8:20 AM MARSHMALLOW MAKER Oxygen Saturation 100% 01/06/2008 6:2 6 PM CDT Inhaled Oxygen Concentration - - Weight 60.8 kg (133 lb 15.9 oz) 008 4:09 PM CDT C: 60.8kg Height 170.2 cm (5' 7) 07/26/2007 3:40 PM CDT C: 170.2cm Body Mass Index 20.99 07/26/2007 3:40 PM CDT Plan of Treatment Health Maintenance Due Date Last Done Comments Colon Cancer Screening Plan Due 1970 Hep C Screening (Preventive Services) 1970 HIV Screening (Preventive Services) 1984 Adult Preventive Visit 06/23/2002 06/23/2001 Cervical Cancer Screening Due 02/19/2011 02/18/2011, 09/06/2007, 08/07/2006, Additional history exists Cholesterol 2013 07/26/2006, 08/10, 11/17/2001 Mammogram 06/21/2014 06/21/2013, 1008/2010, 06/28/2009, Additional history exists COVID-19 Vaccine ( season) 2023 08/21/2020 Influenza (Season Ended) 2024 020, 01/27/2019, 02/16/2018, Additional history exists DTaP/Tdap/Td (2 - Tdap) 02/08/2024 02/08/20 14, 05/10/2001, 10/31/1999 HepB Completed 08/24/2003, 03/11, 02/03/2003 Zoster/Shingles Completed 09/27/2019, 05/24/2019 HepA Aged Out No longer eligi ble based on patient's age to complete this topic Hib Aged Out No longer eligi ble based on patient's age to complete this topic IPV (Polio) Aged Out No longer eligi ble based on patient's age to complete this topic MCV4 Aged Out No longer eligi ble based on patient's age to complete this topic Pneumococcal Aged Out No longer eligi ble based on patient's age to complete this topic Procedures Procedure Name Priority Date/Time Associated Diagnosis Comments MM MAMMOGRAM SCREENING BILAT W CAD Routine 02/11/2011 10:22 AM CDT Other screening mammogram ANATOMICAL PATH LIQUID BASED Routine 09/06/2007 8:52 AM CDT LIPID PANEL & DIRECT LDL (IF NEEDED) Routine 07/26/2006 11:07 AM CDT from Last 3 Months or Most Recently Relevant to Health Maintenance Results * (ABNORMAL) MM Mammogram Screening Bilat W CAD (02/11/2011 10:22 AM CDT) Anatomical Region Laterality Modality Breast Bilateral Mammography Impressions 02/12/2011 1:41 PM CDT IMPRESSION: LEFT BREAST: Focal asymmetry at a middle depth. Spot compression and ultrasound are recommended at this time. RIGHT BREAST: Negative, no evidence of malignancy. Normal interval follow-up is recommended in 12 months. W OVERALL ASSESSMENT - CATEGORY 0 - INCOMPLETE: NEED ADDITIONAL IMAGING EVALUATION END OF IMPRESSION Narrative 02/12/2011 1:41 PM CDT Comparison is made to films from 06/28/2009 (bilateral) and films from 12/01/2007 (bilateral). Left Breast Findings: The breast is heterogeneously dense (51% - 75% fibroglandular). This may lower the sensitivity of mammography. An area of focal asymmetry is present at a middle depth and is seen only in the Medial Lateral Oblique Left projection superiorly. Right Breast Findings: The breast is heterogeneously dense (51% - 75% fibroglandular). This may lower the sensitivity of mammography. No significant masses, calcifications or other abnormalities are seen. Procedure Note Jemal Chacon MD - 01/08/2016 Comparison is made to films from 06/28/2009 (bilateral) and films from 12/01/2007 (bilateral). Left Breast Findings: The breast is heterogeneously dense (51% - 75% fibroglandular). This may lower the sensitivity of mammography. An area of focal asymmetry is present at a middle depth and is seen only in the Medial Lateral Oblique Left projection superiorly. Right Breast Findings: The breast is heterogeneously dense (51% - 75% fibroglandular). This may lower the sensitivity of mammography. No significant masses, calcifications or other abnormalities are seen. IMPRESSION IMPRESSION: LEFT BREAST: Focal asymmetry at a middle depth. Spot compression and ultrasound are recommended at this time. RIGHT BREAST: Negative, no evidence of malignancy. Normal interval follow-up is recommended in 12 months. W OVERALL ASSESSMENT - CATEGORY 0 - INCOMPLETE: NEED ADDITIONAL IMAGING EVALUATION END OF IMPRESSION Jorge Alvarado MD RAD MAY * Pap Smear (09/06/2007 8:52 AM CDT) PAP Smear Liquid Based SEE TEXT No normal range HP CONVERSION Comment: Patient: POLLY CASE ? CERVICAL CYTOLOGY REPORT Pathology # ??[id number] ?Date Obtained: ? Date Received: CYTOLOGIC IMPRESSION: Negative for intraepithelial lesion or malignancy. Verified 09/09/07 by: ? (electronic signature) ? ADDITIONAL DATA LMP: CLINICAL HIST LIQUID BASED PAP CERVICAL SPECIMEN ADEQUACY: ?? Satisfactory. ENDOCERVICAL CELLS: ??Present. 09/06/2007 8:52 AM CDT Alida Hare MD LAB_1 Performing Organization Address [facility] Co de Phone Number HP CONVERSION * Lipid Panel and Direct LDL(If Needed) (07/26/2006 11:07 AM CDT) Hours Fasting 12.0 Hours HP CONVERSION Cholesterol/HDL Ratio Screen 2.7 No normal range HP CONVERSION Cholesterol 157 <200 mg/dL HP CONVERSION HDL Cholesterol 59 40 - 60 mg/dL HP CONVERSION Triglycerides 56 0 - 149 mg/dL HP CONVERSION LDL Calculated 87 0 - 130 mg/dL HP CONVERSION Comment: 07/26/2006 11:0 7 AM CDT Janelle Jacobo MD LAB_1 Performing Organization Address [facility] de Phone Number HP CONVERSION from Last 3 Months or Most Recently Relevant to Health Maintenance Care Teams Insole And Heel Stiffener Relationship Specialty Start Date End Date Clinician, Not Found, [place] [address] PCP - General 11/03/13
--- OUTSIDE RECORDS SUMMARY | 2023-11-13 12:43 | XMS_ITS | Clinical Summary ---
Author Organization [place] Address [address] [place] [address]. 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 Machine Operator Name Role Phone Clinic, [facility], [place] Primary Care Provider Allergies Active Allergy Reactions Criticality Noted Date Comments Iodine I 131 Tositumomab 12/27/2012 Penicillins 12/27/2012 Medications Medication Sig Dispensed Refills Start Date End Date Status prochlorperazine (COMPAZINE) 10 MG tablet Take 1 tablet (10 mg) by mouth every 6 hours as needed for nausea or vomiting (headache) 20 tablet 08/14/2021 Active Social History Tobacco Use Types Packs/Day Years Used Date Smoking Tobacco: Never Assessed Adolescent Education Answer Date Record ed Getting School Help Needed Not on file 02/14 Sex and Gender Information Value Date Recorded [...] OF HM ORDERS 1968 CT COLONOGRAPHY 1968 FIT 1968 FLEX SIG 1968 MAMMO SCREENING 1968 sDNA (Cologuard) 1968 COLONOSCOPY 1978 COLORECTAL CANCER SCREENING 1978 HIV SCREENING 07/11/1983 HEPATITIS C SCREENING 1986 PAP 1989 YEARLY PREVENTIVE VISIT 06/23/2002 06/23/2001 LIPID 2008 GLUCOSE 12/29/2015 12/28/2012, 06/0 12/2009, 08/10/2004 ZOSTER IMMUNIZATION (1 of 2) 2018 COVID-19 Vaccine ( season) 2023 PHQ-2 (once per calendar year) 2023 INFLUENZA VACCINE (Season Ended) 2024 02/16/2018, 03/16/2013, 01/30/2012, Additional history exists DTAP/TDAP/TD IMMUNIZATION (2 - Td or Tdap) 02/08/2024 02/07/2014, 05/10/2001, 05/10/2001, Additional history exists HEPATITIS B IMMUNIZATION Completed 004, 03/24/2003, 02/03/2003 HPV IMMUNIZATION Aged Out No longer e ligible based on patient's age to complete this topic IPV IMMUNIZATION Aged Out No longer e ligible based on patient's age to complete this topic MENINGITIS IMMUNIZATION Aged Out No l onger eligible based on patient's age to complete this topic Pneumococcal Vaccine: Pediatrics (0 to 5 Years) and At-Risk Patients (6 to 64 Years) Aged Out No longer eligible based on patient's age to complete this topic RSV MONOCLONAL ANTIBODY Aged Out No l onger eligible based on patient's age to complete this topic Procedures Procedure Name Priority Date/Time Associated Diagnosis Comments BASIC METABOLIC PANEL STAT 12/28/2012 12:14 AM CDT from Last 3 Months or Most Recently Relevant to Health Maintenance Results * (ABNORMAL) Basic metabolic panel (BMP) (12/28/2012 12:14 AM CDT) Sodium 141 133 - 144 mmol/L [facility] Potassium 3.4 3.4 - 5.3 mmol/L [facility] Chloride 102 94 - 109 mmol/L [facility] Carbon Dioxide 26 20 - 32 mmol/L [facility] Anion Gap 13 6 - 17 mmol/L [facility] Glucose 90 60 - 99 mg/dL [facility] Urea Nitrogen 9 5 - 24 mg/dL [facility] Creatinine 0.49(L) 0.52 - 1.04 mg/dL [facility] GFR Estimate >90 >60 mL/min/1.7 m2 [facility] GFR Estimate If Black >90 >60 mL/min/1.7 m2 [facility] Calcium 9.2 8.5 - 10.4 mg/dL [facility] Blood specimen (specimen) 12/28/2012 12:14 AM CDT 12/28/2012 12:47 AM CDT Gabe Ratliff MD LAB - BLOOD ALEX ESTEVEZ [facility] Organization Address City/State/ZIP Co de Phone Number [facility] from Last 3 Months or Most Recently Relevant to Health Maintenance Care Teams Stretch Machine Operator Relationship Specialty Start Date End Date Clinic, [facility], [place] [address] [place] [id number] PCP - General 12/28/12
--- OUTSIDE RECORDS SUMMARY | 2023-11-13 12:43 | XMS_ITS | Referral Summary ---
Author Organization [place] Address [address] [place] [address]. [place] [address] Care Team Providers Care Car Packer Name Role Phone [facility], [facility] Primary Care Provider Allergies Active Allergy Reactions [...] 12/27/2012 11:43 PM CDT Plan of Treatment Not on file Procedures Procedure Name Priority Date/Time Associated Diagnosis Comments BASIC METABOLIC PANEL STAT 12/28/2012 12:14 AM CDT from Last 3 Months or Most Recently Relevant to Health Maintenance Results * (ABNORMAL) Basic metabolic panel (BMP) (12/28/2012 12:14 AM CDT) Sodium 141 133 - 144 mmol/L [facility] Potassium 3.4 3.4 - 5.3 mmol/L [facility] Chloride 102 94 - 109 mmol/L [facility] Carbon Dioxide 26 20 - 32 mmol/L [facility] Anion Gap 13 6 - 17 mmol/L [facility] Glucose 90 60 - 99 mg/dL [facility] Urea Nitrogen 9 5 - 24 mg/dL [facility] Creatinine 0.49(L) 0.52 - 1.04 mg/dL [facility] GFR Estimate >90 >60 mL/min/1.7 m2 [facility] GFR Estimate If Black >90 >60 mL/min/1.7 m2 [facility] Calcium 9.2 8.5 - 10.4 mg/dL [facility] Blood specimen (specimen) 12/28/2012 12:14 AM CDT 12/28/2012 12:47 AM CDT Gabe Ratliff MD LAB - BLOOD ALEX ESTEVEZ [facility] Organization Address City/State/ZIP Co de Phone Number [facility] from Last 3 Months or Most Recently Relevant to Health Maintenance Care Teams Car Packer Relationship Specialty Start Date End Date Clinic, [address] [address] [facility] - General 12/28/12
--- NOTE | 2023-11-13 13:00 | CRLHL7_ITS ---
For Patients: As a result of the Century Cures Act, medical imaging exams and procedure reports are released immediately into your electronic medical record. You may view this report before your referring provider. If you have questions, please contact your health care provider. BILATERAL SCREENING MAMMOGRAM WITH COMPUTER-AIDED DETECTION AND TOMOSYNTHESIS TECHNIQUE: CC and MLO views were obtained. These mammographic images have been obtained using full-field digital technique. These mammographic images were interpreted with the benefit of computer-aided detection. Breast Tomosynthesis was used in this interpretation. COMPARISON FILM: 11/03/22, 10/25/21, 10/24/20. FINDINGS: There are scattered areas of fibroglandular density. IMPRESSION: There is no radiographic evidence for malignancy. ASSESSMENT: BI-RADS Category 2: Benign RECOMMENDATION: Routine screening mammogram in 1 year. A lay language report of this examination will be provided to the patient. Obdulio Gerard M.D. Diagnostic/Nuclear Medicine Radiologist [email or web address] SP/Dictated by: Obdulio Gerard MD @ 11/19/2023 8:22:00 AM (Electronically Signed)
== END 2023-11-13 12:41 | disposition home or self-care (01) ==
LOC: MAMMO 12:41
PROVIDERS: PCP Physician Assistant Medical; Visit Provider Physician Assistant Medical
DX: Z12.31 Encounter for screening mammogram for malignant neoplasm of breast (principal)
CPT/HCPCS: 77063; 77067

== ENCOUNTER 2024-06-24 13:28 | Outpatient (CLI) | payer OTHER, SELFPAY ==
[2024-06-24 23:18] LABS: Chlamydia DNA Amplified* NOT DETECTED (No Detected); GC DNA Amplified* NOT DETECTED (No Detected)
== END 2024-06-24 13:29 | disposition home or self-care (01) ==
PROVIDERS: PCP Physician Assistant Medical; Visit Provider Family Medicine
DX: R35.0 Frequency of micturition (principal); Z11.3 Encounter for screening for infections with a predominantly sexual mode of transmission
CPT/HCPCS: 87491; 87591; 88141; 88142

== ENCOUNTER 2024-07-08 08:52 | Outpatient (CLI) | payer OTHER, SELFPAY ==
--- NOTE | 2024-07-08 09:15 | CRLHL7_ITS ---
For Patients: As a result of the Century Cures Act, medical imaging exams and procedure reports are released immediately into your electronic medical record. You may view this report before your referring provider. If you have questions, please contact your health care provider. INDICATION: Follow up ovarian cyst COMPARISON: 11/04/2021 TECHNIQUE: 2D boo scale and color Doppler images were acquired of the pelvis using a transabdominal and transvaginal approach. FINDINGS: Sonographic images demonstrate a normal size and smooth outer contour of the uterus. Uterus measures 7.2 cm in length by 3.1 cm in AP diameter by 4.2 cm in transverse dimension. The myometrium has a normal uniform echotexture. The endometrial lining appears normal and measures 1.4 mm in composite thickness. The right ovary measures 2.0 x 0.8 x 1.1 cm in size and the left ovary measures 2.3 x 0.6 x 0.9 cm. The ovaries demonstrate normal arterial and venous blood flow on color Doppler analysis. There are no suspicious fluid collections within the cul-de-sac. Circumscribed anechoic left adnexal cyst measures 3.9 x 1.6 x 2.5 cm, previously measuring 2.8 x 2.0 x 2.7 cm. IMPRESSION: Resolution of the previously noted right ovarian cyst. Similar simple left adnexal cyst. Dictated by Bob Bryant MD @ 07/10/2024 4:28:59 PM (Electronically Signed)
--- NOTE | 2024-07-08 10:00 | CRLHL7_ITS ---
For Patients: As a result of the Century Cures Act, medical imaging exams and procedure reports are released immediately into your electronic medical record. You may view this report before your referring provider. If you have questions, please contact your health care provider. CLINICAL HISTORY: Urinary frequency COMPARISON: none TECHNIQUE: Ignacio scale and color Doppler images were acquired of the kidneys and urinary bladder. FINDINGS: Simple cyst is present within the midportion of the left kidney measuring 15 x 13 x 10 millimeters. Additional simple cysts left kidney measures 25 x 22 x 22 millimeters. There is no evidence of hydronephrosis, solid mass or calculus. The right kidney measures 10.2cm in length and the left kidney measures 9.2cm in length. The renal cortex appears of normal thickness. The urinary bladder appears normal. Color Doppler images reveal a normal appearance of both ureteral jets. There is no evidence of bladder calculi or diverticula. Prevoid bladder volume 193 cc. Postvoid bladder volume 45 cc. IMPRESSION: No hydronephrosis. Mild postvoid residual bladder volume. Dictated by Bob Bryant MD @ 07/10/2024 4:27:10 PM (Electronically Signed)
== END 2024-07-08 08:53 | disposition home or self-care (01) ==
LOC: US 08:52
PROVIDERS: PCP Physician Assistant Medical; Visit Provider Family Medicine
DX: R35.0 Frequency of micturition (principal); N83.209 Unspecified ovarian cyst, unspecified side
CPT/HCPCS: 76770; 76830; 76856

== ENCOUNTER 2024-11-24 11:23 | Outpatient (CLI) | payer OTHER, SELFPAY ==
--- NOTE | 2024-11-24 11:30 | CRLHL7_ITS ---
For Patients: As a result of the Century Cures Act, medical imaging exams and procedure reports are released immediately into your electronic medical record. You may view this report before your referring provider. If you have questions, please contact your health care provider. INDICATION: BILATERAL SCREENING MAMMOGRAM, ASYMPTOMATIC 54 Y/O FEMALE COMPARISON: 11/13/2023, 11/03/2022, 10/25/2021 TECHNIQUE: Digital mammogram in CC and MLO projections including computer-aided detection (CAD) and tomosynthesis. BREAST COMPOSITION: There are scattered areas of fibroglandular density. FINDINGS: No suspicious findings. ASSESSMENT: BI-RADS 1 Negative RECOMMENDATION: Annual screening mammogram. A lay language report of this examination will be provided to the patient. Dictated by: Bob Bryant MD @ 11/25/2024 09:06:00 (Electronically Signed)
== END 2024-11-24 11:24 | disposition home or self-care (01) ==
PROVIDERS: PCP Physician Assistant Medical; Visit Provider Physician Assistant Medical
DX: Z12.31 Encounter for screening mammogram for malignant neoplasm of breast (principal)
CPT/HCPCS: 77063; 77067

== ENCOUNTER 2024-12-05 13:03 | Outpatient (CLI) | payer OTHER, SELFPAY | END 2024-12-05 13:04 | disposition home or self-care (01) | PROVIDERS: PCP Physician Assistant Medical; Visit Provider Family Medicine | DX: R50.9 Fever, unspecified (principal); R05.1 Acute cough | CPT/HCPCS: 80076; 86618; 87468; 87469; 87484; 87798 ==

== ENCOUNTER 2024-12-12 12:54 | Outpatient (CLI) | payer OTHER, SELFPAY | END 2024-12-12 12:55 | disposition home or self-care (01) | PROVIDERS: PCP Physician Assistant Medical; Visit Provider Family Medicine | DX: R74.8 Abnormal levels of other serum enzymes (principal); R50.9 Fever, unspecified; J98.8 Other specified respiratory disorders; Z11.4 Encounter for screening for human immunodeficiency virus [HIV]; Z11.1 Encounter for screening for respiratory tuberculosis | CPT/HCPCS: 80076; 86038; 86480; 86663; 86664; 86665; 86703 ==

== ENCOUNTER 2025-01-02 10:36 | Outpatient (CLI) | payer OTHER, SELFPAY | END 2025-01-02 10:37 | disposition home or self-care (01) | PROVIDERS: PCP Physician Assistant Medical; Referring Provider Physician Assistant Medical; Visit Provider Family Medicine | DX: R74.8 Abnormal levels of other serum enzymes (principal) | CPT/HCPCS: 80076 ==